=== PATIENT | female | born 2000 | race Caucasian/White ===

== ENCOUNTER 2024-01-21 17:34 | Emergency (ER) | payer OTHER, SELFPAY ==
[2024-01-21 17:37] VITALS: BP 124/76; PULSE 78; RESP 18; TEMP 36.6; O2SAT 100; BMI 24.2
--- NOTE | 2024-01-21 17:44 | CT_ITS ---
The [address] [address] Patient Name: ALYSON BASURTO MRN: [id number] date: 2000 Sex: F Assigned Patient Location: ED.MAIN Current Patient Location: Accession/Order Number: [id number] Exam Date: 01/21/2024 18:45 Report Date: 01/21/2024 20:05 At the request of: NAVID UP Procedure: CT abdomen pelvis wo con EXAM: CT abdomen pelvis wo con HISTORY: Kidney stone COMPARISON: CT abdomen pelvis 07/03/2022 TECHNIQUE: Unenhanced axial CT of the abdomen and pelvis was performed with coronal and sagittal reformats provided. FINDINGS: Lung bases: Clear. ABDOMEN: Liver: Normal. Gallbladder/biliary: Status post cholecystectomy. Pancreas: Normal. Spleen: Normal. Adrenals: Normal. Kidneys, ureters and urinary bladder: Normal. Pelvis: Retroverted uterus. No adnexal masses. Vasculature: Normal caliber of the abdominal aorta. Hollow viscera/retroperitoneum: Normal appearance of the gastroesophageal junction. Small bowel is normal caliber. Appendix is normal. No focal colonic wall thickening. No mesenteric or pelvic lymphadenopathy. Trace free fluid in the pelvis. No intra-abdominal free air. Musculoskeletal/soft tissues: Periumbilical fat-containing hernia with a fascial defect measuring 8 mm. No acute or aggressive osseous abnormalities. Prominent Schmorl's node at the inferior endplate of L3. CT/CT abdomen pelvis wo con IMPRESSION: No acute intra-abdominal or pelvic abnormality. No nephrolithiasis or obstructing stones. Electronically authenticated by: PAM VEGA Date: 01/21/2024 20:05
--- NOTE | 2024-01-21 17:55 | ED_ITS ---
HPI - General Adult General Chief complaint: Abdominal Pain Stated complaint: LOWER BACK PAIN Time Seen by Provider: 01/21/24 17:36 History of Present Illness HPI narrative: Patient is a 23-year-old female who presents to the emergency department for bilateral flank pain and pelvic pressure with urination that began yesterday. She was seen by her PCP office and her urine was negative, per the patient although she was prescribed Bactrim for an unknown reason. She has had no fevers, chills. She reports nausea with no vomiting. She states she noticed blood in her urine today. She is not concerned for . No medications taken prior to arrival today for pain. Related Data Previous Rx's Medication Instructions Recorded ketorolac 10 mg tablet 10 mg PO TID PRN pain #10 tabs 01/21/24 ondansetron 4 mg disintegrating 4 mg PO Q6H PRN nausea and 01/21/24 tablet vomiting #12 tabs Allergies Allergy/AdvReac Type Severity Reaction Status Date / Time No Known Drug Allergies Allergy Verified 01/21/24 17:37 Review of Systems ROS Constitutional Denies: fever or chills Ears, nose, mouth, and throat Denies: throat pain or nasal congestion Cardiovascular Denies: chest pain Respiratory Denies: shortness of breath or cough Gastrointestinal Reports: nausea; Denies: vomiting or diarrhea Genitourinary Reports: painful urination and pelvic pain Musculoskeletal Reports: back pain; Denies: neck pain Integumentary/Breast Denies: rash Neurological Denies: headache Hematologic/Lymphatic Denies: easy bruising or easy bleeding [facility] Social History Smoking status: Light tobacco smoker Exam Narrative Exam Narrative: Gen.: Awake, alert, in no distress Head: Normocephalic, atraumatic ENT: Moist mucous membranes Respiratory: No respiratory distress, lungs clear bilaterally Cardio: Regular rate and rhythm Gastrointestinal: Abdomen is soft, nondistended and nontender to palpation Back: No CVA tenderness Extremities: Moves extremities equally Psych: Normal mood and affect Neuro: No focal neuro deficit Skin: Warm, dry, intact Constitutional Vital Signs, click to edit/add: Last Vital Signs Temp 97.9 F 01/21/24 17:37 Pulse 78 01/21/24 17:37 Resp 18 01/21/24 17:37 BP 124/76 01/21/24 17:37 Pulse Ox 100 01/21/24 17:37 O2 Del Method Room Air 01/21/24 17:37 Course Vital Signs Vital signs: Vital Signs Temperature 97.9 F 01/21/24 17:37 Pulse Rate 78 01/21/24 17:37 Respiratory Rate 18 01/21/24 17:37 Blood Pressure 124/76 01/21/24 17:37 Pulse Oximetry 100 01/21/24 17:37 Oxygen Delivery Method Room Air 01/21/24 17:37 Temperature 97.9 F 01/21/24 17:37 Pulse Rate 78 01/21/24 17:37 Respiratory Rate 18 01/21/24 17:37 Blood Pressure 124/76 01/21/24 17:37 Pulse Oximetry 100 01/21/24 17:37 Oxygen Delivery Method Room Air 01/21/24 17:37 Medical Decision Making MDM Narrative Medical decision making narrative: Lab studies within normal limits, urine specimen with mild urinary tract infection. Patient given IV fluids, Toradol, Zofran in the ER and discharged home to continue her Bactrim, she is given Toradol and Zofran as needed for comfort. Follow-up with PCP. CT scan with no evidence of acute abnormalities. Return to the ER if symptoms change or worsen Medical Records Medical records reviewed: Yes I reviewed the patient's medical records Lab Data Lab results reviewed: Yes I reviewed the patient's lab results Labs: Lab Results 01/21/24 01/21/24 Range/Units 17:44 18:00 WBC 6.0 (4.0-11.0) 10^3/uL RBC 4.06 L (4.20-5.40) 10^6/uL Hgb 12.2 (12.0-16.0) g/dL Hct 35.7 L (36.0-48.0) % MCV 87.9 (81.0-99.0) fL MCH 30.0 (26.7-34.0) pg MCHC 34.2 (29.9-35.2) g/dL RDW 12.1 (11.0-15.0) % Plt Count 205 (150-450) 10^3/uL MPV 9.8 (9.5-13.5) fL Neut % (Auto) 58.4 (43.0-75.0) % Lymph % (Auto) 31.1 (20.5-60.0) % [place] % (Auto) 6.5 (1.7-12.0) % Eos % (Auto) 2.7 (0.9-7.0) % Baso % (Auto) 1.0 (0.2-2.0) % Neut # (Auto) 3.5 (1.4-6.5) 10^3/uL Lymph # (Auto) 1.9 (1.2-3.8) 10^3/uL [place] # (Auto) 0.4 (0.3-0.8) 10^3/uL Eos # (Auto) 0.2 (0.0-0.7) 10^3/uL Baso # (Auto) 0.1 (0.0-0.1) 10^3/uL Abs Immat Gran (auto) 0.02 (0.00-0.03) 10^3/uL Imm/Tot Granulo (auto) 0.3 (0.0-0.5) % Sodium 139 (136-145) mmol/L Potassium 3.6 (3.5-5.1) mmol/L Chloride 102 (98-107) mmol/L Carbon Dioxide 29.0 (21.0-32.0) mmol/L Anion Gap 11.6 BUN 12.0 (7.0-18.0) mg/dL Creatinine 0.85 (0.55-1.02) mg/dL Est GFR ( Amer) >60 (>=60) Est GFR (Non-Af Amer) >60 (>=60) BUN/Creatinine Ratio 14.1 Glucose 72 L (74-106) mg/dL Calcium 8.8 (8.5-10.1) mg/dL Total Bilirubin 0.7 (0.2-1.0) mg/dL AST 17 (15-37) U/L ALT 20 (14-59) U/L Alkaline Phosphatase 100 (46-116) U/L Total Protein 7.9 (6.4-8.2) g/dL Albumin 4.1 (3.4-5.0) g/dL Globulin 3.8 g/dL Albumin/Globulin Ratio 1.1 Urine Color Lt. yellow (YELLOW) Urine Clarity Clear (CLEAR) Urine pH 7.0 (5.0-9.0) Ur Specific [place] 1.010 (1.005-1.025) Urine Protein Negative (NEG/TRACE) mg/dL Urine Glucose (UA) Negative (NEGATIVE) mg/dL Urine Ketones Negative (NEGATIVE) mg/dL Urine Occult Blood Small A (NEGATIVE) Urine Nitrite Negative (NEGATIVE) Urine Bilirubin Negative (NEGATIVE) Urine Urobilinogen 0.2 (0.2-1.0) EU/dL Ur Leukocyte Esterase Small A (NEGATIVE) Urine RBC 2-5 A (0-2) #/HPF Urine WBC 5-10 A (NONE SEEN) #/HPF Ur Squamous Epith Cells Few A (NONE/RARE) #/LPF Urine Crystals None seen (None Seen) #/HPF Urine Bacteria Small A (NONE SEEN) #/HPF Urine Casts None seen (NONE SEEN) #/LPF Urine Mucus None seen (NONE SEEN) Ur Culture Indicated? Yes Urine HCG, Qual Negative (NEGATIVE) Imaging Data CT scan - abdomen: Attestation: I have reviewed the pertinent imaging results. Radiologist's impression: ITS Impressions Abdomen/Pelvis CT 01/21/24 17:44 IMPRESSION: No acute intra-abdominal or pelvic abnormality. No nephrolithiasis or obstructing stones. Electronically authenticated by: PAM VEGA Date: 01/21/2024 20:05 Discharge Plan Discharge Chief Complaint: Abdominal Pain Clinical Impression: UTI (urinary tract infection), Abdominal pain Patient Disposition: Home, Self-Care Time of Disposition Decision: 20:14 Condition: Good Prescriptions / Home Meds: New ketorolac 10 mg tablet 10 mg PO TID PRN (Reason: pain) Qty: 10 0RF ondansetron 4 mg tablet,disintegrating 4 mg PO Q6H PRN (Reason: nausea and vomiting) Qty: 12 0RF Instructions: Urinary Tract Infection in Women (ED), Pelvic Pain (ED) Referrals: Physician,Non-Staff, [Physician] - 1 week Discharge Date/Time: 01/21/24 20:23 Stand Alone Forms: Portal Instructions
[2024-01-21 18:07] LABS: Bilirubin Urine NEGATIVE (NEGATIVE); Blood Urine SMALL (NEGATIVE); Clarity Urine CLEAR (CLEAR); Color Urine LT. YELLOW (YELLOW); Glucose Urine UA NEGATIVE (NEGATIVE); Ketones Urine NEGATIVE (NEGATIVE); Leukocyte Esterase Urine SMALL (NEGATIVE); Nitrite Urine NEGATIVE (NEGATIVE); Protein Urine NEGATIVE (NEG/TRACE); Urobilinogen Urine 0.2 EU/dL (0.2-1.0)
[2024-01-21 18:08] LABS: Urine Microscopic Indicated YES
[2024-01-21] MEDS: 0.9 % SODIUM CHLORIDE 1,000 ML 999 ML IV (18:09)
[2024-01-21] MEDS: ONDANSETRON PF 4 MG/2 ML VIAL IV (18:09)
[2024-01-21] MEDS: KETOROLAC TROMETHAMINE 30 MG/ML VIAL IVP (18:09)
[2024-01-21 18:10] LABS: HCG Qualitative Urine* NEGATIVE (NEGATIVE)
[2024-01-21 18:13] LABS: Basophils Absolute Auto 0.1 10^3/uL (0.0-0.1); Eosinophils Absolute Auto 0.2 10^3/uL (0.0-0.7); Eosinophils Percent Auto 2.7 % (0.9-7.0); Hematocrit 35.7 % (36.0-48.0); Hemoglobin 12.2 g/dL (12.0-16.0); Immature Granulocytes Abs Auto 0.02 10^3/uL (0.00-0.03); Immature Granulocytes Pct Auto 0.3 % (0.0-0.5); Lymphocytes Absolute Auto 1.9 10^3/uL (1.2-3.8); Lymphocytes Percent Auto 31.1 % (20.5-60.0); Mean Corpuscular HGB Conc 34.2 g/dL (29.9-35.2); Mean Corpuscular Volume 87.9 fL (81.0-99.0); Mean Platelet Volume 9.8 fL (9.5-13.5); Monocytes Absolute Auto 0.4 10^3/uL (0.3-0.8); Monocytes Percent Auto 6.5 % (1.7-12.0); Neutrophils Absolute Auto 3.5 10^3/uL (1.4-6.5); Neutrophils Percent Auto 58.4 % (43.0-75.0); Platelet Count 205 10^3/uL (150-450); Red Blood Count 4.06 10^6/uL (4.20-5.40); Red Cell Distribution Width 12.1 % (11.0-15.0)
[2024-01-21 18:21] LABS: Bacteria Urine SMALL #/HPF (NONE SEEN); Mucus Urine NONE SEEN (NONE SEEN); Squamous Epithelial Cell Urine FEW #/LPF (NONE/RARE)
[2024-01-21 18:22] LABS: Cast Seen? NONE SEEN #/LPF (NONE SEEN); Crystals Seen? None Seen #/HPF (None Seen); Urine Culture Indicated YES
[2024-01-21 18:23] LABS: Alanine Aminotransferase 20 U/L (14-59); Albumin Globulin Ratio 1.1; Albumin Level 4.1 g/dL (3.4-5.0); Alkaline Phosphatase 100 U/L (46-116); Anion Gap 11.6; Aspartate Amino Transferase 17 U/L (15-37); BUN Creatinine Ratio 14.1; Bilirubin Total 0.7 mg/dL (0.2-1.0); Calcium 8.8 mg/dL (8.5-10.1); Chloride 102 mmol/L (98-107); Estimated GFR (African America >60 (>=60); Estimated GFR (Non-African Ame >60 (>=60); Globulin 3.8 g/dL; Glucose 72 mg/dL (74-106); Potassium 3.6 mmol/L (3.5-5.1); Sodium 139 mmol/L (136-145); Total Protein 7.9 g/dL (6.4-8.2)
== END 2024-01-21 20:23 | disposition home or self-care (01) ==
PROVIDERS: Physician Assistant; Emergency Provider Emergency Medicine; PCP Family Medicine
DX: N39.0 Urinary tract infection, site not specified (principal); R10.9 Unspecified abdominal pain; F17.210 Nicotine dependence, cigarettes, uncomplicated
CPT/HCPCS: 36415; 74176; 80053; 81001; 83605; 84703; 85025; 87086; 96374; 96375; 99285

== ENCOUNTER 2024-07-18 11:34 | Outpatient (OUT) | payer OTHER, SELFPAY ==
[2024-07-18 12:20] LABS: Basophils Absolute Auto 0.1 10^3/uL (0.0-0.1); Basophils Percent Auto 1.2 % (0.2-2.0); Eosinophils Absolute Auto 0.1 10^3/uL (0.0-0.7); Eosinophils Percent Auto 2.2 % (0.9-7.0); Hemoglobin 12.3 g/dL (12.0-16.0); Lymphocytes Absolute Auto 1.3 10^3/uL (1.2-3.8); Lymphocytes Percent Auto 31.7 % (20.5-60.0); Mean Corpuscular HGB Conc 35.1 g/dL (29.9-35.2); Mean Corpuscular Hemoglobin 31.5 pg (26.7-34.0); Mean Corpuscular Volume 89.5 fL (81.0-99.0); Mean Platelet Volume 9.7 fL (9.5-13.5); Monocytes Absolute Auto 0.3 10^3/uL (0.3-0.8); Monocytes Percent Auto 8.4 % (1.7-12.0); Neutrophils Absolute Auto 2.3 10^3/uL (1.4-6.5); Neutrophils Percent Auto 56.5 % (43.0-75.0); Platelet Count 232 10^3/uL (150-450); Red Blood Count 3.91 10^6/uL (4.20-5.40); Red Cell Distribution Width 11.6 % (11.0-15.0)
[2024-07-18 12:55] LABS: Alanine Aminotransferase 12 U/L (14-59); Albumin Globulin Ratio 1.1; Albumin Level 3.9 g/dL (3.4-5.0); Alkaline Phosphatase 75 U/L (46-116); Anion Gap 11.9; Aspartate Amino Transferase 11 U/L (15-37); BUN Creatinine Ratio 6.9; Bilirubin Total 0.7 mg/dL (0.2-1.0); Calcium 8.6 mg/dL (8.5-10.1); Carbon Dioxide 27.8 mmol/L (21.0-32.0); Chloride 103 mmol/L (98-107); Estimated GFR (African America >60 (>=60); Estimated GFR (Non-African Ame >60 (>=60); Globulin 3.4 g/dL; Glucose 88 mg/dL (74-106); Potassium 3.7 mmol/L (3.5-5.1); Sodium 139 mmol/L (136-145); TSH W/ REFLEX FT4 1.354 uIU/mL (0.358-3.740); Total Protein 7.3 g/dL (6.4-8.2)
== END 2024-07-18 11:35 | disposition home or self-care (01) ==
PROVIDERS: PCP Family Medicine; Visit Provider Family Medicine
DX: R10.9 Unspecified abdominal pain (principal); R53.83 Other fatigue
CPT/HCPCS: 36415; 80053; 83690; 84443; 85025

== ENCOUNTER 2024-08-15 08:13 | Outpatient (OUT) | payer OTHER, SELFPAY ==
--- NOTE | 2024-08-15 08:18 | CT_ITS ---
The [address] [address] Patient Name: ALYSON BASURTO MRN: [id number] date: 2000 Sex: F Assigned Patient Location: CT Current Patient Location: CT Accession/Order Number: [id number] Exam Date: 08/15/2024 09:20 Report Date: 08/15/2024 10:10 At the request of: KYAW ROCHA Procedure: CT abdomen pelvis w con EXAM: CT abdomen pelvis w con HISTORY: Abdominal Pain, Fatigue COMPARISON: CT abdomen pelvis 01/21/2024.. TECHNIQUE: Following the intravenous administration of 100 mL of Omnipaque 350, axial soft tissue windows of the abdomen and pelvis were performed with coronal and sagittal reformats. CT dose reduction technique was used including Automated Exposure Control. Findings: ABDOMEN: The liver, spleen, pancreas, and adrenal glands are unremarkable. The gallbladder is surgically absent. Minimal left and mild right renal collecting system dilatation. No renal stones. The right ureter is mildly dilated. No ureteral stone. The bowel is unremarkable without evidence of wall thickening or reduction. The appendix is nondilated. The aorta is normal caliber. No enlarged abdominal lymph nodes or free abdominal fluid. Small fat-containing umbilicus hernia. Pelvis: Unremarkable bladder. The uterus is present and retroverted. There is irregularly-shaped rim-enhancing low-attenuation lesion within the right adnexa likely relating to an involuting ovarian cyst. This measures approximately 2.0 cm. Small amount of free fluid within the pelvis. No enlarged pelvic lymph nodes. No aggressive sclerotic or lytic osseous lesions. CT/CT abdomen pelvis w con IMPRESSION: 1. Probable involuting right ovarian cyst with a small amount of free fluid within the pelvis. 2. Minimal left and mild right renal collecting system dilatation. Findings may be physiologic, relate to obstruction or possibly reflux. Electronically authenticated by: HEMA MOURA Date: 08/15/2024 10:10
--- OUTSIDE RECORDS SUMMARY | 2024-08-15 08:19 | XMS_ITS | CCD ---
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 Unavailable Unavailable Cammy, Yaa L. Unavailable Unavailable Cammy, Yaa L. Unavailable Unavailable Cammy, Yaa LZay Unavailable Unavailable Cammy, Yaa LZay Unavailable Unavailable Unavailable Primary Care Provider UnavailNatty Barlow Primary Care Provider Unava ilable Natty Chew Primary Care Provider KYAW ROCHA Primary Care Unavailable FREDERICK HINES Referring UnavailFREDERICK Skelton Referring UnavailNATTY Barlow Primary Care Unavailable FREDERICK HINES Referring UnavailNATTY Barlow Primary Care Unavailable Natty Chew MD Primary Care Provide r Torsten Borja Unavailable Kyaw Rocha MD Primary Care Provider [phone] MD Kyaw Rocha Primary Care Provider [phone] DO Nicole Palacios Attending Provider DO Valeriano March Jr Attending Provider [phone] Emily Oliveros Unavailable DO Joshua Moran Emergency Provider DO Demar Jean Baptiste Emergency Provider Kyaw Rocha Unavailable Torsten Borja Unavailable Kyaw Rocha MD Primary Care Provider [phone] HARITHA FUNG Attending Unavailable KYAW ROCHA Referring Unavailable KYAW ROCHA Primary Care Unavailable NATTY CHEW Primary Care Unavail able HARITHA FUNG Referring Unavailable JUMARY, [facility] Primary Care Unavail able HARITHA FUNG Attending Unavailable KYAW ROCHA Primary Care Unavailable Aj, Dr. Kyaw Ruiz Primary Care Unav ailable JERRY, Dr. ZAHRA CORDOBA Attending Unavailable Aj, Dr. Kyaw Ruiz Referring Unav Kyaw Glez MD Primary Care Provider HARITHA FUNG Referring Unavailable JUWARKAR, [facility] Primary Care Unavail able NATAPRAWI, NICOLE Referring Unavailable KYAW ROCHA Primary Care Unavailable JERRY ANTONIO Attending Unavailable PROVIDER, [employer] Referring Unav ailable KYAW ROCHA Primary Care Unavailable PACO JERRY Attending Unavailable KYAW ROCHA Primary Care Unavailable SUBHAS, JOSÉ Admitting Unavailable SUBHAS, JOSÉ Attending Unavailable NAINA, [facility] Primary Care Unavail able SUBHAS, JOSÉ Admitting Unavailable SUBHAS, JOSÉ Attending Unavailable KYAW ROCHA Primary Care Unavailable DIANE CHASE Attending Unavailable JUMARY, [facility] Primary Care Unavail able MD Kyaw Rocha Primary Care Provider DO Nicole Palacios Referring Provider DO Jeff Hickman Attending Provider NatDO Nicole moran Attending Provider ALPESH ., SHONNA Admitting Unavailable ALPESH Collazo, SHONNA Attending Unavailable ALPESH Collazo, SHONNA Consulting Unavailable AJ, DR KYAW Gill Primary Care Unavailable AMMON ., DR OSULLIVAN Attending Unavailjonatan e KARTOMAK ., DR OSULLIVAN Consulting Unavailjonatan ROCHA, DR KYAW Gill Primary Care Unavailable KARCHECO ., DR OSULLIVAN Admitting UnavailJORDAN Contreras Admitting Unavailable JORDAN WOODS Attending Unavailable JORDAN WOODS Consulting Unavailable AJ, DR KYAW Gill Primary Care Unavailable NALINI, DR MARLENY Hu Admitting Unavailable NALINI, DR MARLENY Hu Attending Unavailable NALINI, DR MARLENY Hu Consulting Unavailable AJ, DR KYAW Gill Primary Care Unavailable MERY CABRERA Consulting Unavailable BREANA COUCH Consulting Unavailable MD Kyaw Rocha Primary Care Provider Suzanne DO Nicole Referring Provider DO Jeff Hickman Attending Provider DO Nicole Palacios Attending Provider MD Palomo Pretty Attending Provider MD Marjorie Burch Admit Provider [phone] MD Marjorie Burch Attending Provider [phone] MD Triny Carlisle Attending Provider Triny Carlisle Admitting Unavailable Triny Carlisle Attending Unavailable Kyaw Rocha Primary Care Unavailable Kyaw Rocha Primary Care Unavailable Marjorie Burch Admitting Unavailable Marjorie Burch Attending Unavailable Jeff Hickman Attending Unavailable Kyaw Rocha Primary Care Unavailable Jeff Hickman Admitting Unavailable Suzanne, Nicole Referring Unavailable Kyaw Rocha Primary Care Unavailable Natdean, Nicole Admitting Unavailable Nicole Palacios Attending Unavailable Kyaw Rocha Primary Care Unavailable Palomo Pretty Admitting Unavailable Palomo Pretty Attending Unavailable Natfifira, Nicole Admitting Unavailable Natdean, Nicole Attending Unavailable Allergies Allergy Classification Reported Allergen(s) Allergy Type Date of Onset Reaction(s) Facility (20 sources) Acetaminophen / HYDROcodone; Translations: [HYDROCODONE-ACETA MINOPHEN] Drug Allergy 6 Mental Status Change ethority Phone: Medications Current Medications Medication Drug Class(es) Dates Sig (Normalized) Sig (Original) betamethasone 0.5 mg/ml / clotrimazole 10 mg/ml topical cream (3 sources) Azole Antifungal, Corticosteroid Start: 12-03-2020 clotrimazole-betame thasone (LOTRISONE) 1-0.05 % cream Indications: Vulvar irritation Apply topically 2 times daily. 1 Tube 1 12/03/2020 Active cholecalciferol 0.01 mg oral capsule (1 source) Vitamin D Start: 08-07-2022 End: 09-05-2022 take 1 capsule by mouth once daily at mealtime cholecalciferol 400 intl units (10 mcg) oral capsule ; 1 cap(s) orally once a day Quantity: 30 Refills: 0 Ordered: 07-Aug-2022 Thi Caceres Start: 07-Aug-2022 End: 05-Sep-2022 Generic Substitution Allowed Comments: Take with food. Comment on above: Take with food. dicyclomine hydrochloride 10 mg oral capsule (2 sources) Anticholinergic Start: 09-04-2020 End: 09-11-2020 dicyclomine (BENTYL) capsule 10 mg drospirenone 3 mg / ethinyl estradiol 0.03 mg oral tablet (3 sources) Progestin, Estrogen Start: 10-29-2020 take 1 tablet by mouth once daily drospirenone-ethiny l estradiol (LANE 28) 3-0.03 MG TABS Indications: Irregular menses Take 1 tablet by mouth daily 1 packet 3 10/29/2020 Active DULoxetine 30 mg delayed release oral capsule (13 sources) Serotonin and Norepinephrine Reuptake Inhibitor Start: 12-29-2021 take 1 capsule by mouth every twenty-four hours DULoxetine HCl 30 MG 1 capsule Orally Once a day for 30 days Dec, Active take 1 capsule by mouth once thor ly DULoxetine (CYMBALTA) 60 mg capsule Take 60 mg by mouth once daily. 0 Active take 1 capsule by [facility] every twelve hours DULoxetine HCl 60 MG 1 capsule Orally Tw ice a day for 30 days Active Comment on above: Take 60 mg by mouth once daily. ethinyl estradiol 0.035 mg / norgestimate 0.25 mg oral tablet (2 sources) Progestin, Estrogen Start: 06-25-20 19 take 1 tablet by mouth once daily CJ 0.25-35 MG-MCG per tablet Indications: care and examination TAKE 1 TABLET BY MOUTH DAILY 84 tablet 3 06/25/2019 Active fluconazole 150 mg oral tablet (2 sources) Azole Antifungal Start: 12-04-19 21 fluconazole (DIFLUCAN) 150 MG tablet Indications: Yeast vaginitis Take 1 tablet daily for 3 days. 3 tablet 0 12/04/2020 Active gabapentin 300 mg oral capsule (1 source) Anti-epileptic Agent take 1 capsule by mouth every eight hours Gabapentin 300 MG 1 capsule Orally three times a day Active levonorgestrel 0.782892 mg/hr intrauterine system (5 sources) Progestin, Progestin-containing Intrauterine Device Start: 01-23-20 20 levonorgestrel (MIRENA) IUD 52 mg 1 each lidocaine 0.05 mg/mg medicated patch (18 sources) Antiarrhythmic, Amide Local Anesthetic Start: 07-16-20 Lidocaine Active 1 PATCH TOPICAL Daily 2024 12:00am FreeTextSi patch remove after 12 hours Externally Once a day; Note: Source Status: Not-Taking\PRN; Provider: Huong Sarmiento ( ) Start: 05-08-2020 Lidocaine 18 J 2019 1 mL Lidocaine 5 % 1 patch remove after 12 hours Externally Once a day Not-Taking LORazepam 0.5 mg oral tablet (16 sources) Benzodiazepine Start: 10-01-2021 take 1 tablet by mouth every twenty-four hours Ativan 0.5 MG 1 tablet as needed Orally Once a day for 4 days f41.0 Sep, Active Start: 01-01-2020 LORazepam (ATI VAN) 0.5 MG tablet OLANZapine 5 mg oral tablet (7 sources) Atypical Antipsychotic take 2.5 mg by mouth once daily OLANZapine (ZYPREXA) 5 MG tablet Take 2.5 mg by mouth nightly 0 Active Complete with DHA oral capsule (1 source) Start: 08-07-20 End: 09-05-20 take 3 capsules by mouth once daily Complete with DHA oral capsule ; 3 cap(s) orally once a day Quantity: 90 Refills: 0 Ordered: 07-Aug-2022 Thi Caceres Start: 07-Aug-2022 End: 05-Sep-2022 Generic Substitution Allowed Vit-Fe Fumarate-FA ( VITAMIN PO) (2 sources) Vit-Fe Fumarate-FA ( VITAMIN PO) Take by mouth 0 Active Completed/Discontinued Medications Medication Drug Class(es) Dates Sig (Normalized) Sig (Original) acetaminophen 325 mg oral capsule (5 sources) Start: 01-06-2023 End: 05-17-2024 Acetaminophen (Tylenol) 325 mg Capsule Discontinued 1000 MG PO Every 6 hours January 06, 2023 1:00am May 17, 2024 3:31pm acetaminophen 325 mg / HYDROcodone bitartrate 5 mg oral tablet (13 sources) Opioid Agonist Start: 07-26-2021 End: 12-10-2021 take 1 tablet by mouth every eight hours Hydrocodone-Acetami nophen Discontinued 1 TAB PO Q8H 10 July 26, 2021 December 10, 2021 7:20pm acetaminophen 325 mg / oxyCODONE hydrochloride 5 mg oral tablet (10 sources) Opioid Agonist Start: 2024 End: 07-17-2024 take 1 tablet by mouth every six hours as needed Oxycodone-Acetamino phen Discontinued 1 TAB PO Every 6 hours 2024 12:00am July 17, 2024 1:48pm FreeTextSi tablet as needed Orally every 6 hrs; Note: Source Status: Not-Taking\PRNfor 5 days; Provider: Huong Sarmiento ( ) Start: 12-27-2021 take 1 tablet by james th every six hours Percocet 5-325 MG 1 tablet as needed Orally every 6 hrs for 5 days Dec, Not-Taking ARIPiprazole 5 mg oral tablet (20 sources) Atypical Antipsychotic Start: 2024 End: 07-17-2024 take 1 tablet by mouth once daily Aripiprazole Discontinued 1 TAB PO Daily 2024 12:00am July 17, 2024 1:49pm FreeTextSi tablet Orally Once a day; Note: Source Status: Takingqhs; Provider: Huong Sarmiento ( ) Start: 08-09-2022 End: 09-07-2022 take 1 tablet by mouth once daily ARIPiprazole 5 mg oral tablet ; 1 tab(s) orally once a day Quantity: 30 Refills: 0 Ordered: 09-Aug-2022 Wyatt Fernandez Start: 09-Aug-2022 End: 07-Sep-2022 Generic Substitution Allowed Start: 11-30-2021 take 2.5 mg by mouth every twenty-four hours ARIPiprazole (ABILIFY) 2 mg tablet Take 2.5 mg by mouth q 24 HR. 0 11/30/2021 Active Start: 11-30-2021 take 1 tablet by james th every twenty-four hours ARIPiprazole 2 MG 1 tablet Orally Once a day for 30 day(s) Nov, Active Start: 02-22-2020 take 1 tablet by james th once daily ARIPiprazole (ABILIFY) 15 mg tablet Take 1 tablet by mouth once daily. 0 02/22/2020 Active Start: 12-17-2019 ARIPiprazole ( ABILIFY) 15 MG tablet 5 mg 0 12/17/2019 Active Start: 12-17-2019 ARIPiprazole ( ABILIFY) 15 MG tablet Start: 10-01-2019 End: 08-04-2022 take 2 mg by mouth once daily Aripiprazole Discontinue d 2 MG PO Daily October 01, 2019 1:00am August 04, 2022 10:12am Comment on above: Take 1 tablet by james once daily. Take 2.5 mg by mouth q 24 HR. cefdinir 300 mg oral capsule (2 sources) Cephalosporin Antibacterial Start: 4 End: 4 take 300 mg by mouth twice daily Cefdinir Discontinued 300 MG PO Twice daily May 17, 2024 12:00am July 17, 2024 1:48pm cefTRIAXone (8 sources) Cephalosporin Antibacterial Start: 0 Rocephin 500 mg Apr, 500 mg cephalexin 500 mg oral capsule (20 sources) Cephalosporin Antibacterial Start: 2 End: 3 take 500 mg by mouth twice daily Cephalexin Discontinued 500 MG PO Twice daily 08 25August 04, 2022 12:00am January 04, 2023 4:34pm Start: 12-10-2021 End: 08-04-2022 take 500 mg by mouth every eight hours Cephalexin Discontinued 500 MG PO Q8H 21 7 December 10, 2021 1:00am August 04, 2022 10:12am Start: 12-17-2020 take 1 capsule by mo [facility] three times daily cephALEXin (KEFLEX) 500 MG capsule Indications: Abscess, Mesita's gland Take 1 capsule by mouth 3 times daily 21 capsule 0 12/17/2020 Active citalopram 20 mg oral tablet (15 sources) Serotonin Reuptake Inhibitor Start: 12-10-2021 End: 08-04-2022 take 20 mg by mouth once daily Citalopram Discontinued 20 MG PO Daily December 10, 2021 1:00am August 04, 2022 10:12am End: 01-05-2022 take 1 tablet by mouth every twenty-four hours CeleXA 10 MG 1 tablet Orally Once a day for 30 days Dec, Active cranberry preparation 400 mg oral capsule (12 sources) Non-Standardized Food Allergenic Extract, Non-Standardized Plant Allergenic Extract Start: 02-22-2020 take 1 capsule by mouth once daily Cranberry 400 mg cap Take 1 capsule by mouth once daily. 0 02/22/2020 Suspended Start: 02-22-2020 take 1 capsule by [facility] once daily Cranberry 400 mg cap Take 1 capsule by mouth once daily. 0 02/22/2020 Active Comment on above: Take 1 capsule by [facility] once daily. docusate sodium 100 mg oral capsule (3 sources) Start: End: take 1 capsule by mouth twice daily Docusate Sodium (Colace) 100 mg capsule Discontinued 100 MG PO Twice daily March 21, 2023 8:49am May 17, 2024 3:31pm hydrOXYzine hydrochloride 25 mg oral tablet (18 sources) Antihistamine Start: take 1 tablet by mouth every eight hours hydrOXYzine HCl 25 MG 1 tablet as needed Orally every 8 hrs for 30 day(s) Jul, Not-Taking ibuprofen 600 mg oral tablet (3 sources) Nonsteroidal Anti-inflammatory Drug Start: End: take 600 mg by mouth every six hours Ibuprofen Discontinued 600 MG PO Q6H March 21, 2023 12:00am May 17, 2024 3:31pm 24 hr metFORMIN hydrochloride 750 mg extended release oral tablet (15 sources) Biguanide Start: take 1 tablet by mouth once daily at breakfast metFORMIN ER (GLUCOPHAGE XR) 750 mg 24 hr tablet Take 1 tablet by mouth daily with breakfast. 90 tablet 3 10/28/2020 Active Comment on above: Take 1 tablet by [facility] daily with breakfast. 24 hr nicotine 0.875 mg/hr transdermal system (9 sources) Cholinergic Nicotinic Agonist Start: End: apply 1 dose transdermal route once daily Nicotine Discontinued 1 PATCH TRANSDERML Daily 2024 12:00am July 17, 2024 1:48pm FreeTextSi patch to skin Transdermal Once a day; Note: Source Status: Not-Taking\PRN; Refills: 0; Provider: Huong Sarmiento Nicotine Step 1 21 MG/24HR 1 patch to skin Transdermal Once a day for 30 day(s) Not-Taking ondansetron 4 mg disintegrating oral tablet (9 sources) Serotonin-3 Receptor Antagonist Start: 08-04-2022 End: 01-04-2023 take 4 mg by mouth every eight hours Ondansetron Discontinued 4 MG PO Q8H 10 2 August 04, 2022 12:00am January 04, 2023 4:34pm Start: 09-04-2020 End: 09-04-2020 ondansetron (ZOFRAN) injecti on 4 mg Start: 09-04-2020 take 1 tablet by james th every eight hours as needed for nausea ondansetron (ZOFRAN ODT) 4 MG disintegrating tablet Take 1 tablet by mouth every 8 hours as needed for Nausea 20 tablet 0 09/04/2020 Active Pnv #49-Ohnv-Eenen Acid-Omega3 (1 source) Start: 2024 End: 07-17-2024 Pnv #88-Pauw-Dlkhe Acid-Omega3 Discontinued CAP PO 2024 12:00am July 17, 2024 1:49pm Pnv Cmb#95-Ferrous Fumarate-Fa () 28 mg iron- 800 mcg Tablet (6 sources) Start: 01-04-2023 End: 05-17-2024 take 1 tablet by mouth once daily Pnv Cmb#95-Ferrous Fumarate-Fa () 28 mg iron- 800 mcg Tablet Discontinued 1 TAB PO Daily January 04, 2023 1:00am May 17, 2024 3:31pm Start: 01-04-2023 take 1 tablet by james th once daily Pnv Cmb#95-Ferrous Fumarate-Fa () 28 mg iron- 800 mcg Tablet Active 1 TAB PO Daily January 04, 2023 1:00am Start: 01-04-2023 take 1 tablet by james th once daily Pnv Cmb#95-Ferrous Fumarate-Fa () 28 mg iron- 800 mcg Tablet Active 1 TAB PO Daily January 04, 2023 12:00am Start: 01-04-2023 Pnv Cmb#95-Sanjay fadia Fumarate-Fa () 28 mg iron- 800 mcg Tablet Active TAB PO January 04, 2023 12:00am predniSONE 10 mg oral tablet (13 sources) Start: 07-26-2021 End: 12-10-2021 take 60 mg by mouth once daily, then take 40 mg by mouth once daily, then take 20 mg by mouth once daily, then take 10 mg by mouth once daily Prednisone Discontinued 10 MG PO Daily 39 July 26, 2021 12:00am December 10, 2021 7:20pm 60mg daily for three days, 40mg daily for three days, 20mg daily for three days, 10mg daily for three days. sertraline 50 mg oral tablet (20 sources) Serotonin Reuptake Inhibitor Start: 09-30-2022 sertraline (ZOLOFT) 50 mg tablet 50 mg. 0 09/30/2022 Active Start: 08-09-2022 take 1 tablet by james th once daily sertraline 50 mg oral tablet ; 1 tab(s) orally once a day Quantity: 0 Refills: 0 Ordered: 09-Aug-2022 Wyatt Fernandez Start: 09-Aug-2022 Generic Substitution Allowed Start: 08-04-2022 End: 05-17-2024 take 75 mg by mouth once daily Sertraline Discontinued 75 MG PO Daily August 04, 2022 12:00am May 17, 2024 3:31pm Start: 08-04-2022 take 25 mg by mouth once daily Sertraline Active 25 MG PO Daily August 04, 2022 12:00am Start: 02-22-2020 take 1.5 tablets by mouth once daily sertraline (ZOLOFT) 100 mg tablet Take 1.5 tablets by mouth once daily. 0 02/22/2020 Active Start: 10-01-2019 End: 12-10-2021 take 200 mg by mouth once daily Sertraline Discontinue d 200 MG PO Daily October 01, 2019 1:00am December 10, 2021 7:21pm Zoloft Quantity: 0 Refills: 0 Ordered: 06-Aug-2022 Elizabeth Romeo Status: Discontinued Generic Substitution Allowed take 2 tablets by mo uth once daily sertraline (ZOLOFT) 100 MG tablet Take 200 mg by mouth daily 0 Active Comment on above: Take 1.5 tablets by mouth once daily. 50 mg. 50 ml sodium chloride 9 mg/ml injection (1 source) Start: 09-04-20 End: 09-04-20 0.9 % sodium chloride bolus sulfamethoxazole 800 mg / trimethoprim 160 mg oral tablet (3 sources) Dihydrofolate Reductase Inhibitor Antibacterial, Sulfonamide Antimicrobial Start: 01-20-20 End: 05-17-20 take 1 tablet by mouth twice daily Sulfamethoxazole-Tr imethoprim Discontinued 1 TAB PO Twice daily January 20, 2024 1:00am May 17, 2024 3:30pm Start: 09-23-2020 End: 09-30-2020 take 1 tablet by mouth twice daily sulfamethoxazole-trimethoprim (BACTRIM DS;SEPTRA DS) 800-160 MG per tablet Indications: Boil of vulva Take 1 tablet by mouth 2 times daily for 7 days 14 tablet 0 09/23/2020 09/30/2020 Active traMADol hydrochloride 50 mg oral tablet (13 sources) Opioid Agonist Start: 10-01-2019 End: 12-10-2021 take 0.5-1 tablets by mouth every six hours as needed for pain Tramadol (Ultram) 50 mg tablet Discontinued 50 MG PO Q6H 30 October 01, 2019 1:00am December 10, 2021 7:21pm 1/2 - 1 tab po q 6 hours prn pain traZODone hydrochloride 50 mg oral tablet (19 sources) Serotonin Reuptake Inhibitor Start: 12-17-2019 take 1 tablet by mouth once daily at bedtime traZODone (DESYREL) 50 mg tablet Take 1 tablet by mouth daily at bedtime. 0 02/22/2020 Active Comment on above: Take 1 tablet by james th daily at bedtime. 24 hr venlafaxine 75 mg extended release oral capsule (20 sources) Serotonin and Norepinephrine Reuptake Inhibitor Start: 02-22-2020 take 1 capsule by mouth once daily venlafaxine ER (EFFEXOR XR) 75 mg 24 hr capsule Take 1 capsule by mouth once daily. 0 02/22/2020 Active take 1 tablet by mouth once jeanne y venlafaxine (EFFEXOR) 75 MG tablet Take 75 mg by mouth daily 0 Active Comment on above: Take 1 capsule by mo uth once daily. 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, aggressive type, unspecified] 08-07-2022 Chronic Early or threatened labor (14 sources) Premature uterine contraction; Translations: [False labor before 37 completed weeks of gestation, third trimester] Onset: 05-24-2019 Resolved: 05-25-2019 05-25-2019 Episodic Fever of unknown origin (1 source) Fever; Translations: [Fever, unspecified fever cause] Episodic Genitourinary symptoms and ill-defined conditions (1 source) Dysuria; Translations: [Dysuria] Episodic Inflammatory diseases of female pelvic organs (1 source) Furuncle of vulva; Translations: [Boil of vulva] Episodic Malaise and fatigue (1 source) Fatigue; Translations: [Other fatigue] 07-17-2024 Episodic Menstrual disorders (1 source) Menorrhagia; Translations: [Menorrhagia with regular cycle] Chronic Mood disorders (20 sources) Depressive disorder; Translations: [Moderate recurrent major depression] Onset: 01-02-2020 01-02-2020 Chronic Comment on above: DEPRESSION (ACUTE) Mood disorders (2 sources) Mood swings; Translations: [Emotional lability] 08-07-2022 Episodic Other bone disease and musculoskeletal deformities (2 sources) Disorder of bone; Translations: [Disorder of bone, unspecified] Episodic Other complications of (6 sources) Nausea and vomiting; Translations: [Vomiting of , unspecified] 08-04-2022 Episodic Other complications of (1 source) Other specified related conditions, second trimester; Translations: [Abdominal pain during in second trimester] Onset: 10-05-2022 Episodic Other complications of (2 sources) High risk ; Translations: [Supervision of other high risk pregnancies, second trimester] Episodic Other complications of (1 source) Supervision of with history of pre-term labor, third trimester; Translations: [SUP PREG W/HX PRE-TERM LABR 3RD TRI] Onset: 02-23-2023 Episodic Other complications of (1 source) Vomiting of , unspecified; Translations: [Nausea and vomiting during ] 08-04-2022 Episodic Other endocrine disorders (20 sources) Reactive hypoglycemia; Translations: [Other hypoglycemia] Onset: 10-30-2019 10-30-2019 Chronic Other female genital disorders (20 sources) Vaginal bleeding; Translations: [Abnormal uterine and vaginal bleeding, unspecified] 12-10-2021 Chronic Other female genital disorders (4 sources) Vaginal discharge; Translations: [Vaginal discharge] Episodic Other female genital disorders (1 source) Other specified noninflammatory disorders of vagina; Translations: [Vaginal discharge] Onset: 10-05-2022 Episodic Other female genital disorders (4 sources) History of past delivery; Translations: [Status post vaginal delivery] 03-21-2023 Episodic Other gastrointestinal disorders (3 sources) Irritable bowel syndrome; Translations: [Irritable bowel syndrome without diarrhea] Chronic Other nervous system disorders (2 sources) Other chronic pain; Translations: [Chronic bilateral low back pain without sciatica] Onset: 12-31-2021 Chronic Other and delivery including normal (20 sources) Delivery normal; Translations: [Encounter for full-term uncomplicated delivery] Onset: 10-23-2019 05-23-2019 Episodic Other upper respiratory infections (2 sources) Acute maxillary sinusitis; Translations: [Acute maxillary sinusitis, unspecified] 05-21-2024 Episodic Residual codes; unclassified (1 source) 33 weeks gestation of ; Translations: [33 WEEKS GESTATION OF ] Onset: 02-23-2023 Episodic Residual codes; unclassified (3 sources) Gestation period, 37 weeks; Translations: [37 weeks gestation of ] 03-19-2023 Episodic Spondylosis; intervertebral disc disorders; other back problems (10 sources) Displacement of lumbar intervertebral disc without myelopathy; Translations: [Other intervertebral disc displacement, lumbar region] Chronic Spondylosis; intervertebral disc disorders; other back problems (20 sources) Sacroiliac joint pain; Translations: [Sacrococcygeal disorders, not elsewhere classified] Onset: 12-30-2021 Episodic Unclassified (2 sources) Patient encounter status; Translations: [Encounter for test, result unknown] Unclassified (1 source) Cancer cervix screening status; Translations: [Screening for cervical cancer] Unclassified (5 sources) Unclassified (1 source) Violent behavior 08-07-2022 Unclassified (1 source) Severe episode of recurrent major depressive disorder, without psychotic features 08-07-2022 Unclassified (1 source) Vaginal yeast infection; Translations: [Vaginal yeast infection] Onset: 10-05-2022 Unclassified (2 sources) Chronic bilateral low back pain without sciatica; Translations: [Chronic bilateral low back pain without sciatica] Onset: 12-31-2021 Unclassified (1 source) Encounter for care and examination of lactating mother; Translations: [Encounter for care and examination of lactating mother] Onset: 03-25-2023 Unclassified (1 source) False labor at or after 37 completed weeks of gestation; Translations: [False labor at or after 37 completed weeks of gestation] Onset: 03-16-2023 Unclassified (1 source) Encounter for screening for Streptococcus B; Translations: [Encounter for screening for Streptococcus B] Onset: 03-02-2023 Unclassified (1 source) Other specified related conditions, third trimester; Translations: [Other specified related conditions, third trimester] Onset: 01-06-2023 Unclassified (1 source) Hemorrhage in early , unspecified; Translations: [Hemorrhage in early , unspecified] Onset: 01-04-2023 Urinary tract infections (14 sources) Abscess of urethral gland; Translations: [Urinary tract infectious disease] 12-10-2021 Episodic Past or Other Problems Problem Classification Problem Date Documented Da te Episodic/Chronic Diabetes or abnormal glucose tolerance complicating ; childbirth; or the puerperium (20 sources) Gestational diabetes mellitus; Translations: [History of gestational diabetes mellitus] Onset: 04-17-2019 04-17-2019 Episodic Headache; including migraine (12 sources) Headache; Translations: [Headache] Onset: 10-23-2019 10-24-2019 Episodic Nausea and vomiting (5 sources) Nausea, vomiting and diarrhea; Translations: [Nausea with vomiting, unspecified] Onset: 09-09-2022 Episodic Other bone disease and musculoskeletal deformities (3 sources) Disorder of bone, unspecified; Translations: [Disorder of bone and cartilage, unspecified] Onset: 04-15-2022 Episodic Other complications of (1 source) Other specified related conditions, first trimester; Translations: [OTH SPEC PREG RELATED COND 1ST TRI] Onset: 09-13-2022 Episodic Other female genital disorders (1 source) Vaginal odor; Translations: [Vaginal odor] Episodic Other gastrointestinal disorders (12 sources) Diarrhea; Translations: [Diarrhea, unspecified] Onset: 10-23-2019 10-24-2019 Episodic Other injuries and conditions due to external causes (1 source) Laceration - injury Onset: 04-13-2022 Episodic Other nervous system disorders (1 source) Paresthesia of skin; Translations: [Paresthesias] Onset: 12-30-2021 Episodic Other nervous system disorders (1 source) Other acute postprocedural pain; Translations: [OTHER ACUTE POSTPROCEDURAL PAIN] Onset: 07-06-2022 Episodic Other screening for suspected conditions (not mental disorders or infectious disease) (5 sources) Patient encounter status; Translations: [Encounter for other specified screening] Onset: 11-01-2022 Episodic Other skin disorders (12 sources) Night sweats; Translations: [Generalized hyperhidrosis] Onset: 10-23-2019 10-24-2019 Episodic Ovarian cyst (1 source) Unspecified ovarian cyst, unspecified side; Translations: [UNSPECIFIED OVARIAN CYST UNSP SIDE] Onset: 07-06-2022 Episodic Residual codes; unclassified (1 source) 11 weeks gestation of ; Translations: [11 WEEKS GESTATION OF ] Onset: 09-13-2022 Episodic Residual codes; unclassified (2 sources) 37 weeks gestation of ; Translations: [ state, incidental] Onset: 03-19-2023 03-21-2023 Episodic Residual codes; unclassified (1 source) 35 weeks gestation of ; Translations: [35 weeks gestation of ] Onset: 03-02-2023 Episodic Residual codes; unclassified (1 source) 25 weeks gestation of ; Translations: [25 weeks gestation of ] Onset: 01-04-2023 Episodic Screening and history of mental health and substance abuse codes (1 source) Personal history of nicotine dependence; Translations: [PERSONAL HISTORY OF NICOTINE DEPEND] Onset: 09-13-2022 Episodic Unclassified (1 source) Contact with and (suspected) exposure to covid-19 Z20.822 Onset: 07-03-2022 Resolved: 07-03-2022 Unclassified (1 source) PHYCH CHECK IN 08-07-2022 Comment on above: PHYCH CHECK IN Viral infection (1 source) COVID-19 Onset: 07-03-2022 Resolved: 07-03-2022 Results Test Name Value Interpretation Reference Range Facility Basophils Auto (Bld) [#/Vol] Ordered By: JHOAN Burch on 03-20-2023 Basophils (Bld) [#/Vol] 0.1 10*3/uL 0.0-0.2 [facility] Basophils/100 WBC Auto (Bld) Ordered By: VIV Burch on 03-20-2023 Basophils/100 WBC (Bld) 0.9 % . [facility] Complete Blood Count Auto Di ffon 03-20-2023 Basophils (Bld) [#/Vol] 0.1 10*3/uL Normal 0.0-0.2 [facility] Comment on above: Order Comment: Comme nt Draw at 630 am Result Comment: PERF ORMED BY: [place] [address] PATHOLOGIST ZIPPER SETTER CHAINSTITCH AGUEDA ROLLE M.D. Performed By: #### C BC #### [facility] [address] [place] [address] Basophils/100 WBC (Bld) 0.9 % Normal . [facility] Comment on above: Order Comment: Comme nt Draw at 630 am Performed By: #### C BC #### [facility] [address] [place] [address] Eosinophils (Bld) [#/Vol] 0.1 10*3/uL Normal 0.0-0.45 [facility] Comment on above: Order Comment: Comme nt Draw at 630 am Performed By: #### C BC #### [facility] [address] [place] [address] Eosinophils/100 WBC (Bld) 1.6 % Normal . [facility] Comment on above: Order Comment: Comme nt Draw at 630 am Performed By: #### C BC #### [facility] [address] [place] [address] Erythrocyte distribution width (RBC) [Ratio] 13.1 % Normal 11.9-15.3 [facility] Comment on above: Order Comment: Comme nt Draw at 630 am Performed By: #### C BC #### [facility] [address] [place] [address] Hematocrit (Bld) [Volume fraction] 26.7 % Low 34.0-46.4 [facility] Comment on above: Order Comment: Comme nt Draw at 630 am Performed By: #### C BC #### [address] Hemoglobin (Bld) [Mass/Vol] 9.4 g/dL Low 11.8-15.4 [facility] Comment on above: Order Comment: Comme nt Draw at 630 am Performed By: #### C BC #### [address] Lymphocytes (Bld) [#/Vol] 1.6 10*3/uL Normal 1.00-4.8 [facility] Comment on above: Order Comment: Comme nt Draw at 630 am Performed By: #### C BC #### [address] Lymphocytes/100 WBC (Bld) 21.2 % Normal . [facility] Comment on above: Order Comment: Comme nt Draw at 630 am Performed By: #### C BC #### [address] MCH (RBC) [Entitic mass] 31.6 pg Normal 24.7-34.3 [facility] Comment on above: Order Comment: Comme nt Draw at 630 am Performed By: #### C BC #### [address] MCV (RBC) [Entitic vol] 90.0 fL Normal 80-100 [facility] Comment on above: Order Comment: Comme nt Draw at 630 am Performed By: #### C BC #### [address] Mean Corpuscular HGB Conc 35.1 g/dL High 32.0-35.0 [facility] Comment on above: Order Comment: Comme nt Draw at 630 am Performed By: #### C BC #### [address] Monocytes (Bld) [#/Vol] 0.6 10*3/uL Normal 0.0-0.8 [facility] Comment on above: Order Comment: Comme nt Draw at 630 am Performed By: #### C BC #### [facility] [address] Monocytes/100 WBC (Bld) 7.1 % Normal . [facility] Comment on above: Order Comment: Comme nt Draw at 630 am Performed By: #### C BC #### [address] Neutrophils (Bld) [#/Vol] 5.4 10*3/uL Normal 1.8-7.7 [facility] Comment on above: Order Comment: Comme nt Draw at 630 am Performed By: #### C BC #### [address] Neutrophils/100 WBC (Bld) 69.2 % Normal . [facility] Comment on above: Order Comment: Comme nt Draw at 630 am Performed By: #### C BC #### [address] NRBC% 0.0 /100{WBC} Normal 0-0.5 [facility] Comment on above: Order Comment: Comme nt Draw at 630 am Performed By: #### C BC #### [address] Platelet mean volume (Bld) [Entitic vol] 6.9 fL Normal 6.3-10.7 [facility] Comment on above: Order Comment: Comme nt Draw at 630 am Performed By: #### C BC #### [address] Platelets (Bld) [#/Vol] 159 10*3/uL Normal 150-450 [facility] Comment on above: Order Comment: Comme nt Draw at 630 am Performed By: #### C BC #### [address] RBC (Bld) [#/Vol] 2.97 10*6/uL Low 3.60-5.[address] [facility] Comment on above: Order Comment: Comme nt Draw at 630 am Performed By: #### C BC #### [facility] [address] [place] [address] [place] WBC (Bld) [#/Vol] 7.8 10*3/uL Normal 3.8-11.6 [facility] Comment on above: Order Comment: Comme nt Draw at 630 am Performed By: #### C BC #### [facility] [address] Eosinophils Auto (Bld) [#/Vo l]Ordered By: VIV Burch on 03-20-2023 Eosinophils (Bld) [#/Vol] 0.1 10*3/uL 0.0-0.45 [facility] Eosinophils/100 WBC Auto (Bl d)Ordered By: VIV Burch on 03-20-2023 Eosinophils/100 WBC (Bld) 1.6 % . [facility] Erythrocyte distribution wid th Auto (RBC) [Ratio]Ordered By: VIV Burch on 03-20-2023 Erythrocyte distribution width (RBC) [Ratio] 13.1 % 11.9-15.3 [facility] Hematocrit Auto (Bld) [Volum e fraction]Ordered By: VIV Burch on 03-20-2023 Hematocrit (Bld) [Volume fraction] 26.7 % 34.0-46.4 [facility] Hemoglobin [Mass/volume] in BloodOrdered By: VIV Burch on 03-20-2023 Hemoglobin (Bld) [Mass/Vol] 9.4 g/dL 11.8-15.4 [facility] Leukocytes [#/volume] correc candy for nucleated erythrocytes in Blood by Automated counOrdered By: VIV Burch on 03-20-2023 WBC corrected for nucl RBC Auto (Bld) [#/Vol] 7.8 10*3/uL 3.8-11.6 [facility] Lymphocytes Auto (Bld) [#/Vo l]Ordered By: VIV Burch on 03-20-2023 Lymphocytes (Bld) [#/Vol] 1.6 10*3/uL 1.00-4.8 [facility] Lymphocytes/100 WBC Auto (Bl d)Ordered By: VIV Burch on 03-20-2023 Lymphocytes/100 WBC (Bld) 21.2 % . [facility] MCH Auto (RBC) [Entitic mass ]Ordered By: VIV Burch on 03-20-2023 MCH (RBC) [Entitic mass] 31.6 pg 24.7-34.3 [facility] MCHC Auto (RBC) [Mass/Vol]Or dered By: VIV Burch on 03-20-2023 MCHC (RBC) [Mass/Vol] 35.1 g/dL 32.0-35.0 [facility] MCV Auto (RBC) [Entitic vol] Ordered By: VIV Burch on 03-20-2023 MCV (RBC) [Entitic vol] 90.0 fL 80-100 [facility] Monocytes Auto (Bld) [#/Vol] Ordered By: VIV Burch on 03-20-2023 Monocytes (Bld) [#/Vol] 0.6 10*3/uL 0.0-0.8 [facility] Monocytes/100 WBC Auto (Bld) Ordered By: VIV Burch on 03-20-2023 Monocytes/100 WBC (Bld) 7.1 % . [facility] Neutrophils Auto (Bld) [#/Vo l]Ordered By: VIV Burch on 03-20-2023 Neutrophils (Bld) [#/Vol] 5.4 10*3/uL 1.8-7.7 [facility] Neutrophils/100 WBC Auto (Bl d)Ordered By: VIV Burch on 03-20-2023 Neutrophils/100 WBC (Bld) 69.2 % . [facility] Nucleated erythrocytes [Pres ence] in Blood by Automated countOrdered By: VIV Burch on 03-20-2023 Nucleated RBC Auto Ql (Bld) 0.0 /100{WBC} 0-0.5 [facility] Platelet mean volume Auto (B ld) [Entitic vol]Ordered By: VIV Burch on 03-20-2023 Platelet mean volume (Bld) [Entitic vol] 6.9 fL 6.3-10.7 [facility] Platelets Auto (Bld) [#/Vol] Ordered By: VIV Burch on 03-20-2023 Platelets (Bld) [#/Vol] 159 10*3/uL 150-450 [facility] RBC Auto (Bld) [#/Vol]Ordere d By: VIV Burch on 03-20-2023 RBC (Bld) [#/Vol] 2.97 10*6/uL 3.60-5.[address] [facility] WBC Auto (Bld) [#/Vol]Ordere d By: VIV Burch on 03-20-2023 WBC (Bld) [#/Vol] 7.8 10*3/uL 3.8-11.6 [facility] ABO/RH Typeon 03-19-2023 ABO and Rh group Nom (d) Blood group O Rh(D) positive Normal [facility] Comment on above: Result Comment: PERF ORMED BY: [place] [address] PATHOLOGIST ZIPPER SETTER CHAINSTITCH AGUEDA ROLLE M.D. Amnisure(Pamg-1)on Amnisure Negative Normal Negative [facility] Comment on above: Result Comment: PERF ORMED BY: [place] [address] PATHOLOGIST ZIPPER SETTER CHAINSTITCH AGUEDA ROLLE M.D. Performed By: #### A MNISURE- #### [address] Amphetamine Screen Ql (U)Ord ered By: VIV Burch on 03-19-2023 Amphetamines Ql (U) Negative Negative [facility] Automated erythrocytes count in urine sediment (number/area)Ordered By: VIV Burch on 03-19-2023 RBC Auto (Urine sed) [#/Area] 0-1 [HPF] 0-4 [facility] Automated leukocytes count i n urine sediment (number/area)Ordered By: VIV Burch on 03-19-2023 WBC Auto (Urine sed) [#/Area] 3-4 [HPF] 0-4 [facility] Barbiturates [Presence] in U rine by Screen methodOrdered By: VIV Burch on 03-19-2023 Barbiturates Screen Ql (U) Negative Negative [facility] Benzodiazepines Screen Ql (U )Ordered By: VIV Burch on 03-19-2023 Benzodiazepines Ql (U) Negative Negative [facility] Benzoylecgonine [Presence] i n Urine by Screen methodOrdered By: VIV Burch on 03-19-2023 Benzoylecgonine Screen Ql (U) Negative Negative [facility] Bilirubin Test strip Ql (U)O rdered By: VIV Burch on 03-19-2023 Bilirubin Ql (U) Negative Negative [facility] Color Auto (U)Ordered By: MD JHOAN Burch on 03-19-2023 Color (U) Yellow Yellow [facility] Complete Blood Count Auto Di ffon 03-19-2023 Basophils (Bld) [#/Vol] 0.1 10*3/uL Normal 0.0-0.2 [facility] Comment on above: Result Comment: PERF ORMED BY: [place] [address] PATHOLOGIST ZIPPER SETTER CHAINSTITCH AGUEDA ROLLE M.D. Performed By: #### R TX W RFX #### [facility] , #### CBC #### [facility] [address] [place] [address] [place] Basophils/100 WBC (Bld) 0.7 % Normal . [facility] Comment on above: Performed By: #### R TX W RFX #### [facility] , #### CBC #### [facility] [address] [place] [address] [place] Eosinophils (Bld) [#/Vol] 0.1 10*3/uL Normal 0.0-0.45 [facility] Comment on above: Performed By: #### R TX W RFX #### [facility] , #### CBC #### [address] Eosinophils/100 WBC (Bld) 0.8 % Normal . [facility] Comment on above: Performed By: #### R TX W RFX #### [facility] , #### CBC #### [address] Erythrocyte distribution width (RBC) [Ratio] 12.5 % Normal 11.9-15.3 [facility] Comment on above: Performed By: #### R TX W RFX #### [facility] , #### CBC #### [address] Hematocrit (Bld) [Volume fraction] 28.5 % Low 34.0-46.4 [facility] Comment on above: Performed By: #### R TX W RFX #### [facility] , #### CBC #### [address] Hemoglobin (Bld) [Mass/Vol] 10.1 g/dL Low 11.8-15.4 [facility] Comment on above: Performed By: #### R TX W RFX #### [facility] , #### CBC #### [facility] [address] [place] [address] Lymphocytes (Bld) [#/Vol] 1.4 10*3/uL Normal 1.00-4.8 [facility] Comment on above: Performed By: #### R TX W RFX #### [facility] , #### CBC #### [facility] [address] [place] [address] Lymphocytes/100 WBC (Bld) 16.5 % Normal . [facility] Comment on above: Performed By: #### R TX W RFX #### [facility] , #### CBC #### [facility] [address] [place] [address] MCH (RBC) [Entitic mass] 31.7 pg Normal 24.7-34.3 [facility] Comment on above: Performed By: #### R TX W RFX #### [facility] , #### CBC #### [facility] [address] [place] [address] MCV (RBC) [Entitic vol] 89.3 fL Normal 80-100 [facility] Comment on above: Performed By: #### R TX W RFX #### [facility] , #### CBC #### [address] Mean Corpuscular HGB Conc 35.5 g/dL High 32.0-35.0 [facility] Comment on above: Performed By: #### R TX W RFX #### [facility] , #### CBC #### [address] Monocytes (Bld) [#/Vol] 0.5 10*3/uL Normal 0.0-0.8 [facility] Comment on above: Performed By: #### R TX W RFX #### [facility] , #### CBC #### [facility] [address] [place] [address] Monocytes/100 WBC (Bld) 6.2 % Normal . [facility] Comment on above: Performed By: #### R TX W RFX #### [facility] , #### CBC #### [facility] [address] [place] [address] Neutrophils (Bld) [#/Vol] 6.4 10*3/uL Normal 1.8-7.7 [facility] Comment on above: Performed By: #### R TX W RFX #### [facility] , #### CBC #### [facility] [address] Neutrophils/100 WBC (Bld) 75.8 % Normal . [facility] Comment on above: Performed By: #### R TX W RFX #### [facility] , #### CBC #### [facility] [address] [place] [address] NRBC% 0.1 /100{WBC} Normal 0-0.5 [facility] Comment on above: Performed By: #### R TX W RFX #### [facility] , #### CBC #### [address] Platelet mean volume (Bld) [Entitic vol] 7.2 fL Normal 6.3-10.7 [facility] Comment on above: Performed By: #### R TX W RFX #### [facility] , #### CBC #### [facility] [address] [place] [address] Platelets (Bld) [#/Vol] 189 10*3/uL Normal 150-450 [facility] Comment on above: Performed By: #### R TX W RFX #### [facility] , #### CBC #### [facility] [address] [place] [address] RBC (Bld) [#/Vol] 3.19 10*6/uL Low 3.60-5.[address] [facility] Comment on above: Performed By: #### R TX W RFX #### [facility] , #### CBC #### [facility] [address] [place] [address] WBC (Bld) [#/Vol] 8.4 10*3/uL Normal 3.8-11.6 [facility] Comment on above: Performed By: #### R TX W RFX #### [facility] , #### CBC #### [place] [address] [place] Dipstick and Microscopicon 0 03-19-2023 Appearance (U) Clear Normal Clear [facility] Comment on above: Order Comment: Name Collection Type:: Clean-Voided Midstream Performed By: #### A DDONUAPLUS, OBUDS #### [place] [address] [place] Bacteria,Urine 1+ High None Seen [facility] Comment on above: Order Comment: Name Collection Type:: Clean-Voided Midstream Performed By: #### A DDONUAPLUS, OBUDS #### [place] [address] [place] Bilirubin,Urine Negative Normal Negative [facility] Comment on above: Order Comment: Name Collection Type:: Clean-Voided Midstream Performed By: #### A DDONUAPLUS, OBUDS #### [address] Color (U) Yellow Normal Yellow [facility] Comment on above: Order Comment: Name Collection Type:: Clean-Voided Midstream Performed By: #### A DDONUAPLUS, OBUDS #### [address] Glucose Ql (U) Normal Normal Normal [facility] Comment on above: Order Comment: Name Collection Type:: Clean-Voided Midstream Performed By: #### A DDONUAPLUS, OBUDS #### [place] [address] [place] Hyaline Casts,Urine 0-8 Normal 0-[address] [facility] Comment on above: Order Comment: Name Collection Type:: Clean-Voided Midstream Result Comment: PERF ORMED BY: [place] [address] PATHOLOGIST ZIPPER SETTER CHAINSTITCH AGUEDA ROLLE M.D. Performed By: #### A DDONUAPLUS, OBUDS #### [place] [address] [place] Ketones Ql (U) Negative Normal Negative [facility] Comment on above: Order Comment: Name Collection Type:: Clean-Voided Midstream Performed By: #### A ZAK OBRAÚLS #### [address] Leukocyte esterase Test strip Ql (U) 1+ High Negative [facility] Comment on above: Order Comment: Name Collection Type:: Clean-Voided Midstream Performed By: #### A ZAK OBUDS #### [place] [address] [place] Nitrite,Urine Negative Normal Negative [facility] Comment on above: Order Comment: Name Collection Type:: Clean-Voided Midstream Performed By: #### A ZAK OBUDS #### [address] Occult Blood,Urine Negative Normal Negative [facility] Comment on above: Order Comment: Name Collection Type:: Clean-Voided Midstream Result Comment: PERF ORMED BY: [place] [address] PATHOLOGIST ZIPPER SETTER CHAINSTITCH AGUEDA ROLLE M.D. Performed By: #### A ZAK OBUDS #### [address] pH (U) 6.5 [pH] Normal 5.0-9.0 [facility] Comment on above: Order Comment: Name Collection Type:: Clean-Voided Midstream Performed By: #### A ZAK OBUDS #### [place] [address] [place] Protein,Urine Negative Normal Negative [facility] Comment on above: Order Comment: Name Collection Type:: Clean-Voided Midstream Performed By: #### A ZAK OBUDS #### [place] [address] [place] RBC LM.HPF (Urine sed) [#/Area] 0 /[HPF] Normal 0-4 [facility] Comment on above: Order Comment: Name Collection Type:: Clean-Voided Midstream Performed By: #### A DDONUAPLUS, OBUDS #### [facility] [address] [place] [address] Specificy Currie,Urine 1.011 Normal 1.001-1.030 [facility] Comment on above: Order Comment: Name Collection Type:: Clean-Voided Midstream Performed By: #### A DDONUAPLUS, OBUDS #### [facility] [address] [place] [address] Squamous Epithelial Cell,Urine 3-4 High 0-2 [facility] Comment on above: Order Comment: Name Collection Type:: Clean-Voided Midstream Performed By: #### A DDONUAPLUS, OBUDS #### [address] Urobilinogen,Urine Normal Normal Normal [facility] Comment on above: Order Comment: Name Collection Type:: Clean-Voided Midstream Performed By: #### A DDONUAPLUS, OBUDS #### [address] WBC,Urine 3-4 Normal 0-4 [facility] Comment on above: Order Comment: Name Collection Type:: Clean-Voided Midstream Performed By: #### A DDONUAPLUS, OBUDS #### [address] Ketones Auto test strip (U) [Mass/Vol]Ordered By: VIV Burch on 03-19-2023 Ketones (U) [Mass/Vol] Negative Negative [facility] Laboratory - UrinalysisOrder ed By: VIV Burch on 03-19-2023 Hyaline casts LM Ql (Urine sed) 0-8 [LPF] 0-8 [facility] Nitrite Test strip Ql (U)Ord ered By: VIV Burch on 03-19-2023 Nitrite Ql (U) Negative Negative [facility] No Panel InformationOrdered By: VIV Burch on 03-19-2023 Membranes Rupture (PAMG-1) Negative Negative [facility] OB Urine Drug Screen (NO THC )on 03-19-2023 Amphetamine Screen,Urine Negative Normal Negative [facility] Comment on above: Performed By: #### A DDONUAPLUS, OBUDS #### [address] Barbiturate Screen,Urine Negative Normal Negative [facility] Comment on above: Performed By: #### A DDONUAPLUS, OBUDS #### [facility] [address] [place] [address] [place] Benzodiazepines Screen,Urine Negative Normal Negative [facility] Comment on above: Performed By: #### A DDONUAPLUS, OBUDS #### [address] Cocaine Screen,Urine Negative Normal Negative [facility] Comment on above: Performed By: #### A DDONUAPLUS, OBUDS #### [address] Opiate Screen,Urine Negative Normal Negative [facility] Comment on above: Performed By: #### A DDONUAPLUS, OBUDS #### [address] Phencyclidine Screen, Urine Negative Normal Negative [facility] Comment on above: Result Comment: Thes e are unconfirmed results and should not be used for legal purposes. Drug Cut-Off Concentration: AMPH 1000 ng/mL NATALIE 200 ng/mL DAVID 200 ng/mL COCM 300 ng/mL OP 300 ng/mL PCP 25 ng/mL PERFORMED BY: [place] [address] PATHOLOGIST ZIPPER SETTER CHAINSTITCH AGUEDA ROLLE M.D. Performed By: #### A DDONUAPLUS, OBUDS #### [address] Opiates [Presence] in Urine by Screen methodOrdered By: VIV Burch on 03-19-2023 Opiates Screen Ql (U) Negative Negative [facility] Phencyclidine Screen Ql (U)O rdered By: VIV Burch on 03-19-2023 Phencyclidine Ql (U) Negative Negative [facility] Comment on above: These are unconfirme d results and should not be used for legal purposes. Drug Cut-Off Concentration: AMPH 1000 ng/mL NATALIE 200 ng/mL DAVID 200 ng/mL COCM 300 ng/mL OP 300 ng/mL PCP 25 ng/mL Protein Auto test strip (U) [Mass/Vol]Ordered By: VIV Burch on 03-19-2023 Protein (U) [Mass/Vol] Negative Negative [facility] RPR w/rfx to Quant TP Abson 03-19-2023 RPR, Rfx Quant RPR Non-Reactive Normal Non Reactive [facility] Comment on above: Result Comment: Perf ormed at: - [facility] [address] [place], [place] [id number] Transportation Agent: Elmer Carlson PhD, Phone: [phone] PERFORMED BY: [place] [address] PATHOLOGIST ZIPPER SETTER CHAINSTITCH AGUEDA ROLLE M.D. Performed By: #### R TX W RFX #### [facility] , #### CBC #### [address] Reagin Ab [Presence] in Seru m by RPROrdered By: VIV Burch on 03-19-2023 Reagin Ab RPR Ql (S) Non-Reactive Non Reactive [facility] Comment on above: Performed at: - [facility] [id number] [place], [place] [id number] Director: Elmer Carlson PhD, Phone: [phone] Specific gravity Auto test s trip (U) [Rel density]Ordered By: VIV Burch on 03-19-2023 Specific gravity (U) [Rel density] 1.011 1.001-1.030 [facility] Squamous epithelial cells de tection in urine sediment by light microscopyOrdered By: VIV Burch on 03-19-2023 Epithelial cells.squamous LM Ql (Urine sed) 3-4 [HPF] 0-2 [facility] Urine bacteria detection by automated methodOrdered By: VIV Burch on 03-19-2023 Bacteria Auto Ql (U) 1+ None Seen [facility] Urine clarity by refractomet ry automatedOrdered By: VIV Burch on 03-19-2023 Clarity Refractometry automated (U) Clear Clear [facility] Urine glucose measurement by automated test strip (mass/volume)Ordered By: IRMA Burch on 03-19-2023 Glucose Auto test strip (U) [Mass/Vol] Normal mg/dL Normal [facility] Urine hemoglobin detection b y automated test stripOrdered By: VIV Burch on 03-19-2023 Hemoglobin Auto test strip Ql (U) Negative Negative [facility] Urine leukocyte esterase det ection by automated test stripOrdered By: VIV Burch on 03-19-2023 Leukocyte esterase Auto test strip Ql (U) 1+ Negative [facility] Urobilinogen Auto test strip (U) [Mass/Vol]Ordered By: VIV Burch on 03-19-2023 Urobilinogen (U) [Mass/Vol] Normal mg/dL Normal [facility] pH Auto test strip (U)Ordere d By: VIV Burch on 03-19-2023 pH (U) 6.5 [pH] 5.0-9.0 [facility] Amphetamine Screen Ql (U)Ord ered By: PALOMO PRETTY on 03-16-2023 Amphetamines Ql (U) Negative Negative [facility] Automated erythrocytes count in urine sediment (number/area)Ordered By: PALOMO PRETTY on 03-16-2023 RBC Auto (Urine sed) [#/Area] 0-1 [HPF] 0-4 [facility] Automated leukocytes count i n urine sediment (number/area)Ordered By: PALOMO PRETTY on 03-16-2023 WBC Auto (Urine sed) [#/Area] None seen [HPF] 0-4 [facility] Barbiturates [Presence] in U rine by Screen methodOrdered By: PALOMO PRETTY on 03-16-2023 Barbiturates Screen Ql (U) Negative Negative [facility] Benzodiazepines Screen Ql (U )Ordered By: PALOMO PRETTY on 03-16-2023 Benzodiazepines Ql (U) Negative Negative [facility] Benzoylecgonine [Presence] i n Urine by Screen methodOrdered By: PALOMO PRETTY on 03-16-2023 Benzoylecgonine Screen Ql (U) Negative Negative [facility] Bilirubin Test strip Ql (U)O rdered By: PALOMO PRETTY on 03-16-2023 Bilirubin Ql (U) Negative Negative [facility] Color Auto (U)Ordered By: DONTRELL PRETTY on 03-16-2023 Color (U) Yellow Yellow [facility] Dipstick and Microscopicon 0 03-16-2023 Appearance (U) Clear Normal Clear [facility] Comment on above: Order Comment: Comme nt Draw at 630 am Performed By: #### C BC #### [facility] [address] [place] [address] [place] Bacteria,Urine None Seen Normal None Seen [facility] Comment on above: Order Comment: Comme nt Draw at 630 am Performed By: #### C BC #### [facility] [address] [place] [address] [place] Bilirubin,Urine Negative Normal Negative [facility] Comment on above: Order Comment: Comme nt Draw at 630 am Performed By: #### C BC #### [facility] [address] [place] [address] [place] Color (U) Yellow Normal Yellow [facility] Comment on above: Order Comment: Comme nt Draw at 630 am Performed By: #### C BC #### [facility] [address] [id number] [place] Glucose Ql (U) Normal Normal Normal [facility] Comment on above: Order Comment: Comme nt Draw at 630 am Performed By: #### C BC #### [facility] [address] [place] [address] [place] Hyaline Casts,Urine 0-8 Normal 0-[address] [facility] Comment on above: Order Comment: Comme nt Draw at 630 am Result Comment: PERF ORMED BY: [facility] [address] [id number] PATHOLOGIST ZIPPER SETTER CHAINSTITCH AGUEDA ROLLE M.D. Performed By: #### C BC #### [facility] [address] Ketones Ql (U) Negative Normal Negative [facility] Comment on above: Order Comment: Comme nt Draw at 630 am Performed By: #### C BC #### [facility] [address] Leukocyte esterase Test strip Ql (U) Negative Normal Negative [facility] Comment on above: Order Comment: Comme nt Draw at 630 am Performed By: #### C BC #### [facility] [address] Nitrite,Urine Negative Normal Negative [facility] Comment on above: Order Comment: Comme nt Draw at 630 am Performed By: #### C BC #### [address] Occult Blood,Urine Trace High Negative [facility] Comment on above: Order Comment: Comme nt Draw at 630 am Result Comment: PERF ORMED BY: [place] [address] PATHOLOGIST ZIPPER SETTER CHAINSTITCH AGUEDA ROLLE M.D. Performed By: #### C BC #### [address] pH (U) 7.0 [pH] Normal 5.0-9.0 [facility] Comment on above: Order Comment: Comme nt Draw at 630 am Performed By: #### C BC #### [place] [address] [place] Protein,Urine Negative Normal Negative [facility] Comment on above: Order Comment: Comme nt Draw at 630 am Performed By: #### C BC #### [place] [address] [place] RBC LM.HPF (Urine sed) [#/Area] 0 /[HPF] Normal 0-4 [facility] Comment on above: Order Comment: Comme nt Draw at 630 am Performed By: #### C BC #### [facility] [address] Specificy Currie,Urine 1.009 Normal 1.001-1.030 [facility] Comment on above: Order Comment: Comme nt Draw at 630 am Performed By: #### C BC #### [facility] [address] Squamous Epithelial Cell,Urine 0-1 Normal 0-2 [facility] Comment on above: Order Comment: Comme nt Draw at 630 am Performed By: #### C BC #### [facility] [address] Urobilinogen,Urine Normal Normal Normal [facility] Comment on above: Order Comment: Comme nt Draw at 630 am Performed By: #### C BC #### [address] WBC,Urine None Seen Normal 0-4 [facility] Comment on above: Order Comment: Comme nt Draw at 630 am Performed By: #### C BC #### [address] Ketones Auto test strip (U) [Mass/Vol]Ordered By: PALOMO PRETTY on 03-16-2023 Ketones (U) [Mass/Vol] Negative Negative [facility] Laboratory - UrinalysisOrder ed By: PALOMO PRETTY on 03-16-2023 Hyaline casts LM Ql (Urine sed) 0-8 [LPF] 0-8 [facility] Nitrite Test strip Ql (U)Ord ered By: PALOMO PRETTY on 03-16-2023 Nitrite Ql (U) Negative Negative [facility] OB Urine Drug Screen (NO THC )on 03-16-2023 Amphetamine Screen,Urine Negative Normal Negative [facility] Comment on above: Performed By: #### C BC #### [facility] [address] [place] [address] [place] Barbiturate Screen,Urine Negative Normal Negative [facility] Comment on above: Performed By: #### C BC #### [facility] [address] [place] [address] [place] Benzodiazepines Screen,Urine Negative Normal Negative [facility] Comment on above: Performed By: #### C BC #### [facility] [address] Cocaine Screen,Urine Negative Normal Negative [facility] Comment on above: Performed By: #### C BC #### [facility] [address] Opiate Screen,Urine Negative Normal Negative [facility] Comment on above: Performed By: #### C BC #### [address] Phencyclidine Screen, Urine Negative Normal Negative [facility] Comment on above: Result Comment: Thes e are unconfirmed results and should not be used for legal purposes. Drug Cut-Off Concentration: AMPH 1000 ng/mL NATALIE 200 ng/mL DAVID 200 ng/mL COCM 300 ng/mL OP 300 ng/mL PCP 25 ng/mL PERFORMED BY: [place] [address] PATHOLOGIST ZIPPER SETTER CHAINSTITCH AGUEDA ROLLE M.D. Performed By: #### C BC #### [address] Opiates [Presence] in Urine by Screen methodOrdered By: PALOMO PRETTY on 03-16-2023 Opiates Screen Ql (U) Negative Negative [facility] Phencyclidine Screen Ql (U)O rdered By: PALOMO PRETTY on 03-16-2023 Phencyclidine Ql (U) Negative Negative [facility] Comment on above: These are unconfirme d results and should not be used for legal purposes. Drug Cut-Off Concentration: AMPH 1000 ng/mL NATALIE 200 ng/mL DAVID 200 ng/mL COCM 300 ng/mL OP 300 ng/mL PCP 25 ng/mL Protein Auto test strip (U) [Mass/Vol]Ordered By: PALOMO PRETTY on 03-16-2023 Protein (U) [Mass/Vol] Negative Negative [facility] Specific gravity Auto test s trip (U) [Rel density]Ordered By: PALOMO PRETTY on 03-16-2023 Specific gravity (U) [Rel density] 1.009 1.001-1.030 [facility] Squamous epithelial cells de tection in urine sediment by light microscopyOrdered By: PALOMO PRETTY on 03-16-2023 Epithelial cells.squamous LM Ql (Urine sed) 0-1 [HPF] 0-2 [facility] Urine bacteria detection by automated methodOrdered By: PALOMO PRETTY on 03-16-2023 Bacteria Auto Ql (U) None seen None Seen [facility] Urine clarity by refractomet ry automatedOrdered By: PALOMO PRETTY on 03-16-2023 Clarity Refractometry automated (U) Clear Clear [facility] Urine glucose measurement by automated test strip (mass/volume)Ordered By: PALOMO PRETTY on 03-16-2023 Glucose Auto test strip (U) [Mass/Vol] Normal mg/dL Normal [facility] Urine hemoglobin detection b y automated test stripOrdered By: PALOMO PRETTY on 03-16-2023 Hemoglobin Auto test strip Ql (U) Trace Negative [facility] Urine leukocyte esterase det ection by automated test stripOrdered By: PALOMO PRETTY on 03-16-2023 Leukocyte esterase Auto test strip Ql (U) Negative Negative [facility] Urobilinogen Auto test strip (U) [Mass/Vol]Ordered By: PALOMO PRETTY on 03-16-2023 Urobilinogen (U) [Mass/Vol] Normal mg/dL Normal [facility] pH Auto test strip (U)Ordere d By: PALOMO PRETTY on 03-16-2023 pH (U) 7.0 [pH] 5.0-9.0 [facility] B Streptococcus cultur eOrdered By: NICOLE PALACIOS on 03-02-2023 S. agalactiae Org specific cx Ql (Unsp spec) No Group B Beta Streptococcus Isolated 3 Days [facility] Strep B Cultureon 03-02-2023 Strep B Culture Reason for Exam 35 weeks gestation of ; screening for stre Vaginal/Rectal No Group B Beta Streptococcus Isolated 3 Days PERFORMED BY: [facility] [address] [place] [address] PATHOLOGIST ZIPPER SETTER CHAINSTITCH AGUEDA ROLLE M.D. Normal [facility] Comment on above: Performed By: #### C BC #### [facility] [address] UA (CLEAN/CATCH) [employer]ARKING [employer]ATION ATTENDANT/MICRO I F IND.on 02-18-2023 Bilirubin Ql (U) Negative Normal NEGATIVE [facility] Comment on above: Performed By: #### U ACSIND ####[facility] [id number] [place] [address]Dr. Osmany Boone Clarity (U) CLEAR Normal CLEAR [facility] Comment on above: Performed By: #### U ACSIND ####[facility] [id number] [place] [address]Dr. Osmany Boone Color (U) LT. YELLOW Normal YELLOW [facility] Comment on above: Performed By: #### U ACSIND ####[facility] [id number] [place] [address]Dr. Elliepaul Boone Glucose Ql (U) Negative Normal NEGATIVE [facility] Comment on above: Performed By: #### U ACSIND ####[facility] [address] [place] [address]Dr. Elliepaul Boone Hemoglobin Ql (U) Negative Normal NEGATIVE [facility] Comment on above: Performed By: #### U ACSIND ####[facility] [id number] [place], [place] [address]Dr. Osmany Boone Ketones Ql (U) Negative Normal NEGATIVE [facility] Comment on above: Performed By: #### U ACSIND ####[facility] [address] [place] [address]Dr. Osmany Boone LEUKOCYTES Negative Normal NEGATIVE [facility] Comment on above: Performed By: #### U ACSIND ####[facility] [id number] [place] [address]Dr. Elliepaul Boone Nitrite Ql (U) Negative Normal NEGATIVE [facility] Comment on above: Performed By: #### U ACSIND ####[facility] [address] [place] [address]Dr. Elliepaul Boone pH (U) 7.0 [pH] Normal 5-9 [facility] Comment on above: Performed By: #### U ACSIND ####[facility] [id number] [place] [id number]. Osmany Boone SPEC GRAVITY <=1.005 Abnormal 1.005-<=1.025 The [facility] Comment on above: Performed By: #### U ACSIND ####[facility] [address] [place] [address]Dr. Osmany Boone UA PROTEIN Negative Normal NEGATIVE/ TRACE [facility] Comment on above: Performed By: #### U ACSIND ####[facility] [address] [place] [address]Dr. Osmany Boone UR MICRO IND NOT INDICATED Normal [facility] Comment on above: Performed By: #### U ACSIND ####[facility] [address] [place] [address]Dr. Osmany Boone Urobilinogen Qn (U) 0.2 {Salazar'U}/dL Normal 0.2 - 1. 0 [facility] Comment on above: Performed By: #### U ACSIND ####[facility] [address] [place] [address]Dr. Osmany Boone Amphetamine Screen Ql (U)Ord ered By: NICOLE PALACIOS on 01-06-2023 Amphetamines Ql (U) Negative Negative [facility] Barbiturates [Presence] in U rineOrdered By: NICOLE PALACIOS on 01-06-2023 Barbiturates Ql (U) Negative Negative [facility] Benzodiazepines [Presence] i n UrineOrdered By: NICOLE PALACIOS on 01-06-2023 Benzodiazepines Ql (U) Negative Negative [facility] Bilirubin Test strip Ql (U)O rdered By: NICOLE NATAPRHIGINIO on 01-06-2023 Bilirubin Ql (U) Negative Negative [facility] Color Auto (U)Ordered By: CAM PALACIOS on 01-06-2023 Color (U) Yellow Yellow [facility] Ketones Auto test strip (U) [Mass/Vol]Ordered By: NICOLE PALACIOS on 01-06-2023 Ketones (U) [Mass/Vol] Negative Negative [facility] Laboratory - Drug toxicology Ordered By: NICOLE PALACIOS on 01-06-2023 Opiates Ql (U) Negative Negative [facility] Nitrite Test strip Ql (U)Ord ered By: NICOLE PALACIOS on 01-06-2023 Nitrite Ql (U) Negative Negative [facility] OB Urine Drug Screen (NO THC )on 01-06-2023 Amphetamine Screen,Urine Negative Normal Negative [facility] Comment on above: Performed By: #### O BUDS, UA #### [address] Barbiturate Screen,Urine Negative Normal Negative [facility] Comment on above: Performed By: #### O BUDS, UA #### [place] [address] [place] Benzodiazepines Screen,Urine Negative Normal Negative [facility] Comment on above: Performed By: #### O BUDS, UA #### [place] [address] [place] Cocaine Screen,Urine Negative Normal Negative [facility] Comment on above: Performed By: #### O BUDS, UA #### [facility] [address] [place] [address] [place] Opiate Screen,Urine Negative Normal Negative [facility] Comment on above: Performed By: #### O BUDS, UA #### [place] [address] [place] Phencyclidine Screen, Urine Negative Normal Negative [facility] Comment on above: Result Comment: Thes e are unconfirmed results and should not be used for legal purposes. Drug Cut-Off Concentration: AMPH 1000 ng/mL NATALIE 200 ng/mL DAVID 200 ng/mL COCM 300 ng/mL OP 300 ng/mL PCP 25 ng/mL PERFORMED BY: [place] [address] PATHOLOGIST ZIPPER SETTER CHAINSTITCH AGUEDA ROLLE M.D. Performed By: #### O BUDS, UA #### [address] Phencyclidine Screen Ql (U)O rdered By: NICOLE PALACIOS on 01-06-2023 Phencyclidine Ql (U) Negative Negative [facility] Comment on above: These are unconfirme d results and should not be used for legal purposes. Drug Cut-Off Concentration: AMPH 1000 ng/mL NATALIE 200 ng/mL DAVID 200 ng/mL COCM 300 ng/mL OP 300 ng/mL PCP 25 ng/mL Protein Auto test strip (U) [Mass/Vol]Ordered By: NICOLE PALACIOS on 01-06-2023 Protein (U) [Mass/Vol] Negative Negative [facility] Specific gravity Auto test s trip (U) [Rel density]Ordered By: NICOLE PALACIOS on 01-06-2023 Specific gravity (U) [Rel density] 1.004 1.001-1.030 [facility] Urinalysison 01-06-2023 Appearance (U) Clear Normal Clear [facility] Comment on above: Order Comment: Name Collection Type:: Voided Performed By: #### O BUDS, UA #### [facility] [address] [place] [address] [place] Bilirubin,Urine Negative Normal Negative [facility] Comment on above: Order Comment: Name Collection Type:: Voided Performed By: #### O BUDS, UA #### [facility] [address] [place] [address] [place] Color (U) Yellow Normal Yellow [facility] Comment on above: Order Comment: Name Collection Type:: Voided Performed By: #### O BUDS, UA #### [facility] [address] [place] [address] [place] Glucose Ql (U) Normal Normal Normal [facility] Comment on above: Order Comment: Name Collection Type:: Voided Performed By: #### O BUDS, UA #### [facility] [address] [place] [id number] [place] Ketones Ql (U) Negative Normal Negative [facility] Comment on above: Order Comment: Name Collection Type:: Voided Performed By: #### O BUDS, UA #### [facility] [address] [place] [id number] [place] Leukocyte esterase Test strip Ql (U) Negative Normal Negative [facility] Comment on above: Order Comment: Name Collection Type:: Voided Performed By: #### O BUDS, UA #### [place] [address] [place] Nitrite,Urine Negative Normal Negative [facility] Comment on above: Order Comment: Name Collection Type:: Voided Performed By: #### O BUDS, UA #### [address] Occult Blood,Urine Negative Normal Negative [facility] Comment on above: Order Comment: Name Collection Type:: Voided Result Comment: PERF ORMED BY: [place] [address] PATHOLOGIST ZIPPER SETTER CHAINSTITCH AGUEDA ROLLE M.D. Performed By: #### O BUDS, UA #### [address] pH (U) 6.5 [pH] Normal 5.0-9.0 [facility] Comment on above: Order Comment: Name Collection Type:: Voided Performed By: #### O BUDS, UA #### [place] [address] [place] Protein,Urine Negative Normal Negative [facility] Comment on above: Order Comment: Name Collection Type:: Voided Performed By: #### O BUDS, UA #### [address] Specificy [place],Urine 1.004 Normal 1.001-1.030 [facility] Comment on above: Order Comment: Name Collection Type:: Voided Performed By: #### O BUDS, UA #### [place] [address] [place] Urobilinogen,Urine Normal Normal Normal [facility] Comment on above: Order Comment: Name Collection Type:: Voided Performed By: #### O BUDS, UA #### [place] [address] [place] Urine clarity by refractomet ry automatedOrdered By: NICOLE PALACIOS on 01-06-2023 Clarity Refractometry automated (U) Clear Clear [facility] Urine cocaine detectionOrder ed By: NICOLE PALACIOS on 01-06-2023 Cocaine Ql (U) Negative Negative [facility] Urine glucose measurement by automated test strip (mass/volume)Ordered By: NICOLE PALACIOS on 01-06-2023 Glucose Auto test strip (U) [Mass/Vol] Normal mg/dL Normal [facility] Urine hemoglobin detection b y automated test stripOrdered By: NICOLE PALACIOS on 01-06-2023 Hemoglobin Auto test strip Ql (U) Negative Negative [facility] Urine leukocyte esterase det ection by automated test stripOrdered By: NICOLE PALACIOS on 01-06-2023 Leukocyte esterase Auto test strip Ql (U) Negative Negative [facility] Urobilinogen Auto test strip (U) [Mass/Vol]Ordered By: NICOLE PALACIOS on 01-06-2023 Urobilinogen (U) [Mass/Vol] Normal mg/dL Normal [facility] pH Auto test strip (U)Ordere d By: NICOLE PALACIOS on 01-06-2023 pH (U) 6.5 [pH] 5.0-9.0 [facility] Amphetamine Screen Ql (U)Ord ered By: Jeff Hickman on 01-04-2023 Amphetamines Ql (U) Negative Negative [facility] Barbiturates [Presence] in U rineOrdered By: Jeff Hickman on 01-04-2023 Barbiturates Ql (U) Negative Negative [facility] Benzodiazepines [Presence] i n UrineOrdered By: Jeff Hickman on 01-04-2023 Benzodiazepines Ql (U) Negative Negative [facility] Bilirubin Test strip Ql (U)O rdered By: Jeff Hickman on 01-04-2023 Bilirubin Ql (U) Negative Negative [facility] Choriogonadotropin.beta subu nit [Units/volume] in Serum or PlasmaOrdered By: NICOLE PALACIOS on 01-04-2023 [place] [address].00 m[IU]/mL [facility] Comment on above: Approximate Approxim ate hCG Gestational Age Range (mIU/ml) (weeks)0.2-1 5-50 1-2 50-500 2-3 100-5,000 3-4 500-10,000 4-5 1,000-50,000 5-6 10,000-100,000 6-8 15,000-200,000 8-12 10,000-100,000 Color Auto (U)Ordered By: Salomón Hickman on 01-04-2023 Color (U) Yellow Yellow [facility] Fibronectinon 01-04-20 23 Fibronectin Negative Normal Negative [facility] Comment on above: Order Comment: Comme nt Draw at 630 am Result Comment: PERF ORMED BY: [place] [address] PATHOLOGIST ZIPPER SETTER CHAINSTITCH AGUEDA ROLLE M.D. Performed By: #### C BC #### [address] fibronectinOrdered By: Jeff Hickman on 01-04-2023 Fibronectin. (Vag fld) [Mass/Vol] Negative Negative [facility] Glucose,1 Hour PP 50gm Doseo n 01-04-2023 Glucose [Mass/Vol] 125 mg/dL Normal 60-140 [facility] Comment on above: Order Comment: Comme nt Draw at 630 am Result Comment: PERF ORMED BY: [place] [address] PATHOLOGIST ZIPPER SETTER CHAINSTITCH AGUEDA ROLLE M.D. Performed By: #### C BC #### [place] [id number] [place] HCG,Quantitativeon 3 HCG,Quantitative 91964.00 m[iU]/mL Normal [facility] Comment on above: Order Comment: Comme nt Draw at 630 am Result Comment: Appr oximate Approximate hCG Gestational Age Range (mIU/ml) (weeks) 0.2-1 5-50 1-2 50-500 2-3 100-5,000 3-4 500-10,000 4-5 1,000-50,000 5-6 10,000-100,000 6-8 15,000-200,000 8-12 10,000-100,000 Performed By: #### C BC #### [place] [address] [place] Hematocrit Auto (Bld) [Volum e fraction]Ordered By: NICOLE PALACIOS on 01-04-2023 Hematocrit (Bld) [Volume fraction] 29.8 % 34.0-46.4 [facility] Hemoglobin [Mass/volume] in BloodOrdered By: NICOLE PALACIOS on 01-04-2023 Hemoglobin (Bld) [Mass/Vol] 10.6 g/dL 11.8-15.4 [facility] Hemoglobin and Hematocriton 01-04-2023 Hematocrit (Bld) [Volume fraction] 29.8 % Low 34.0-46.4 [facility] Comment on above: Order Comment: Comme nt Draw at 630 am Result Comment: PERF ORMED BY: [place] [address] PATHOLOGIST ZIPPER SETTER CHAINSTITCH AGUEDA ROLLE M.D. Performed By: #### C BC #### [facility] [address] [place] [address] Hemoglobin (Bld) [Mass/Vol] 10.6 g/dL Low 11.8-15.4 [facility] Comment on above: Order Comment: Comme nt Draw at 630 am Performed By: #### C BC #### [address] Ketones Auto test strip (U) [Mass/Vol]Ordered By: Jeff Hickman on 01-04-2023 Ketones (U) [Mass/Vol] Negative Negative [facility] - Drug toxicology Ordered By: Jeff Hickman on 01-04-2023 Opiates Ql (U) Negative Negative [facility] Nitrite Test strip Ql (U)Ord ered By: Jeff Hickman on 01-04-2023 Nitrite Ql (U) Negative Negative [facility] No Panel InformationOrdered By: NICOLE PALACIOS on 01-04-2023 Glucose 1 Hour Postprandial (Timed) 125 mg/dL 60-140 [facility] OB Urine Drug Screen (NO TH[facility] )on 01-04-2023 Amphetamine Screen,Urine Negative Normal Negative [facility] Comment on above: Performed By: #### U A, OBUDS #### [facility] [address] [place] [address] Barbiturate Screen,Urine Negative Normal Negative [facility] Comment on above: Performed By: #### U A, OBUDS #### [place] [address] [place] Benzodiazepines Screen,Urine Negative Normal Negative [facility] Comment on above: Performed By: #### U A, OBUDS #### [place] [address] [place] Cocaine Screen,Urine Negative Normal Negative [facility] Comment on above: Performed By: #### U A, OBUDS #### [facility] [address] [place] [address] [place] Opiate Screen,Urine Negative Normal Negative [facility] Comment on above: Performed By: #### U A, OBUDS #### [address] Phencyclidine Screen, Urine Negative Normal Negative [facility] Comment on above: Result Comment: Thes e are unconfirmed results and should not be used for legal purposes. Drug Cut-Off Concentration: AMPH 1000 ng/mL NATALIE 200 ng/mL DAVID 200 ng/mL COCM 300 ng/mL OP 300 ng/mL PCP 25 ng/mL PERFORMED BY: [place] [address] PATHOLOGIST ZIPPER SETTER CHAINSTITCH AGUEDA ROLLE M.D. Performed By: #### U A, OBUDS #### [address] Phencyclidine Screen Ql (U)O rdered By: Jeff Hickman on 01-04-2023 Phencyclidine Ql (U) Negative Negative [facility] Comment on above: These are unconfirme d results and should not be used for legal purposes. Drug Cut-Off Concentration: AMPH 1000 ng/mL NATALIE 200 ng/mL DAVID 200 ng/mL COCM 300 ng/mL OP 300 ng/mL PCP 25 ng/mL Protein Auto test strip (U) [Mass/Vol]Ordered By: Jeff Hickman on 01-04-2023 Protein (U) [Mass/Vol] Negative Negative [facility] Specific gravity Auto test s trip (U) [Rel density]Ordered By: Jeff Hickman on 01-04-2023 Specific gravity (U) [Rel density] 1.008 1.001-1.030 [facility] Urinalysison 01-04-2023 Appearance (U) Clear Normal Clear [facility] Comment on above: Order Comment: Name Collection Type:: Clean-Voided Midstream Performed By: #### U A, OBUDS #### [facility] [address] [place] [address] [place] Bilirubin,Urine Negative Normal Negative [facility] Comment on above: Order Comment: Name Collection Type:: Clean-Voided Midstream Performed By: #### U A, OBUDS #### [place] [address] [place] Color (U) Yellow Normal Yellow [facility] Comment on above: Order Comment: Name Collection Type:: Clean-Voided Midstream Performed By: #### U A, OBUDS #### [place] [address] [place] Glucose Ql (U) Normal Normal Normal [facility] Comment on above: Order Comment: Name Collection Type:: Clean-Voided Midstream Performed By: #### U A, OBUDS #### [facility] [address] [place] [address] [place] Ketones Ql (U) Negative Normal Negative [facility] Comment on above: Order Comment: Name Collection Type:: Clean-Voided Midstream Performed By: #### U A, OBUDS #### [facility] [address] [place] [address] [place] Leukocyte esterase Test strip Ql (U) Negative Normal Negative [facility] Comment on above: Order Comment: Name Collection Type:: Clean-Voided Midstream Performed By: #### U A, OBUDS #### [facility] [address] [place] [address] [place] Nitrite,Urine Negative Normal Negative [facility] Comment on above: Order Comment: Name Collection Type:: Clean-Voided Midstream Performed By: #### U A, OBUDS #### [address] Occult Blood,Urine Negative Normal Negative [facility] Comment on above: Order Comment: Name Collection Type:: Clean-Voided Midstream Result Comment: PERF ORMED BY: [place] [address] PATHOLOGIST ZIPPER SETTER CHAINSTITCH AGUEDA ROLLE M.D. Performed By: #### U A, OBUDS #### [address] pH (U) 6.5 [pH] Normal 5.0-9.0 [facility] Comment on above: Order Comment: Name Collection Type:: Clean-Voided Midstream Performed By: #### U A, OBUDS #### [address] Protein,Urine Negative Normal Negative [facility] Comment on above: Order Comment: Name Collection Type:: Clean-Voided Midstream Performed By: #### U A, OBUDS #### [address] Specificy [place],Urine 1.008 Normal 1.001-1.030 [facility] Comment on above: Order Comment: Name Collection Type:: Clean-Voided Midstream Performed By: #### U A, OBUDS #### [place] [address] [place] Urobilinogen,Urine Normal Normal Normal [facility] Comment on above: Order Comment: Name Collection Type:: Clean-Voided Midstream Performed By: #### U A, OBUDS #### [place] [address] [place] Urine clarity by refractomet ry automatedOrdered By: Jeff Hickman on 01-04-2023 Clarity Refractometry automated (U) Clear Clear [facility] Urine cocaine detectionOrder ed By: Jeff Hickman on 01-04-2023 Cocaine Ql (U) Negative Negative [facility] Urine glucose measurement by automated test strip (mass/volume)Ordered By: Jeff Hickman on 01-04-2023 Glucose Auto test strip (U) [Mass/Vol] Normal mg/dL Normal [facility] Urine hemoglobin detection b y automated test stripOrdered By: Jeff Hickman on 01-04-2023 Hemoglobin Auto test strip Ql (U) Negative Negative [facility] Urine leukocyte esterase det ection by automated test stripOrdered By: Jeff Hickman on 01-04-2023 Leukocyte esterase Auto test strip Ql (U) Negative Negative [facility] Urobilinogen Auto test strip (U) [Mass/Vol]Ordered By: Jeff Hickman on 01-04-2023 Urobilinogen (U) [Mass/Vol] Normal mg/dL Normal [facility] pH Auto test strip (U)Ordere d By: Jeff Hickman on 01-04-2023 pH (U) 6.5 [pH] 5.0-9.0 [facility] OBSTETRIC ULTRASOUND WHIon 0 11-29-2022 [facility] OBSTETRIC ULTRASOUND WHIon 1 01-02-2022 [facility] ALLIED HEALTHon 10-05-2022 ALLIED HEALTH HNO ID: [id number] Author: Maria Del Rosario Willson RDMS Service: Radiology Author Type: Drywall Stripper Helper Type: Allied Health Filed: 10/05/2022 5:23 PM Note Text: Radiology Service Progress Note PATIENT NAME: Dorcas Kent DATE OF SERVICE: October 05, 2022 TIME: 5:22 PM PATIENT IDENTITY VERIFICATION COMPLETED USING TWO (2) IDENTIFIERS: Name and Date of confirmed by patient verbally and Name and Date of confirmed by identification band. FALL SCREENING: Has the patient had 2 falls in the last year or 1 fall with injury or currently using an Ambulatory Assistive Device (Walker, Cane, Wheelchair, Crutches, etc.)? Emergency Room Patient: Screened in ED PATIENT GENDER DATA: Female. status: : Yes. Urinalysis hCG results are as follows: Positive status: N/A PATIENT RELEVANT IMPLANT DATA REVIEWED: Not Applicable RADIOLOGY DEPARTMENT: Ultrasound PERIPHERAL IV DATA: Not applicable SIGNED BY: Maria Del Rosario Willson RDMS October 05, 2022 5:22 PM [facility] C. trachomatis+N. gonorrhoea e DNA KENTON+probe Ql (Unsp spec)on 11-15-2022 C. trachomatis DNA KENTON+probe Ql (Unsp spec) Negative Normal Negative for Chlamydia trachomatis by amplificaton [facility] Comment on above: Order Comment: Speci men Type: SWAB Ordering Facility: [facility] Address: [address] [address] Performed By: #### 3 6902-5 #### [facility] CLIA [id number] [facility] [address] N. gonorrhoeae DNA KENTON+probe Ql (Unsp spec) Negative Normal Negative for Neisseria gonorrhoeae by amplification [facility] Comment on above: Order Comment: Speci men Type: SWAB Ordering Facility: [facility] Address: [address] [address] Performed By: #### 3 6902-5 #### [facility] CLIA [id number] [address] [place] [address] ED NOTEon 10-05-2022 ED NOTE HNO ID: [id number] Author: Marium Bloom RN Service: ? Author Type: Registered Nurse Type: ED Notes Filed: 10/05/2022 6:07 PM Note Text: Pt to dc home. Discussed medications and f/u care. No questions at time of dc. [facility] ED NOTE HNO ID: [id number] Author: Jessica García PA-C Service: Emergency Medicine Author Type: Physician School Custodian Type: ED Notes Filed: 10/07/2022 9:56 AM Note Text: Emergency Services: ED Call Back Questionnaire SERVICE DATE: 10/05/2022 Are you feeling better? Yes, no concerns Any questions about discharge instructions and follow-up care? Yes, has question about medication which was addressed Were you able to make a follow up appointment? Yes Do you have any further questions? No Is there anything that we could have done differently to improve your ED visit? No SIGNATURE: Jessica García PA-C PATIENT NAME: Dorcas Kent DATE: October 07, 2022 TIME: 9:54 AM [facility] ED PROV NOTEon 10-05-2022 ED PROV NOTE HNO ID: [id number] Author: Les Fleming PA-C Service: Emergency Medicine Author Type: Physician School Custodian Type: ED Provider Notes Filed: 10/05/2022 7:50 PM Note Text: ED Provider Note Patient Name: Dorcas Kent : 2000 SERVICE DATE: 10/05/22 History Patient presents with: Vaginal Problem: Yellow/green discharge since yesterday, burning and itching. Denies concern for STI. 15 weeks OB Patient is a 22-year-old female currently 15 weeks presents to the ED for vaginal discharge and pelvic pain since yesterday. Patient reports yellow/green vaginal discharge. She reports vaginal itching and burning . She denies any burning with urination, urinary urgency/frequency, hematuria, vaginal bleeding, nausea, vomiting, fever/chills, flank pain. Patient had confirmed IUP when she was 9 weeks . She states that she is scheduled to see a maternal- medicine physician on November 01. She states she was told she does have a small subchorionic hematoma but denies any vaginal bleeding recently. She reports some mild lower pelvic cramping since the discharge started. Denies any injury or trauma. No dizziness, weakness, fatigue, headache, chest pain, shortness of breath, cough. PAST MEDICAL HISTORY Diagnosis Date Depression Gestational diabetes H/O pre-term labor Post depression PAST SURGICAL HISTORY Procedure Laterality Date CHOLECYSTECTOMY KNEE ARTHROSCOPY FAMILY HISTORY Problem Relation Age of Onset Hypertension Maternal Grandmother Hyperlipidemia Maternal Grandfather Hypertension Maternal Grandfather Heart Maternal Grandfather other (Lung Cancer) Maternal Grandfather Social History Tobacco Use Smoking status: Never Smokeless tobacco: Never Vaping Use Vaping Use: Never used Substance and Sexual Activity Alcohol use: Not Currently Drug use: Never Sexual activity: Yes Partners: Male ALLERGIES Allergen Reactions Hydrocodone-Acetami* Mental Status Change Review of Systems Constitutional: Negative for activity change, appetite change, chills, diaphoresis, fatigue, fever and unexpected weight change. HENT: Negative for congestion, ear discharge, ear pain, facial swelling, postnasal drip, rhinorrhea, sinus pressure, sinus pain, sore throat, trouble swallowing and voice change. Eyes: Negative for visual disturbance. Respiratory: Negative for apnea, cough, choking, chest tightness, shortness of breath, wheezing and stridor. Cardiovascular: Negative for chest pain, palpitations and leg swelling. Gastrointestinal: Negative for abdominal distention, abdominal pain, blood in stool, constipation, diarrhea, nausea and vomiting. Genitourinary: Positive for pelvic pain and vaginal discharge. Negative for decreased urine volume, difficulty urinating, dyspareunia, dysuria, flank pain, frequency, genital sores, hematuria, menstrual problem, urgency, vaginal bleeding and vaginal pain. Musculoskeletal: Negative for back pain, myalgias, neck pain and neck stiffness. Skin: Negative for rash. Allergic/Immunologic: Negative for immunocompromised state. Neurological: Negative for dizziness, syncope, speech difficulty, weakness, light-headedness, numbness and headaches. Hematological: Does not bruise/bleed easily. Psychiatric/Behavioral : Negative for confusion. Physical Exam Vitals BP Pulse Temp Temp src Resp SpO2 Weight Height 10/05/22 1540 10/05/22 1540 10/05/22 1540 10/05/22 1540 10/05/22 1540 10/05/22 1540 10/05/22 1539 10/05/22 1539 123/55 80 36.7 ?C (98.1 ?F) Oral 14 100 % 77.1 kg (170 lb) 1.727 m (5' 8 ) Physical Exam Vital signs reviewed. General Survey: Alert and oriented x 3. Sitting in bed in no acute distress. Skin: Warm and dry. Cap refill less than 2 seconds. Nail beds pink. Head: Normocephalic, atraumatic. Eyes: PERRLA, EOMI, Conjunctivae normal. Sclera white. Mouth: Gums pink. Buccal mucosa pink and moist. Neck: Supple with no meningismus. Trachea midline. No carotid bruits bilaterally. No JVD. Respiratory: Lung sounds clear and equal to auscultation bilaterally. No wheezes, rhonci or rales. Chest expansion symmetrical. No accessory muscle usage. Cardiovascular: Normal S1 and S2. Heart RRR, no gallops or rubs, no aorta enlargement or bruit noted. Peripheral Vascular: Extremities warm and without edema. Carotid, radial pulses, and DP/PT pulses 2+ and equal bilaterally. No calf swelling/tenderness. Gastrointestinal: Soft and non-distended. No tenderness with palpation. No masses. Bowel sounds present in all four quads. No rebound, guarding, peritoneal signs, or masses. No tenderness at Mcburney's point. Negative machado's sign. No pulsatile midline mass. Genitourinary: No CVA tenderness. Pelvic Exam: +[place], white vaginal discharge. No external lesions noted. Cervix appeared normal with no motion tenderness. No tenderness of adnexi. No vaginal bleeding. Musc (more content not included)... Normal [facility] Gram Stn Vagon 10-05-2022 Microscopic observation Gram stain Nom (Vag fld) BACTERIAL VAGINOSIS: BACTERIAL VAGINOSIS RESULT: Stain results consistent with normal vaginal areli. No Yeast observed Few Polymorphonuclear leukocytes Normal [facility] Comment on above: Performed By: #### 1 4361-0 ####[facility] [id number] [address] [place] T vaginalis Ag Genital Ql IA on 10-05-2022 T. 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 TECHNIQUE: Sonography of the pelvis was performed by transabdominal technique. Images were obtained and stored in a permanent archive. MQ: [id number] Note: A limited antepartum obstetrical ultrasound examination was performed for the purpose of determining management in the acute care setting. A diagnostic survey was not performed. This exam is to determine or embryonic cardiac activity, estimated gestational age, position and placental location. This does not eliminate the need for a full ultrasound when otherwise indicated. COMPARISON: None. RESULT: Gestation: Single present Position: Breech Cardiac activity: 154 bpm Femur length: 1.42 cm Estimated gestational age: 14 weeks 1 days by Composite Placenta: Location: anterior Previa: Absent Other: Amniotic fluid: normal volume Right ovary: - Size : 3.1 x 2.3 x 2.0 cm - Normal sonographic appearance with physiologic follicles. A right ovarian cyst is present measuring 2.1 x 1.9 x 1.6 cm possibly related to a complex corpus cyst. Left ovary: - Size: 2.7 x 1.8 x 1.8 cm - Normal sonographic appearance with physiologic follicles. Pelvis free fluid: None. None IMPRESSION: Single, live intrauterine estimated 14 weeks and 1 day gestational age by ultrasound measurements. Linen Supervisor: VALDO Transcribe Date/Time: Oct 05 2022 5:35P Dictated by : ЕЛЕНА LEAL MD This examination was interpreted and the report reviewed and electronically signed by: ЕЛЕНА LEAL MD on Oct 05 2022 5:40PM EST [id number] Normal [facility] Urinalysis complete panel (U )on 10-05-2022 Bacteria LM.HPF (Urine sed) [#/Area] Rare Abnormal None Seen [facility] Comment on above: Order Comment: Speci men Type: URINE SPECIMEN Ordering Facility: [facility] Address: [address] [place] [address] Performed By: #### 2 4356-8 #### [facility] CLIA [id number] [address] [place] [address] [place] Bilirubin Ql (U) Negative Normal Negative [facility] Comment on above: Order Comment: Speci men Type: URINE SPECIMEN Ordering Facility: [facility] Address: [address] [place] [address] Performed By: #### 2 4356-8 #### [facility] CLIA [id number] [address] [place] [address] [place] Clarity (Unsp spec) Clear Normal Clear [facility] Comment on above: Order Comment: Speci men Type: URINE SPECIMEN Ordering Facility: [facility] Address: [address] [place] [address] Performed By: #### 2 4356-8 #### [facility] CLIA [id number] [address] [place] [address] [place] Color (U) Colorless Normal Yellow [facility] Comment on above: Order Comment: Speci men Type: URINE SPECIMEN Ordering Facility: [facility] Address: [address] [place] [address] Performed By: #### 2 4356-8 #### [facility] CLIA [id number] [address] [place] [address] [place] Epithelial cells LM.HPF (Urine sed) [#/Area] Few Normal [facility] Comment on above: Order Comment: Speci men Type: URINE SPECIMEN Ordering Facility: [facility] Address: [address] [place] [address] Performed By: #### 2 4356-8 #### [facility] CLIA [id number] [address] [place] [address] [place] Glucose Test strip (U) [Mass/Vol] Negative Normal Negative [facility] Comment on above: Order Comment: Speci men Type: URINE SPECIMEN Ordering Facility: [facility] Address: [address] [place] [address] Performed By: #### 2 4356-8 #### [facility] CLIA [id number] [address] [place] [address] [place] Hemoglobin Ql (U) Negative Normal Negative [facility] Comment on above: Order Comment: Speci men Type: URINE SPECIMEN Ordering Facility: [facility] Address: [address] [place] [address] Performed By: #### 2 4356-8 #### [facility] CLIA [id number] [address] [place] [address] [place] Ketones Ql (U) Negative Normal Negative [facility] Comment on above: Order Comment: Speci men Type: URINE SPECIMEN Ordering Facility: [facility] Address: [address] [place] [address] Performed By: #### 2 4356-8 #### [facility] CLIA [id number] [address] [place] [address] [place] Leukocyte esterase Test strip Ql (U) Negative Normal Negative [facility] Comment on above: Order Comment: Speci men Type: URINE SPECIMEN Ordering Facility: [facility] Address: [address] [place] [address] Performed By: #### 2 4356-8 #### [facility] CLIA [id number] [address] [place] [address] [place] Nitrite Ql (U) Negative Normal Negative [facility] Comment on above: Order Comment: Speci men Type: URINE SPECIMEN Ordering Facility: [facility] Address: [address] [place] [address] Performed By: #### 2 4356-8 #### [facility] CLIA [id number] [address] [place] [address] [place] pH (U) 6.5 [pH] Normal 5.0-8.0 [facility] Comment on above: Order Comment: Speci men Type: URINE SPECIMEN Ordering Facility: [facility] Address: [address] [place] [address] Performed By: #### 2 4356-8 #### [facility] CLIA [id number] [address] [place] [address] [place] Protein (U) [Mass/Vol] Negative Normal Negative [facility] Comment on above: Order Comment: Speci men Type: URINE SPECIMEN Ordering Facility: [facility] Address: [address] [place] [address] Performed By: #### 2 4356-8 #### [facility] CLIA [id number] [address] [place] [address] [place] RBC LM.HPF (Urine sed) [#/Area] 0-3 /HPF Normal 0-3 /HPF [facility] Comment on above: Order Comment: Speci men Type: URINE SPECIMEN Ordering Facility: [facility] Address: [address] [place] [address] Performed By: #### 2 4356-8 #### [facility] CLIA [id number] [address] [place] [address] [place] Specific gravity (U) [Rel density] 1.008 Normal 1.005-1.030 [facility] Comment on above: Order Comment: Speci men Type: URINE SPECIMEN Ordering Facility: [facility] Address: [address] [place] [address] Performed By: #### 2 4356-8 #### [facility] CLIA [id number] [address] [place] [address] [place] Urobilinogen Ql (U) Negative Normal Negative [facility] Comment on above: Order Comment: Speci men Type: URINE SPECIMEN Ordering Facility: [facility] Address: [address] [place] [address] Performed By: #### 2 4356-8 #### [facility] CLIA [id number] [address] [place] [address] [place] WBC LM.HPF (Urine sed) [#/Area] 0-5 /HPF Normal 0-5 /HPF [facility] Comment on above: Order Comment: Speci men Type: URINE SPECIMEN Ordering Facility: [facility] Address: [address] [place] [address] Performed By: #### 2 4356-8 #### [facility] CLIA [id number] [address] [place] [address] [place] Kita 10-04-2022 CNPN Telephone (OBGYF2) DORCAS KENT ([id number]) 2000 F Date Time Provider Department 10/04/22 [facility] OBGYF2 During your visit today, we recorded the following information about you: Elsie Pérez RN 10/04/2022 9:32 AM Signed Informed pt that call was regarding scheduling anatomy US and consult as requested by Dr. Rivera at [facility] for hx of PPROM/PTD. , hx of 3 MAB and 1 vaginal PTD at 35 weeks. Pt PPROM'd, reason unknown. She denies any other current medical conditions. Current meds: PNV, Zoloft, Abilify. Pt states she was denied for 17P injections, not covered by insurance. Offered anatomy US on 11/01 at 1pm and consult to follow. Pt accepts, front staff to schedule. Advised pt that she may bring two support persons and all must wear masks. Also instructed to drink 1 bottle of water en route to appt. Pt agrees and verbalizes understanding and has no further questions at this time. Elsie Pérez RN [facility] Allergies As of Date: 10/04/2022 Noted Allergy Reaction HYDROCODONE-ACETAMINOP HEN 09/24/2016 1 - Mental Status Change Date Reviewed: 04/15/2022 Reviewed by: Vicenta Ivy RN - Fully Assessed Reason for Visit: Appointment [186] Prescriptions as of 10/04/2022 - DULoxetine (CYMBALTA) 60 mg capsule Take 60 mg by mouth once daily. - blood sugar diagnostic (FREESTYLE LITE STRIPS) test strip TEST BLOOD SUGARS 2 TIMES DAILY - lancets (FREESTYLE LANCETS) 28 gauge 1 Each twice daily. - metFORMIN ER (GLUCOPHAGE XR) 750 mg 24 hr tablet Take 1 tablet by mouth daily with breakfast. - ARIPiprazole (ABILIFY) 15 mg tablet Take 1 tablet by mouth once daily. - sertraline (ZOLOFT) 100 mg tablet Take 1.5 tablets by mouth once daily. - traZODone (DESYREL) 50 mg tablet Take 1 tablet by mouth daily at bedtime. - venlafaxine ER (EFFEXOR XR) 75 mg 24 hr capsule Take 1 capsule by mouth once daily. - Cranberry 400 mg cap Take 1 capsule by mouth once daily. Problem List As Of Date 10/04/2022 Noted Resolved Diet controlled gestational diabetes mellitus (*04/17/2019 10/30/2019 Normal delivery [O80] 10/23/2019 Night sweats [R61] 10/23/2019 Diarrhea [R19.7] 10/23/2019 Headache [R51.9] 10/23/2019 Reactive hypoglycemia [E16.1] 10/30/2019 History of gestational diabetes mellitus (GDM) *10/30/2019 Encounter Status:Closed by ELSIE PÉREZ RN on 10/04/22 Normal [facility] CBC AUTO DIFFon 09-09-2022 BASO # 0.0 103/ul Normal 0.0-0.1 [facility] Comment on above: Performed By: #### C BC ####[facility] [address] [place], [place] [address]Dr. Osmany Boone Basophils/100 WBC (Bld) 0.4 % Normal 0.2-2.0 [facility] Comment on above: Performed By: #### C BC ####[facility] [address] [place], [place] [address]Dr. Osmany Boone EO # 0.1 103/ul Normal 0.0-0.7 [facility] Comment on above: Performed By: #### C BC ####[facility] [address] [place], [place] [address]Dr. Osmany Boone Eosinophils/100 WBC (Bld) 0.8 % Critically low 0.9-7.0 [facility] Comment on above: Performed By: #### C BC ####[facility] [address] [place], [place] [address]Dr. Osmany Boone Erythrocyte distribution width (RBC) [Ratio] 12.0 % Normal 11.0-15.0 [facility] Comment on above: Performed By: #### C BC ####[facility] [address] [place], [place] [address]Dr. Osmany Boone Hematocrit (Bld) [Volume fraction] 35.5 % Critically low 36.0-48.0 [facility] Comment on above: Performed By: #### C BC ####[facility] [address] [place], [place] [address]Dr. Osmany Boone Hemoglobin (Bld) [Mass/Vol] 12.4 g/dL Normal 12.0-16.0 [facility] Comment on above: Performed By: #### C BC ####[facility] [address] [place], [place] [address]Dr. Osmany Boone IG # 0.02 10e3/ul Normal 0.00-0.03 [facility] Comment on above: Performed By: #### C BC ####[facility] [address] [place] [id number]. Osmany Boone IG % 0.2 % Normal 0.0-0.5 [facility] Comment on above: Performed By: #### C BC ####[facility] [address] [id number]. Osmany Boone LYMPH # 1.3 103/ul Normal 1.2-3.8 [facility] Comment on above: Performed By: #### C BC ####[facility] [address] [place] [phone]. Osmany Paolo Lymphocytes/100 WBC (Bld) 15.5 % Critically low 20.5-60.0 [facility] Comment on above: Performed By: #### C BC ####[facility] [address] [address]Dr. Osmany Boone MANUAL DIFF REQ NO Normal [facility] Comment on above: Performed By: #### C BC ####[facility] [address] [place] [phone]. Osmany Boone MCH (RBC) [Entitic mass] 31.3 pg Normal 26.7-34.0 [facility] Comment on above: Performed By: #### C BC ####[facility] [address] [place] [phone]. Osmany Boone MCHC (RBC) [Mass/Vol] 34.9 g/dL Normal 29.9-35.2 [facility] Comment on above: Performed By: #### C BC ####[facility] [address] [place] [phone]. Osmany Boone MCV (RBC) [Entitic vol] 89.6 fL Normal 81.0-99.0 [facility] Comment on above: Performed By: #### C BC ####[facility] [address] [place], [place] [id number]. Osmany Boone MONO # 0.5 103/ul Normal 0.3-0.8 [facility] Comment on above: Performed By: #### C BC ####[facility] [address] [place] [phone]. Osmany Boone Monocytes/100 WBC (Bld) 5.4 % Normal 1.7-12.0 [facility] Comment on above: Performed By: #### C BC ####[facility] [address] [place] [phone]. Osmany Boone NEUT # 6.4 103/ul Normal 1.4-6.5 [facility] Comment on above: Performed By: #### C BC ####[facility] [address] [place] [phone]. Osmany Boone Neutrophils/100 WBC (Bld) 77.7 % Critically high 43.0-75.0 [facility] Comment on above: Performed By: #### C BC ####[facility] [address] [place] [address]Dr. Osmany Boone Platelet mean volume (Bld) [Entitic vol] 9.6 fL Normal 9.5-13.5 [facility] Comment on above: Performed By: #### C BC ####[facility] [address] [place] [phone]. Osmany Boone PLT 227 103/ul Normal 150-450 [facility] Comment on above: Performed By: #### C BC ####[facility] [address] [place] [phone]. Osmany Boone RBC 3.96 106/ul Critically low 4.20-5.40 [facility] Comment on above: Performed By: #### C BC ####[facility] [address] [place] [phone]. Osmany Boone WBC 8.3 103/ul Normal 4.0-11.0 [facility] Comment on above: Performed By: #### C BC ####[facility] [address] [place] [phone]. Osmany Boone ER URINE PROFILEon 2 Bilirubin Ql (U) Negative Normal NEGATIVE [facility] Comment on above: Performed By: #### E RUR #### [facility] Laboratory [address] [place] [address] Dr. Osmany Boone Clarity (U) CLEAR Normal CLEAR [facility] Comment on above: Performed By: #### E RUR #### [facility] [address] [place] [address] Dr. Osmany Boone Color (U) YELLOW Normal YELLOW [facility] Comment on above: Performed By: #### E RUR #### [facility] [address] [place] [address] Dr. Osmany THORPE A micrscopic examination will be performed if indicated. Normal [facility] Comment on above: Performed By: #### E RUR #### [facility] [address] [place] [address] Dr. Osmany Boone Glucose Ql (U) Negative Normal NEGATIVE [facility] Comment on above: Performed By: #### E RUR #### [facility] [address] [place] [address] Dr. Osmany Boone Hemoglobin Ql (U) Negative Normal NEGATIVE [facility] Comment on above: Performed By: #### E RUR #### [facility] [address] [place] [address] Dr. Osmany Boone Ketones Ql (U) TRACE Abnormal NEGATIVE [facility] Comment on above: Performed By: #### E RUR #### [facility] [address] [place] [address] Dr. Osmany Boone LEUKOCYTES Negative Normal NEGATIVE [facility] Comment on above: Performed By: #### E RUR #### [facility] [address] [place] [address] Dr. Osmany Boone Nitrite Ql (U) Negative Normal NEGATIVE [facility] Comment on above: Performed By: #### E RUR #### [facility] [address] [place] [address] Dr. Osmany Boone pH (U) 6.0 [pH] Normal 5-9 [facility] Comment on above: Performed By: #### E RUR #### [facility] [address] [place] [address] Dr. Osmany Boone SPEC GRAVITY >=1.030 Abnormal 1.005-<=1.025 [facility] Comment on above: Performed By: #### E RUR #### [facility] [address] [place] [address] Dr. Osmany Boone UA PROTEIN Negative Normal NEGATIVE/ TRACE [facility] Comment on above: Performed By: #### E RUR #### [facility] [address] [place] [address] Dr. Osmany Boone UR MICRO IND NOT INDICATED Normal [facility] Comment on above: Performed By: #### E RUR #### [facility] [address] [place] [address] Dr. Osmany Boone Urobilinogen Qn (U) 1.0 {Salazar'U}/dL Normal 0.2 - 1. 0 [facility] Comment on above: Performed By: #### E RUR #### [facility] [address] [place] [address] Dr. Osmany Boone PROF CHEM 8 (BAS METB)on Anion gap [Moles/Vol] 8.4 mmol/L Normal [facility] Comment on above: Performed By: #### B MP #### [facility] [address] [place] [address] Dr. Osmany Boone Calcium [Mass/Vol] 9.0 mg/dL Normal 8.5-10.[address] [facility] Comment on above: Performed By: #### B MP #### [facility] [address] [place] [address] Dr. Osmany Boone Chloride [Moles/Vol] 103 mmol/L Normal 98-107 [facility] Comment on above: Performed By: #### B MP #### [facility] [address] [place] [address] Dr. Osmany Boone CO2 [Moles/Vol] 28.1 mmol/L Normal 21.0-32.0 [facility] Comment on above: Performed By: #### B MP #### [facility] [address] [place] [address] Dr. Osmany Boone Creatinine [Mass/Vol] 0.65 mg/dL Normal 0.55-1.02 [facility] Comment on above: Performed By: #### B MP #### [facility] [address] [address] [address] Omsany Boone EGFR-AF GABONESE >60 Normal >=60 [facility] Comment on above: Performed By: #### B MP #### [facility] [address] [id number] [address] Osmany Boone EGFR-NON AF GABONESE >60 Normal >=60 [facility] Comment on above: Performed By: #### B MP #### [facility] [address] [address] [address] Osmany Boone Glucose [Mass/Vol] 80 mg/dL Normal 74-[address] [facility] Comment on above: Performed By: #### B MP #### [facility] [address] [address] [address] Osmany Boone Potassium [Moles/Vol] 3.5 mmol/L Normal 3.5-5.1 [facility] Comment on above: Performed By: #### B MP #### [facility] [address] [address] [address] Osmany Boone Sodium [Moles/Vol] 136 mmol/L Normal 136-145 [facility] Comment on above: Performed By: #### B MP #### [facility] [address] [address] [address] Osmany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 LOW LOW NORMAL HIGH 0-19 Y < 35 < 40 40-45 ---- 20-24 Y ---- < 40 >45 ---- >24 Y ---- < 40 40-60 >60 . Performed By: #### S ALIC #### [address] [id number] Cholesterol in LDL [Mass/Vol] 61 mg/dL Normal 0 - 119 [facility] Comment on above: Result Comment: . NEAR BORD AGE DESIRABLE OPTIMAL HIGH HIGH VERY HIGH 0-19 Y 0 - 109 --- 110-129 >/= 130 ---- 20-24 Y 0 - 119 --- 120-159 >/= 160 ---- >24 Y 0 - 99 100-129 130-159 160-189 >/=190 . Performed By: #### S ALIC #### [address] [id number] Cholesterol in VLDL [Mass/Vol] 15 mg/dL Normal 0 - 40 [facility] Comment on above: Performed By: #### S ALIC #### [address] [id number] Cholesterol.total/Cho lesterol in HDL [Mass ratio] 2.7 {ratio} [facility] Comment on above: Result Comment: REF VALUES DESIRABLE < 3.4 HIGH RISK > 5.0 Performed By: #### S ALIC #### [address] [id number] Triglyceride [Mass/Vol] 76 mg/dL Normal 0 - 149 [facility] Comment on above: Result Comment: . AGE DESIRABLE BORDERLINE HIGH HIGH VERY HIGH 0 D-90 D 19 - 174 ---- ---- ---- 91 D- 9 Y 0 - 74 75 - 99 >/= 100 ---- 10-19 Y 0 - 89 90 - 129 >/= 130 ---- 20-24 Y 0 - 114 115 - 149 >/= 150 ---- >24 Y 0 - 149 150 - 199 200- 499 >/= 500 . Venipuncture immediately after or during the administration of Metamizole may lead to falsely low results. Testing should be performed immediately prior to Metamizole dosing. Performed By: #### S ALIC #### [address] [id number] MAGNESIUMon 08-07-2022 Magnesium [Mass/Vol] 1.80 mg/dL Normal 1.60 - 2.40 [facility] Comment on above: Performed By: #### M G #### [address] [id number] MAGNESIUM Canceled [facility] Comment on above: Order Comment: TEST MAGNESIUM WAS CANCELLED, 08/07/2022 11:15 add on 11:15 08/07/2022. Performed By: #### H CGQU #### [address] [id number] Order Reconciliationon 08-07 Order Reconciliation Page 1 Discharge Reconciliation Document Reconciliation Type: Discharge requested on behalf of Wyatt Fernandez (Advanced Practice Nurse-Admit) done by Wyatt Fernandez ([facility]) Discharge - Partial Reconciliation: 07-Aug-2022 14:33 by: Thi Caceres ([facility]) Discharge - Reconciliation: 09-Aug-2022 11:03 by: Wyatt Fernandez ([facility]) Home Medications EnteredHOME MEDICATIONS AT DISCHARGE DateReconciliation Comment/ Additional Information Zoloft 06-Aug-2022 19:01 Discontinued; Discontinue from ORM Zoloft is not required Current OrdersDateHOME MEDICATIONS AT DISCHARGE DateReconciliation Comment/ Additional Information Acetaminophen Tablet (TYLENOL)DOSE = 650 mg Oral Every 4 Hours, PRN Pain - Mild (1-3) or Temp Greater Than or Equal to 38.0 C 07-Aug-2022 02:25 Acetaminophen is not required ARIPiprazole Tablet (ABILIFY)DOSE = 5 mg Oral Daily 07-Aug-2022 13:17 ARIPiprazole 5 mg oral tablet 1 tab(s) orally once a day 09-Aug-2022 11:03 Prescription is created for ARIPiprazole 5 mg oral tablet Cholecalciferol (Vitamin D3) TabletDOSE = 400 International Unit(s Oral Daily 07-Aug-2022 13:48 cholecalciferol 400 intl units (10 mcg) oral capsule 1 cap(s) orally once a day 07-Aug-2022 14:31 Prescription is created for cholecalciferol 400 intl units (10 mcg) oral capsule diphenhydrAMINE Capsule (BENADRYL)DOSE = 50 mg Oral Every 6 Hours, PRN EPS/EPS prophylaxis 07-Aug-2022 02:25 diphenhydrAMINE is not required diphenhydrAMINE Injectable (BENADRYL)DOSE = 50 mg IntraMuscular Every 6 Hours, PRN EPS/EPS prophylaxis if unable to take oral. 07-Aug-2022 02:25 diphenhydrAMINE Injectable is not required Haloperidol Lactate Tablet (HALDOL)DOSE = 10 mg Oral Every 6 Hours, PRN Severe agitation or psychosis 07-Aug-2022 02:25 Haloperidol Lactate is not required Haloperidol Lactate Tablet (HALDOL)DOSE = 5 mg Oral Every 6 Hours, PRN Moderate agitation or psychosis 07-Aug-2022 02:25 Haloperidol Lactate is not required Haloperidol Lactate Injectable (HALDOL)DOSE = 10 mg IntraMuscular Every 6 Hours, PRN Severe agitation/psychosis-Un able to take oral 07-Aug-2022 02:25 Haloperidol Lactate Injectable is not required Haloperidol Lactate Injectable (HALDOL)DOSE = 5 mg IntraMuscular Every 6 Hours, PRN Moderate agitation/psychosis-Un able to take oral 07-Aug-2022 02:25 Haloperidol Lactate Injectable is not required Multivitamin with Minerals TabletDOSE = 1 tablet(s) Oral Daily 07-Aug-2022 02:25 Complete with DHA oral capsule 3 cap(s) orally once a day 07-Aug-2022 14:31 Prescription is created for Complete with DHA oral capsule Ondansetron Dispersible Tablet, Disintegrating (ZOFRAN)DOSE = 4 mg Oral Every 8 Hours, PRN Nausea and/or Vomiting 08-Aug-2022 09:40 Ondansetron Dispersible is not required Sertraline Tablet (ZOLOFT)DOSE = 50 mg Oral Daily 07-Aug-2022 02:25 sertraline 50 mg oral tablet 1 tab(s) orally once a day 09-Aug-2022 11:03 Sertraline is continued as sertraline 50 mg oral tablet All Active Home Medications at time of Discharge Reconciliation: 09-Aug-2022 11:03 ARIPiprazole 5 mg oral tablet 1 tab(s) orally once a day cholecalciferol 400 intl units (10 mcg) oral capsule 1 cap(s) orally once a day Complete with DHA oral capsule 3 cap(s) orally once a day sertraline 50 mg oral tablet 1 tab(s) orally once a day [facility] Order Reconciliation Page 1 Admission Reconciliation Document Reconciliation Type: ED to Observation requested on behalf of Zahra Guerra (Physician) done by Zahra Guerra) ED to Observation - Reconciliation: 07-Aug-2022 02:25 by: Zahra Guerra) ED to Observation - AutoLinked: 07-Aug-2022 02:25 by: Zahra Guerra) Home MedicationsEnteredLast Dose TakenReconciled with current Order Reconciliation Comment/ Additional Information Zoloft 07-Aug-2022 Sertraline Tablet (ZOLOFT)DOSE = 50 mg Oral Daily Zoloft continued as the inpatient order Sertraline Documentation of outpatient medication history is incomplete. Additional Current Orders Acetaminophen Tablet (TYLENOL)DOSE = 650 mg Oral Every 4 Hours, PRN Pain - Mild (1-3) or Temp Greater Than or Equal to 38.0 C diphenhydrAMINE Capsule (BENADRYL)DOSE = 50 mg Oral Every 6 Hours, PRN EPS/EPS prophylaxis diphenhydrAMINE Injectable (BENADRYL)DOSE = 50 mg IntraMuscular Every 6 Hours, PRN EPS/EPS prophylaxis if unable to take oral. Haloperidol Lactate Injectable (HALDOL)DOSE = 10 mg IntraMuscular Every 6 Hours, PRN Severe agitation/psychosis-Un able to take oral Haloperidol Lactate Injectable (HALDOL)DOSE = 5 mg IntraMuscular Every 6 Hours, PRN Moderate agitation/psychosis-Un able to take oral Haloperidol Lactate Tablet (HALDOL)DOSE = 10 mg Oral Every 6 Hours, PRN Severe agitation or psychosis Haloperidol Lactate Tablet (HALDOL)DOSE = 5 mg Oral Every 6 Hours, PRN Moderate agitation or psychosis Multivitamin with Minerals TabletDOSE = 1 tablet(s) Oral Daily [facility] POTASSIUMon 08-07-2022 Potassium [Moles/Vol] 3.9 mmol/L Normal 3.5 - 5.3 [facility] Comment on above: Performed By: #### K #### [address] [id number] Patient Profile - Adult v2on 08-07-2022 Patient Profile - Adult v2 Profile: Initial Info: How to be AddressedRenae Spoken Language PreferredEnglish (1) Stated Reason for AdmissionDepression; Agitation & Aggression, Panic Attacks Wants Family/Rep Notified of Admissiondeferred; patient unable to answer Notify PCPdeferred, unable to answer Informed of Patient Visiting Rightsyes [facility] Patient Belongingsremains with patient Patient Belongings Remaining with PatientSee pt. belonging's sheet Medications Brought to Hospitalno General Health: Weight in kg77 kilogram(s)(2) Weight in xiq907.7 pound(s) Weight Methodactual (measured) Scale Typestanding Height in cm172.6 centimeter(s)(2) Height in feet5 feet Height in inches7.99 inch(es) Height Methodstated BMI (kg/m2)25.846 square meter RSP Based Care: How would you like to participate in your care I find therapy helpful. What is the number one concern for you during this hospitalization Gettin g myself better so I can feel normal again. What is the most important thing we can do to support you during this hospitalization I need to talk to the psychiatrist about my medications. Is there anything we need to know to best care for you No. Substance: Smoking Statuslight user (uses <10 cig/day, OR <0.5 ppd, OR 1 can/pouch loose leaf tobacco per week, OR <0.5 vape pods per day) (3) Tobacco Cessation Education (provide if tobacco use within the last 12 mos) patient declined Alcohol Useoccasionally(3) Drug Usedenies (3) Drug 2 Usedenies (3) Health Mgmt: Symptoms/Conditions Managed at Homebehavioral health Are You yes (1) Are You Currently Breastfeedingno (1) Behavioral Health Symptoms/Conditionsanx iety; depression Behavioral Management Strategiescounseling; medication therapy Behavioral Health Managementmanaged Current Management Strategiescounseling; medication therapy Relationship/Environ: Resource/Environmental Concernsnone Primary Source of Support/Comfortparent; child(herlinda); spouse Lives Withdependent child(herlinda); spouse Living Arrangementsm[place] Services Anticipated at Transitionmental health services Anticipated Transition Tohome Significant IndicatorsComplete Information Review: Allergies, Home Meds and Significant Events have been Reviewed and Verified with Patient/Familyyes ALLERGY, INTOLERANCE, ADVERSE EVENT: Allergies: No Known Allergies: Active Electronic Signatures: Manoj Monsalve (RN) (Signed 07-Aug-2022 02:11) Authored: Initial Info, General Health, RSP Based Care, Substance, Health Mgmt, Relationship/Environ, Additional Information Last Updated: 07-Aug-2022 02:11 by Manoj Monsalve (RN) References: 1. Data Referenced From Triage - ED 06-Aug-2022 19:01 2. Data Referenced From 1. Vital Signs 06-Aug-2022 19:01 3. Data Referenced From Provider Note - ED v3 06-Aug-2022 22:51 [facility] Provider Note - ED v3on 07-22 Provider Note - ED v3 Provider Note: Chart Review: ED NOTES ED NOTES: A female patient with history of anxiety and depression comes in the emergency department today at the request of her psychiatrist Dr. Borja. She states recently she has been having very violent outbursts where she has become physical with those around her. Patient states she has passive thoughts of things it would be easier if she just was not around but has no specific plan to harm her self nor does she think she would. Patient denies any homicidal ideations, auditory visual hallucinations. She states her doctor said to come in and be admitted as he will be able to adjust her medications as an inpatient better. Patient admits that she is roughly 6 and half weeks . Denies any abdominal pain or vaginal bleeding. She is G4, P1. HISTORY OF PRESENTING ILLNESS DORCAS is a 22 year old Female and was seen by me at 06-Aug-2022 19:10 for a chief complaint of psychiatric evaluation ( My psychiatrist sent to ER to be admitted. I have just been more physical with people and depressed. having bursts of rage. 6.5 weeks too)(1). The historian is the patient. Triage Information: Most recent Vital Sign Value Date Temp (F): 97.3 08-06-2022 19:01 Temp (C): 36.3 08-06-2022 19:01 Heart Rate (beats/min): 89 08-06-2022 19:01 Respirations (breaths/min): 16 08-06-2022 19:01 SpO2 (%): 99 08-06-2022 19:01 BP Systolic (mm Hg): 134 08-06-2022 19:01 BP Diastolic (mm Hg): 66 08-06-2022 19:01 Presenting Symptoms: depression.Context is Unknown.Timing is intermittent. PAST MEDICAL HISTORY ATTESTATION: Medical conditions: Depression, anxiety Social history: Not incarcerated PSYCHOSOCIAL SCREENING: NO: concerns for safety at home, feelings of depression, feels like hurting others and feels like hurting self CURRENT OR FORMER SUBSTANCE USE: Tobacco/Nicotine Use: light user (uses <10 cig/day, OR <0.5 ppd, OR 1 can/pouch loose leaf tobacco per week, OR <0.5 vape pods per day) Alcohol Use: occasionally Drug Use: denies,Drug 2 Use: denies ALLERGIES/INTOLERANCES : No Known Allergies HEALTH HISTORY: No documented data. OUTPATIENT MEDICATIONS: Home Medications Review Status for Reconciliation: Incomplete Med Status: Patient Currently Takes Medications Drug Name: cholecalciferol 400 intl units (10 mcg) oral capsule Instructions: 1 cap(s) orally once a day Drug Name: Complete with DHA oral capsule Instructions: 3 cap(s) orally once a day Drug Name: ARIPiprazole 5 mg oral tablet Instructions: 1 tab(s) orally once a day Drug Name: sertraline 50 mg oral tablet Instructions: 1 tab(s) orally once a day SIGNIFICANT EVENTS: No documented data. REVIEW OF SYSTEMS CONSTITUTIONAL: Negative for: chills and fever RESPIRATORY: Negative for: cough and dyspnea GASTROINTESTINAL: Negative for: abdominal pain, diarrhea, nausea and vomiting; PSYCHIATRIC: POSITIVE for: depression and mood swings All other systems reviewed and are negative PHYSICAL EXAM CONSTITUTIONAL: Well appearing, well nourished, awake, alert, oriented to person, place, time/situation and in no apparent distress. EYES: Clear bilaterally, pupils equal, round and reactive to light. CARDIOVASCULAR: Normal rate, regular rhythm. Heart sounds S1, S2. No murmurs, rubs or gallops. PMI non-displaced. RESPIRATORY: Breath sounds clear and equal bilaterally. GASTROINTESTINAL: Abdomen soft, non-distended, no rebound, no guarding. Bowel sounds normal in all 4 quadrants. MUSCULOSKELETAL: Spine appears normal, range of motion is not limited, no muscle or joint tenderness. NEUROLOGICAL: Alert and oriented, no focal deficits, no motor or sensory deficits. PSYCHIATRIC: Alert and oriented to person, place, time/situation. normal mood and affect. No apparent risk to self or others. CRITICAL CARE VITAL SIGNS: *Vital Signs have not been recorded in the last 5 hours MDM MDM/ED COURSE: Medically cleared for EPAT evaluation Patient was evaluated by EPAT. I did speak to Dr. Guerra who is a colleague of Dr. Borja who agrees to admit the patient. PROGRESS NOTE EKG Procedure Location: bedside Pre-procedure Verification: deferred due to emergent procedure Time Out - Final Verification: deferred due to emergent procedure Post-Procedure Diagnosis: EKG INTERPRETATION: EKG Date/Time: 06-Aug-2022 19:55 Rate: 90 Rhythm: NSR STEMI: no [place]: Normal ST Segment/T Wave: T inversion (T wave inversions in lead aVR, V1, 3) DISPOSITION Diagnosis/Annotation: ED Dx Name:Mood swings Code:R45.86 Name:Violent behavior Code:R45.6 Disposition: hospitalized Admit to: Behavioral Health. Admitting Considerations: CONSULT Attestation: This is a shared visit. I have reviewed the LIPs encounter note, approve the LIPs documentation and provide the following additional information from my personal encounter. Shared (more content not included)... Normal [facility] TSHon 08-07-2022 TSH Qn 2.06 m[IU]/L Normal 0.44 - 3.98 [facility] Comment on above: Result Comment: TSH testing is performed using different testing methodology at [facility] than at other [facility]. Direct result comparisons should only be made within the same method. Performed By: #### T SH2 #### [address] [id number] TSH Canceled Normal [facility] Comment on above: Order Comment: TEST TSH WAS CANCELLED, 08/07/2022 11:15 add on 11:15 08/07/2022. Result Comment: TSH testing is performed using different testing methodology at [facility] than at [facility]. Direct result comparisons should only be made within the same method. Performed By: #### H CGQU #### [address] [id number] VITAMIN D, 25-HYDROXYon 07-22 VITAMIN D, 25-HYDROXY 29 ng/mL Abnormal [facility] Comment on above: Result Comment: . DEFICIENCY: < 20 NG/ML INSUFFICIENCY: 20-29 NG/ML SUFFICIENCY: 30-100 NG/ML THIS ASSAY ACCURATELY QUANTIFIES THE SUM OF VITAMIN D3, 25-HYDROXY AND VIT D2,25-HYDROXY. Performed By: #### C OV19 #### [address] [id number] VITAMIN D, 25-HYDROXY Canceled Normal [facility] Comment on above: Order Comment: TEST VITAMIN D, 25-HYDROXY WAS CANCELLED, 08/07/2022 11:15 add on 11:15 08/07/2022. Performed By: #### V TDOH #### [address] [id number] ACETAMINOPHENon 08-06-2022 Acetaminophen [Mass/Vol] ug/mL Normal 10.0 - 30.0 [facility] Comment on above: Performed By: #### C OV19 #### [address] [id number] ALCOHOLon 08-06-2022 Ethanol [Mass/Vol] mg/dL Normal [facility] Comment on above: Result Comment: FOR MEDICAL USE ONLY. . REF VALUES <10 Performed By: #### S ALIC #### [address] [id number] CBC AND DIFFERENTIALon 08-06 % AUTOMATED IMMATURE GRAN 0.3 % Normal 0.0 - 0.9 [facility] Comment on above: Result Comment: Galina ture Granulocyte Count (IG) includes promyelocytes, myelocytes and metamyelocytes but does not include bands. Percent differential counts (%) should be interpreted in the context of the absolute cell counts (cells/L). Performed By: #### C BCDF #### [address] [id number] Basophils (Bld) [#/Vol] 0.05 10*3/uL Normal 0.00 - 0.10 [facility] Comment on above: Performed By: #### C BCDF #### [address] [id number] Basophils/100 WBC (Bld) 0.7 % Normal 0.0 - 2.0 [facility] Comment on above: Performed By: #### C BCDF #### [address] [id number] Eosinophils (Bld) [#/Vol] 0.14 10*3/uL Normal 0.00 - 0.70 [facility] Comment on above: Performed By: #### C BCDF #### [address] [id number] Eosinophils/100 WBC (Bld) 2.1 % Normal 0.0 - 6.0 [facility] Comment on above: Performed By: #### C BCDF #### [address] [id number] Erythrocyte distribution width (RBC) [Ratio] 11.9 % Normal 11.5 - 14.5 [facility] Comment on above: Performed By: #### C BCDF #### [address] [id number] Hematocrit (Bld) [Volume fraction] 34.1 % Low 36.0 - 46.0 [facility] Comment on above: Performed By: #### C BCDF #### [address] [id number] Hemoglobin (Bld) [Mass/Vol] 11.6 g/dL Low 12.0 - 16.0 [facility] Comment on above: Performed By: #### C BCDF #### [address] [id number] Lymphocytes (Bld) [#/Vol] 1.68 10*3/uL Normal 1.20 - 4.80 [facility] Comment on above: Performed By: #### C BCDF #### [address] [id number] Lymphocytes/100 WBC (Bld) 24.9 % Normal 13.0 - 44.0 [facility] Comment on above: Performed By: #### C BCDF #### [address] [id number] MCHC (RBC) [Mass/Vol] 34.0 g/dL Normal 32.0 - 36.0 [facility] Comment on above: Performed By: #### C BCDF #### [address] [id number] MCV (RBC) [Entitic vol] 92 fL Normal 80 - 100 [facility] Comment on above: Performed By: #### C BCDF #### [address] [id number] Monocytes (Bld) [#/Vol] 0.52 10*3/uL Normal 0.10 - 1.00 [facility] Comment on above: Performed By: #### C BCDF #### [address] [id number] Monocytes/100 WBC (Bld) 7.7 % Normal 2.0 - 10.0 [facility] Comment on above: Performed By: #### C BCDF #### [address] [id number] Neutrophils (Bld) [#/Vol] 4.33 10*3/uL Normal 1.20 - 7.70 [facility] Comment on above: Performed By: #### C BCDF #### [address] [id number] Neutrophils/100 WBC (Bld) 64.3 % Normal 40.0 - 80.0 [facility] Comment on above: Performed By: #### C BCDF #### [address] [id number] Platelets (Bld) [#/Vol] 212 10*3/uL Normal 150 - 450 [facility] Comment on above: Performed By: #### C BCDF #### [address] [id number] RBC 3.72 x10E12/L Low 4.00 - 5.20 [facility] Comment on above: Performed By: #### C BCDF #### [address] [id number] WBC (Bld) [#/Vol] 6.7 10*3/uL Normal 4.4 - 11.3 [facility] Comment on above: Performed By: #### C BCDF #### [address] [id number] COMPREHENSIVE PANELon 2021 Albumin [Mass/Vol] 4.2 g/dL Normal 3.4 - 5.0 [facility] Comment on above: Performed By: #### C OV19 #### [address] [id number] ALP [Catalytic activity/Vol] 63 U/L Normal 33 - 110 [facility] Comment on above: Performed By: #### C OV19 #### [address] [id number] ALT [Catalytic activity/Vol] 13 U/L Normal 7 - 45 [facility] Comment on above: Result Comment: Lziy ents treated with Sulfasalazine may generate falsely decreased results for ALT. Performed By: #### C OV19 #### [address] [id number] Anion gap [Moles/Vol] 11 mmol/L Normal 10 - 20 [facility] Comment on above: Performed By: #### C OV19 #### [address] [id number] AST [Catalytic activity/Vol] 16 U/L Normal 9 - 39 [facility] Comment on above: Performed By: #### C OV19 #### [address] [id number] Bilirubin [Mass/Vol] 0.4 mg/dL Normal 0.0 - 1.2 [facility] Comment on above: Performed By: #### C OV19 #### [address] [id number] Calcium [Mass/Vol] 8.9 mg/dL Normal 8.6 - 10.3 [facility] Comment on above: Performed By: #### C OV19 #### [address] [id number] Chloride [Moles/Vol] 106 mmol/L Normal 98 - 107 [facility] Comment on above: Performed By: #### C OV19 #### [address] [id number] Creatinine [Mass/Vol] 0.77 mg/dL Normal 0.50 - 1.05 [facility] Comment on above: Performed By: #### C OV19 #### [address] [id number] eGFR FEMALE >90 Normal >90 [facility] Comment on above: Result Comment: CALC ULATIONS OF ESTIMATED GFR ARE PERFORMED USING THE 2020 CKD-EPI STUDY REFIT EQUATION WITHOUT THE RACE VARIABLE FOR THE IDMS-TRACEABLE CREATININE METHODS. https://jasn.asnjournals.org/content//ASN.712725 8552 Performed By: #### C OV19 #### [address] [id number] Glucose [Mass/Vol] 99 mg/dL Normal 74 - 99 [facility] Comment on above: Performed By: #### C OV19 #### [address] [id number] HCO3 (Bld) [Moles/Vol] 25 mmol/L Normal 21 - 32 [facility] Comment on above: Performed By: #### C OV19 #### [address] [id number] Potassium [Moles/Vol] 3.4 mmol/L Low 3.5 - 5.3 [facility] Comment on above: Performed By: #### C OV19 #### [address] [id number] Protein [Mass/Vol] 7.2 g/dL Normal 6.4 - 8.2 [facility] Comment on above: Performed By: #### C OV19 #### [address] [id number] Sodium [Moles/Vol] 139 mmol/L Normal 136 - 145 [facility] Comment on above: Performed By: #### C OV19 #### [address] [id number] Urea nitrogen [Mass/Vol] 9 mg/dL Normal 6 - 23 [facility] Comment on above: Performed By: #### C OV19 #### [address] [id number] CORONAVIRUS 2019 BY PCRon Lab Specimen Source Nasal, Nasopharyngeal Normal [facility] Comment on above: Order Comment: TEST CORONAVIRUS 2019 BY PCR WAS CANCELLED, 08/07/2022 13:06 CANCEL PER RN 5W. Performed By: #### C OV19 #### [address] [id number] CREATINE KINASEon 08-06-2022 CK [Catalytic activity/Vol] 79 U/L Normal 0 - 215 [facility] Comment on above: Performed By: #### C K #### [address] [id number] DRUG SCREEN,URINEon 08-06-20 22 AMPHETAMINE SCREEN,U Negative Normal NEGATIVE [facility] Comment on above: Result Comment: CUTO FF LEVEL: 500 NG/ML Cross-reactivity has been reported with high concentrations of the following drugs: buproprion, chloroquine, chlorpromazine, ephedrine, mephentermine, fenfluramine, phentermine, phenylpropanolamine, pseudoephedrine, and propranolol. Performed By: #### D RUG3 #### [address] [id number] BARBITURATES SCREEN,U Negative Normal NEGATIVE [facility] Comment on above: Result Comment: CUTO FF LEVEL: 200 NG/ML Performed By: #### D RUG3 #### [address] [id number] BENZODIAZEPINES SCREEN,U Negative Normal NEGATIVE [facility] Comment on above: Result Comment: CUTO FF LEVEL: 200 NG/ML Performed By: #### D RUG3 #### [address] [id number] CANNABINOIDS SCREEN,U Negative Normal NEGATIVE [facility] Comment on above: Result Comment: CUTO FF LEVEL: 50 NG/ML Performed By: #### D RUG3 #### [address] [id number] COCAINE METABOLITE SCREEN,U Negative Normal NEGATIVE [facility] Comment on above: Result Comment: CUTO FF LEVEL: 150 NG/ML Performed By: #### D RUG3 #### [address] [id number] DRUG SCREEN COMMENT SEE BELOW Normal [facility] Comment on above: Result Comment: Drug screen results are presumptive and should not be used to assess compliance with prescribed medication. Contact the performing [facility] laboratory to add-on definitive confirmatory testing if clinically indicated. . Toxicology screening results are reported qualitatively. The concentration must be greater than or equal to the cutoff to be reported as positive. The concentration at which the screening test can detect an individual drug or metabolite varies. The absence of expected drug(s) and/or drug metabolite(s) may indicate non-compliance, inappropriate timing of specimen collection relative to drug administration, poor drug absorption, diluted/adulterated urine, or limitations of testing. For medical purposes only; not valid for forensic use. . Interpretive questions should be directed to the laboratory medical directors. Performed By: #### D RUG3 #### [address] [id number] FENTANYL SCREEN,URINE Negative Normal NEGATIVE [facility] Comment on above: Result Comment: CUTO FF LEVEL: 5 NG/ML Performed By: #### D RUG3 #### [address] [id number] METHADONE SCREEN,U Negative Normal NEGATIVE [facility] Comment on above: Result Comment: CUTO FF LEVEL: 150 NG/ML The metabolite J-sullc-xgijfvyxsljqep (LAAM) is not detected by this method in concentrations that would be found in the urine of patients on LAAM therapy. Performed By: #### D RUG3 #### [address] [id number] OPIATES SCREEN,U Negative Normal NEGATIVE [facility] Comment on above: Result Comment: CUTO FF LEVEL: 300 NG/ML The opiate screen does not detect fentanyl, meperidine, or tramadol. Oxycodone is not consistently detected (refer to Oxycodone Screen, Urine result). Performed By: #### D RUG3 #### [address] [id number] OXYCODONE SCREEN,U Negative Normal NEGATIVE [facility] Comment on above: Result Comment: CUTO FF LEVEL: 100 NG/ML This test will accurately detect both oxycodone and oxymorphone. Performed By: #### D RUG3 #### [address] [id number] PCP SCREEN,U Negative Normal NEGATIVE [facility] Comment on above: Result Comment: CUTO FF LEVEL: 25 NG/ML Cross-reactivity has been reported with dextromethorphan. Performed By: #### D RUG3 #### [address] [id number] HCG,BETA-QUANTITATIVEon 07-22 HCG,BETA-QUANTITATIVE 30529 mIU/mL Abnormal [facility] Comment on above: Result Comment: Low- level positive HCG results can be seen in early , in isauro- or post-menopausal females due to normal pituitary HCG production, or with analytic interference. Repeat testing in 48-72 hours can aid in assessing for as results should double in this time period. FSH measurement is recommended in isauro- or post-menopausal females as concurrent elevation of FSH can support pituitary production as the source of the HCG elevation. . Total HCG measurement is performed using the [employer] Get[employer] Access Immunoassay which detects intact HCG and free beta HCG subunit. This test is not indicated for use as a tumor marker. HCG testing is performed using a different test methodology at [facility] than other [facility]. Direct result comparison should only be made within the same method. REF VALUES NON FEMALE <5 MALES <5 Performed By: #### H CGQU #### [address] [id number] Risk Screen - Adult Emergenc yon 08-06-2022 Risk Screen - Adult Emergency Preferred Language: Preferred Language: Preferred Language for Discussing Health Care (patient/designee)Engl christine Advanced Directives: Advance Directive/DNRno Family Violence Adult: Abuse Screen: Are you or have you been threatened or abused physically, emotionally, or sexually by anyoneno Learning Assessment (Patient): Learning Assessment (Patient): Patient is Able to be Assessed for Learningyes Factors Influencing Readiness to Learninformation requested; interest in learning; pain Factors that Impact Ability to Learnnone Devices/Methods Used to Communicatenone Learning Preferencesindividual instruction; skill demonstration; verbal instruction; written material Cultural Considerationsnone Developmental Considerationsnone Baptism Considerationsnone Other Learnersfamily Learning Assessment (Other Learner): Learning Assessment (Other Learner): Other learner availableno Pressure Injury/TB/Substance: Pressure Injury: Do you have a coughno Smoking Statusnever smoker Alcohol Usedenies Drug Usedenies Drug 2 Usedenies Admission Risk Screen: Significant IndicatorsComplete CAGE: CAGE: Is this an injured patient at a Trauma Center ([facility]/[place]/[facility]/[place]): no Electronic Signatures: Elizabeth Romeo (STAFF N) (Signed 06-Aug-2022 19:00) Authored: Preferred Language, Advanced Directives, Family Violence Adult, Learning Assessment (Patient), Learning Assessment (Other Learner), Pressure Injury/TB/Substance, Pressure Injury, CAGE Last Updated: 06-Aug-2022 19:00 by Elizabeth Romeo (STAFF N) Normal [facility] SALICYLATEon 08-06-2022 SALICYLATE <3 Normal 4 - 20 [facility] Comment on above: Performed By: #### S ALIC #### [address] [id number] Triage - EDon 08-06-2022 Triage - ED Quick Triage: Are You yes Have You Given In The Last 6 Weeksno Are You Currently Breastfeedingno The patient and/or guardian verbally acknowledges placement for services into the following (when Urgent Care Service hours are operating):emergency department Chart Review: PRIMARY ASSESSMENT ABCD Normal Findings: airway open and patent, breathing normal, circulation normal and alert and oriented ARRIVAL INFORMATION Means of Arrival: Ambulatory Mode of Arrival: private vehicle Arrival From: home Accompanied By: self Language: Spoken Language Preferred: Congolese Reading Language Preferred: Congolese Infrastructure Technician Requested: no official court interpreter was requested MDRO: History of MDRO: no Present on Arrival: Pressure Ulcer Present on Arrival to ED: no CHIEF COMPLAINT DORCAS KENT is a Female patient with a chief complaint of psychiatric evaluation ( My psychiatrist sent to ER to be admitted. I have just been more physical with people and depressed. having bursts of rage. 6.5 weeks too). Triage Date/Time: 06-Aug-2022 19:01 NEDA: 3 Pain Rating (0-10): 0 = None Vital Signs: Temperature: 97.3F ( 36.3C) taken temporal Blood Pressure: 134/66 Mean: Heart Rate: 89 Respiratory Rate: 16 Pulse Oximetry: 99% on room air, no respiratory support. Height: 5 feet 8.00 inches. 172.7 CM Weight: 169.7 pounds. Calculated 77.0 kg. (stated) Calculated BMI (kg/m2): 25.817 Calculated BSA (m2) 1.92 Huslia Coma Scale: Best Eye Response: (E4) spontaneous Best Motor Response: (M6) obeys commands Best Verbal Response: (V5) oriented Huslia Score: 15 Cough lasting greater than 3 weeks: no Patient immunocompromised related to: N/A Allergies: no Patient has homicidal thoughts: no Risk Screens Suicide Risk Screen In the Past Month: Have you wished you were or wished you could go to sleep and not wake up yes In the Past Month: Have you had any actual thoughts of killing yourself no In Your Lifetime: Have you ever done anything, started to do anything, or prepared to do anything to end your life no Suicide Risk Interventions Low Suicide Risk Interventions: consider behavioral health resources will be given at dischargeicon low Desai Fall Scale Screening Has the patient fallen before (or is the patient in the ED as a result of a fall) has not had a fall Does the patient have an impaired gait does not have impaired gait Is the patient cognitively impaired not cognitively impaired Interventions: Desai Fall Interventions: LOW INTERVENTIONS: *patient oriented to surroundings and call system, * patient/family falls education completed and documented, *patients fall status communicated during bedside handoff, *whiteboard updated, *mode of toileting discussed with patient, *bed in low position with brakes locked, *call light in reach, * non-skid footwear PAST MEDICAL HISTORY Immunization History: Last Known Tetanus Immunization: Greater than 10 years TRAVEL HISTORY Travel History Coronavirus Screening: no exposure or symptoms Travel Exposure History: NO travel to International locations in the past 30 days PAIN Pain Scale Used: CALIXTO Pain Rating (0-10): 0 = None Pain Management Interventions: relaxation, quiet environment facilitated and positioning Past Medical History: Past Medical History Reviewedyes Electronic Signatures: Elizabeth Romeo (STAFF N) (Signed 06-Aug-2022 19:06) Entered: Risk Screens, Pain, Arrival, ABCD, Immunizations, Travel History, Chart Review, Past Medical History Authored: Quick Triage, Risk Screens, Pain, Arrival, ABCD, Immunizations, Travel History, Chart Review, Past Medical History Last Updated: 06-Aug-2022 19:06 by Elizabeth Romeo (STAFF N) Normal [facility] URINALYSISon 08-06-2022 Appearance (U) CLEAR Normal CLEAR [facility] Comment on above: Performed By: #### S ALIC #### [address] [id number] Bilirubin Ql (U) Negative Normal NEGATIVE [facility] Comment on above: Performed By: #### S ALIC #### [address] [id number] Color (U) YELLOW Normal STRAW,YELLOW [facility] Comment on above: Performed By: #### S ALIC #### [address] [id number] Glucose Ql (U) Negative Normal NEGATIVE [facility] Comment on above: Performed By: #### S ALIC #### [address] [id number] Hemoglobin Ql (U) Negative Normal NEGATIVE [facility] Comment on above: Performed By: #### S ALIC #### [address] [id number] Ketones Ql (U) 5 (TRACE) Abnormal NEGATIVE [facility] Comment on above: Performed By: #### S ALIC #### [address] [id number] Leukocyte esterase Test strip Ql (U) Negative Normal NEGATIVE [facility] Comment on above: Performed By: #### S ALIC #### [address] [id number] Nitrite Ql (U) Negative Normal NEGATIVE [facility] Comment on above: Performed By: #### S ALIC #### [address] [id number] pH (U) 6.0 [pH] Normal 5.0 - 8.0 [facility] Comment on above: Performed By: #### S ALIC #### [address] [id number] Protein Ql (U) Negative Normal NEGATIVE [facility] Comment on above: Performed By: #### S ALIC #### [address] [id number] Specific gravity (U) [Rel density] 1.021 Normal 1.005 - 1.035 [facility] Comment on above: Performed By: #### S ALIC #### [address] [id number] Urobilinogen (U) [Mass/Vol] 2.0 mg/dL High 0.0 - 1.9 [facility] Comment on above: Result Comment: Due to a manufacturing issue, low positive urobilinogen results may be falsely positive. Correlate with urine bilirubin and additional clinical/laboratory findings to assess the risk of hemolytic anemia or liver disease. If clinically indicated, repeat testing with an alternate method is available by contacting the laboratory within 24 hours. . Some pigments and medications may cause a false positive urobilinogen. Performed By: #### [facility] #### [address] [id number] Automated erythrocytes count in urine sediment (number/area)Ordered By: Demar Jean Baptiste on 08-04-2022 RBC Auto (Urine sed) [#/Area] 3-4 [HPF] 0-4 [facility] Automated leukocytes count i n urine sediment (number/area)Ordered By: Deamr Jean Baptiste on 08-04-2022 WBC Auto (Urine sed) [#/Area] 0-1 [HPF] 0-4 [facility] Basophils Auto (Bld) [#/Vol] Ordered By: Demar Jean Baptiste on 08-04-2022 Basophils (Bld) [#/Vol] 0.1 10*3/uL 0.0-0.2 [facility] Basophils/100 WBC Auto (Bld) Ordered By: Demar Jean Baptiste on 08-04-2022 Basophils/100 WBC (Bld) 0.9 % . [facility] Bilirubin Test strip Ql (U)O rdered By: Demar Jean Baptiste on 08-04-2022 Bilirubin Ql (U) Negative Negative [facility] Blood hemoglobin measurement (mass/volume)Ordered By: Demar Jean Baptiste on 08-04-2022 Hemoglobin (Bld) [Mass/Vol] 12.5 g/dL 11.8-15.4 [facility] Blood leukocytes automated c ount (number/volume)Ordered By: Demar Jean Baptiste on 08-04-2022 WBC (Bld) [#/Vol] 6.2 10*3/uL 4.5-11.0 [facility] Body fluid albumin measureme nt (mass/volume)Ordered By: Demar Jean Baptiste on 08-04-2022 Albumin (Body fld) [Mass/Vol] 3.9 g/dL 3.2-5.5 [facility] Color Auto (U)Ordered By: Margarito Jean Baptiste on 08-04-2022 Color (U) Yellow Yellow [facility] Creatinine and Glomerular fi ltration rate.predicted panel (S/P/Bld)Ordered By: Demar Jean Baptiste on 08-04-2022 Creatinine [Mass/Vol] 0.72 mg/dL 0.44-1.03 [facility] Eosinophils Auto (Bld) [#/Vo l]Ordered By: Demar Jean Baptiste on 08-04-2022 Eosinophils (Bld) [#/Vol] 0.1 10*3/uL 0.0-0.45 [facility] Eosinophils/100 WBC Auto (Bl d)Ordered By: Demar Jean Baptiste on 08-04-2022 Eosinophils/100 WBC (Bld) 1.9 % . [facility] Erythrocyte distribution wid th Auto (RBC) [Ratio]Ordered By: Demar Jean Baptiste on 08-04-2022 Erythrocyte distribution width (RBC) [Ratio] 13.0 % 11.9-15.3 [facility] Estimated glomerular filtrat ion rate (GFR) non- AmericanOrdered By: Demar Jean Baptiste on 08-04-2022 GFR/1.73 sq M.predicted among non-blacks MDRD (S/P/Bld) [Vol rate/Area] > 60 mL/Min [facility] Globulin Calc (S) [Mass/Vol] Ordered By: Demar Jean Baptiste on 08-04-2022 Globulin (S) [Mass/Vol] 2.8 g/dL [facility] Hematocrit Auto (Bld) [Volum e fraction]Ordered By: Demar Jean Baptiste on 08-04-2022 Hematocrit (Bld) [Volume fraction] 36.4 % 34.0-46.4 [facility] Ketones Auto test strip (U) [Mass/Vol]Ordered By: Demar Jean Baptiste on 08-04-2022 Ketones (U) [Mass/Vol] Negative Negative [facility] - Hematology and Cell countsOrdered By: Demar Jean Baptiste on 08-04-2022 Nucleated RBC/100 WBC (Bld) [Ratio] 0.1 % 0-0.5 [facility] - UrinalysisOrder ed By: Demar Jean Baptiste on 08-04-2022 Hyaline casts LM Ql (Urine sed) 0-8 [LPF] 0-8 [facility] Lymphocytes Auto (Bld) [#/Vo l]Ordered By: Demar Jean Baptiste on 08-04-2022 Lymphocytes (Bld) [#/Vol] 1.2 10*3/uL 1.00-4.8 [facility] Lymphocytes/100 WBC Auto (Bl d)Ordered By: Demar Jean Baptiste on 08-04-2022 Lymphocytes/100 WBC (Bld) 19.3 % . [facility] MCH Auto (RBC) [Entitic mass ]Ordered By: Demar Jean Baptiste on 08-04-2022 MCH (RBC) [Entitic mass] 31.1 pg 24.7-34.3 [facility] MCHC Auto (RBC) [Mass/Vol]Or dered By: Demar Jean Baptiste on 08-04-2022 MCHC (RBC) [Mass/Vol] 34.4 g/dL 32.0-35.0 [facility] MCV Auto (RBC) [Entitic vol] Ordered By: Demar Jean Baptiste on 08-04-2022 MCV (RBC) [Entitic vol] 90.3 fL 80-100 [facility] Monocytes Auto (Bld) [#/Vol] Ordered By: Demar Jean Baptiste on 08-04-2022 Monocytes (Bld) [#/Vol] 0.5 10*3/uL 0.0-0.8 [facility] Monocytes/100 WBC Auto (Bld) Ordered By: Demar Jean Baptiste on 08-04-2022 Monocytes/100 WBC (Bld) 7.6 % . [facility] Neutrophils Auto (Bld) [#/Vo l]Ordered By: Demar Jean Baptiste on 08-04-2022 Neutrophils (Bld) [#/Vol] 4.3 10*3/uL 1.8-7.7 [facility] Neutrophils/100 WBC Auto (Bl d)Ordered By: Demar Jean Baptiste on 08-04-2022 Neutrophils/100 WBC (Bld) 70.3 % . [facility] Nitrite Test strip Ql (U)Ord ered By: Demar Jean Baptiste on 08-04-2022 Nitrite Ql (U) Positive Negative [facility] No Panel InformationOrdered By: Demar Jean Baptiste on 08-04-2022 Estimated GFR () > 60 mL/Min [facility] Comment on above: GFR estimated refere nce range: According to KDOQI guidelines, <60 ml/min/1.73m2 is sufficient to diagnose a patient with chronic kidney disease. Pharmacy Creatinine Clearance (Chem 132.19 [facility] Platelet mean volume Auto (B ld) [Entitic vol]Ordered By: Demar Jean Baptiste on 08-04-2022 Platelet mean volume (Bld) [Entitic vol] 7.7 fL 6.3-10.7 [facility] Platelets Auto (Bld) [#/Vol] Ordered By: Demar Jean Baptiste on 08-04-2022 Platelets (Bld) [#/Vol] 214 10*3/uL 150-450 [facility] Protein Auto test strip (U) [Mass/Vol]Ordered By: Demar Jean Baptiste on 08-04-2022 Protein (U) [Mass/Vol] Negative Negative [facility] Protein [Mass/volume] in Ser um or PlasmaOrdered By: Demar Jean Baptiste on 08-04-2022 Protein [Mass/Vol] 6.7 g/dL 6.1-7.9 [facility] RBC Auto (Bld) [#/Vol]Ordere d By: Demar Jean Baptiste on 08-04-2022 RBC (Bld) [#/Vol] 4.03 10*6/uL 3.60-5.[address] [facility] Serum or plasma alanine nelson otransferase measurement without P-5'-P (enzymatic activiOrdered By: Demar Jean Baptiste on 08-04-2022 ALT No additional P-5'-P [Catalytic activity/Vol] 18 U/L 10-60 [facility] Serum or plasma albumin/glob ulin mass ratioOrdered By: Demar Jean Baptiste on 08-04-2022 Albumin/Globulin [Mass ratio] 1.4 {ratio} [facility] Serum or plasma alkaline arlin sphatase measurement (enzymatic activity/volume)Ordered By: Demar Jean Baptiste on 08-04-2022 ALP [Catalytic activity/Vol] 64 U/L 32-92 [facility] Serum or plasma anion gap de terminationOrdered By: Demar Jean Baptiste on 08-04-2022 Anion gap [Moles/Vol] 12.6 mmol/L 6.0-15.0 [facility] Serum or plasma aspartate am inotransferase measurement (enzymatic activity/volume)Ordered By: Demar Jean Baptiste on 08-04-2022 AST [Catalytic activity/Vol] 18 U/L 10-42 [facility] Serum or plasma beta choriog onadotropin measurement (units/volume)Ordered By: Demar Jean Baptiste on 08-04-2022 [place] [address].00 m[IU]/mL [facility] Comment on above: Approximate Approxim ate hCG Gestational Age Range (mIU/ml) (weeks) 0.2-1 5-50 1-2 50-500 2-3 100-5,000 3-4 500-10,000 4-5 1,000-50,000 5-6 10,000-100,000 6-8 15,000-200,000 8-12 10,000-100,000 Serum or plasma calcium sandra urement (mass/volume)Ordered By: Demar Jean Baptiste on 08-04-2022 Calcium [Mass/Vol] 8.9 mg/dL 8.2-10.2 [facility] Serum or plasma chloride malini surement (moles/volume)Ordered By: Demar Jean Baptiste on 08-04-2022 Chloride [Moles/Vol] 104 mmol/L 95-114 [facility] Serum or plasma glucose sandra urement (mass/volume)Ordered By: Demar Jean Baptiste on 08-04-2022 Glucose [Mass/Vol] 79 mg/dL 70-100 [facility] Comment on above: ADA recommended refe rence range Random Glucose Reference Range is dependent on time and content of last meal. Glucose of more than 200 mg/dL in a nonstressed, ambulatory subject supports the diagnosis of Diabetes Mellitus. Serum or plasma potassium me asurement (moles/volume)Ordered By: Demar Jean Baptiste on 08-04-2022 Potassium [Moles/Vol] 3.8 mmol/L 3.5-5.1 [facility] Serum or plasma sodium measu rement (moles/volume)Ordered By: Demar Jean Baptiste on 08-04-2022 Sodium [Moles/Vol] 136 mmol/L 136-146 [facility] Serum or plasma total biliru bin measurement (mass/volume)Ordered By: Demar Jean Baptiste on 08-04-2022 Bilirubin [Mass/Vol] 0.8 mg/dL 0.3-1.2 [facility] Serum or plasma total carbon dioxide measurement (moles/volume)Ordered By: Demar Jean Baptiste on 08-04-2022 CO2 [Moles/Vol] 23.2 mmol/L 22.0-30.0 [facility] Serum or plasma urea nitroge n measurement (mass/volume)Ordered By: eDmar Jean Baptiste on 08-04-2022 Urea nitrogen [Mass/Vol] 5 mg/dL 9- [facility] Specific gravity Auto test s trip (U) [Rel density]Ordered By: Demar Jean Baptiste on 08-04-2022 Specific gravity (U) [Rel density] 1.015 1.001-1.030 [facility] Squamous epithelial cells de tection in urine sediment by light microscopyOrdered By: Demar Jean Baptiste on 08-04-2022 Epithelial cells.squamous LM Ql (Urine sed) 5-9 [HPF] 0-2 [facility] Urine bacteria detection by automated methodOrdered By: Demar Jean Baptiste on 08-04-2022 Bacteria Auto Ql (U) 1+ None Seen [facility] Urine clarity by refractomet ry automatedOrdered By: Demar Jean Baptiste on 08-04-2022 Clarity Refractometry automated (U) Clear Clear [facility] Urine glucose measurement by automated test strip (mass/volume)Ordered By: Demar Jean Baptiste on 08-04-2022 Glucose Auto test strip (U) [Mass/Vol] Normal mg/dL Normal [facility] Urine hemoglobin detection b y automated test stripOrdered By: Demar Jean Baptiste on 08-04-2022 Hemoglobin Auto test strip Ql (U) Negative Negative [facility] Urine leukocyte esterase det ection by automated test stripOrdered By: Demar Jean Baptiste on 08-04-2022 Leukocyte esterase Auto test strip Ql (U) Negative Negative [facility] Urobilinogen Auto test strip (U) [Mass/Vol]Ordered By: Demar Jean Baptiste on 08-04-2022 Urobilinogen (U) [Mass/Vol] Normal mg/dL Normal [facility] pH Auto test strip (U)Ordere d By: Demar Jean Baptsite on 08-04-2022 pH (U) 7.0 [pH] 5.0-9.0 [facility] Serum or plasma beta choriog onadotropin measurement (units/volume)Ordered By: NICOLE PALACIOS on 07-29-2022 HCG.beta subunit Qn 2212.00 m[IU]/mL [facility] Comment on above: Approximate Approxim ate hCG Gestational Age Range (mIU/ml) (weeks) 0.2-1 5-50 1-2 50-500 2-3 100-5,000 3-4 500-10,000 4-5 1,000-50,000 5-6 10,000-100,000 6-8 15,000-200,000 8-12 10,000-100,000 Serum or plasma beta choriog onadotropin measurement (units/volume)Ordered By: NICOLE PALACIOS on 07-27-2022 HCG.beta subunit Qn 964.31 m[IU]/mL [facility] Comment on above: Approximate Approxim ate hCG Gestational Age Range (mIU/ml) (weeks) 0.2-1 5-50 1-2 50-500 2-3 100-5,000 3-4 500-10,000 4-5 1,000-50,000 5-6 10,000-100,000 6-8 15,000-200,000 8-12 10,000-100,000 CBC AUTO DIFFon 07-24-2022 BASO # 0.1 103/ul Normal 0.0-0.1 [facility] Comment on above: Performed By: #### C BC #### [facility] [address] [place] [address] Dr. Osmany Boone Basophils/100 WBC (Bld) 0.9 % Normal 0.2-2.0 [facility] Comment on above: Performed By: #### C BC #### [facility] [address] [place] [address] Dr. Osmnay Boone EO # 0.2 103/ul Normal 0.0-0.7 [facility] Comment on above: Performed By: #### C BC #### [facility] [address] [place] [address] Dr. Osmany Boone Eosinophils/100 WBC (Bld) 2.8 % Normal 0.9-7.0 [facility] Comment on above: Performed By: #### C BC #### [facility] [address] [place] [address] Dr. Osmany Boone Erythrocyte distribution width (RBC) [Ratio] 12.1 % Normal 11.0-15.0 [facility] Comment on above: Performed By: #### C BC #### [facility] [address] [place] [address] Dr. Osmany Boone Hematocrit (Bld) [Volume fraction] 34.3 % Critically low 36.0-48.0 [facility] Comment on above: Performed By: #### C BC #### [facility] [address] [place] [address] Dr. Osmany Boone Hemoglobin (Bld) [Mass/Vol] 11.6 g/dL Critically low 12.0-16.0 [facility] Comment on above: Performed By: #### C BC #### [facility] [address] [place] [address] Dr. Osmany Boone IG # 0.02 10e3/ul Normal 0.00-0.03 [facility] Comment on above: Performed By: #### C BC #### [facility] [address] [place] [address] Dr. Osmany Boone IG % 0.4 % Normal 0.0-0.5 [facility] Comment on above: Performed By: #### C BC #### [facility] [address] [place] [address] Dr. Osmany Boone LYMPH # 1.4 103/ul Normal 1.2-3.8 [facility] Comment on above: Performed By: #### C BC #### [facility] [address] [place] [address] Dr. Osmany Boone Lymphocytes/100 WBC (Bld) 25.2 % Normal 20.5-60.0 [facility] Comment on above: Performed By: #### C BC #### [facility] [address] [place] [address] Dr. Osmany Boone MANUAL DIFF REQ NO Normal [facility] Comment on above: Performed By: #### C BC #### [facility] [address] [address] [address] Osmany Boone MCH (RBC) [Entitic mass] 30.5 pg Normal 26.7-34.0 [facility] Comment on above: Performed By: #### C BC #### [facility] [address] [address] [address] Osmany Boone MCHC (RBC) [Mass/Vol] 33.8 g/dL Normal 29.9-35.2 [facility] Comment on above: Performed By: #### C BC #### [facility] [address] [place] [address] Dr. Osmany Boone MCV (RBC) [Entitic vol] 90.3 fL Normal 81.0-99.0 [facility] Comment on above: Performed By: #### C BC #### [facility] [address] [place] [address] Dr. Osmany Boone MONO # 0.4 103/ul Normal 0.3-0.8 [facility] Comment on above: Performed By: #### C BC #### [facility] [address] [place] [address] Dr. Osmany Boone Monocytes/100 WBC (Bld) 7.4 % Normal 1.7-12.0 [facility] Comment on above: Performed By: #### C BC #### [facility] [address] [place] [address] Dr. Osmany Boone NEUT # 3.5 103/ul Normal 1.4-6.5 [facility] Comment on above: Performed By: #### C BC #### [facility] [address] [place] [address] Dr. Osmany Boone Neutrophils/100 WBC (Bld) 63.3 % Normal 43.0-75.0 [facility] Comment on above: Performed By: #### C BC #### [facility] [address] [place] [address] Dr. Osmany Boone Platelet mean volume (Bld) [Entitic vol] 8.9 fL Critically low 9.5-13.5 [facility] Comment on above: Performed By: #### C BC #### [facility] [address] [address] [address] Osmany Boone PLT 247 103/ul Normal 150-450 [facility] Comment on above: Performed By: #### C BC #### [facility] [address] [place] [address] Dr. Osmany Boone RBC 3.80 106/ul Critically low 4.20-5.[address] [facility] Comment on above: Performed By: #### C BC #### [facility] [address] [place] [address] Dr. Osmany Boone WBC 5.4 103/ul Normal 4.0-11.0 [facility] Comment on above: Performed By: #### C BC #### [facility] [address] [place] [address] Dr. Osmany Boone ER URINE PROFILEon 2 Bilirubin Ql (U) Negative Normal NEGATIVE [facility] Comment on above: Performed By: #### P REGU, ERUR #### [facility] [address] [place] [address] Dr. Osmany Boone Clarity (U) CLEAR Normal CLEAR [facility] Comment on above: Performed By: #### P REGU, ERUR #### [facility] [address] [place] [address] Dr. Osmany Boone Color (U) LT. YELLOW Normal YELLOW [facility] Comment on above: Performed By: #### P REGU, ERUR #### [facility] [address] [place] [address] Dr. Osmany Boone ERUAHD A micrscopic examination will be performed if indicated. Normal [facility] Comment on above: Performed By: #### P REGU, ERUR #### [facility] [address] [place] [address] Dr. Osmany Boone Glucose Ql (U) Negative Normal NEGATIVE [facility] Comment on above: Performed By: #### P REGU, ERUR #### [facility] [address] [place], [place] [id number] Dr. Osmany Boone Hemoglobin Ql (U) Negative Normal NEGATIVE [facility] Comment on above: Performed By: #### P REGU, ERUR #### [facility] [address] [address] [address] Osmany Boone Ketones Ql (U) Negative Normal NEGATIVE [facility] Comment on above: Performed By: #### P REGU, ERUR #### [facility] [address] [place] [address] Dr. Osmany Boone LEUKOCYTES Negative Normal NEGATIVE [facility] Comment on above: Performed By: #### P REGU, ERUR #### [facility] [address] [place] [address] Dr. Osmany Boone Nitrite Ql (U) Negative Normal NEGATIVE [facility] Comment on above: Performed By: #### P REGU, ERUR #### [facility] [address] [place] [address] Dr. Osmany Boone pH (U) 6.5 [pH] Normal 5-9 [facility] Comment on above: Performed By: #### P REGU, ERUR #### [facility] [address] [place] [address] Dr. Osmany Boone SPEC GRAVITY 1.010 Normal 1.005-<=1.[address] [facility] Comment on above: Performed By: #### P REGU, ERUR #### [facility] [address] [place] [address] Dr. Osmany Boone UA PROTEIN Negative Normal NEGATIVE/ TRACE [facility] Comment on above: Performed By: #### P REGU, ERUR #### [facility] [address] [place] [address] Dr. Osmany Boone UR MICRO IND NOT INDICATED Normal [facility] Comment on above: Performed By: #### P REGU, ERUR #### [facility] [address] [place] [address] Dr. Osmany Boone Urobilinogen Qn (U) 1.0 {Salazar'U}/dL Normal 0.2 - 1. 0 [facility] Comment on above: Performed By: #### P REGU, ERUR #### [facility] [address] [address] [address] Osmany Boone PREG QUANT HCGon 07-24-2022 HCG QUANT 187 mIU/mL Normal [facility] Comment on above: Performed By: #### P REGQNT #### [facility] [address] [place] [address] Dr. Osmany Boone HCG RANGE SEE BELOW Normal [facility] Comment on above: Result Comment: 5-50 0.2-1 WEEK 50-500 1-2 WEEKS 100-5,000 2-3 WEEKS 500-10,000 3-4 WEEKS 1,000-50,000 4-5 WEEKS 10,000-100,000 5-6 WEEKS 15,000-200,000 6-8 WEEKS 10,000-100,000 2-3 MONTHS Performed By: #### P REGQNT #### [facility] [address] [place] [address] Dr. Osmany Boone URon 07-24-2022 , QUAL Negative Normal NEGATIVE [facility] Comment on above: Performed By: #### P REGU, ERUR #### [facility] [address] [place] [address] Dr. Osmany Boone PROF CHEM 8 (BAS METB)on Anion gap [Moles/Vol] 12.9 mmol/L Normal [facility] Comment on above: Performed By: #### B MP #### [facility] [address] [place] [address] Dr. Osmany Boone Calcium [Mass/Vol] 8.5 mg/dL Normal 8.5-10.[address] [facility] Comment on above: Performed By: #### B MP #### [facility] [address] [place] [address] Dr. Osmany Boone Chloride [Moles/Vol] 103 mmol/L Normal 98-107 [facility] Comment on above: Performed By: #### B MP #### [facility] [address] [place] [address] Dr. Osmany Boone CO2 [Moles/Vol] 26.6 mmol/L Normal 21.0-32.0 [facility] Comment on above: Performed By: #### B MP #### [facility] [address] [place] [address] Dr. Osmany Boone Creatinine [Mass/Vol] 0.82 mg/dL Normal 0.55-1.02 [facility] Comment on above: Performed By: #### B MP #### [facility] [address] [place] [address] Dr. Osmany Boone EGFR-AF GABONESE >60 Normal >=60 [facility] Comment on above: Performed By: #### B MP #### [facility] [address] [address] [address] Osmany Boone EGFR-NON AF GABONESE >60 Normal >=60 [facility] Comment on above: Performed By: #### B MP #### [facility] [address] [place] [address] Dr. Osmany Boone Glucose [Mass/Vol] 93 mg/dL Normal 74-[address] [facility] Comment on above: Performed By: #### B MP #### [facility] [address] [place] [address] Dr. Osmany Boone Potassium [Moles/Vol] 3.5 mmol/L Normal 3.5-5.1 [facility] Comment on above: Performed By: #### B MP #### [facility] [address] [place] [address] Dr. Osmany Boone Sodium [Moles/Vol] 139 mmol/L Normal 136-145 [facility] Comment on above: Performed By: #### B MP #### [facility] [address] [place] [address] Dr. Osmany Boone Urea nitrogen [Mass/Vol] 9.0 mg/dL Normal 7.0-18.0 [facility] Comment on above: Performed By: #### B MP #### [facility] [address] [place] [address] Dr. Osmany Boone Urea nitrogen/Creatinine [Mass ratio] 11.0 mg/mg Normal [facility] Comment on above: Performed By: #### B MP #### [facility] [address] [place] [address] Dr. Osmany Boone Serum or plasma beta choriog onadotropin measurement (units/volume)Ordered By: NICOLE PALACIOS on 07-21-2022 HCG.beta subunit Qn 41.65 m[IU]/mL [facility] Comment on above: Approximate Approxim ate hCG Gestational Age Range (mIU/ml) (weeks) 0.2-1 5-50 1-2 50-500 2-3 100-5,000 3-4 500-10,000 4-5 1,000-50,000 5-6 10,000-100,000 6-8 15,000-200,000 8-12 10,000-100,000 CBC AUTO DIFFon 07-03-2022 BASO # 0.0 103/ul Normal 0.0-0.1 [facility] Comment on above: Performed By: #### C BC #### [facility] [address] [place] [address] Dr. Osmany Boone Basophils/100 WBC (Bld) 1.2 % Normal 0.2-2.0 [facility] Comment on above: Performed By: #### C BC #### [facility] [address] [place] [address] Dr. Osmany Boone EO # 0.2 103/ul Normal 0.0-0.7 [facility] Comment on above: Performed By: #### C BC #### [facility] [address] [place] [address] Dr. Osmany Boone Eosinophils/100 WBC (Bld) 7.2 % Critically high 0.9-7.0 [facility] Comment on above: Performed By: #### C BC #### [facility] [address] [place] [address] Dr. Osmany Boone Erythrocyte distribution width (RBC) [Ratio] 11.9 % Normal 11.0-15.0 [facility] Comment on above: Performed By: #### C BC #### [facility] [address] [place] [address] Dr. Osmany Boone Hematocrit (Bld) [Volume fraction] 33.8 % Critically low 36.0-48.0 [facility] Comment on above: Performed By: #### C BC #### [facility] [address] [place] [address] Dr. Osmany Boone Hemoglobin (Bld) [Mass/Vol] 11.4 g/dL Critically low 12.0-16.0 [facility] Comment on above: Performed By: #### C BC #### [facility] [address] [place] [address] Dr. Osmany Boone IG # 0.01 10e3/ul Normal 0.00-0.03 [facility] Comment on above: Performed By: #### C BC #### [facility] [address] [place] [address] Dr. Osmany Boone IG % 0.3 % Normal 0.0-0.5 [facility] Comment on above: Performed By: #### C BC #### [facility] [address] [place] [address] Dr. Osmany Boone LYMPH # 1.1 103/ul Critically low 1.2-3.8 [facility] Comment on above: Performed By: #### C BC #### [facility] [address] [place] [address] Dr. Osmany Boone Lymphocytes/100 WBC (Bld) 33.2 % Normal 20.5-60.0 [facility] Comment on above: Performed By: #### C BC #### [facility] [address] [place] [address] Dr. Osmany Boone MANUAL DIFF REQ NO Normal [facility] Comment on above: Performed By: #### C BC #### [facility] [address] [place] [address] Dr. Osmany Boone MCH (RBC) [Entitic mass] 30.8 pg Normal 26.7-34.0 [facility] Comment on above: Performed By: #### C BC #### [facility] [address] [place] [address] Dr. Osmany Boone MCHC (RBC) [Mass/Vol] 33.7 g/dL Normal 29.9-35.2 [facility] Comment on above: Performed By: #### C BC #### [facility] [address] [address] [address] Osmany Boone MCV (RBC) [Entitic vol] 91.4 fL Normal 81.0-99.0 [facility] Comment on above: Performed By: #### C BC #### [facility] [address] [address] [address] Osmany Boone MONO # 0.4 103/ul Normal 0.3-0.8 [facility] Comment on above: Performed By: #### C BC #### [facility] [address] [address] [address] Osmany Boone Monocytes/100 WBC (Bld) 12.9 % Critically high 1.7-12.0 [facility] Comment on above: Performed By: #### C BC #### [facility] [address] [address] [address] Osmany Boone NEUT # 1.5 103/ul Normal 1.4-6.5 [facility] Comment on above: Performed By: #### C BC #### [facility] [address] [address] [address] Osmany Boone Neutrophils/100 WBC (Bld) 45.2 % Normal 43.0-75.0 [facility] Comment on above: Performed By: #### C BC #### [facility] [address] [address] [address] Osmany Boone Platelet mean volume (Bld) [Entitic vol] 9.2 fL Critically low 9.5-13.5 [facility] Comment on above: Performed By: #### C BC #### [facility] [address] [address] [address] Osmany Boone PLT 223 103/ul Normal 150-450 [facility] Comment on above: Performed By: #### C BC #### [facility] [address] [address] [address] Osmany Boone RBC 3.70 106/ul Critically low 4.20-5.[address] [facility] Comment on above: Performed By: #### C BC #### [facility] [address] [place], [place] [address] Dr. Osmany Boone WBC 3.3 103/ul Critically low 4.0-11.0 [facility] Comment on above: Performed By: #### C BC #### [facility] [address] [place], [place] [address] Dr. Osmany Boone COVID Quick Testingon 2021 Result Positive [employer] Other CT ABD/PELV W CONon 07-03-[address] ABD/PELV W CON EXAM: CT SCAN OF THE ABDOMEN AND PELVIS WITH INTRAVENOUS CONTRAST DATE OF EXAM: 07/02/2022 11:42 PM EDT HISTORY: UNSPECIFIED ABDOMINAL PAIN a 21-year-old with right anterior left lower quadrant abdominal pain for 2 days after laparoscopic pelvic surgery. Patient states that she had an ectopic removed but there is not an actual ectopic present. COMPARISON: Ultrasound of the pelvis dated 05/27/2021. TECHNIQUE: CT examination of the abdomen and pelvis was performed following the intravenous administration of IV contrast. CT dose lowering techniques were used, to include: automated exposure control, adjustment for patient size, and/or use of iterative reconstruction. Contrast: 50 mL of Omnipaque 350 FINDINGS: Lines and Tubes: None Lower Chest: Normal Free Air: None. Liver: Normal Gallbladder: Removed Common Bile Duct: Normal Pancreas: Normal Spleen: Normal Adrenal Glands: Right: Normal Left: Normal Kidneys: Right Kidney: Normal. Right Ureter: Normal. Left Kidney: Extrarenal pelvis Left Ureter: Normal. GI Tract: Stomach: Decompressed Small Bowel: Normal Appendix: Normal on coronal image 30 Large Bowel: Moderate retention of stool Mesentery/Peritoneum: Normal Vasculature: Aorta: Normal. IVC: Normal. Nolan Vein: Normal. Retroperitoneum: Normal Abdominal/Pelvic Wall: Normal Bladder: Partially distended. Reproductive: Retroverted uterus. There is a fluid attenuating 16 mm area in the left ovary. The right ovary appears enlarged although difficult to fully visualize due to volume averaging. Musculoskeletal: Well-corticated lucency involving the inferior endplate of L3 most likely a Schmorl's node. Leftward curvature of the lumbar spine Free Fluid: None. IMPRESSION: 1. Enlarged right ovary with volume averaging with unopacified bowel which limits evaluation. Given the fact that the right ovary appears enlarged, transvaginal ultrasound with spectral Doppler is recommended to exclude acute ovarian pathology such as torsion. 2. Left ovarian dominant follicle. 3. Status post cholecystectomy. 4. Retention of stool throughout the large bowel. 5. Fluid-filled small bowel. Please correlate for viral etiologies. CRITICAL findings: Spoke with Dr. Hines at 1:05 am EST Electronically authenticated by: MERY CABRERA Date: 2022-07-03 01:06 Normal [facility] PREG HCG QUALon 07-03-2022 , QUAL Negative Normal NEGATIVE [facility] Comment on above: Performed By: #### P REG #### [facility] [address] [address] [address] Osmany Boone PROF 14(COMP METB)on 022 Albumin [Mass/Vol] 3.9 g/dL Normal 3.4-5.[address] [facility] Comment on above: Performed By: #### C MP ####[facility] [address] [address]DrZay Boone Albumin/Globulin [Mass ratio] 1.1 {ratio} Normal [facility] Comment on above: Performed By: #### C MP ####[facility] [address] [address]Dr. Osmany Boone ALP [Catalytic activity/Vol] 81 U/L Normal 46-116 [facility] Comment on above: Performed By: #### C MP ####[facility] [address] [address]Dr. Osmany Boone ALT [Catalytic activity/Vol] 24 U/L Normal 14-59 [facility] Comment on above: Performed By: #### C MP ####[facility] [address] [address]DrZay Boone Anion gap [Moles/Vol] 12.4 mmol/L Normal [facility] Comment on above: Performed By: #### C MP ####[facility] [address] [address]Dr. Osmany Boone AST [Catalytic activity/Vol] 25 U/L Normal 15-37 [facility] Comment on above: Performed By: #### C MP ####[facility] [address] [place], [place] [address]Dr. Osmany Boone Bilirubin [Mass/Vol] 0.5 mg/dL Normal 0.2-1.0 [facility] Comment on above: Performed By: #### C MP ####[facility] [address] [place], [place] [address]Dr. Osmany Boone Calcium [Mass/Vol] 8.8 mg/dL Normal 8.5-10.[address] [facility] Comment on above: Performed By: #### C MP ####[facility] [address] [place], [place] [address]Dr. Osmany Boone Chloride [Moles/Vol] 102 mmol/L Normal 98-107 [facility] Comment on above: Performed By: #### C MP ####[facility] [address] [place], [place] [address]Dr. Osmany Boone CO2 [Moles/Vol] 29.0 mmol/L Normal 21.0-32.0 [facility] Comment on above: Performed By: #### C MP ####[facility] [address] [place], [place] [address]Dr. Osmany Boone Creatinine [Mass/Vol] 0.74 mg/dL Normal 0.55-1.02 [facility] Comment on above: Performed By: #### C MP ####[facility] [address] [place], [place] [address]Dr. Osmany Paolo EGFR-AF GABONESE >60 Normal >=60 [facility] Comment on above: Performed By: #### C MP ####[facility] [address] [place], [place] [address]Dr. Elliepaul Paolo EGFR-NON AF GABONESE >60 Normal >=60 [facility] Comment on above: Performed By: #### C MP ####[facility] [address] [place], [place] [address]Dr. Osmany Boone Globulin (S) [Mass/Vol] 3.4 g/dL Normal [facility] Comment on above: Performed By: #### C MP ####[facility] [address] [id number]. Osmany Boone Glucose [Mass/Vol] 87 mg/dL Normal 74-[address] [facility] Comment on above: Performed By: #### C MP ####[facility] [address] [id number]. Osmany Boone Potassium [Moles/Vol] 3.4 mmol/L Critically low 3.5-5.1 [facility] Comment on above: Performed By: #### C MP ####[facility] [address] [address]Dr. Osmany Boone Protein [Mass/Vol] 7.3 g/dL Normal 6.4-8.2 [facility] Comment on above: Performed By: #### C MP ####[facility] [address] [place], [place] [address]Dr. Osmany Boone Sodium [Moles/Vol] 140 mmol/L Normal 136-[address] [facility] Comment on above: Performed By: #### C MP ####[facility] [address] [address]Dr. Osmany Boone Urea nitrogen [Mass/Vol] 11.0 mg/dL Normal 7.0-18.0 [facility] Comment on above: Performed By: #### C MP ####[facility] [address] [place], [place] [address]Dr. Osmany Paolo Urea nitrogen/Creatinine [Mass ratio] 14.9 mg/mg Normal [facility] Comment on above: Performed By: #### C MP ####[facility] [address] [place], [place] [address]Dr. Osmany Paolo US PELVIS TRANSVAGon 022 US PELVIS TRANSVAG US PELVIS TRANSVA07/03/2022 1:29 AM EDT CLINICAL HISTORY: 21 years old Female with UNSPECIFIED ABDOMINAL PAIN. TECHNIQUE: Multiple ultrasonographic and duplex images of the pelvis are obtained utilizing endovaginal probe. COMPARISON: CT abdomen pelvis performed on this date. FINDINGS: Uterus: Uterus is normal in size measuring 7.0 x 2.9 x 5.2 cm. The endometrial stripe is normal in thickness at 3.2 mm. Ovaries and Adnexa: Right: The right ovary measures 2.6 x 2.5 x 1.8 cm with volume of 8.6 mL and demonstrates normal follicular change and color flow. Normal arterial and venous waveforms are identified. Left: The left ovary measures 3.1 x 2.2 x 2.7 cm with volume of 9.4 mL and demonstrates normal follicular change and color flow. Normal arterial and venous waveforms are identified. Free fluid: None. IMPRESSION: Normal transvaginal and transabdominal ultrasound of the pelvis. Electronically authenticated by: BREANA COUCH Date: 2022-07-03 02:59 Normal [facility] Basophils Auto (Bld) [#/Vol] Ordered By: PROVIDER TEMP on 07-02-2022 Basophils (Bld) [#/Vol] 0.0 10*3/uL 0.0-0.2 [facility] Basophils/100 WBC Auto (Bld) Ordered By: PROVIDER TEMP on 07-02-2022 Basophils/100 WBC (Bld) 1.3 % . [facility] Bilirubin Test strip Ql (U)O rdered By: PROVIDER TEMP on 07-02-2022 Bilirubin Ql (U) Negative Negative [facility] Blood hemoglobin measurement (mass/volume)Ordered By: PROVIDER TEMP on 07-02-2022 Hemoglobin (Bld) [Mass/Vol] 11.8 g/dL 11.8-15.4 [facility] Blood leukocytes automated c ount (number/volume)Ordered By: PROVIDER TEMP on 07-02-2022 WBC (Bld) [#/Vol] 3.0 10*3/uL 4.5-11.0 [facility] Body fluid albumin measureme nt (mass/volume)Ordered By: PROVIDER TEMP on 07-02-2022 Albumin (Body fld) [Mass/Vol] 3.9 g/dL 3.2-5.5 [facility] Color Auto (U)Ordered By: CATHI PEREIRA TEMP on 07-02-2022 Color (U) Yellow Yellow [facility] Creatinine and Glomerular fi ltration rate.predicted panel (S/P/Bld)Ordered By: PROVIDER TEMP on 07-02-2022 Creatinine [Mass/Vol] 0.76 mg/dL 0.44-1.03 [facility] Direct bilirubin measurement Ordered By: PROVIDER TEMP on 07-02-2022 Bilirubin.direct [Mass/Vol] mg/dL 0.0-0.4 [facility] Eosinophils Auto (Bld) [#/Vo l]Ordered By: PROVIDER TEMP on 07-02-2022 Eosinophils (Bld) [#/Vol] 0.2 10*3/uL 0.0-0.45 [facility] Eosinophils/100 WBC Auto (Bl d)Ordered By: PROVIDER TEMP on 07-02-2022 Eosinophils/100 WBC (Bld) 7.3 % . [facility] Erythrocyte distribution wid th Auto (RBC) [Ratio]Ordered By: PROVIDER TEMP on 07-02-2022 Erythrocyte distribution width (RBC) [Ratio] 12.4 % 11.9-15.3 [facility] Estimated glomerular filtrat ion rate (GFR) non- AmericanOrdered By: PROVIDER TEMP on 07-02-2022 GFR/1.73 sq M.predicted among non-blacks MDRD (S/P/Bld) [Vol rate/Area] > 60 mL/Min [facility] Globulin Calc (S) [Mass/Vol] Ordered By: PROVIDER TEMP on 07-02-2022 Globulin (S) [Mass/Vol] 3.1 g/dL [facility] HCG ( test) IA.rapi d Ql (U)Ordered By: Oscar Myers on 07-02-2022 HCG ( test) Ql (U) Negative [facility] Hematocrit Auto (Bld) [Volum e fraction]Ordered By: PROVIDER TEMP on 07-02-2022 Hematocrit (Bld) [Volume fraction] 34.9 % 34.0-46.4 [facility] Ketones Auto test strip (U) [Mass/Vol]Ordered By: PROVIDER TEMP on 07-02-2022 Ketones (U) [Mass/Vol] Negative Negative [facility] Laboratory - Chemistry and C hemistry - challengeOrdered By: PROVIDER TEMP on 07-02-2022 Lipase [Catalytic activity/Vol] 22.0 U/L 22-51 [facility] - Hematology and Cell countsOrdered By: PROVIDER TEMP on 07-02-2022 Nucleated RBC/100 WBC (Bld) [Ratio] 0.1 % 0-0.5 [facility] Lymphocytes Auto (Bld) [#/Vo l]Ordered By: PROVIDER TEMP on 07-02-2022 Lymphocytes (Bld) [#/Vol] 1.0 10*3/uL 1.00-4.8 [facility] Lymphocytes/100 WBC Auto (Bl d)Ordered By: PROVIDER TEMP on 07-02-2022 Lymphocytes/100 WBC (Bld) 34.5 % . [facility] MCH Auto (RBC) [Entitic mass ]Ordered By: PROVIDER TEMP on 07-02-2022 MCH (RBC) [Entitic mass] 30.7 pg 24.7-34.3 [facility] MCHC Auto (RBC) [Mass/Vol]Or dered By: PROVIDER TEMP on 07-02-2022 MCHC (RBC) [Mass/Vol] 33.9 g/dL 32.0-35.0 [facility] MCV Auto (RBC) [Entitic vol] Ordered By: PROVIDER TEMP on 07-02-2022 MCV (RBC) [Entitic vol] 90.4 fL 80-100 [facility] Monocytes Auto (Bld) [#/Vol] Ordered By: PROVIDER TEMP on 07-02-2022 Monocytes (Bld) [#/Vol] 0.5 10*3/uL 0.0-0.8 [facility] Monocytes/100 WBC Auto (Bld) Ordered By: PROVIDER TEMP on 07-02-2022 Monocytes/100 WBC (Bld) 15.0 % . [facility] Neutrophils Auto (Bld) [#/Vo l]Ordered By: PROVIDER TEMP on 07-02-2022 Neutrophils (Bld) [#/Vol] 1.3 10*3/uL 1.8-7.7 [facility] Neutrophils/100 WBC Auto (Bl d)Ordered By: PROVIDER TEMP on 07-02-2022 Neutrophils/100 WBC (Bld) 41.9 % . [facility] Nitrite Test strip Ql (U)Ord ered By: PROVIDER TEMP on 07-02-2022 Nitrite Ql (U) Negative Negative [facility] No Panel InformationOrdered By: PROVIDER TEMP on 07-02-2022 Estimated GFR () > 60 mL/Min [facility] Comment on above: GFR estimated refere nce range: According to KDOQI guidelines, <60 ml/min/1.73m2 is sufficient to diagnose a patient with chronic kidney disease. Pharmacy Creatinine Clearance (Chem 123.23 [facility] Platelet mean volume Auto (B ld) [Entitic vol]Ordered By: PROVIDER TEMP on 07-02-2022 Platelet mean volume (Bld) [Entitic vol] 7.5 fL 6.3-10.7 [facility] Platelets Auto (Bld) [#/Vol] Ordered By: PROVIDER TEMP on 07-02-2022 Platelets (Bld) [#/Vol] 245 10*3/uL 150-450 [facility] Protein Auto test strip (U) [Mass/Vol]Ordered By: PROVIDER TEMP on 07-02-2022 Protein (U) [Mass/Vol] Negative Negative [facility] Protein [Mass/volume] in Ser um or PlasmaOrdered By: PROVIDER TEMP on 07-02-2022 Protein [Mass/Vol] 7.0 g/dL 6.1-7.9 [facility] RBC Auto (Bld) [#/Vol]Ordere d By: PROVIDER TEMP on 07-02-2022 RBC (Bld) [#/Vol] 3.86 10*6/uL 3.60-5.[address] [facility] Serum or plasma alanine nelson otransferase measurement without P-5'-P (enzymatic activiOrdered By: PROVIDER TEMP on 07-02-2022 ALT No additional P-5'-P [Catalytic activity/Vol] 24 U/L 10-60 [facility] Serum or plasma albumin/glob ulin mass ratioOrdered By: PROVIDER TEMP on 07-02-2022 Albumin/Globulin [Mass ratio] 1.3 {ratio} [facility] Serum or plasma alkaline arlin sphatase measurement (enzymatic activity/volume)Ordered By: PROVIDER TEMP on 07-02-2022 ALP [Catalytic activity/Vol] 67 U/L 32-92 [facility] Serum or plasma aspartate am inotransferase measurement (enzymatic activity/volume)Ordered By: PROVIDER TEMP on 07-02-2022 AST [Catalytic activity/Vol] 29 U/L 10-42 [facility] Serum or plasma calcium sandra urement (mass/volume)Ordered By: PROVIDER TEMP on 07-02-2022 Calcium [Mass/Vol] 9.3 mg/dL 8.2-10.2 [facility] Serum or plasma chloride malini surement (moles/volume)Ordered By: PROVIDER TEMP on 07-02-2022 Chloride [Moles/Vol] 100 mmol/L 95-114 [facility] Serum or plasma glucose sandra urement (mass/volume)Ordered By: PROVIDER TEMP on 07-02-2022 Glucose [Mass/Vol] 72 mg/dL 70-100 [facility] Comment on above: ADA recommended refe rence range Random Glucose Reference Range is dependent on time and content of last meal. Glucose of more than 200 mg/dL in a nonstressed, ambulatory subject supports the diagnosis of Diabetes Mellitus. Serum or plasma non-glucuron idated bilirubin measurement (mass/volume)Ordered By: PROVIDER TEMP on 07-02-2022 Bilirubin.indirect [Mass/Vol] TNP [facility] Comment on above: Test not performed Serum or plasma potassium me asurement (moles/volume)Ordered By: PROVIDER TEMP on 07-02-2022 Potassium [Moles/Vol] 3.6 mmol/L 3.5-5.1 [facility] Serum or plasma sodium measu rement (moles/volume)Ordered By: PROVIDER TEMP on 07-02-2022 Sodium [Moles/Vol] 139 mmol/L 136-146 [facility] Serum or plasma total biliru bin measurement (mass/volume)Ordered By: PROVIDER TEMP on 07-02-2022 Bilirubin [Mass/Vol] 0.6 mg/dL 0.3-1.2 [facility] Serum or plasma total carbon dioxide measurement (moles/volume)Ordered By: PROVIDER TEMP on 07-02-2022 CO2 [Moles/Vol] 31.3 mmol/L 22.0-30.0 [facility] Serum or plasma urea nitroge n measurement (mass/volume)Ordered By: PROVIDER TEMP on 07-02-2022 Urea nitrogen [Mass/Vol] 9 mg/dL 08-13 [facility] Specific gravity Auto test s trip (U) [Rel density]Ordered By: PROVIDER TEMP on 07-02-2022 Specific gravity (U) [Rel density] 1.011 1.001-1.030 [facility] Urine clarity by refractomet ry automatedOrdered By: PROVIDER TEMP on 07-02-2022 Clarity Refractometry automated (U) Clear Clear [facility] Urine glucose measurement by automated test strip (mass/volume)Ordered By: PROVIDER TEMP on 07-02-2022 Glucose Auto test strip (U) [Mass/Vol] Normal mg/dL Normal [facility] Urine hemoglobin detection b y automated test stripOrdered By: PROVIDER TEMP on 07-02-2022 Hemoglobin Auto test strip Ql (U) Negative Negative [facility] Urine leukocyte esterase det ection by automated test stripOrdered By: PROVIDER TEMP on 07-02-2022 Leukocyte esterase Auto test strip Ql (U) Negative Negative [facility] Urobilinogen Auto test strip (U) [Mass/Vol]Ordered By: PROVIDER TEMP on 07-02-2022 Urobilinogen (U) [Mass/Vol] Normal mg/dL Normal [facility] pH Auto test strip (U)Ordere d By: PROVIDER TEMP on 07-02-2022 pH (U) 6.5 [pH] 5.0-9.0 [facility] Serum or plasma beta choriog onadotropin measurement (units/volume)Ordered By: NICOLE PALACIOS on 06-30-2022 HCG.beta subunit Qn 2.88 m[IU]/mL [facility] Comment on above: Approximate Approxim ate hCG Gestational Age Range (mIU/ml) (weeks) 0.2-1 5-50 1-2 50-500 2-3 100-5,000 3-4 500-10,000 4-5 1,000-50,000 5-6 10,000-100,000 6-8 15,000-200,000 8-12 10,000-100,000 Serum or plasma beta choriog onadotropin measurement (units/volume)Ordered By: NICOLE PALACIOS on 06-23-2022 HCG.beta subunit Qn 17.04 m[IU]/mL [facility] Comment on above: Approximate Approxim ate hCG Gestational Age Range (mIU/ml) (weeks) 0.2-1 5-50 1-2 50-500 2-3 100-5,000 3-4 500-10,000 4-5 1,000-50,000 5-6 10,000-100,000 6-8 15,000-200,000 8-12 10,000-100,000 Body fluid albumin measureme nt (mass/volume)Ordered By: Valeriano March on 06-11-2022 Albumin (Body fld) [Mass/Vol] 4.3 g/dL 3.2-5.5 [facility] Cholesterol [Mass/volume] in Serum or PlasmaOrdered By: Valeriano March on 06-11-2022 Cholesterol [Mass/Vol] 176 mg/dL 140-200 [facility] Comment on above: Chol less than 200 m g/dl low risk Chol 201-239 mg/dl borderline risk Chol 240 mg/dl and greater high risk Cholesterol in LDL Calc [Mas s/Vol]Ordered By: Valeriano March on 06-11-2022 Cholesterol in LDL [Mass/Vol] 109 mg/dL 0-100 [facility] Comment on above: LDL ATP III CLASSIFI CATION LDL less than 100 mg/dL Optimal LDL 100-129 mg/dL Near or above optimal LDL 130-159 mg/dL Borderline high LDL 160-189 mg/dL High LDL greater than 189 mg/dL Very high Cholesterol in VLDL Calc [Ma ss/Vol]Ordered By: Valeriano March on 06-11-2022 Cholesterol in VLDL [Mass/Vol] 12 mg/dL [facility] Creatinine and Glomerular fi ltration rate.predicted panel (S/P/Bld)Ordered By: Valeriano March on 06-11-2022 Creatinine [Mass/Vol] 0.89 mg/dL 0.44-1.03 [facility] Estimated glomerular filtrat ion rate (GFR) non- AmericanOrdered By: Valeriano March on 06-11-2022 GFR/1.73 sq M.predicted among non-blacks MDRD (S/P/Bld) [Vol rate/Area] > 60 mL/Min [facility] Globulin Calc (S) [Mass/Vol] Ordered By: Valeriano March on 06-11-2022 Globulin (S) [Mass/Vol] 2.9 g/dL [facility] Laboratory - Chemistry and C hemistry - challengeOrdered By: Valeriano March on 06-11-2022 Glucose [Mass/Vol] 84 mg/dL 70-100 [facility] No Panel InformationOrdered By: Valeriano March on 06-11-2022 Estimated GFR () > 60 mL/Min [facility] Comment on above: GFR estimated refere nce range: According to KDOQI guidelines, <60 ml/min/1.73m2 is sufficient to diagnose a patient with chronic kidney disease. Pharmacy Creatinine Clearance (Chem N/A [facility] Triglycerides Reflex 63 mg/dL 35-149 [facility] Comment on above: TRIG ATP III CLASSIF ICATION TRIG less than 150 mg/dL Normal TRIG 150-199 mg/dL Borderline high TRIG 200-500 mg/dL High TRIG greater than 500 mg/dL Very high Standard traceable to the Center for Disease Conrtrol and Prevention (CDC) test method. Protein [Mass/volume] in Ser um or PlasmaOrdered By: Vaelriano March on 06-11-2022 Protein [Mass/Vol] 7.2 g/dL 6.1-7.9 [facility] Serum or plasma alanine nelson otransferase measurement without P-5'-P (enzymatic activiOrdered By: Valeriano March on 06-11-2022 ALT No additional P-5'-P [Catalytic activity/Vol] 14 U/L 10-60 [facility] Serum or plasma albumin/glob ulin mass ratioOrdered By: Valeriano March on 06-11-2022 Albumin/Globulin [Mass ratio] 1.5 {ratio} [facility] Serum or plasma alkaline arlin sphatase measurement (enzymatic activity/volume)Ordered By: Valeriano March on 06-11-2022 ALP [Catalytic activity/Vol] 69 U/L 32-92 [facility] Serum or plasma aspartate am inotransferase measurement (enzymatic activity/volume)Ordered By: Valeriano March on 06-11-2022 AST [Catalytic activity/Vol] 18 U/L 10-42 [facility] Serum or plasma calcium sandra urement (mass/volume)Ordered By: Valeriano March on 06-11-2022 Calcium [Mass/Vol] 9.6 mg/dL 8.2-10.2 [facility] Serum or plasma chloride malini surement (moles/volume)Ordered By: Valeriano March on 06-11-2022 Chloride [Moles/Vol] 102 mmol/L 95-114 [facility] Serum or plasma high density lipoprotein (HDL) cholesterol measurementOrdered By: Valeriano March on 06-11-2022 Cholesterol in HDL [Mass/Vol] 54 mg/dL 35-85 [facility] Comment on above: HDL CHOL ATP-III CLA SSIFICATION Cardiovascular Risk HDL > or equal to 60 mg/dL LOW HDL < 40 mg/dL HIGH Serum or plasma potassium me asurement (moles/volume)Ordered By: Valeriano March on 06-11-2022 Potassium [Moles/Vol] 4.1 mmol/L 3.5-5.1 [facility] Serum or plasma sodium measu rement (moles/volume)Ordered By: Valeriano March on 06-11-2022 Sodium [Moles/Vol] 136 mmol/L 136-146 [facility] Serum or plasma total biliru bin measurement (mass/volume)Ordered By: Valeriano March on 06-11-2022 Bilirubin [Mass/Vol] 0.8 mg/dL 0.3-1.2 [facility] Serum or plasma total carbon dioxide measurement (moles/volume)Ordered By: aVleriano March on 06-11-2022 CO2 [Moles/Vol] 27.2 mmol/L 22.0-30.0 [facility] Serum or plasma total choles terol/high density lipoprotein (HDL) cholesterol mass ratOrdered By: Valeriano March on 06-11-2022 Cholesterol.total/Cho lesterol in HDL [Mass ratio] 3.3 {ratio} <5.0 [facility] Serum or plasma urea nitroge n measurement (mass/volume)Ordered By: Valeriano March on 06-11-2022 Urea nitrogen [Mass/Vol] 5 mg/dL 08-13 [facility] Serum or plasma beta choriog onadotropin measurement (units/volume)Ordered By: NICOLE PALACIOS on 05-10-2022 HCG.beta subunit Qn m[IU]/mL [facility] Comment on above: Approximate Approxim ate hCG Gestational Age Range (mIU/ml) (weeks) 0.2-1 5-50 1-2 50-500 2-3 100-5,000 3-4 500-10,000 4-5 1,000-50,000 5-6 10,000-100,000 6-8 15,000-200,000 8-12 10,000-100,000 BRIEF OP NOTon 04-15-2022 BRIEF OP NOT HNO ID: [id number] Author: Janelle Lewis MD Service: Radiology Author Type: Fellow Type: Brief Op Note Filed: 04/15/2022 11:53 AM Note Text: BRIEF OPERATIVE / PROCEDURE NOTE LOG ID: [id number] SURGERY/PROCEDURE DATE: 04/15/2022 INCISION/PROCEDURE START TIME: 11:25 AM INCISION CLOSE/PROCEDURE END TIME: SURGEON(S)/PROCEDURALI ST(S) AND MEDICAL HEALTH RESEARCHER(S): Surgeon(s) and Role: * José Fermin MD - Primary No Additional Staff SURGERY/PROCEDURE(S): CT guided left posterior iliac bone biopsy ANESTHESIA: Procedural Sedation FINDINGS: 2 core samples obtained ESTIMATED BLOOD LOSS: 0 ml SPECIMENS: 2 cores COMPLICATIONS: None PRE-OP/PRE-PROCEDURE DIAGNOSIS: indeterminate bone lesion, hx of MSSA lumbar discitis POST-OP/POST-PROCEDURE DIAGNOSIS: Same as Preop SIGNATURE: Janelle Lewis MD PATIENT NAME: Dorcas Kent DATE: April 15, 2022 TIME: 11:52 AM Normal [facility] Bacteria Spec Anaerobe Culto n 04-15-2022 Bacteria identified Anaer cx Nom (Unsp spec) Negative Normal [facility] Comment on above: Performed By: #### 6 35-3 ####[facility]CL[facility] [id number] [place] [address] [place] Bacteria Tiss Culton 022 Bacteria identified Cx Nom (Tiss) CULTURE, TISSUE: No growth 3 days GRAM STAIN: No organisms seen No Polymorphonuclear Leukocytes Normal [facility] Comment on above: Performed By: #### 4 [id number] ####[facility] [id number] [id number] [address] [place] [address] BX RIB/PELV/ORDOÑEZ/SPINE P ROCon 04-15-2022 CT BX RIB/PELV/ORDOÑEZ/SPINE PROC * * *Final Report* * * DATE OF EXAM: Apr 15 2022 11:49AM [facility] - CT BX RIB/PELV/ORDOÑEZ/SPINE PROC / PROCEDURE REASON: Bone lesion [M89.9] * * * * Physician Interpretation * * * * CT GUIDED LEFT ILIAC BONE LESION BIOPSY INDICATION: The patient is a 21 years year old Female who presented with Bone lesion [M89.9] . CONSENT: The risks, benefits, treatment options, potential complications and personnel to be involved were discussed (including the instruments to be used, contrast and anesthesia administration) with the patient. All questions were answered and consent was obtained. The patient indicated willingness to proceed. GENERAL: a) Medication Reconciliation: The patient's medications and allergies were reviewed in the electronic medical record and reconciled to the proposed procedure/treatment. Pre-procedure Sign-in: Safety Checklist Performed Yes b) Positioning: The patient was placed prone on the table. c) The area was then sterilely prepped and draped. d) Time Out: A time out was performed immediately prior to procedure start with the nursing, anesthesia and interventional team, correctly identifying the patient name, date of , procedure, anatomy (including marking of site and side), patient position, procedure consent form, relevant diagnostic and radiology test results, antibiotic administration, safety precautions, and procedure-specific equipment needs. Time Out: 1116 Anesthesia Start Time: 1116 e) Anesthesia Type: moderate procedural sedation. Anesthesia was administered for a total of 30 minutes using 3.5 mg of Versed and 175 mcg of fentanyl. Local anesthesia: 12 mL 1% lidocaine. f) Patient monitoring: Performed by registered nurse. PROCEDURE: a) Procedure Details: The area was marked, prepped, and draped. After local anesthesia, an 11-gauge needle was advanced into the left posterior iliac lesion via posterior medial approach, and 2 core needle samples were obtained.. All needles were removed. Images were stored. b) Devices used: Biopsy Needle: 11 Gauge On Control c) Estimated Blood Loss: 0 mL d) Number and Type of Removed Specimens: 2 core needle samples, one sent in saline for culture and Gram stain, and the second sent in formalin for surgical pathology. CONTRAST CT imaging was performed without contrast. RADIATION DOSE a) Image guidance: CT guidance b) Radiation: CT Radiation dose: Integrated Dose-length product (DLP) for this visit = 174 mGy*cm. CT Dose Reduction Employed: Automated exposure control (AEC) POST PROCEDURE: a) Hemostasis: Hemostasis was achieved using light manual compression. b) Sign-out: Communication Performed N/A c) Procedure End Time: 1149 d) Conclusion: The patient was transferred to the biopsy recovery room in stable condition. COMPLICATIONS: a) Significant Patient Complication: None b) Complications during the procedure: None RESULTS: 2 core needle samples obtained from the left posterior iliac lesion. IMPRESSION: SUCCESSFUL CT GUIDED LEFT POSTERIOR ILIAC LESION BIOPSY DESCRIBED. Attending Radiologist: Dr. José Fermin MD School Custodian: Janelle Lewis MD The procedure was performed by the ict sales assistant, and the attending radiologist personally supervised the entire procedure. Linen Supervisor: PSCB Transcribe Date/Time: Apr 15 2022 4:03P Dictated by : JANELLE LEWIS MD This examination was interpreted and the report reviewed and electronically signed by: JOSÉ FERMIN MD on Apr 15 2022 4:54PM EST [id number] Normal [facility] HISTORY PHYSICALon 2 HISTORY PHYSICAL HNO ID: [id number] Author: Janelle Lewis MD Service: Radiology Author Type: Fellow Type: HANDP Filed: 04/15/2022 10:31 AM Note Text: Attestation signed by José Fermin MD at 04/15/2022 12:36 PM I saw and evaluated the patient. Discussed with the resident and agree with resident's findings and plan as documented in the resident's note. UPDATED PROCEDURAL SEDATION HISTORY AND PHYSICAL EXAMINATION SERVICE DATE: 04/15/2022 SERVICE TIME: 1020 PHYSICAL EXAM MUST BE COMPLETED ON ADMISSION PROCEDURE SCHEDULED: Procedure(s) with comments: BIOPSY MUSCLE, PERCUTANEOUS NEEDLE (N/A) - CT BIOPSY LEFT ILIAC BONE LESION / DR. FLORES / LABS- PLT- WNL INR NOT NEEDED / RADIOLOGY ORDER PLACED: The History and Physical (completed in the past 30 days) has been reviewed and the patient has been examined. The contents accurately reflect the patient's condition with the following additions or revisions since the HANDP was completed. ASA Class: ASA Class:: Patient with mild systemic disease Examination indicates no changes. AIRWAY: Airway Visualization of Uvula: Yes Mouth opening greater than 2 fingerbreadths: Yes Neck Full Range of Motion: Yes LUNGS: CARDIAC: , Provisional Diagnosis/Treatment Plan: CT guided posterior left iliac bone lesion biopsy SEDATION GOAL: Moderate This HANDP can be found in the Electronic Medical Record dated 03/29/22. SIGNATURE: Janelle Lewis MD PATIENT NAME: Dorcas Kent DATE: April 15, 2022 TIME: 10:30 AM PAGER: Normal [facility] PT EDon 04-15-2022 PT ED HNO ID: [id number] Author: Amber Do RN Service: Nursing Author Type: Registered Nurse Type: Patient Education Filed: 04/15/2022 11:28 AM Note Text: AMBULATORY PATIENT EDUCATION TOPIC: Left iliac bone biopsy READINESS TO LEARN COGNITIVE ABILITY: Alert and oriented MOTIVATION TO LEARN: Interested FAMILY SUPPORT: High - Very involved in pt care INSTRUCTION PROVIDED TO: Patient PATIENT LEARNS BEST BY: Individual Instruction FACTORS AFFECTING LEARNING: Unable to assess PHYSICAL LIMITATIONS AFFECTING LEARNING: Fatigue LEARNING RESPONSE METHOD OF INSTRUCTION: Individual instruction PATIENT / FAMILY RESPONSE: Information received as demonstrated by interest and questions FOLLOW-UP PLAN: Patient instructed to call with any further issues SUPPLEMENTAL MATERIAL: None REFERRAL (RECOMMENDATION): None Electronically Signed By: Amber Do RN In Department: ANGIO Normal [facility] SURGICAL PATHOLOGYon 022 CASE REPORT Normal [facility] Comment on above: Order Comment: Speci dina Type: TISSUE SPECIMENOrdering Facility: [facility] Address: [address] [place] [address] Result Comment: Surg ical Pathology Report Case: [id number] Authorizing Provider: José Fermin MD Collected: 04/15/2022 11:58 AM Ordering Location: Angio Received: 04/15/2022 02:26 PM Pathologist: Peter Woodward MD Specimen: BONE BIOPSY Performed By: #### S ####[facility] [id number] [address] CLINICAL HISTORY left posterior iliac bone lesion, hx of lumbar spine MSSA discitis Normal [facility] Comment on above: Order Comment: Dimasi dina Type: TISSUE SPECIMENOrdering Facility: [facility] Address: [address] [place] [address] Performed By: #### S ####[facility] LABIA [id number] [address] DIAGNOSIS COMMENT Normal [facility] Comment on above: Order Comment: Dimasi dina Type: TISSUE SPECIMENOrdering Facility: [facility] Address: [address] [place] [address] Result Comment: The patient's history of lumbar spine MSSA discitis and a lesion in the left posterior iliac bone is noted. Histologic sections show woven and lamellar cancellous bone with edema, focal fibrosis and mild chronic inflammation composed of lymphocytes and scattered plasma cells. Focal hemosiderin deposition is also noted. The above findings are non-specific, but in the proper clinical context this could represent a resolving osteomyelitis. No acute inflammation or neoplastic process is identified. Immunohistochemical stains for CKA1/AE3, S100, CD10, and special stains for fungal and mycobacteria organisms (GMS and AFB) respectively, are all negative. Histologic sections were reviewed in conjunction with the imaging studies. Laboratory Developed Test (LDT) Disclaimer: Performance characteristics of immunohistochemical, immunofluorescent and chromogenic in-situ hybridization tests have been determined by the performing laboratory within [facility]???s [facility] Pathology and Laboratory Medicine [place] ([facility], [facility], [facility] or [facility]) in a manner consistent with CLIA requirements. One or more of these tests have not been cleared or approved by the FDA. [facility] is regulated under CLIA as qualified to perform high-complexity testing. These tests are used for clinical purposes. They should not be regarded as investigational or for research. Positive and negative controls stain appropriately. Performed By: #### S ####[facility] [id number] [address] FINAL DIAGNOSIS Normal [facility] Comment on above: Order Comment: Speci men Type: TISSUE SPECIMENOrdering Facility: [facility] Address: [address] [place] [address] Result Comment: Bone (left posterior iliac bone), biopsy: - Cancellous bone with edema, mild chronic inflammation, and focal fibrosis. See comment. JDR/ KAA 04/22/22 Performed By: #### S ####[facility]IA [id number] [address] FINAL PERFORMING LAB Normal [facility] Comment on above: Order Comment: Speci men Type: TISSUE SPECIMENOrdering Facility: [facility] Address: [address] [place] [address] Result Comment: Diag nostic interpretation performed at [facility], [address] [place] [address] CLIA# [id number] Director Design: Morgan Barakat M.D. Performed By: #### S ####[facility] [id number] GROSS DESCRIPTION A. BONE BIOPSY. Normal [facility] Comment on above: Order Comment: Speci men Type: TISSUE SPECIMENOrdering Facility: [facility] Address: [address] [place] [id number] Result Comment: Rece ived in formalin labeled as bone biopsy is a segment of cylindrical bone biopsy measuring 1.5 x 0.3 x 0.3 cm. Entirely submitted in cassette A1 following decalcification. TN/tg 04/15/2022 Gross examination performed at [facility], [address] [place], [place] [address] CLIA# [id number] Performed By: #### S ####[facility] [id number] [address] [place] NURSING PROGon 04-12-2022 NURSING PROG HNO ID: [id number] Author: Nikki Laguerre LPN Service: ? Author Type: LICENSED NURSE Type: Nursing Progress Note Filed: 04/12/2022 1:13 PM Note Text: Pre- e instructions: Contacted patient and confirmed appt. for biopsy scheduled on 04/15/22, at [facility]. Diet: Do not eat solid food after midnight the night before your procedure. You may have water until your arrival time. Medications: IF ok with your Prescribing Provider: RADIOLOGY RECOMMENDS THESE MEDICATION RESTRICTIONS : None Medication pumps: Insulin pumps must be removed before entering the procedure room. Do you wear Neulasta Onpro? No If yes, the devise must be removed before entering the procedure room. Contrast Dye Prep: Do you have a contrast dye allergy? No Labs: Labs completed on 01/10/22 Arrival: Please bring your Photo ID and Insurance Card. A general consent may need to be signed. Arrival at 9:30am to desk QB[id number] ([facility]) and check in for your procedure. Pulley Mortiser Operator/Transportation: How will you be arriving for your procedure? Private car. If you will be arriving at [facility] via ambulance or public transportation, please call to discuss. You will need a responsible adult to accompany you to and from the procedure. Your petroleum transport driver is required to stay with you until you are taken into the Procedure room. [facility] is currently restricting visitors to one visitor per patient. No visitor under the age of 16. You and your visitor will be screened for temperature and COVID-19 symptoms upon entry to the hospital, and a wristband will be applied when cleared. If you develop any of the following symptoms before your procedure, please call [phone]. Chills, joint pain, rash, sore throat, cough, loss of smell, reddened eyes, vomiting, abdominal pains, diarrhea, loss of taste, severe headache, weakness, bruising or bleeding, fever, muscle pain, shortness of breath Recovery expectations: You can expect to be at the hospital for the majority of the day. Please do not schedule any other appointments the day of your procedure. Special concerns: Do you use CPAP or BPAP? No Written instructions provided to patient via [employer] If you have any questions please call [phone] [facility] 04-05-2022 CNPN Telephone (NIQ) DORCAS KENT ([id number]) 2000 F Date Time Provider Department 04/05/22 PRAKASH FLORES NIQ During your visit today, we recorded the following information about you: Kameron Kern [facility] 04/05/2022 10:33 AM Signed Pt attempted to schedule the biopsy but was told the office has to call to schedule because it needs to be triaged. Call appointment for [phone] Pt- [phone] Maritza Barajas RN 04/05/2022 10:49 AM Signed Neuro SPINE CARE COORDINATION QUICK NOTE Spoke with scheduling, triage completed. Patient will be contacted by scheduling regarding appointment. Patient updated. Maritza Barajas RN Allergies As of Date: 04/05/2022 Noted Allergy Reaction HYDROCODONE-ACETAMINOP HEN 09/24/2016 1 - Mental Status Change Date Reviewed: 03/29/2022 Reviewed by: Fatmata Gilbert RN - Fully Assessed Reason for Visit: biospy [Other] Prescriptions as of 04/05/2022 - blood sugar diagnostic (FREESTYLE LITE STRIPS) test strip TEST BLOOD SUGARS 2 TIMES DAILY - lancets (FREESTYLE LANCETS) 28 gauge 1 Each twice daily. - metFORMIN ER (GLUCOPHAGE XR) 750 mg 24 hr tablet Take 1 tablet by mouth daily with breakfast. - ARIPiprazole (ABILIFY) 15 mg tablet Take 1 tablet by mouth once daily. - sertraline (ZOLOFT) 100 mg tablet Take 1.5 tablets by mouth once daily. - traZODone (DESYREL) 50 mg tablet Take 1 tablet by mouth daily at bedtime. - venlafaxine ER (EFFEXOR XR) 75 mg 24 hr capsule Take 1 capsule by mouth once daily. - Cranberry 400 mg cap Take 1 capsule by mouth once daily. Problem List As Of Date 04/05/2022 Noted Resolved Diet controlled gestational diabetes mellitus (*04/17/2019 10/30/2019 Normal delivery [O80] 10/23/2019 Night sweats [R61] 10/23/2019 Diarrhea [R19.7] 10/23/2019 Headache [R51.9] 10/23/2019 Reactive hypoglycemia [E16.1] 10/30/2019 History of gestational diabetes mellitus (GDM) *10/30/2019 Encounter Status:Closed by MARITZA BARAJAS on 04/05/22 Normal [facility] Telephone (SPNMMN) DORCAS KENT ([id number]) 2000 F Date Time Provider Department 04/05/22 PRAKASH FLORES During your visit today, we recorded the following information about you: Maritza Barajas RN 04/05/2022 9:45 AM Signed Neuro SPINE CARE COORDINATION QUICK NOTE MD Maritza Alexandre, RN Please let patient know that I reviewed imaging with Dr Cuellar in Ortho He is happy to see patient in person He also recommends a biopsy of Left iliac mass biopsy on 04/13/2022, 05/04/2022, 05/18/2022 ? Those are the date he is in clinic at [facility] on Tuesdays. We can also arrange to see her in spine medicine clinic with Antonieta SANDHU on same day Patient can call [phone] to schedule biopsy at [facility] Advised per Dr. Flores's message. Patient verbalized understanding with intent to comply. Encouraged to call with any further questions/concerns. Information also included in a my chart message per patient's request. Maritza Barajas RN Allergies As of Date: 04/05/2022 Noted Allergy Reaction HYDROCODONE-ACETAMINOP HEN 09/24/2016 1 - Mental Status Change Date Reviewed: 03/29/2022 Reviewed by: Fatmata Gilbert RN - Fully Assessed Reason for Visit: Results [95] Follow Up [171] Prescriptions as of 04/05/2022 - blood sugar diagnostic (FREESTYLE LITE STRIPS) test strip TEST BLOOD SUGARS 2 TIMES DAILY - lancets (FREESTYLE LANCETS) 28 gauge 1 Each twice daily. - metFORMIN ER (GLUCOPHAGE XR) 750 mg 24 hr tablet Take 1 tablet by mouth daily with breakfast. - ARIPiprazole (ABILIFY) 15 mg tablet Take 1 tablet by mouth once daily. - sertraline (ZOLOFT) 100 mg tablet Take 1.5 tablets by mouth once daily. - traZODone (DESYREL) 50 mg tablet Take 1 tablet by mouth daily at bedtime. - venlafaxine ER (EFFEXOR XR) 75 mg 24 hr capsule Take 1 capsule by mouth once daily. - Cranberry 400 mg cap Take 1 capsule by mouth once daily. Problem List As Of Date 04/05/2022 Noted Resolved Diet controlled gestational diabetes mellitus (*04/17/2019 10/30/2019 Normal delivery [O80] 10/23/2019 Night sweats [R61] 10/23/2019 Diarrhea [R19.7] 10/23/2019 Headache [R51.9] 10/23/2019 Reactive hypoglycemia [E16.1] 10/30/2019 History of gestational diabetes mellitus (GDM) *10/30/2019 Encounter Status:Closed by MARITZA BARAJAS on 04/05/22 Normal [facility] Telephone (BIOPMN) SHERINEDORCAS Hu ([id number]) 2000 F Date Time Provider Department 04/05/22 PRAKASH FLORES BIOPMN During your visit today, we recorded the following information about you: Michelle Chand 04/05/2022 10:48 AM Signed RADIOLOGY CALL CENTER INTAKE MIX TECHNICIAN: Michelle Brown EXT: [id number] DATE: 04/05/22 TIME: 10:46am TRACKING #. [id number] REQUESTING PERSON: Prakash Flores MD PHONE/PAGER: [phone] REQUESTING STAFF: Maritza PHONE/PAGER: [phone] SPECIFICS OF THE REQUEST: (Please be as detailed as possible. If request is lymph node biopsy, specify LOCATION of the node if possible): Imaging guided biopsy soft tissue mass/muscle (For example: ?biopsy liver mass? or ?biopsy pelvic lymph node?) SPECIAL REQUESTS: TISSUE SAMPLE, LABWORK: N/A -Fine needle aspiration (FNA), core biopsy, no preference, unsure, specific processing request for pathology (For example: ?send for ER, [place], HER2/jose armando? or ?possible lymphoma send in RPMI solution?) IS THIS REQUEST PART OF A RESEARCH PROTOCOL: No IF YES: List specifics of request and name/contact number of research coordinator and primary physician. MEDICAL DIAGNOSIS: Bone lesion M89.9 (For example: ?history of breast cancer with liver mass? or ?history of lymphoma?) TYPE AND DATE OF THE EXAM THAT IS THE BASIS OF THE REQUEST: MRI Date: 03/29/22 (Note: Requests for random organ biopsies, specifically liver and kidney random biopsies do not need imaging. ALL OTHER CASES NEED IMAGING TO EVALUATE APPROPRIATENESS/FEASIB ILITY OF THE REQUEST) IMAGING: [facility] (If the imaging was obtained outside the [facility] system, then it needs to be submitted for review prior to approval.) Note to all persons requesting biopsies: All biopsy requests will be scheduled as quickly as possible, based on the clinical urgency, availability of appointment times, the need to hold anti-thrombolytic therapy (aspirin, blood thinners) and the patient?s schedule, including the need for an available petroleum transport driver. If a percutaneous biopsy or drainage is not felt to be safe or an alternative method for establishing a diagnosis is possible, this will be discussed directly with the requesting physician. Nikki Laguerre LPN 04/05/2022 11:48 AM Signed BX. COORDINATOR INFORMATION LAB RESULTS: PT INR (no units) Date Value 10/22/2019 1.0 APTT (sec) Date Value 10/22/2019 29.2 Platelet Count (k/uL) Date Value 12/30/2021 237 Current Outpatient Medications Medication Sig - blood sugar diagnostic (FREESTYLE LITE STRIPS) test strip TEST BLOOD SUGARS 2 TIMES DAILY - lancets (FREESTYLE LANCETS) 28 gauge 1 Each twice daily. - metFORMIN ER (GLUCOPHAGE XR) 750 mg 24 hr tablet Take 1 tablet by mouth daily with breakfast. - ARIPiprazole (ABILIFY) 15 mg tablet Take 1 tablet by mouth once daily. - sertraline (ZOLOFT) 100 mg tablet Take 1.5 tablets by mouth once daily. - traZODone (DESYREL) 50 mg tablet Take 1 tablet by mouth daily at bedtime. - venlafaxine ER (EFFEXOR XR) 75 mg 24 hr capsule Take 1 capsule by mouth once daily. - Cranberry 400 mg cap Take 1 capsule by mouth once daily. No current facility-administered medications for this visit. ALLERGIES Allergen Reactions - Hydrocodone-Acetami* Mental Status Change FILMS SENT TO WORKSTATION: GUIDELINES FOR HOLDING ANTI-PLATELET AND ANTI- COAGULATION THERAPY: none on file NURSE SIGNATURE: Nikki Laguerre LPN DATE: April 05, 2022 TIME: 11:48 AM Mechelle Squires DO 04/05/2022 4:33 PM Signed RADIOLOGIST REQUEST / APPROVAL FORM STAFF RADIOLOGIST:Dr Stevenson PROCEDURE TO BE DONE UNDER: CT PROCEDURE REQUESTED: CORE Requested PROCEDURE: Approved TIME SLOT NEEDED: 1 Hour NOTES: left bone lesion/posterior iliac spine; refer to MRI pelvis 03/29/22. Lesion is indeterminate although signal characteristics most suggestive of abscess given history or prior MSSA discitis. SPECIAL LABS/ PROCESSING: None Pre-procedure labs: CBC: not needed INR: not needed COVID: not needed SIR Bleeding risk category for this procedure: low low risk. Reference from [facility] Compound Specialist: [email or web address] STAFF SIGNATURE: Mechelle Squires DO DATE: April 05, 2022 TIME: 4:31 PM Tiffanie Millard 04/12/2022 10:56 AM Signed Spoke to pt and scheduled biopsy for 04/15/22. Allergies As of Date: 04/05/2022 Noted Allergy Reaction HYDROCODONE-ACETAMINOP HEN 09/24/2016 1 - Mental Status Change Date Reviewed: 03/29/2022 Reviewed by: Fatmata Gilbert RN - Fully Assessed Reason for Visit: Biopsy Request [1576] Prescriptions as of 04/12/2022 - blood sugar diagnostic (FREESTYLE LITE STRIPS) test strip TEST BLOOD SUGARS 2 TIMES DAILY - lancets (FREESTYLE LANCETS) 28 gauge 1 Each twice daily. - metFORMIN ER (GLUCOPHAGE XR) 750 mg 24 hr tablet Take 1 tablet by mouth daily with breakfast. - ARIPiprazole (ABILIFY) 15 mg tablet (more content not included)... Normal [facility] 03-29-2022 ALLIED HEALTH HNO ID: [id number] Author: Gasper Barton RT(R) Service: ? Author Type: Technologist Type: Allied Health Filed: 03/29/2022 8:44 AM Note Text: Radiology Service Progress Note PATIENT NAME: Dorcas Kent DATE OF SERVICE: March 29, 2022 TIME: 8:44 AM PATIENT IDENTITY VERIFICATION COMPLETED USING TWO (2) IDENTIFIERS: Name and Date of confirmed by patient verbally. FALL SCREENING: Has the patient had 2 falls in the last year or 1 fall with injury or currently using an Ambulatory Assistive Device (Walker, Cane, Wheelchair, Crutches, etc.)? No PATIENT GENDER DATA: Female. status: : No status: N/A PATIENT RELEVANT IMPLANT DATA REVIEWED: Not Applicable RADIOLOGY DEPARTMENT: MR; Exam(s) Completed: Lower MSK: Pelvis, bilateral PERIPHERAL IV DATA: Not applicable SIGNED BY: LANNY/ Gasper Barton, RT(R) March 29, 2022 8:44 AM Normal [facility] HCG Preg Ur Qlon 03-29-2022 HCG ( test) Ql (U) Negative Normal Negative [facility] Comment on above: Order Comment: Speci men Type: URINE SPECIMEN Ordering Facility: [facility] Address: [address] [place], [place] [address] Result Comment: This test is intended to aid in the early detection of . Very dilute urine samples, as indicated by a low specific gravity, may not contain sales representative levels of hCG. This test detects intact hCG only. This test does not reliably detect hCG degradation products, including free-beta subunit and beta-core fragment. Therefore, this test may show reduced reactivity in urine after 8 weeks gestation. A number of conditions other than , including trophoblastic disease and certain non-trophoblastic neoplasms cause elevated levels of hCG. As with any assay employing mouse antibodies, the possibility exists for interference by human anti-mouse antibodies (HAMA) in the specimen. The test provides a presumptive diagnosis for . Performed By: #### 2 106-3 #### [facility] CLIA [id number] [address] [place] [address] HISTORY PHYSICALon 2 HISTORY PHYSICAL HNO ID: [id number] Author: Prakash Flores MD Service: ? Author Type: Physician Type: HANDP Filed: 03/29/2022 10:29 AM Note Text: UPDATED HISTORY AND PHYSICAL EXAMINATION PATIENT NAME: Dorcas Kent SERVICE DATE: 03/29/2022 PHYSICAL EXAM MUST BE COMPLETED ON ADMISSION History: This is a 21 year old female who presents with back pain more on right. No interval change in PMHX, PSHX, Allergies, FamHx, or ROS since visit 12/31/2021 by Antonieta SANDHU. Physical Exam: Cardiovascular System: RRR without murmur, gallop, or rubs. Respiratory System: Lungs clear to auscultation. No wheezing or rhonchi. Airway Assessment: ASA Class: II HEENT: open mouth fully Cervical ROM: Flexion: full, Extension: full Neurological Manual Muscle Testing: Upper Extremities: Biceps: 5, Triceps: 5, Wrist Extension: 5 Lower Extremities: Dorsiflexion: 5, Plantar: 5, EHL: 5 Risk, benefits, and alternatives of surgery explained to patient by surgeon with explicit agreement by patient or patient sales representative before surgery. SIGNATURE: Prakash Flores MD DATE: March 29, 2022 TIME: 10:29 AM [facility] MRI PELVIS ORTHO GEN WO IVCO Non 03-29-2022 MRI PELVIS ORTHO GEN WO IVCON * * *Final Report* * * DATE OF EXAM: Mar 29 2022 9:25AM LUM 0229 - MRI PELVIS ORTHO GEN WO IVCON / PROCEDURE REASON: multiple diagnoses * * * * Physician Interpretation * * * * History: . Disorder of bone Bone lesion . Does patient need anesthesia or anxiolysis:->No anesthesia or anxiolysis needed Technique: Routine MRI of the pelvis and both hips ; Comparison: MRI 12/30/2021; CT 09/07/2021; imported MRI 09/10/2021; radiographs 12/31/2021 Result: BONE MARROW: Posterior iliac spine on the iliac side of the left sacroiliac joint, the ovoid lesion previously seen on 12/30/2021 is again noted. This measures about 20 mm in greatest dimension and appears to abut the articular surface of the SI joint. The size is unchanged from the prior study. Signal characteristics are somewhat different however. Internally there is more peripheral T1 hyperintensity and lower central T1 signal than on the prior study. This is predominantly STIR hyperintense with some heterogeneity. The previously seen perilesional low T1 signal is no longer present or at least significantly reduced. This appears to have a peripheral hypointense margin. HIP JOINTS: Right hip: Large field of view images of this joint limits evaluation of articular structures. No gross abnormality Left hip: Large field of view images of this joint limits evaluation of articular structures. No gross abnormality SI JOINTS: Normal appearing sacroiliac joints bilaterally. TENDONS: The rectus femoris tendons, iliopsoas tendons, hamstring tendons, hip adductor and abductor tendons appear to be intact bilaterally. MUSCLE: Muscle bulk and signal intensity are within normal limits. NERVES: The visualized portions of the lumbosacral plexus and sciatic nerves appear to be within normal limits. VISCERAL PELVIS: Limited evaluation of the visceral pelvis is unremarkable. OTHER: No other significant abnormality identified. IMPRESSION: INDETERMINATE BONE LESION NEAR THE LEFT POSTERIOR ILIAC SPINE WITH EVOLVING INTERNAL AND PERILESIONAL SIGNAL CHARACTERISTICS. GIVEN THE APPEARANCE OVER TIME AND THE HISTORY OF PRIOR MSSA DISCITIS, AN INTRAOSSEOUS ABSCESS IS A LEADING CONSIDERATION. 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 Linen Supervisor: VALDO Transcribe Date/Time: Mar 29 2022 9:28A Dictated by : ORIN SAUER MD This examination was interpreted and the report reviewed and electronically signed by: ORIN SAUER MD on Mar 29 2022 9:55AM EST [id number] Normal [facility] MRI PELVIS ORTHO GENERAL WO IVCONon 03-29-2022 [facility] OPERATIVE NOon 03-29-2022 OPERATIVE NO HNO ID: [id number] Author: Prakash Flores MD Service: ? Author Type: Physician Type: Operative Report Filed: 03/29/2022 10:54 AM Note Text: OPERATIVE/PROCEDURE REPORT LOG ID: [id number] Surgery/Procedure Date: 03/29/2022 Surgeon: Prakash Flores MD School Custodian: Jame Moura DO Procedure(s):Operation :right Sacro-Iliac Joint(s) Pre-Op/Pre-Procedure Diagnosis: Sacroiliitis Post-Op Diagnosis: same Anesthesia: Procedural Sedation 2mg of IV versed was used with 6 min of intraservice monitoring time. Fluoroscopy time: 27.0 sec Time In: 10:43 am Time out: 10:49 am Estimated Blood Loss: None Specimens: None Drains: None Complications: None INDICATIONS: The patient has been referred by my colleague Antonieta SANDHU* with concordant subjective, objective, and radiologic findings of Sacroiliitis, referred for diagnostic and therapeutic right Sacro-Iliac Joint injection(s) with failure of prior conservative care with physical therapy and medications alone. At this time, the patient wishes to avoid surgery. This is the patient's 1st injection under my care. -treated for L3-4 discitis 08/2021 PROCEDURE: After obtaining both verbal and written informed consent, the patient was placed in a prone position on the fluoroscopic table in [facility] procedure room, the patient'sposterior lumbosacral spine was prepped and draped in usual sterile fashion using iodine. The patient was connected to noninvasive blood pressure, EKG, pulse oximetry monitoring, and monitored by a registered interventional nurse throughout the procedure. Before initiating procedure, all relevant information was verified in a time-out. One Skin wheal(s) were raised using 1% epinephrine with preservative-free lidocaine near the inferior portion of the right Sacro-iliac joint (s). Through the skin wheal a 22-gauge, 3-1/2-inch curved Quincke-tip spinal needle was inserted and advanced under direct fluoroscopic visualization in the AP and lateral planes, until the needle tip entered the right Sacro-iliac Joint. Proper needle placement was confirmed with 0.2 cc of Omnipaque-180M nonionic contrast confirming intra-articular flow of contrast without any intravascular uptake of contrast seen under direct fluoroscopic visualization in the AP, ipsilateral oblique, and lateral planes. At this point 40mg Kenalog and 1 cc of 0.75% preservative- free bupivacaine were infused into the Sacro-Iliac Joint(s). Adequate hemostasis was obtained at the needle puncture site. The patient's back was cleaned and a sterile dressing was applied. The patient was taken conscious and in stable condition to the recovery room. No complications as a result of this procedure. Post procedure precautions and instructions were reviewed with the patient who verbalized understanding. I/primary surgeon/proceduralist performed the procedure with assistance. Significant Findings: 2 degrees ipsi oblique. concordant. Pre-Op Pain: 2. Post-Op Pain: 0. The patient had 2/5 positive provocative test on physical exam prior to injection. The patient had no pain with the same provocative test after injection. Care Instructions: Discharge per protocol. Medications: See Epic medication section Appointment: Patient to return 4 weeks to clinic with pain diary. Discharge Condition: Good condition for discharge. Patient discharged home when all discharge criterion met. Prakash Flores MD Staff Physician [facility] SIGNATURE: Prakash Flores MD PATIENT NAME: Dorcas Kent DATE: March 29, 2022 TIME: 10:51 AM PAGER/CONTACT #: [facility] 02-10-2022 [facility] Telephone (SPNMMN) DORCAS KENT ([id number]) 2000 F Date Time Provider Department 02/10/22 HARITHA FUNG SPNMMN During your visit today, we recorded the following information about you: Deanna Coe [facility] [place] 02/10/2022 3:59 PM Signed Received outside imaging/report: CD Yes Report Yes Imaging received: 12/28/21: MRI Lumbar Spine W / WO Contrast 09/10/21: MRI Lumbar Spine W / WO Contrast 09/07/21: CT Lumbar Spine WO Contrast Imaging uploaded and forward to team for review. Nazanin Allen [facility] [place] 02/11/2022 10:45 AM Signed Patient called; confirmed that imaging had been rec'd and uploaded successfully; patient is requesting call back upon review by provider; ph. [phone] Allergies As of Date: 02/10/2022 Noted Allergy Reaction HYDROCODONE-ACETAMINOP HEN 09/24/2016 1 - Mental Status Change Date Reviewed: 12/31/2021 Reviewed by: Ny Perez - Fully Assessed Reason for Visit: External Imaging [Other] Prescriptions as of 02/11/2022 - blood sugar diagnostic (FREESTYLE LITE STRIPS) test strip TEST BLOOD SUGARS 2 TIMES DAILY - lancets (FREESTYLE LANCETS) 28 gauge 1 Each twice daily. - metFORMIN ER (GLUCOPHAGE XR) 750 mg 24 hr tablet Take 1 tablet by mouth daily with breakfast. - ARIPiprazole (ABILIFY) 15 mg tablet Take 1 tablet by mouth once daily. - sertraline (ZOLOFT) 100 mg tablet Take 1.5 tablets by mouth once daily. - traZODone (DESYREL) 50 mg tablet Take 1 tablet by mouth daily at bedtime. - venlafaxine ER (EFFEXOR XR) 75 mg 24 hr capsule Take 1 capsule by mouth once daily. - Cranberry 400 mg cap Take 1 capsule by mouth once daily. Problem List As Of Date 02/10/2022 Noted Resolved Diet controlled gestational diabetes mellitus (*04/17/2019 10/30/2019 Normal delivery [O80] 10/23/2019 Night sweats [R61] 10/23/2019 Diarrhea [R19.7] 10/23/2019 Headache [R51.9] 10/23/2019 Reactive hypoglycemia [E16.1] 10/30/2019 History of gestational diabetes mellitus (GDM) *10/30/2019 Encounter Status:Closed by DEANNA MURPHY on 02/10/22 [facility] CNTHERAPYon 01-20-2022 CNTHERAPY OT/PT/Speech Visit (PHYTMN) DORCAS KENT ([id number]) 2000 F Date Time Provider Department 01/20/22 10:00 AM EWA [facility] Date Time Provider Department Center 01/20/2022 10:00 AM [id number] Reason for Visit: PT Eval [747] Physical Therapy [503] Visit Diagnoses:Pain of right sacroiliac joint [M53.3] Chronic bilateral low back pain without sciatica [M54.50, G89.29] Allergies As of Date: 01/20/2022 Noted Allergy Reaction HYDROCODONE-ACETAMINOP HEN 09/24/2016 1 - Mental Status Change Date Reviewed: 12/31/2021 Reviewed by: Ny Perez - Fully Assessed Prescriptions as of 01/21/2022 - diclofenac, EC, (VOLTAREN) 75 mg EC tablet Take 1 tablet by mouth twice daily as needed (for pain.). - blood sugar diagnostic (FREESTYLE LITE STRIPS) test strip TEST BLOOD SUGARS 2 TIMES DAILY - lancets (FREESTYLE LANCETS) 28 gauge 1 Each twice daily. - metFORMIN ER (GLUCOPHAGE XR) 750 mg 24 hr tablet Take 1 tablet by mouth daily with breakfast. - ARIPiprazole (ABILIFY) 15 mg tablet Take 1 tablet by mouth once daily. - sertraline (ZOLOFT) 100 mg tablet Take 1.5 tablets by mouth once daily. - traZODone (DESYREL) 50 mg tablet Take 1 tablet by mouth daily at bedtime. - venlafaxine ER (EFFEXOR XR) 75 mg 24 hr capsule Take 1 capsule by mouth once daily. - Cranberry 400 mg cap Take 1 capsule by mouth once daily. Letter Text Normal [facility] CNOVon 12-31-2021 CNOV Office Visit (SPMEFV ) DORCAS KENT ([id number]) 2000 F Date Time Provider Department 12/31/21 1:50 PM [facility] During your visit today, we recorded the following information about you: Temperature Pulse Blood pressure Weight 97.3 degrees 83/minute 126/61 75.8 kg Height 1.727 m Haritha Fung, PIER MASTER.EXHIBITION DESIGNER 01/01/2022 2:47 PM Signed [facility] Low Back Pain - Chronic (> 12 weeks) Initial Exam SUBJECTIVE HISTORY OF PRESENT ILLNESS: Dorcas Kent is a 21 year old female who presents with a chief complaint of low back pain and is seen in consultation requested by self Patient presents with chronic back pain starting March 2021. No accident/injury. Had imaging done May 2021 with abnormal findings at L3. Biopsy done in August at local hospital. Followed by infectious disease. Was on IV abx starting September. After antibiotics symptoms improved. [place] 85-90% improved. Pain returned in the last few weeks. Went to her local ER on 12/26/21 d/t pain. Was transfered to [facility] per her request. Neurosurgeon following her advised her there was nothing else to do, no infection noted and dx with chronic low back pain. Went to [facility] ER yesterday, 12/30/21. ESR, CRP WNL. MRIs w contrast were done of the spine. Seen by Neurosurgery who did not recommend any intervention. Pain localized to right low back/buttock and mid lumbar spine Pain described as Aching Radiation: right buttock Numbness/Tingling: feet tingling - intermittent Pain worse with constant, movement Pain improved with heat Interventions: heat, meds Medications: gabapentin 300mg TID (no help), cymbalta, advil prn Previously: percocet Physical Therapy: March- at [facility] History of Spine Injections/Surgery: None Other Issues Addressed at the Visit Today: None. Precipitating Event: None PAIN EVALUATION 12/31/2021 1323 Pain Level: 7 Pain Location: Back-Lower right hip Description: Aching Duration Units: Unknown Frequency: Continuous Intervention/Comfort measure: Medication Litigation: No Workers' Compensation: No YELLOW AND BLUE FLAGS No-Neg Attitude; Back Pain is Disabling No-Avoiding Activity (for Fear of Pain) YES-Depression or Anxiety Disorders No-Social Problems No-Substance Use Disorder No-Job Dissatisfaction No-Financial Disincentives Patient Entered Questionnaires PROMIS Score Percentiles Percentiles provide an indication of how the patient's score ranks in relation to the general population. Higher percentile rankings indicate better function/quality of life. 50th percentile is the average of the general population and indicates half of respondents had a worse score. Depression Screening: PHQ-9 Self-Harm (Item 9) response options: 0 Not at all 1 Several days 2 More than half the days 3 Nearly every day PHQ-9 Levels: 0-4 No - mild depression 5-9 Mild depression 10-14 Moderate depression 15-19 Moderately severe depression 20-27 Severe depression ACTIVE PROBLEM LIST Normal Delivery Night Sweats Diarrhea Headache Reactive Hypoglycemia History of Gestational Diabetes Mellitus (Gdm) PAST MEDICAL HISTORY Diagnosis Date - Depression - Gestational diabetes - H/O pre-term labor - Post depression PAST SURGICAL HISTORY Procedure Laterality Date - KNEE ARTHROSCOPY - REMOVAL GALLBLADDER Social History Tobacco Use - Smoking status: Never Smoker - Smokeless tobacco: Never Used Vaping Use - Vaping Use: Never used Substance Use Topics - Alcohol use: Not Currently - Drug use: Never FAMILY HISTORY Problem Relation Age of Onset - Hypertension Maternal Grandmother - Hyperlipidemia Maternal Grandfather - Hypertension Maternal Grandfather - Heart Maternal Grandfather - other (Lung Cancer) Maternal Grandfather ALLERGIES Allergen Reactions - Hydrocodone-Acetami* Mental Status Change CURRENT MEDICATIONS: blood sugar diagnostic (FREESTYLE LITE STRIPS) test strip TEST BLOOD SUGARS 2 TIMES DAILY lancets (FREESTYLE LANCETS) 28 gauge 1 Each twice daily. metFORMIN ER (GLUCOPHAGE XR) 750 mg 24 hr tablet Take 1 tablet by mouth daily with breakfast. ARIPiprazole (ABILIFY) 15 mg tablet Take 1 tablet by mouth once daily. sertraline (ZOLOFT) 100 mg tablet Take 1.5 tablets by mouth once daily. traZODone (DESYREL) 50 mg tablet Take 1 tablet by mouth daily at bedtime. venlafaxine ER (EFFEXOR XR) 75 mg 24 hr capsule Take 1 capsule by mouth once daily. Cranberry 400 mg cap Take 1 capsule by mouth once daily. REVIEW OF SYSTEMS: PAIN ASSESSMENT: See HPI. GENERAL: Denies fever, chills malaise and weight loss. HEENT: No recent change in vision or hearing. CARDIOVASCULAR: Denies chest pain, history of A-fib, valvular disease, or pacemaker/ICD. RESPIRATORY: Denies SOB, sputum production, and hemoptysis. GI: Denies GI ulcers, inflammatory (more content not included)... Normal [facility] CONSULTon 12-31-2021 CONSULT HNO ID: [id number] Author: Gavin Mullen MD Service: Neurosurgery Author Type: Resident Type: Consults Filed: 12/31/2021 4:20 AM Note Text: NEUROSURGERY CONSULT HISTORY AND PHYSICAL EXAMINATION PLEASE DO NOT REMOVE FROM THE CHART OR MODIFY PRINTED COPY Patient Name: Dorcas Kent CONSULTED BY: ED CONSULTED FOR: ?discitis CHIEF COMPLAINT: Second opinion HPI: 21 year old female with PMHx for MSSA discitis @ L3-4 (treated with 6 weeks of abx in 03/2021), presenting to ED with symptoms of lumbar back pain, walking difficulties, numbness tingling in her feet with MRI showing indeterminate lesion in the left iliac wing along the posterior-medial margin of the left SI joint for which NSGY spine is consulted. Patient was diagnosed with osteomyelitis of L3 vertebrae last year via bone biopsy which grew MSSA in setting of history of progressive back pain since 03/2021. Patient was placed on 6 weeks of abx which completed in 09/2021. Patient reported good symptom relief for ~1.5 months and then had recurrence of previous back pain ~11/21/2021 which has gotten progressively worse. Also reports tingling in BLE at the bottoms of the feet and into the calf. Also reports some difficulties initiating urination, but no concerns for urine or stool incontinence. Denies BLE weakness, but has difficulty ambulating 2/2 pain. Patient recently admitted to OSH on 12/26/2021. Obtained CT L scan on 12/26/21 showing interval increase in two lucent lesion at L 3 and iliac bone c/f possible discitis, but cannot exclude langerhands histiocystosis. Evaluated by NSGY at the OSH who said she did not have an infection and stated that she had chronic back pain. Patient discharged on 12/29 and then presented to [facility] ED on 12/30 for a second opinion. In ED, patient is afebrile, vitals stable. No leukocytosis or elevated ESR/CRP. MRI T and L spine obtained showing indeterminate lesion in the left iliac wing along the posterior-medial margin of the left SI joint. ?Signal characteristics suggest partially fluid contents and there is some enhancement after gadolinium and likely at least some edema in the surrounding bone. ?No clear evidence for contiguous extension into the adjacent soft tissues. ?The intrinsic internal contents and presence of enhancement does raise question of possible inflammation or infection locally. Also focal endplate defect inferior L3 represents a Schmorl's node. Anti-platelets/anti-co agulants: None PAST MEDICAL HISTORY: PAST MEDICAL HISTORY Diagnosis Date - Depression - Gestational diabetes - H/O pre-term labor - Post depression PAST SURGICAL HISTORY: PAST SURGICAL HISTORY Procedure Laterality Date - KNEE ARTHROSCOPY - REMOVAL GALLBLADDER FAMILY HISTORY: FAMILY HISTORY Problem Relation Age of Onset - Hypertension Maternal Grandmother - Hyperlipidemia Maternal Grandfather - Hypertension Maternal Grandfather - Heart Maternal Grandfather - other (Lung Cancer) Maternal Grandfather SOCIAL HISTORY: Social History Tobacco Use - Smoking status: Never Smoker - Smokeless tobacco: Never Used Vaping Use - Vaping Use: Never used Substance Use Topics - Alcohol use: Not Currently - Drug use: Never MEDICATIONS: blood sugar diagnostic (FREESTYLE LITE STRIPS) test strip TEST BLOOD SUGARS 2 TIMES DAILY lancets (FREESTYLE LANCETS) 28 gauge 1 Each twice daily. metFORMIN ER (GLUCOPHAGE XR) 750 mg 24 hr tablet Take 1 tablet by mouth daily with breakfast. ARIPiprazole (ABILIFY) 15 mg tablet Take 1 tablet by mouth once daily. sertraline (ZOLOFT) 100 mg tablet Take 1.5 tablets by mouth once daily. traZODone (DESYREL) 50 mg tablet Take 1 tablet by mouth daily at bedtime. venlafaxine ER (EFFEXOR XR) 75 mg 24 hr capsule Take 1 capsule by mouth once daily. Cranberry 400 mg cap Take 1 capsule by mouth once daily. Current Facility-Administered Medications Medication Dose Route Frequency - iv contrast (radiology procedure) INTRAVENOUS DIRECTED PRN - iv contrast (radiology procedure) INTRAVENOUS DIRECTED PRN ALLERGIES: ALLERGIES Allergen Reactions - Hydrocodone-Acetami* Mental Status Change COMPLETE REVIEW OF SYSTEMS: See HPI PHYSICAL EXAM: NAD, AAO x 3 CN grossly intact Strength: RUE: D 5 Bi 5 Tri 5 HG 5 HI 5 LUE: D 5 Bi 5 Tri 5 HG 5 HI 5 RLE: HF 5 KE 5 DF 5 EHL 5 PF 5 LLE: HF 5 KE 5 DF 5 EHL 5 PF 5 SILT in all dermatomes Hoffmans neg Clonus neg Reflexes: 1+ bilateral patellars Gait + Rectal tone: deferred DATA: Radiology: See HPI Laboratory: CBC, Coags, BMP, Mg, Phos Recent Labs 12/30/21 1540 WBC 5.64 HB 11.8 HCT 35.1* PLT 237 NA 139 K 3.9 CHLOR 104 CO2 24 BUN 8 CREAT 0.70 GLUC 102* CA 9.2 MG 1.9 ASSESSMENT AND PLAN: 21 year old female with PMHx for MSSA discitis @ L3-4 (treated with 6 weeks of abx in 03/2021), presenting to ED with symptoms of lumbar back pain, walking difficulties (more content not included)... Normal [facility] ED NOTEon 12-31-2021 ED NOTE HNO ID: [id number] Author: Deon Deutsch MD Service: Emergency Medicine Author Type: Resident Type: ED Notes Filed: 12/31/2021 6:22 AM Note Text: DR tasneem QUICK 10:09 PM 21 year old female with hx discitis 04/10 p/w worsening symptoms similar to previous discitis. Difficulty ambulating, paresthesias, difficulty voiding. [ ] MRI [ ] spine consult ED Course as of 12/31/21 0620 Deon Sam Jovany Deutsch's Documentation Katie Dec 31, 2021 0115 Spoke with Neurosurgery, no indication for surgical intervention, recommending outpatient follow up with spine surgery as outpatient Others' Documentation [facility] Dec 30, 2021 172 CBC + DIFF(!): WBC 5.64 RBC 4.02 Hemoglobin 11.8 Hematocrit 35.1(!) MCV 87.3 MCH 29.4 MCHC 33.6 RDW-CV 12.0 Platelet Count 237 MPV 9.8 Neut% 69.0 Abs Neut (ANC) 3.87 Lymph% 20.0 Abs Lymph 1.13 Toombs% 7.3 Abs Toombs 0.41 Eosin% 3.0 Abs Eosin 0.17 Baso% 0.7 Abs Baso 0.04 Nucleated Reds 0.0 Absolute nRBC <0.01 Diff Type Auto Diff No anemia, leukocytosis, or thrombocytopenia. [DG] 1720 Magnesium: 1.9 Within normal limits [DG] 1720 BASIC METABOLIC PNL(!): Glucose 102(!) BUN 8 Creatinine 0.70 Sodium 139 Potassium 3.9 Chloride 104 CO2 24 Anion Gap 11 Calcium 9.2 eGFR- >60 eGFR-All Other Races >60 No clinically significant electrolyte abnormalities or LUCIANO. [DG] 2023 I evaluated the patient and personally participated in the vee components. I agree with the resident's findings and plan as documented and have discussed the case and management of the patient's care with the resident. 21 year old female with previous history of discitis, here with recurrent symptoms of back pain and paresthesias which happened with her last infection. Alert, afebrile and hemodynamically stable with adequate oxygenation. Exam shows no focal strength deficit. MRI lumbar/thoracic spine pending. Signature: Brittney Olivas MD Date: 12/30/2021 Time: 8:24 PM [VL] 2110 Urine-ED(POC): Negative [DG] 2130 CRP: 0.3 Within normal limits [DG] 2151 WSR: 13 Within normal limits [DG] 2215 Care endorsed to me by Dr. Olivas - 21yo female with discitis treated with copat. LS. Resolved. Has developed same symptoms again. Underwent imaging local area - was seen by OSH neurosurg. Here for 2nd opinion. Exam ok - can ambulate, no hyperreflexia. MRI T and L spine. [HJ] 2218 MRI without discitis [HJ] 2258 Spoke with neurosurgery resident who agrees to evaluate patient. [DG] ED Course User Index [DG] Jered Nava MD [HJ] Diane Chase MD [VL] Brittney Olivas MD Clinical Impressions as of 12/31/21 0620 Back pain, unspecified back location, unspecified back pain laterality, unspecified chronicity Paresthesias Under my care: ?Patient remained hemodynamically stable without new complaints. ?MRI resulted without recurrence of discitis. ?Spinal surgery consulted and evaluated the patient. Found no indication for intervention at this time, recommended outpatient follow-up with spinal medicine. ?Patient updated on results and plan of care. Agreeable to plan. Stable for discharge home. Deon Foster MD Normal [facility] XR LUMBAR 2V AP/LATon 2021 XR LUMBAR 2V AP/LAT * * *Final Report* * * DATE OF EXAM: Dec 31 2021 4:04PM FVX [id number] - XR LUMBAR 2V AP/LAT / PROCEDURE REASON: multiple diagnoses * * * * Physician Interpretation * * * * Clinical: Back pain Technique:3 views of the lumbar spine RESULT: No evidence of acute fracture or subluxation is seen. There is no evidence for spondylolysis or spondylolisthesis. The vertebral body height and discs spaces demonstrates disc space narrowing at L3/L4 and L4/L5 as well as L5/S1. The alignment demonstrates moderate levoscoliosis IMPRESSION: Levoscoliosis and mild degenerative disc disease in the lower lumbar spine. Linen Supervisor: PSCB Transcribe Date/Time: Dec 31 2021 4:46P Dictated by : ЕЛЕНА LEAL MD This examination was interpreted and the report reviewed and electronically signed by: ЕЛЕНА LEAL MD on Dec 31 2021 4:49PM EST [id number] Normal [facility] XR PELVIS 3V AP/INLET/OUTLET on 12-31-2021 XR PELVIS 3V AP/INLET/OUTLET * * *Final Report* * * DATE OF EXAM: Dec 31 2021 4:04PM FVX [id number] - XR PELVIS 3V AP/INLET/OUTLET / PROCEDURE REASON: multiple diagnoses * * * * Physician Interpretation * * * * HISTORY: UNKNOWN PAIN. Pain of right sacroiliac joint Chronic bilateral low back pain without sciatica Chronic bilateral low back pain without sciatica . TECHNIQUE: XR PELVIS 3V AP/INLET/OUTLET Laterality: NOT APPLICABLE Number of different views (projections): 2 COMPARISON: None RESULT: SI joints appear normal. Pelvic ring is intact. Hip joints appear preserved. Pubic symphysis is normal. Limited views of the lumbar spine appear unremarkable. IMPRESSION: No findings of sacroiliitis. No significant degenerative change at the SI joints. Linen Supervisor: VALDO Transcribe Date/Time: Jan 04 2022 8:09A Dictated by : KENNEDY VANN MD This examination was interpreted and the report reviewed and electronically signed by: KENNEDY VANN MD on Jan 04 2022 8:16AM EST [id number] Normal [facility] ALLIED HEALTHon 12-30-2021 ALLIED HEALTH HNO ID: [id number] Author: ROCIO East) Service: Radiology Author Type: Technologist Type: Allied Health Filed: 12/30/2021 9:39 PM Note Text: Radiology Service Progress Note PATIENT NAME: Dorcas Kent DATE OF SERVICE: December 30, 2021 TIME: 9:38 PM PATIENT IDENTITY VERIFICATION COMPLETED USING TWO (2) IDENTIFIERS: Name and Date of confirmed by patient verbally and Name and Date of confirmed by identification band. FALL SCREENING: Has the patient had 2 falls in the last year or 1 fall with injury or currently using an Ambulatory Assistive Device (Walker, Cane, Wheelchair, Crutches, etc.)? Emergency Room Patient: Screened in ED PATIENT GENDER DATA: Female. status: : No status: NO. PATIENT RELEVANT IMPLANT DATA REVIEWED: Yes RADIOLOGY DEPARTMENT: MR; Exam(s) Completed: Spine: Thoracic spine and Lumbar spine PERIPHERAL IV DATA: Inpatient: see LDA documentation SIGNED BY: RT Kita(Mayte) December 30, 2021 9:38 PM Normal [facility] Basic Metabolic Panlon 12-30 Anion gap [Moles/Vol] 11 mmol/L Normal 9-18 [facility] Comment on above: Performed By: #### B GOLDY MG1, CBCDIF ####[facility] [place], [place] [phone] Calcium [Mass/Vol] 9.2 mg/dL Normal 8.5-10.2 [facility] Comment on above: Performed By: #### B GOLDY, MG1, CBCDIF ####[facility] [place] [phone] Chloride [Moles/Vol] 104 mmol/L Normal 97-105 [facility] Comment on above: Performed By: #### B GOLDY MG1, CBCDIF ####[place] [address] [place] [phone] CO2 [Moles/Vol] 24 mmol/L Normal 22-30 [facility] Comment on above: Performed By: #### B GOLDY, MG1, CBCDIF ####[place] [address] [place], [place] [phone] Creatinine [Mass/Vol] 0.70 mg/dL Normal 0.58-0.96 [facility] Comment on above: Performed By: #### B GOLDY, MG1, CBCDIF ####[facility] [place], [place] [phone] eGFR- Amer. >60 Normal [facility] Comment on above: Performed By: #### B GOLDY MG1, CBCDIF ####[place] [address] [place], [place] [phone] eGFR-All Other Races >60 Normal [facility] Comment on above: Result Comment: eGFR (Estimated GFR) Units of measure: mL/min/1.73 meters squared eGFR is derived from the reexpressed MDRD Study equation using the following parameters: serum creatinine, age, gender and race. The creatinine assay has been calibrated to be traceable to IDMS. An eGFR <60 mL/min/1.73m2 for >3 months is consistent with chronic kidney disease. Refer to KDOQI guidelines for clinical interpretation. In patients with unstable renal function, e.g. those with acute kidney injury, the eGFR may not accurately reflect actual GFR. Note: On 01/16/2022, the eGFR calculation will be updated to the NKF-ASN Task Force recommended 2020 CKD-EPI creatinine equation which does not include a race variable. For more information or to access a 2020 CKD-EPI calculator, visit the National Kidney Foundation website at kidney.org/professionals/kdoqi/gfr_calculator. Performed By: #### B MP, MG1, CBCDIF ####[facility] [place], [place] [phone] Glucose [Mass/Vol] 102 mg/dL High 74-99 [facility] Comment on above: Result Comment: The [place] [employer] (ADA) provides guidance for cutoff values for fasting glucose and random glucose. The ADA defines fasting as no caloric intake for at least 8 hours. Fasting plasma glucose results between 100 to 125 mg/dL indicate increased risk for diabetes (prediabetes). Fasting plasma glucose results greater than or equal to 126 mg/dL meet the criteria for diagnosis of diabetes. In the absence of unequivocal hyperglycemia, results should be confirmed by repeat testing. In a patient with classic symptoms of hyperglycemia or hyperglycemic crisis, random plasma glucose results greater than or equal to 200 mg/dL meet the criteria for diagnosis of diabetes. Reference: Standards of Medical Care in Diabetes 2016, [employer]. Diabetes Care. 2016.39(Suppl 1). Performed By: #### B MP, MG1, CBCDIF ####[facility] [address] [place], [place] [phone] Potassium [Moles/Vol] 3.9 mmol/L Normal 3.7-5.1 [facility] Comment on above: Performed By: #### B MP, MG1, CBCDIF ####[facility] [address] [place], [place] [phone] Sodium [Moles/Vol] 139 mmol/L Normal 136-144 [facility] Comment on above: Performed By: #### B MP, MG1, CBCDIF ####[place] [address] [place] [phone] Urea nitrogen [Mass/Vol] 8 mg/dL Normal 7-21 [facility] Comment on above: Performed By: #### B MP, MG1, CBCDIF ####[place] [address] [place] [phone] C-Reactive Proteinon 022 C-Reactive Protein 0.3 mg/dL Normal <0.9 [facility] Comment on above: Performed By: #### W SR, CRP ####[place] [phone] CBC and Differentialon 12-30 Abs Baso 0.04 k/uL Normal <0.11 [facility] Comment on above: Performed By: #### B MP, MG1, CBCDIF ####[place] [address] [place] [phone] Abs Toombs 0.41 k/uL Normal <0.87 [facility] Comment on above: Performed By: #### B MP, MG1, CBCDIF ####[address] [place] [phone] Abs Neut 3.87 k/uL Normal 1.45-7.50 [facility] Comment on above: Performed By: #### B MP, MG1, CBCDIF ####[place] [address], [place] [phone] Absolute nRBC <0.01 Normal <0.01 [facility] Comment on above: Performed By: #### B MP, MG1, CBCDIF ####[place] [address] [place] [phone] Basophils/100 WBC (Bld) 0.7 % Normal [facility] Comment on above: Performed By: #### B MP, MG1, CBCDIF ####[facility] [place] [phone] DTYPE Auto Diff Normal [facility] Comment on above: Performed By: #### B MP, MG1, CBCDIF ####[place] [address] [place] [phone] Eosinophils (Bld) [#/Vol] 0.17 10*3/uL Normal <0.46 [facility] Comment on above: Performed By: #### B MP, MG1, CBCDIF ####[place] [address] [place] [phone] Eosinophils/100 WBC (Bld) 3.0 % Normal [facility] Comment on above: Performed By: #### B MP, MG1, CBCDIF ####[place] [address] [place] [phone] Erythrocyte distribution width (RBC) [Ratio] 12.0 % Normal 11.5-15.0 [facility] Comment on above: Performed By: #### B MP, MG1, CBCDIF ####[place] [address] [place] [phone] Hematocrit (Bld) [Volume fraction] 35.1 % Low 36.0-46.0 [facility] Comment on above: Performed By: #### B MP, MG1, CBCDIF ####[facility] [address]leveland[address] [place] [phone] Hemoglobin (Bld) [Mass/Vol] 11.8 g/dL Normal 11.5-15.5 [facility] Comment on above: Performed By: #### B MP, MG1, CBCDIF ####[facility] [place] [phone] Lymphocytes (Bld) [#/Vol] 1.13 10*3/uL Normal 1.00-4.00 [facility] Comment on above: Performed By: #### B MP, MG1, CBCDIF ####[facility], [place] [phone] Lymphocytes/100 WBC (Bld) 20.0 % Normal [facility] Comment on above: Performed By: #### B MP, MG1, CBCDIF ####[place] [address] [place] [phone] MCH 29.4 pG Normal 26.0-34.0 [facility] Comment on above: Performed By: #### B MP, MG1, CBCDIF ####[facility] [place] [phone] MCHC (RBC) [Mass/Vol] 33.6 g/dL Normal 30.5-36.0 [facility] Comment on above: Performed By: #### B MP, MG1, CBCDIF ####[facility] [place] [phone] MCV (RBC) [Entitic vol] 87.3 fL Normal 80.0-100.0 [facility] Comment on above: Performed By: #### B MP, MG1, CBCDIF ####[facility] [place] [phone] Monocytes/100 WBC (Bld) 7.3 % Normal [facility] Comment on above: Performed By: #### B MP, MG1, CBCDIF ####[facility] [place] [phone] Neutrophils/100 WBC (Bld) 69.0 % Normal [facility] Comment on above: Performed By: #### B MP, MG1, CBCDIF ####[facility] [place] [phone] NRBCs 0.0 /100 WBC Normal 0 [facility] Comment on above: Performed By: #### B GOLDY MG1, CBCDIF ####[place] [address] [place], [place] [phone] Platelet mean volume (Bld) [Entitic vol] 9.8 fL Normal 9.0-12.7 [facility] Comment on above: Performed By: #### B MP, MG1, CBCDIF ####[address] [place], [place] [phone] Platelets (Bld) [#/Vol] 237 10*3/uL Normal 150-400 [facility] Comment on above: Performed By: #### B GOLDY, MG1, CBCDIF ####[address] [place], [place] [phone] RBC (Bld) [#/Vol] 4.02 10*6/uL Normal 3.90-5.20 [facility] Comment on above: Performed By: #### B MP, MG1, CBCDIF ####[address] [place], [place] [phone] WBC (Bld) [#/Vol] 5.64 10*3/uL Normal 3.70-11.00 [facility] Comment on above: Performed By: #### B GOLDY, MG1, CBCDIF ####[address] [place], [place] [phone] ED PROV NOTEon 12-30-2021 ED PROV NOTE HNO ID: [id number] Author: Brittney Olivas MD Service: Emergency Medicine Author Type: Physician Type: ED Provider Notes Filed: 01/01/2022 4:13 PM Note Text: ED Provider Note Patient Name: Dorcas Kent SERVICE DATE: 12/30/21 History Patient presents with: Second Opinion: Pt states he is here for a second opinion for two lesions on her back she has had since last March. 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 Pt states Pt states her back pain is a 9/10, Pt states she has a spinal infection back in August. Pt states her feet are tingly , pt also reports she is dizzy. Back Pain HPI Dorcas Kent is a 21 year old female with PMH discitis presenting with request for second opinion. She states that she had discitis in March of last year and underwent a course of IV antibiotics through a PICC line in her arm. She states that she had symptoms of low back pain, difficulty ambulating, urinary retention, and tingling in her feet at that time. She states after completing the antibiotics the symptoms did improve, however over the last several months they have reoccurred and have been worsening. She states that she was seen at a hospital in her hometown and had CT and MR imaging of her spine performed. She states there are 2 lesions seen on the imaging. She states she was transferred to another hospital in the region to see her previous neurosurgeon and he told her there is nothing more to do. She states she followed up with infectious disease who do not feel that her symptoms are related to another case of discitis but they did recommend finding a second opinion with another neurosurgeon. She presents today for this. Current symptoms include lumbar back pain, right hip pain, and tingling in both feet. She notes that she additionally develops lightheadedness when she stands up which has been present for several months. She states that she has to push and strain to urinate as well. She feels that she is weak in both legs and has difficulty walking. PAST MEDICAL HISTORY Diagnosis Date - Depression - Gestational diabetes - H/O pre-term labor - Post depression PAST SURGICAL HISTORY Procedure Laterality Date - KNEE ARTHROSCOPY - REMOVAL GALLBLADDER FAMILY HISTORY Problem Relation Age of Onset - Hypertension Maternal Grandmother - Hyperlipidemia Maternal Grandfather - Hypertension Maternal Grandfather - Heart Maternal Grandfather - other (Lung Cancer) Maternal Grandfather Social History Tobacco Use - Smoking status: Never Smoker - Smokeless tobacco: Never Used Vaping Use - Vaping Use: Never used Substance and Sexual Activity - Alcohol use: Not Currently - Drug use: Never - Sexual activity: Yes Partners: Male ALLERGIES Allergen Reactions - Hydrocodone-Acetami* Mental Status Change Review of Systems Constitutional: Negative for chills and fever. HENT: Negative for sore throat. Eyes: Negative for visual disturbance. Respiratory: Negative for cough and shortness of breath. Cardiovascular: Negative for chest pain and leg swelling. Gastrointestinal: Negative for abdominal pain, constipation, diarrhea and vomiting. Genitourinary: Negative for dysuria. Musculoskeletal: Negative for neck stiffness. Skin: Negative for rash. Neurological: Positive for weakness. Negative for syncope. Physical Exam BP 127/81 Pulse 113 Temp (Src) 97.7 (Oral) Resp 18 Ht 5' 8 (1.73m) Wt 165 lb (74.8kg) SpO2 99% LMP 09/12/2019 BMI 25.09 kg/(m2). O2 Therapy: Room Air Physical Exam Vitals and nursing note reviewed. Constitutional: General: She is not in acute distress. HENT: Head: Atraumatic. Nose: No rhinorrhea. Mouth/Throat: Mouth: Mucous membranes are moist. Pharynx: Oropharynx is clear. Eyes: Extraocular Movements: Extraocular movements intact. Cardiovascular: Rate and Rhythm: Regular rhythm. Tachycardia present. Pulses: Normal pulses. Pulmonary: Effort: Pulmonary effort is normal. No respiratory distress. Breath sounds: Normal breath sounds. Abdominal: General: There is no distension. Palpations: Abdomen is soft. Musculoskeletal: General: No deformity. Cervical back: Neck supple. Right lower leg: No edema. Left lower leg: No edema. Skin: General: Skin is warm and dry. Neurological: Mental Status: She is alert. Comments: Alert and oriented x3. Strength and sensation grossly intact to all 4 extremities. Patellar reflexes normal. Gait is abnormal with short steps and patient hunched over, appears antalgic. Diagnostic Testing ED Labs Ordered and Reviewed BASIC METABOLIC PNL - Abnormal; Notable for the following components: Result Value Ref Range Glucose 102 (*) 74 - 99 mg/dL All other components within normal limits CBC + DIFF - Abnormal; Notable for the following components: Hematocrit 35.1 (*) 36.0 - 46.0 % All other components within normal limits H (more content not included)... Normal [facility] MRI LUMBAR SPINE WO/W IVCONo n 12-30-2021 MRI LUMBAR SPINE WO/W IVCON * * *Final Report* * * DATE OF EXAM: Dec 30 2021 9:51PM QBM 0304 - MRI LUMBAR SPINE WO/W IVCON / PROCEDURE REASON: Back pain, cancer or infection suspected * * * * Physician Interpretation * * * * EXAMINATION: MRI THORACIC SPINE WO/W IVCON, MRI LUMBAR SPINE WO/W IVCON CLINICAL HISTORY: Back pain, cancer or infection suspected additional note of history of discitis last year. Patient reporting similar symptoms including lumbar back pain, leg paresthesias, urinary retention, and difficulty ambulating. TECHNIQUE: Routine lumbosacral and thoracic spine MR protocol without gadolinium. MQ: [id number] COMPARISON: There are no comparison images. RESULT: THORACIC: Counting reference: Lumbosacral junction. For the purposes of this report, L4-5 is considered the level of the iliac crest and assume there are 5 lumbar-type vertebrae. Anatomic variant: None. Localizer images: No paraspinal masses are evident Alignment: Scoliotic curvature convex right, apex at T6-T7. Gross alignment in the sagittal plane appears normal. Cord: The thoracic spinal cord is within normal limits of signal intensity and morphology. No abnormal cord enhancement after gadolinium. Bone marrow signal/fracture: No evidence of pathologic marrow infiltration. No evidence of prior fracture. Thoracic soft tissues: The paraspinal soft tissues are within normal limits. Canal and foramina: The thoracic canal and foramina are patent within the constraints of the study. LUMBAR: Counting reference: Lumbosacral junction. For the purposes of this report, L4-5 is considered the level of the iliac crest and assume there are 5 lumbar-type vertebrae. Anatomic variant: None. Localizer images: There are no paraspinal mass is evident within the field of view. Alignment: Mild scoliotic curvature convex left, apex L3. Bone marrow signal/fracture: Inferior endplate Schmorl's node to the right of midline at L3. Otherwise, no gross loss of vertebral body height or bony retropulsion. Conus: Distal cord terminates normally at L1-L2. No gross abnormal enhancement involving distal cord or nerve roots of the cauda equina. Paraspinal soft tissues: Paraspinal soft tissues are within normal limits. T12-L1: Canal and foramina are patent. L1-L2: Canal and foramina are patent. L2-L3: Canal and foramina are patent L3-L4: Canal and foramina are patent L4-L5: Canal and foramina are patent L5-S1: Canal and foramina are patent Sacrum and iliac wings: In the left iliac wing, there is an area of mixed intermediate to high T2 signal, mildly hyperintense T1 signal and enhancement after gadolinium. On the T2-weighted scans, there also appears to be subtle surrounding marrow edema. (Series 18, image 35; series 19, image 35; series 25, image 35). This area is minimally included on the sagittals scans. Etiology is unclear. Presence of marrow edema and enhancement is concerning for the possibility of an inflammatory or infectious process. IMPRESSION: Mild scoliosis. Indeterminate lesion in the left iliac wing along the posterior-medial margin of the left SI joint. Signal characteristics suggest partially fluid contents and there is some enhancement after gadolinium and likely at least some edema in the surrounding bone. No clear evidence for contiguous extension into the adjacent soft tissues. The intrinsic internal contents and presence of enhancement does raise question of possible inflammation or infection locally. There is no evidence for vertebral body osteomyelitis or septic facet arthropathy elsewhere involving the thoracic or lumbar spine on this exam. Focal endplate defect inferior L3 represents a Schmorl's node. Cord is grossly normal. No abnormal enhancement. Normally patent thoracic and lumbar spinal canal and neural foramina. Anatomic Thoracic/Lumbar Variant: None. L4-5 is considered the level of the iliac crest and assume there are 5 lumbar-type vertebrae. Linen Super[facility] Transcribe Date/Time: Dec 30 2021 9:59P Dictated by : NAYE MORENO MD This examination was interpreted and the report reviewed and electronically signed by: NAYE MORENO MD on Dec 30 2021 10:13PM EST [id number] Normal [facility] MRI THORACIC SPINE WO/W IVCO Non 12-30-2021 MRI THORACIC SPINE WO/W IVCON * * *Final Report* * * DATE OF EXAM: Dec 30 2021 9:51PM QBM [id number] - MRI THORACIC SPINE WO/W IVCON / PROCEDURE REASON: Back pain, cancer or infection suspected * * * * Physician Interpretation * * * * EXAMINATION: MRI THORACIC SPINE WO/W IVCON, MRI LUMBAR SPINE WO/W IVCON CLINICAL HISTORY: Back pain, cancer or infection suspected additional note of history of discitis last year. Patient reporting similar symptoms including lumbar back pain, leg paresthesias, urinary retention, and difficulty ambulating. TECHNIQUE: Routine lumbosacral and thoracic spine MR protocol without gadolinium. MQ: [id number] COMPARISON: There are no comparison images. RESULT: THORACIC: Counting reference: Lumbosacral junction. For the purposes of this report, L4-5 is considered the level of the iliac crest and assume there are 5 lumbar-type vertebrae. Anatomic variant: None. Localizer images: No paraspinal masses are evident Alignment: Scoliotic curvature convex right, apex at T6-T7. Gross alignment in the sagittal plane appears normal. Cord: The thoracic spinal cord is within normal limits of signal intensity and morphology. No abnormal cord enhancement after gadolinium. Bone marrow signal/fracture: No evidence of pathologic marrow infiltration. No evidence of prior fracture. Thoracic soft tissues: The paraspinal soft tissues are within normal limits. Canal and foramina: The thoracic canal and foramina are patent within the constraints of the study. LUMBAR: Counting reference: Lumbosacral junction. For the purposes of this report, L4-5 is considered the level of the iliac crest and assume there are 5 lumbar-type vertebrae. Anatomic variant: None. Localizer images: There are no paraspinal mass is evident within the field of view. Alignment: Mild scoliotic curvature convex left, apex L3. Bone marrow signal/fracture: Inferior endplate Schmorl's node to the right of midline at L3. Otherwise, no gross loss of vertebral body height or bony retropulsion. Conus: Distal cord terminates normally at L1-L2. No gross abnormal enhancement involving distal cord or nerve roots of the cauda equina. Paraspinal soft tissues: Paraspinal soft tissues are within normal limits. T12-L1: Canal and foramina are patent. L1-L2: Canal and foramina are patent. L2-L3: Canal and foramina are patent L3-L4: Canal and foramina are patent L4-L5: Canal and foramina are patent L5-S1: Canal and foramina are patent Sacrum and iliac wings: In the left iliac wing, there is an area of mixed intermediate to high T2 signal, mildly hyperintense T1 signal and enhancement after gadolinium. On the T2-weighted scans, there also appears to be subtle surrounding marrow edema. (Series 18, image 35; series 19, image 35; series 25, image 35). This area is minimally included on the sagittals scans. Etiology is unclear. Presence of marrow edema and enhancement is concerning for the possibility of an inflammatory or infectious process. IMPRESSION: Mild scoliosis. Indeterminate lesion in the left iliac wing along the posterior-medial margin of the left SI joint. Signal characteristics suggest partially fluid contents and there is some enhancement after gadolinium and likely at least some edema in the surrounding bone. No clear evidence for contiguous extension into the adjacent soft tissues. The intrinsic internal contents and presence of enhancement does raise question of possible inflammation or infection locally. There is no evidence for vertebral body osteomyelitis or septic facet arthropathy elsewhere involving the thoracic or lumbar spine on this exam. Focal endplate defect inferior L3 represents a Schmorl's node. Cord is grossly normal. No abnormal enhancement. Normally patent thoracic and lumbar spinal canal and neural foramina. Anatomic Thoracic/Lumbar Variant: None. L4-5 is considered the level of the iliac crest and assume there are 5 lumbar-type vertebrae. Linen Supervisor: VALDO Transcribe Date/Time: Dec 30 2021 9:59P Dictated by : NAYE MORENO MD This examination was interpreted and the report reviewed and electronically signed by: NAYE MORENO MD on Dec 30 2021 10:13PM EST [id number] Normal [facility] Magnesiumon 12-30-2021 Magnesium [Mass/Vol] 1.9 mg/dL Normal 1.7-2.3 [facility] Comment on above: Performed By: #### B MP, MG1, CBCDIF ####[facility] [address] [place], [place] [phone] NURSING PROGon 12-30-2021 NURSING PROG HNO ID: [id number] Author: Lynnette Frye RN Service: Radiology Author Type: Registered Nurse Type: Nursing Progress Note Filed: 12/30/2021 8:44 PM Note Text: Radiology Service Progress Note DATE OF SERVICE: December 30, 2021 TIME: 8:44 PM PATIENT WEIGHT: 165LBS PATIENT IDENTITY VERIFICATION COMPLETED USING TWO (2) STANDARD IDENTIFIERS: Name and Date of confirmed by patient verbally and Name and Date of confirmed by identification band. FALL SCREENING: Has the patient had 2 falls in the last year or 1 fall with injury or currently using an Ambulatory Assistive Device (Walker, Cane, Wheelchair, Crutches, etc.)? Emergency Room Patient: Screened in ED PATIENT GENDER DATA: Female. status: : No status: NO. ALLERGIES: Reviewed and unchanged CONTRAST ALLERGY: No EXAM: MRI - CONTRAST TYPE: GROUP II IV SITE: Inpatient - refer to [facility] documentation IV SITE APPEARANCE: Clean,Dry and Intact SIGNATURE: Lynnette Frye RN PATIENT NAME: Dorcas Kent DATE: December 30, 2021 TIME: 8:44 PM Normal [facility] NURSING PROG HNO ID: [id number] Author: Marium Vallejo RN Service: Radiology Author Type: Registered Nurse Type: Nursing Progress Note Filed: 12/30/2021 8:36 PM Note Text: Radiology Service Progress Note DATE OF SERVICE: December 30, 2021 TIME: 8:34 PM PATIENT WEIGHT: 165LBS PATIENT IDENTITY VERIFICATION COMPLETED USING TWO (2) STANDARD IDENTIFIERS: Name and Date of confirmed by patient verbally and Name and Date of confirmed by identification band. FALL SCREENING: Has the patient had 2 falls in the last year or 1 fall with injury or currently using an Ambulatory Assistive Device (Walker, Cane, Wheelchair, Crutches, etc.)? Emergency Room Patient: Screened in ED PATIENT GENDER DATA: Female. status: : No status: NO. ALLERGIES: Reviewed and unchanged CONTRAST ALLERGY: No EXAM: MRI - CONTRAST TYPE: GROUP II IV SITE: Inpatient - refer to [facility] documentation LAC 20g IV SITE APPEARANCE: Clean,Dry and Intact SIGNATURE: Marium Vallejo RN PATIENT NAME: Dorcas Kent DATE: December 30, 2021 TIME: 8:34 PM Normal [facility] Sed Rate Westergrenon 2021 Sed Rate Westergren 13 mm/hr Normal 0-20 [facility] Comment on above: Performed By: #### W SR, CRP ####[facility] [address] [place], [place] [phone] Urinalysis with Microscopico n 12-30-2021 Bilirubin, Urine Negative Normal Negative [facility] Comment on above: Performed By: #### U AWMIC ####[facility] [address] [place] [phone] Clarity (U) Slightly Cloudy Critically abnormal Clear [facility] Comment on above: Performed By: #### U AWMIC ####[place] [phone] Color (U) Light Yellow Critically abnormal Yellow [facility] Comment on above: Performed By: #### U AWMIC ####[place] [phone] Comments SEE COMMENT Normal [facility] Comment on above: Result Comment: N/A Performed By: #### U AWMIC ####[place] [phone] Epithelial cells LM Ql (Urine sed) SEE COMMENT Normal [facility] Comment on above: Result Comment: Few Squamous Epithelial Cells Performed By: #### U AWMIC ####[phone] Glucose Ql (U) Negative Normal Negative [facility] Comment on above: Performed By: #### U AWMIC ####[place] [phone] Hemoglobin/Blood,Ur Negative Normal Negative [facility] Comment on above: Performed By: #### U AWMIC ####[phone] Ketones Ql (U) Negative Normal Negative [facility] Comment on above: Performed By: #### U AWMIC ####[place] [address] [address] [phone] Leukest Trace Critically abnormal Negative [facility] Comment on above: Performed By: #### U AWMIC ####[place] [address] [place] [phone] Nitrite Ql (U) Negative Normal Negative [facility] Comment on above: Performed By: #### U AWMIC ####[facility], [place] [phone] pH (U) 6.0 [pH] Normal 5.0-8.0 [facility] Comment on above: Performed By: #### U AWMIC ####[place] [phone], [place] [phone] Protein, Urine Negative Normal Negative [facility] Comment on above: Performed By: #### U AWMIC ####[place] [address], [place] [phone] RBC 0-3 Normal 0-3 [facility] Comment on above: Performed By: #### U AWMIC ####[place] [address], [place] [phone] Specific [place], Ur 1.013 Normal 1.005-1.030 [facility] Comment on above: Performed By: #### U AWMIC ####[place] [address], [place] [phone] Urine Gelacio Comment SEE COMMENT Normal [facility] Comment on above: Result Comment: N/A Performed By: #### U AWMIC ####[place] [id number], [place] [phone] Urobilinogen Qn (U) {Salazar'U}/dL Critically abnormal Negative [facility] Comment on above: Performed By: #### U AWMIC ####[facility], [place] [phone] WBC 0-5 Normal 0-5 [facility] Comment on above: Performed By: #### U AWMIC ####[facility], [place] [phone] HCG, Quanton 12-21-2021 HCG, Quant <1 Normal <5 [facility] Comment on above: Result Comment: Non-preg premeno <=5 Postmeno <=8 Male <=3 If HCG results do not concur with clinical observations, additional testing to confirm results is recommended. Elevated results not associated with may be found in patients with other diseases such as tumors of the germ cells (testis, ovaries, etc.), bladder, pancreas, stomach, lungs, and liver. Performed By: #### B HCG #### [address] [place] [address] Transportation Agent: Enrique Madrid MD Cult,Genitalon 02-07-2021 Cult,Genital Specimen Description .VAGINA Special Requests NOT REPORTED Culture NORMAL URO-GENITAL ARELI NEGATIVE FOR NEISSERIA GONORRHOEAE NEGATIVE FOR GROUP B STREPTOCOCCI Report Status FINAL 02/07/2021 Normal [facility] Comment on above: Performed By: #### G EC #### [facility] [address] [place], [place] [phone] Transportation Agent: Chi Peralta MD [address] [place] [address] Transportation Agent: Enrique Madrid MD HCG, Quanton 02-02-2021 HCG, Quant <1 Normal <5 [facility] Comment on above: Result Comment: Non-preg premeno <=5 Postmeno <=8 Male <=3 If HCG results do not concur with clinical observations, additional testing to confirm results is recommended. Elevated results not associated with may be found in patients with other diseases such as tumors of the germ cells (testis, ovaries, etc.), bladder, pancreas, stomach, lungs, and liver. Performed By: #### B HCG #### [address] [place] [address] Transportation Agent: Enrique Madrid MD Otheron 12-17-2020 Direct Exam Negative [place] VAGINITIS DNA PROBEon 2020 Direct Exam Method of testing is a DNA probe intended for detection and identification of Camilo species, Gardnerella vaginalis, and Trichomonas vaginalis nucleic acid in vaginal fluid specimens from patients with symptoms of vaginitis/vaginosis. [place] Special Requests NOT REPORTED [place] Specimen Description .VAGINA [place] Otheron 09-23-2020 Direct Exam Negative [place] VAGINITIS DNA PROBEon 2019 Direct Exam Method of testing is a DNA probe intended for detection and identification of Camilo species, Gardnerella vaginalis, and Trichomonas vaginalis nucleic acid in vaginal fluid specimens from patients with symptoms of vaginitis/vaginosis. [place] Special Requests NOT REPORTED [place] Specimen Description .VAGINA [place] CBC Auto Differentialon 08-21 Basophils (Bld) [#/Vol] 0.08 10*3/uL [place] Basophils/100 WBC (Bld) 1 % 0 - 2 % [place] Differential Type NOT REPORTED [place] Eosinophils (Bld) [#/Vol] 0.16 10*3/uL [place] Eosinophils/100 WBC (Bld) 3 % 1 - 4 % [place] Erythrocyte distribution width (RBC) [Ratio] 12.0 % 11.8 - 14.4 % [place] Hematocrit (Bld) [Volume fraction] 36.3 % 36.3 - 47.1 % [place] Hemoglobin (Bld) [Mass/Vol] 12.0 g/dL 11.9 - 15.1 g/dL [place] Immature granulocytes (Bld) [#/Vol] 0 % 0 [place] Immature granulocytes (Bld) [#/Vol] 10*3/uL [place] Lymphocytes (Bld) [#/Vol] 1.60 10*3/uL [place] Lymphocytes/100 WBC (Bld) 28 % 24 - 43 % [place] MCH (RBC) [Entitic mass] 29.6 pg 25.2 - 33.5 pg [place] MCHC (RBC) [Mass/Vol] 33.1 g/dL 28.4 - 34.8 g/dL [place] MCV (RBC) [Entitic vol] 89.6 fL 82.6 - 102.9 fL [place] Monocytes (Bld) [#/Vol] 0.35 10*3/uL [place] Monocytes/100 WBC (Bld) 6 % 3 - 12 % [place] Platelet mean volume (Bld) [Entitic vol] 9.2 fL 8.1 - 13.5 fL [place] Platelets (Bld) [#/Vol] 291 10*3/uL [place] Platelets (Bld) [#/Vol] NOT REPORTED [place] RBC (Bld) [#/Vol] 4.05 10*6/uL 3.95 - 5.1 1 m/uL [place] RBC morphology finding Nom (Bld) NOT REPORTED [place] Segmented neutrophils/100 WBC (Bld) 62 % 36 - 65 % [place] Segs Absolute 3.57 [place] WBC (Bld) [#/Vol] 5.8 10*3/uL [place] WBC (Bld) [#/Vol] 0.0 10*3/uL 0.0 per 10 0 WBC [place] WBC Morphology NOT REPORTED [place] Comprehensive Metabolic Pane jelani 09-04-2020 Albumin [Mass/Vol] 4.5 g/dL 3.5 - 5.2 g/dL [place] Albumin/Globulin [Mass ratio] 1.6 {ratio} [place] ALP [Catalytic activity/Vol] 95 U/L 35 - 104 U/L [place] ALT [Catalytic activity/Vol] 9 U/L 5 - 33 U/L [place] Anion gap [Moles/Vol] 12 mmol/L 9 - 17 mmol/L [place] AST [Catalytic activity/Vol] 16 U/L <32 [place] Bilirubin Ql (U) 0.39 mg/dL 0.3 - 1.2 mg/dL [place] Bun/Cre Ratio 11 [place] Calcium [Mass/Vol] 9.0 mg/dL 8.6 - 10. 4 mg/dL [place] Chloride [Moles/Vol] 101 mmol/L 98 - 10 7 mmol/L [place] CO2 [Moles/Vol] 24 mmol/L 20 - 31 mmol/L [place] Creatinine [Mass/Vol] 0.72 mg/dL 0.5 - 0.9 mg/dL [place] GFR >60 >60 mL/min [place] GFR Non- >60 >60 mL/min [place] Glucose [Mass/Vol] 86 mg/dL 70 - 99 mg/dL [place] Potassium [Moles/Vol] 3.9 mmol/L 3.7 - 5.3 mmol/L [place] Protein [Mass/Vol] 7.4 g/dL 6.4 - 8.3 g/dL [place] Sodium [Moles/Vol] 137 mmol/L 135 - 144 mmol/L [place] Urea nitrogen [Mass/Vol] 8 mg/dL 6 - 20 mg/dL [place] Metabolic Panelon 09-04-2020 GFR/1.73 sq M predicted among non-blacks MDRD (S/P/Bld) [Vol rate/Area] [place] Comment on above: Average GFR for 20-2 9 years old: 116 mL/min/1.73sq m Chronic Kidney Disease: <60 mL/min/1.73sq m Kidney failure: <15 mL/min/1.73sq m eGFR calculated using average adult body mass. Additional eGFR calculator available at: http://www.[employer].Pyrolia/multiple_crcl_2012.htm Stage 1: Some kidney damage normal GFR Stage 2: Mild kidney damage GFR 60-89 Stage 3: Moderate kidney damage GFR 30-59 Stage 4: Severe kidney damage GFR 15-29 Stage 5: Severe kidney damage GFR <15 ESRD - chronic treatment by dialysis or transplant Microscopic Urinalysison Amorphous, UA NOT REPORTED None [place], [place] Bacteria, UA NOT REPORTED None [place] Casts UA NOT REPORTED /LPF [place] Crystals, UA NOT REPORTED None /HPF [place] Epithelial Cells UA 0 TO 2 [place] Mucus, UA NOT REPORTED None [place] Other Observations UA NOT REPORTED NOT REQ. M [place] RBC (U) [#/Vol] 2 TO 5 [place], [place] Renal Epithelial, UA NOT REPORTED 0 /HPF [place] Trichomonas, UA NOT REPORTED None [place], [place] WBC, UA 0 TO 2 [place] Yeast, UA NOT REPORTED None [place] - [place] , Urineon 0 Beta HCG ( test) Ql (U) Negative NEGATIVE [place] Comment on above: Specimens with hCG l evels near the threshold of the test (25 mIU/mL) may give a negative or indeterminate result. In such cases, another test should be performed with a new specimen in 48-72 hours. If early is suspected clinically in this setting, correlation with quantitative serum b-hCG level is suggested. [employer] has confirmed the use of plasma for this test. This has not been cleared or approved by the U.S. Food and Drug Administration. The FDA has determined that such clearance is not necessary. Urinalysis Reflex to Culture on 09-04-2020 Bilirubin Urine Negative NEGATIVE [place] Color, UA YELLOW YELLOW [place], [place] Glucose, Ur Negative NEGATIVE [place] Interpretation and review of laboratory results Abnormal [place], [place] Ketones Ql (U) Negative NEGATIVE [place] Leukocyte esterase Test strip Ql (U) Negative NEGATIVE [place] Nitrite, Urine Negative NEGATIVE [place] pH, UA 6.5 [place], [place] Protein (U) [Mass/Vol] Negative NEGATIVE [place] Specific [place], UA 1.010 [place] Turbidity UA CLEAR CLEAR [place] Urinalysis Comments NOT REPORTED [place] Urine Hgb 3+ Abnormal NEGATIVE [place] Urobilinogen, Urine Normal Normal [place] US NON OB TRANSVAGINALon US NON OB TRANSVAGINAL UTERUS: Homogenous appearing retroverted uterus, WNL ? ENDO: measures 5 mm, IUD noted in good position ? RT. OVARY: WNL ? LT. OVARY: WNL ? No free fluid Interpreted by: Frederick Hines, LUKE - MICHELETM Genoveva Lang DO Signed by: Genoveva Lang DO 02/12/20 Final result Normal [facility] CBC With Auto Differentialon 01-31-2020 Basophils (Bld) [#/Vol] 0.04 10*3/uL [place] Basophils/100 WBC (Bld) 1 % 0 - 2 % [place] Differential Type NOT REPORTED [place] Eosinophils (Bld) [#/Vol] 0.25 10*3/uL [place] Eosinophils/100 WBC (Bld) 6 % High 1 - 4 % [place] Erythrocyte distribution width (RBC) [Ratio] 13.0 % 11.8 - 14.4 % [place] Hematocrit (Bld) [Volume fraction] 36.7 % 36.3 - 47.1 % [place] Hemoglobin (Bld) [Mass/Vol] 11.6 g/dL Low 11.9 - 15.1 g/dL [place] Immature granulocytes (Bld) [#/Vol] 0 % 0 [place] Immature granulocytes (Bld) [#/Vol] 10*3/uL [place] Interpretation and review of laboratory results Abnormal [place] Lymphocytes (Bld) [#/Vol] 0.96 10*3/uL Low [place] Lymphocytes/100 WBC (Bld) 22 % Low 25 - 45 % [place] MCH (RBC) [Entitic mass] 28.9 pg 25.2 - 33.5 pg [place] MCHC (RBC) [Mass/Vol] 31.6 g/dL 28.4 - 34.8 g/dL [place] MCV (RBC) [Entitic vol] 91.3 fL 82.6 - 102.9 fL [place] Monocytes (Bld) [#/Vol] 0.42 10*3/uL [place] Monocytes/100 WBC (Bld) 10 % High 2 - 8 % [place] Platelet mean volume (Bld) [Entitic vol] 9.5 fL 8.1 - 13.5 fL [place] Platelets (Bld) [#/Vol] 241 10*3/uL [place] Platelets (Bld) [#/Vol] NOT REPORTED [place] RBC (Bld) [#/Vol] 4.02 10*6/uL 3.95 - 5.1 1 m/uL [place] RBC morphology finding Nom (Bld) NOT REPORTED [place] Segmented neutrophils/100 WBC (Bld) 61 % 34 - 64 % [place] Segs Absolute 2.72 [place] WBC (Bld) [#/Vol] 4.4 10*3/uL [place] WBC (Bld) [#/Vol] 0.0 10*3/uL 0.0 per 10 0 WBC [place] WBC Morphology NOT REPORTED [place] HCG, Quantitative, on 01-22-2020 hCG Quant <1 <5 IU/L [place] Comment on above: Non-preg premeno <=5 Postmeno <=8 Male <=3 If HCG results do not concur with clinical observations, additional testing to confirm results is recommended. Elevated results not associated with may be found in patients with other diseases such as tumors of the germ cells (testis, ovaries, etc.), bladder, pancreas, stomach, lungs, and liver. US Pelvis Non-OB Completeon 07-21-2017 US Pelvis Non-OB Complete Exam Date/Time:07/18/2017 10:03 EDTReason for Exam:menorrhagiaReport IMPRESSION: NEGATIVE ULTRASOUND OF THE PELVIS.CLINICAL HISTORY: menorrhagia. COMMENT: Transabdominal and transvaginal images were obtained. The uterus is normal in size and configuration. No fluid is noted within the uterinecanal. No abnormality of the echo pattern of the uterus is noted. No uterine mass isevident.There is a 0.9 cm follicular right ovarian cyst. Both ovaries are otherwiseunremarkable. No large cyst nor adnexal mass is evident. There is no free fluid inthe cul-de-sac. Please refer to the measurements and data that follow. FINAL REPORT Dictated: 07/21/2017 12:55 pm Wyatt Stauffer M.D. Signed (Electronic Signature): 07/21/2017 12:55 pm Signed by: Wyatt Stauffer M.D. Transcribed by: AMBERLY Technologist: MARINETechnical CommentsTransabdominal Ultrasound PerformedTransvaginal Ultrasound PerformedUterus Measurements (in cm) 7.19 x 4.10 x 3.34 vol = 51.55Position AntevertedEndometrium. Measurements (in cm) 0.63Right Ovary Measurements (in cm) 3.26 x 3.59 x 2.38 vol = 10.49Left Ovary Measurements (in cm) 3.42 x 1.56 x 2.80 vol = 7.79 [facility] US Transvaginal Non-OBon US Transvaginal Non-OB Exam Date/Time:07/18/2017 10:03 EDTReason for Exam:menorrhagiaReport PLEASE REFER TO THE ULTRASOUND PELVIS NON-OB COMPLETE REPORT. FINAL REPORT Dictated: 07/21/2017 12:55 pm Wyatt Stauffer M.D. Signed (Electronic Signature): 07/21/2017 12:55 pm Signed by: Wyatt Stauffer M.D. Transcribed by: AMBERLY Technologist: MARINE [facility] Vital Signs Date Time Vital Sign Value Performing Clinician Facility 07-17-2024 13:46-0400 Body height 170.18 cm [facility] 07-17-2024 13:46-0400 Body mass index (BMI) [Ratio] 26.3 kg/m2 [facility] 07-17-2024 13:46-0400 Body weight 76.2 kg [facility] 07-17-2024 13:46-0400 Diastolic blood pressure 68 mm[Hg] [facility] 07-17-2024 13:46-0400 Heart rate 77 /min [facility] 07-17-2024 13:46-0400 Systolic blood pressure 108 mm[Hg] [facility] 05-17-2024 15:30-0400 Body height 170.18 cm [facility] 05-17-2024 15:30-0400 Body mass index (BMI) [Ratio] 26.2 kg/m2 [facility] 05-17-2024 15:30-0400 Body temperature 98.2 [degF] [facility] 05-17-2024 15:30-0400 Body weight 75.97 kg [facility] 05-17-2024 15:30-0400 Diastolic blood pressure 72 mm[Hg] [facility] 05-17-2024 15:30-0400 Heart rate 66 /min [facility] 05-17-2024 15:30-0400 Respiratory rate 12 /min [facility] 05-17-2024 15:30-0400 Systolic blood pressure 112 mm[Hg] [facility] 03-21-2023 13:00-0400 Respiratory rate 16 /min MD Kyaw Rocha Work Phone: [facility] 03-21-2023 09:00-0400 Body temperature 97.9 [degF] MD Kyaw Rocha Work Phone: [facility] 03-21-2023 09:00-0400 Diastolic blood pressure 71 mm[Hg] MD Kyaw Rocha Work Phone: [facility] 03-21-2023 09:00-0400 Heart rate 79 /min MD Kyaw Rocha Work Phone: [facility] 03-21-2023 09:00-0400 SaO2% (BldA) [Mass fraction] 99 % MD Kyaw Rocha Work Phone: [facility] 03-21-2023 09:00-0400 Systolic blood pressure 115 mm[Hg] MD Kyaw Rocha Work Phone: [facility] 03-19-2023 07:42-0400 Inhaled oxygen concentration 100 % MD Kyaw Rocha Work Phone: [facility] 03-19-2023 07:42-0400 Inhaled oxygen flow rate 10 L/min MD Kyaw Rocha Work Phone: [facility] 03-19-2023 01:03-0400 Body height 172.72 cm MD Kyaw Rocha Work Phone: [facility] 03-19-2023 01:03-0400 Body weight 81.64 kg MD Kyaw Rocha Work Phone: [facility] 03-16-2023 23:13-0400 Respiratory rate 16 /min MD Kyaw Rocha Work Phone: [facility] 03-16-2023 22:32-0400 Body temperature 97 [degF] MD Kyaw Rocha Work Phone: [facility] 03-16-2023 22:32-0400 Diastolic blood pressure 68 mm[Hg] MD Kyaw Rocha Work Phone: [facility] 03-16-2023 22:32-0400 Heart rate 112 /min MD Kyaw Rocha Work Phone: [facility] 03-16-2023 22:32-0400 SaO2% (BldA) [Mass fraction] 100 % MD Kyaw Rocha Work Phone: [facility] 03-16-2023 22:32-0400 Systolic blood pressure 122 mm[Hg] MD Kyaw Rocha Work Phone: [facility] 03-16-2023 20:15-0400 Body height 172.72 cm MD Kyaw Rocha Work Phone: [facility] 03-16-2023 20:15-0400 Body weight 83.91 kg MD Kyaw Rocha Work Phone: [facility] 01-06-2023 18:25-0500 Respiratory rate 14 /min MD Kyaw Rocha Work Phone: [facility] 01-06-2023 17:05-0500 Diastolic blood pressure 59 mm[Hg] MD Kyaw Rocha Work Phone: [facility] 01-06-2023 17:05-0500 Heart rate 74 /min MD Kyaw Rocha Work Phone: [facility] 01-06-2023 17:05-0500 Systolic blood pressure 120 mm[Hg] MD Kyaw Rocha Work Phone: [facility] 01-06-2023 17:03-0500 SaO2% (BldA) [Mass fraction] 100 % MD Kyaw Rocha Work Phone: [facility] 01-06-2023 17:02-0500 Body temperature 96.8 [degF] MD Kyaw Rocha Work Phone: [facility] 01-06-2023 16:43-0500 Body height 170.18 cm MD Kyaw Rocha Work Phone: [facility] 01-06-2023 16:43-0500 Body weight 77.11 kg MD Kyaw Rocha Work Phone: [facility] 01-04-2023 17:00-0500 Respiratory rate 18 /min MD Kyaw Rocha Work Phone: [facility] 01-04-2023 15:35-0500 Body height 170.18 cm MD Kyaw Rocha Work Phone: [facility] 01-04-2023 15:35-0500 Body weight 77.11 kg MD Kyaw Rocha Work Phone: [facility] 01-04-2023 15:32-0500 Body temperature 97.3 [degF] MD Kyaw Rocha Work Phone: [facility] 01-04-2023 15:32-0500 Diastolic blood pressure 54 mm[Hg] MD Kyaw Rocha Work Phone: [facility] 01-04-2023 15:32-0500 Heart rate 73 /min MD Kyaw Rocha Work Phone: [facility] 01-04-2023 15:32-0500 SaO2% (BldA) [Mass fraction] 100 % MD Kyaw Rocha Work Phone: [facility] 01-04-2023 15:32-0500 Systolic blood pressure 113 mm[Hg] MD Kyaw Rocha Work Phone: [facility] 11-29-2022 13:01-0500 Body weight 76.66 kg Valeriano Anderson MD Work Phone: [facility] 11-01-2022 14:06-0500 Body height 172.7 cm Jerry Antonio MD Work Phone: [facility] 11-01-2022 14:06-0500 Body weight 78.02 kg Jerry Antonio MD Work Phone: [facility] 11-01-2022 14:06-0500 Diastolic blood pressure 50 mm[Hg] Jerry Antonio MD Work Phone: [facility] 11-01-2022 14:06-0500 Heart rate 77 /min Jerry Antonio MD Work Phone: [facility] 11-01-2022 14:06-0500 Systolic blood pressure 117 mm[Hg] Jerry Antonio MD Work Phone: [facility] 11-01-2022 13:04-0500 Body weight 78.02 kg Jerry Antonio MD Work Phone: [facility] 08-09-2022 09:39-0400 Body temperature 98.78 [degF] Kyaw Rocha Other Phone: [facility] 08-09-2022 09:39-0400 Diastolic blood pressure 48 mm[Hg] Kyaw Rocha Other Phone: [facility] 08-09-2022 09:39-0400 Heart rate 81 /min Kyaw Rocha Other Phone: [facility] 08-09-2022 09:39-0400 SaO2% (BldA) [Mass fraction] 97 % Kyaw Rocha Other Phone: [facility] 08-09-2022 09:39-0400 Systolic blood pressure 96 mm[Hg] Kyaw Rocha Other Phone: [facility] 08-04-2022 14:44-0400 Diastolic blood pressure 72 mm[Hg] MD Kyaw Rocha Work Phone: [facility] 08-04-2022 14:44-0400 Heart rate 88 /min MD Kyaw Rocha Work Phone: [facility] 08-04-2022 14:44-0400 Respiratory rate 18 /min MD Kyaw Rocha Work Phone: [facility] 08-04-2022 14:44-0400 SaO2% (BldA) [Mass fraction] 100 % MD Kyaw Rocha Work Phone: [facility] 08-04-2022 14:44-0400 Systolic blood pressure 123 mm[Hg] MD Kyaw Rocha Work Phone: [facility] 08-04-2022 10:14-0400 Body height 172.72 cm MD Kyaw Rocha Work Phone: [facility] 08-04-2022 10:14-0400 Body temperature 98.7 [degF] MD Kyaw Rocha Work Phone: [facility] 08-04-2022 10:14-0400 Body weight 77.9 kg MD Kyaw Rocha Work Phone: [facility] 07-02-2022 16:00-0400 Body height 170.18 cm MD Kyaw Rocha Work Phone: [facility] 07-02-2022 16:00-0400 Body temperature 97.6 [degF] MD Kyaw Rocha Work Phone: [facility] 07-02-2022 16:00-0400 Body weight 77.11 kg MD Kyaw Rocha Work Phone: [facility] 07-02-2022 16:00-0400 Diastolic blood pressure 83 mm[Hg] MD Kyaw Rocha Work Phone: [facility] 07-02-2022 16:00-0400 Heart rate 74 /min MD Kyaw Rocha Work Phone: [facility] 07-02-2022 16:00-0400 Respiratory rate 18 /min MD Kyaw Rocha Work Phone: [facility] 07-02-2022 16:00-0400 SaO2% (BldA) [Mass fraction] 99 % MD Kyaw Rocha Work Phone: [facility] 07-02-2022 16:00-0400 Systolic blood pressure 124 mm[Hg] MD Kyaw Rocha Work Phone: [facility] 03-29-2022 09:33-0400 Body temperature 98.4 [degF] Mri (I-Stat/1.5t) [facility] 03-29-2022 09:33-0400 Diastolic blood pressure 61 mm[Hg] Mri (I-Stat/1.5t) [facility] 03-29-2022 09:33-0400 Heart rate 79 /min Mri (I-Stat/1.5t) [facility] 03-29-2022 09:33-0400 Respiratory rate 20 /min Mri (I-Stat/1.5t) [facility] 03-29-2022 09:33-0400 SaO2% (BldA) [Mass fraction] 99 % Mri (I-Stat/1.5t) [facility] 03-29-2022 09:33-0400 Systolic blood pressure 115 mm[Hg] Mri (I-Stat/1.5t) [facility] 09-04-2020 19:43-0400 BP Diastolic 64 mm[Hg] [facility] [place] 09-04-2020 19:43-0400 BP Systolic 118 mm[Hg] [facility], [place] 09-04-2020 19:43-0400 Pulse (Heart Rate) 70 /min [facility], [place] 09-04-2020 19:43-0400 Pulse Oximetry 100 % [facility], [place] 09-04-2020 19:43-0400 Respiratory Rate 16 /min [facility] [place] 09-04-2020 15:43-0400 BMI (Body Mass Index) 24.33 kg/m2 Natty Whitehead [facility], [place] 09-04-2020 15:43-0400 Body Temperature 97.39 [degF] [facility] [place] 09-04-2020 15:43-0400 Body weight 72.58 kg Natty Chew [facility], [place] 09-04-2020 15:43-0400 Height 172.7 cm [facility] [place] Encounters Encounter Date Encounter Type Care Provider Facility Start: 07-17-2024 End: 07-17-2024 ambulatory [facility] Work Phone: Start: 07-17-2024 End: 07-17-2024 Patient encounter procedure [facility] Physician [facility] Work Phone: Start: 05-17-2024 End: 05-17-2024 ambulatory [facility] Work Phone: Start: 05-17-2024 End: 05-17-2024 Patient encounter procedure [facility] Physician [facility] Work Phone: Start: 03-25-2023 End: 03-25-2023 ambulatory Triny Carlisle Facility:[facility] Start: 03-25-2023 End: 03-25-2023 ambulatory MD Kyaw Rocha Work Phone: [facility] Work Phone: Start: 03-25-2023 End: 03-25-2023 Patient encounter procedure MD Kyaw Rocha Work Phone: [facility]- Visit Work Phone: Start: 03-19-2023 End: 03-21-2023 Evaluation and management of inpatient Kyaw Rocha Facility:[facility] Start: 03-19-2023 End: 03-21-2023 Evaluation and management of inpatient MD Kyaw Rocha Work Phone: [facility]-[address] [place] Work Phone: Start: 03-16-2023 End: 03-17-2023 ambulatory Kyaw Rocha Facility:[facility] Start: 03-16-2023 End: 03-16-2023 Patient encounter procedure MD Kyaw Rocha Work Phone: [facility]-3 [facility] Labor - O/P Start: 03-02-2023 End: 03-02-2023 ambulatory Nicole Estelleawira Facility:[facility] Start: 03-02-2023 End: 03-02-2023 ambulatory MD Kyaw Rocha Work Phone: [facility] Work Phone: Start: 03-02-2023 End: 03-02-2023 Departed Referred MD Kyaw Rocha Work Phone: [facility] [place] Work Phone: Start: 02-18-2023 End: 02-18-[address] SHI VERDE . Facility: Start: 01-06-2023 End: 01-06-2023 ambulatory Kyaw Rocha Facility:[facility] Start: 01-06-2023 End: 01-06-2023 ambulatory MD Kyaw Rocha Work Phone: [facility] Work Phone: Start: 01-06-2023 End: 01-06-2023 Patient encounter procedure MD Kyaw Rocha Work Phone: [facility]-3 [facility] Labor - O/P Start: 01-04-2023 End: 01-04-2023 ambulatory Jeff Visci Facility:[facility] Start: 01-04-2023 End: 01-04-2023 ambulatory MD Kyaw Rocha Work Phone: [facility] Work Phone: Start: 01-04-2023 End: 01-04-2023 Patient encounter procedure MD Kyaw Rocha Work Phone: [facility] [place] Labor - O/P Start: 11-29-2022 End: 11-29-2022 Patient encounter procedure Valeriano Anderson MD Work Phone: [facility] Comment on above: History of d elivery, currently in second trimester [O09.892 (ICD-10-CM)] (Primary Dx); Encounter for follow-up ultrasound of anatomy Start: 11-01-2022 End: 11-01-2022 ambulatory DYNAMOMETER MECHANIC TRANSCRIBE PROVIDER Facility:[facility] Start: 11-01-2022 End: 11-01-2022 Patient encounter procedure Jerry Antonio MD Work Phone: [facility] Comment on above: History of d elivery, currently in second trimester (Primary Dx); Encounter for anatomic survey Encounter for follow -up ultrasound of anatomy (Primary Dx) Start: 10-05-2022 End: 10-05-2022 Emergency department patient visit KYAW ROCHA Facility:[facility] Start: 10-04-2022 Telephone encounter [facility] Work Phone: [facility] Comment on above: Appointment Start: 10-01-2022 Transcribe Orders Hotbed Operator Trans cribe Provider [facility] Start: 09-09-2022 End: 09-09-2022 ambulatory JORDAN WOODS Facility: Start: 09-07-2022 ambulatory Haritha de la o APRN.EXHIBITION DESIGNER Work Phone: [facility] Comment on above: Left hip pain Start: 08-09-2022 End: 08-09-2022 ambulatory Torsten Huong Other [employer] Other Start: 08-09-2022 Telephone encounter Torsten Borja [facility] Start: 08-06-2022 End: 08-07-2022 Emergency department patient visit Dr. Kyaw Rocha Facility:[id number] Start: 08-06-2022 End: 08-09-2022 Evaluation and management of inpatient Torsten Huong [address] Start: 08-06-2022 End: 08-06-2022 ambulatory Torsten Huong Other [employer] Other Start: 08-06-2022 Telephone encounter Torsten Huong [facility] Start: 08-04-2022 End: 08-04-2022 Emergency department patient visit MD Kyaw Rocha Work Phone: [facility]-Emergency Room Start: 07-29-2022 End: 07-29-2022 Patient encounter procedure MD Kyaw Rocha Work Phone: [facility] [place] Start: 07-27-2022 End: 07-27-2022 Patient encounter procedure MD Kyaw Rocha Work Phone: [facility] [place] Start: 07-24-2022 End: 07-24-2022 ambulatory SHONNA BETTS . Facility:[facility] Start: 07-21-2022 End: 07-21-2022 Patient encounter procedure MD Kyaw Rocha Work Phone: [facility] [place] Start: 07-05-2022 End: 07-05-2022 ambulatory Torsten Huong Other [employer] Other Start: 07-05-2022 Telephone encounter Torsten Huong [facility] Start: 07-03-2022 End: 07-03-2022 ambulatory Emily Oliveros Other [employer] Other Start: 07-03-2022 Nursing evaluation o f patient and report Emily Oliveros [facility] Start: 07-03-2022 End: 07-03-[address] MARLENY HINES Facility:[facility] Start: 07-02-2022 End: 07-02-2022 Emergency department patient visit MD Kyaw Rocha Work Phone: [facility]-Emergency Room Start: 06-30-2022 End: 06-30-2022 Patient encounter procedure MD Kyaw Rocha Work Phone: [facility] [place] Start: 06-30-2022 End: 06-30-2022 ambulatory Torsten Huong Other [employer] Other Start: 06-30-2022 Telephone encounter Torsten Huong [facility] Start: 06-25-2022 End: 06-25-2022 ambulatory Torsten Huong Other [employer] Other Start: 06-25-2022 Telephone encounter Torsten Huong [facility] Start: 06-23-2022 End: 06-23-2022 Patient encounter procedure MD Kyaw Rocha Work Phone: [facility]-Lab [facility] Start: 06-11-2022 End: 06-11-2022 Departed Referred MD Kyaw Rocha Work Phone: [facility] [address] Start: 06-08-2022 End: 06-08-2022 ambulatory [facility] Facility:[facility] Start: 06-08-2022 End: 06-08-2022 [facility] PIER MASTER.EXHIBITION DESIGNER Work Phone: [facility] Comment on above: Sacroiliac joint darnell n (Primary Dx); Chronic bilateral low back pain without sciatica; Bone lesion; Disorder of bone Start: 05-10-2022 End: 05-10-2022 Patient encounter procedure MD Kyaw Rocha Work Phone: [facility] [place] Start: 04-26-2022 End: 04-26-2022 ambulatory Torsten Huong Other [employer] Other Start: 04-26-2022 Telephone encounter Torsten Huong [facility] Start: 04-15-2022 End: 04-15-[address] [facility] Start: 04-15-2022 End: 04-15-2022 ambulatory [employer] Facility:[facility] Start: 04-13-2022 End: 04-14-2022 Emergency department patient visit KYAW ROCHA Facility:[facility] Start: 04-05-2022 Telephone encounter Prakash cochran MD Work Phone: [facility] [place] Comment on above: Results; Follow Up biospy Biopsy Request Start: 03-29-2022 End: 03-29-2022 Subsequent hospital visit by physician Mri [employer] [facility] (I-Stat/1.5t) Radiology Comment on above: Disorder of bone [M8 9.9] Start: 03-04-2022 ambulatory Prakash Joy Work Phone: [facility] [place] Start: 03-04-2022 Patient encounter procedure Prakash Flores MD Work Phone: [facility] Start: 01-20-2022 End: 01-20-2022 ambulatory HARITHA ANTONIETA Facility:[facility] Start: 12-31-2021 [facility] Start: 12-31-2021 End: 12-31-2021 ambulatory [facility] Facility:[facility] Start: 12-30-2021 End: 12-31-2021 Emergency department patient visit DIANE CHASE Facility:[facility] Start: 12-30-2021 End: 12-30-2021 ambulatory Torsten Huong Other [facility] [employer] Other Start: 12-30-2021 Telephone encounter Torsten Huong [facility] Start: 12-25-2021 End: 12-25-2021 ambulatory Torsten Huong Other [facility] [employer] Other Start: 12-25-2021 Telephone encounter Torsten Huong [facility] Start: 12-21-2021 End: 12-22-2021 ambulatory [facility] Start: 02-04-2021 End: 02-05-2021 ambulatory [facility] Start: 02-04-2021 End: 02-04-2021 Subsequent hospital visit by physician Natty HERNANDEZ Laboratory Comment on above: Vaginal discharge Start: 02-02-2021 End: 02-03-2021 ambulatory [facility]ICK HINES [facility] Start: 12-17-2020 End: 12-17-2020 Subsequent hospital visit by physician Natty HERNANDEZ Laboratory Comment on above: Abscess, Mesita's gla nd; Vaginal discharge Start: 12-03-2020 End: 12-03-2020 Subsequent hospital visit by physician Natty HERNANDEZ Laboratory Comment on above: Vaginal discharge; Dysuria Start: 09-23-2020 End: 09-23-2020 Subsequent hospital visit by physician Natty HERNANDEZ Laboratory Comment on above: Boil of vulva; Vaginal discharge Start: 09-04-2020 End: 09-04-2020 Emergency department patient visit [facility] ED Comment on above: Nausea, vomiting and diarrhea (Primary Dx) Start: 04-10-2020 End: 04-10-2020 Subsequent hospital visit by physician MARY Laboratory Comment on above: Vaginal odor Start: 01-31-2020 End: 01-31-2020 [facility] Comment on above: Fever, unspecified f ever cause Start: 01-23-2020 End: 01-23-2020 Subsequent hospital visit by physician MARY Laboratory Comment on above: Menorrhagia with reg ular cycle; Screening for cervical cancer Start: 01-22-2020 End: 01-22-2020 Subsequent hospital visit by physician MARY Laboratory Comment on above: Encounter for pregna ncy test, result unknown Start: 01-02-2020 End: 01-02-2020 Subsequent hospital visit by physician MARY Laboratory Comment on above: Encounter for annual routine gynecological examination Start: 07-18-2017 End: 07-19-2017 Ambulatory Yaa Chawla Facility:[facility] Start: 07-13-2017 End: 07-14-2017 Ambulatory Yaa Chawla Facility:[facility] Procedures Date Procedure Procedure Detail Performing Clinician Start: 03-02-2023 Streptococcus agalac tiae culture MD Kyaw Rocha Work Phone: Start: 11-29-2022 Us preg uterus after 1st trimest 11/21 gestation Jerry Antonio MD Work Phone: Start: 11-01-2022 Us preg uterus after 1st trimest 11/21 gestation Hotbed Operator Transcribe Provider Start: 08-07-2022 End: 08-06-2022 EKG impression Kaila Lindquist Start: 08-06-2022 End: 08-06-2022 EKG impression Kevin Handy Start: 08-04-2022 Diagnostic ultrasoun d of gravid uterus MD Kyaw Rocha Work Phone: Start: 08-04-2022 Transvaginal obstetr ic ultrasonography MD Kyaw Rocha Work Phone: Start: 06-08-2022 Adult depression scr eening assessment Haritha Fung PIER MASTER.EXHIBITION DESIGNER Work Phone: Start: 03-29-2022 Mri pelvis w/o contr ast material Haritha Fung PIER MASTER.EXHIBITION DESIGNER Work Phone: Start: 12-17-2020 Cul bact xcpt urine blood/stool aerobic isol Frederick Hines Work Phone: Start: 12-17-2020 Iadna camilo specie s direct probe tq Frederick Hines Work Phone: Start: 09-23-2020 Cul bact xcpt urine blood/stool aerobic isol Frederick Hines Work Phone: Start: 09-23-2020 Iadna camilo specie s direct probe tq Frederick Hines Work Phone: Start: 09-04-2020 Blood count complete auto&auto difrntl wbc Raudel Yang Work Phone: Start: 09-04-2020 Comprehensive metabo lic panel Raudel Pan Auth0 Work Phone: Start: 09-04-2020 Urinalysis microscopic only Raudel Pan Auth0 Work Phone: Start: 09-04-2020 Urine test visual color cmprsn meths Raudel BlancLeevia Work Phone: Start: 09-04-2020 Urnls dip stick/tabl et rgnt auto w/o microscopy Raudel A JayashreeLeevia Work Phone: Start: 01-31-2020 Blood count complete auto&auto difrntl wbc Frederick Hines Work Phone: Start: 01-22-2020 Gonadotropin chorion ic quantitative Frederick Hines Work Phone: Start: 10-22-2019 Adult depression scr eening assessment Prakash Flores MD Work Phone: Mycology culture MD Kyaw rubio Work Phone: Trichomonas vaginali s detection MD Kyaw Rocha Work Phone: Plan of Treatment Date Care Activity Detail Author Start: 2048 Shingles Vaccine (1 of 2) Shingles Vaccine (1 of 2) [employer] Work Phone: Start: 04-17-2029 DTaP/Tdap/Td vaccine (8 - Td) DTaP/Tdap/Td vaccine (8 - Td) [employer] Work Phone: Start: 06-08-2023 Adult depression screening assessment DEPRESSION SCREENING [facility] Start: 03-21-2023 [facility] Start: 03-19-2023 Hospital admission [facility] Start: 03-16-2023 [facility] Start: 03-16-2023 Hospital admission [facility] Start: 03-02-2023 Group B Streptococcu s Culture Group B Streptococcus Culture [facility] Start: 01-22-2023 Screening for malign ant neoplasm of cervix Cervical cancer screen [employer] Start: 01-06-2023 [facility] Start: 01-06-2023 Hospital admission [facility] Start: 01-04-2023 [facility] Start: 01-04-2023 Hospital admission [facility] Start: 01-02-2023 Cervical cancer screen [facility] Start: 11-21-2022 DEPRESSION ASSESSMENT DEPRESSION ASS ESSMENT [facility] Start: 11-01-2022 End: 11-01-2023 OBSTETRIC ULTRASOUND [facility] OBSTETRIC ULTRASOUND [facility] Anc Imaging Routine Encounter for follow-up ultrasound of anatomy Expected: 11/01/2022, Expires: 11/01/2023 [facility] Work Phone: Comment on above: Expected: 11/01/2022 , Expires: 11/01/2023 Start: 08-07-2022 Depression Depression Te e: 07-Aug-2022 [facility] Start: 08-07-2022 Psychological assessment Psych ological assessment Date: 07-Aug-2022 [facility] Start: 08-07-2022 End: 08-08-2023 [facility] Start: 08-04-2022 [facility] Work Phone: Start: 07-22-2022 Influenza vaccination [facility] Start: 07-21-2022 End: 07-21-2022 Patient encounter procedure Departed [facility] [place] Start: 07-02-2022 End: 07-02-2022 Emergency department patient visit Departed Emergency [facility]-Emergency Room Start: 06-30-2022 End: 06-30-2022 Patient encounter procedure Departed [facility] [place] Start: 12-17-2021 Screening for Chlamy latrell trachomatis Chlamydia screen [facility] Work Phone: Start: 12-13-2021 COVID-19 VACCINE (3 - Booster for Pfizer series) COVID-19 VACCINE (3 - Booster for Pfizer series) [facility] Start: 12-03-2021 Screening for Chlamy latrell trachomatis Chlamydia screen [facility] Start: 11-21-2021 DEPRESSION ASSESSMENT DEPRESSION ASS ESSMENT [facility] Start: 09-23-2021 Screening for Chlamy latrell trachomatis Chlamydia screen [facility] [place] Start: 09-07-2021 COVID-19 VACCINE (3 - Booster for Pfizer series) COVID-19 VACCINE (3 - Booster for Pfizer series) [facility] Start: 01-27-2021 End: 01-27-2021 Telemedicine 01/27/2021 Telemedicine Obstetrics and Gynecology Frederick Hines, PIER MASTER - [address] [place] [address] [phone] [facility]ST[facility]YNECOLOG[facility] Start: 01-22-2021 Chlamydia screen Chlamydia screen [place] Start: 01-22-2021 Screening for Chlamy latrell trachomatis Chlamydia screen [place], [place] Start: 01-02-2021 Influenza vaccination M [facility] [employer] + Phone: Comment on above: Postponed from 07/22 (Patient Refused) Postponed from 07/22 (Patient Refused) Start: 10-22-2020 Adult depression screening assessment DEPRESSION SCREENING [facility] Start: 07-22-2020 Influenza vaccination Flu vaccine (# 1) [place], [place] Start: 06-25-2020 Chlamydia screen Chlamydia screen [facility] Phone: Comment on above: Postponed from 07/16 (Not Indicated) Start: 06-04-2020 HPV vaccine (1 - 2-d ose series) HPV vaccine (1 - 2-dose series) [place], [place] Comment on above: Postponed from 07/16 (Not Indicated) Start: 05-01-2020 Varicella vaccine (2 of 2 - 2-dose childhood series) Varicella vaccine (2 of 2 - 2-dose childhood series) [place], [place] Comment on above: Postponed from 07/16 (Not Indicated) Start: 02-26-2020 HPV vaccine (1 - 2-d ose series) HPV vaccine (1 - 2-dose series) [place] Comment on above: Postponed from 07/16 (Not Indicated) Start: 02-26-2020 HPV vaccine (1 - Fem wayne 2-dose series) HPV vaccine (1 - Female 2-dose series) [facility] Phone: Comment on above: Postponed from 07/16 (Not Indicated) Start: 02-20-2020 End: 02-20-2020 Office Visit 02/20/2020 Office Visit Obstetrics and Gynecology Frederick Hines, PIER MASTER - CN [address] [place] [address] [phone] [facility]ECOLOG[facility] Start: 01-23-2020 Varicella vaccine (2 of 2 - 2-dose childhood series) Varicella vaccine (2 of 2 - 2-dose childhood series) [email or web address] [employer] + Phone: Comment on above: Postponed from 07/16 (Not Indicated) Start: 01-23-2020 End: 01-23-2020 Procedure visit 01/23/2020 Procedure visit Obstetrics and Gynecology Frederick Hines, PIER MASTER - CNM [address] [place] [address] [facility] Start: 2019 Cervical cancer screen Cervical canc er screen [facility] [employer] + Phone: Start: 2019 PAP TESTING PAP TESTING [facility] Start: 2017 Urine microalbumin profile DTAP,TDAP,TD (1 - Tdap) [facility] Start: 2016 CHLAMYDIA SCREENING (18-24) CHLAMYDIA SCREENING (18-24) [facility] Start: 2016 GC (GONORRHEA) SCREE MARCUS (18-24) GC (GONORRHEA) SCREENING (18-24) [facility] Start: 2016 HEPATITIS C SCREENING HEPATITIS C SC REENING [facility] Start: 2016 HIV SCREENING HIV SCREENING [facility] Start: 2012 PEDS TO ADULT TRANSI TION ANNUAL ASSESSMENT PEDS TO ADULT TRANSITION ANNUAL ASSESSMENT [facility] Start: 2010 PEDS TO ADULT TRANSI TION INITIAL DISCUSSION PEDS TO ADULT TRANSITION INITIAL DISCUSSION [facility] Start: 2009 HPV vaccine (1 - 2-d ose series) HPV vaccine (1 - 2-dose series) [facility] Start: 2008 MENINGOCOCCAL B: Consider based on risk (1 of 2 - Risk Bexsero 2-dose series) MENINGOCOCCAL B: Consider based on risk (1 of 2 - Risk Bexsero 2-dose series) [facility] Start: 2002 Varicella vaccine (2 of 2 - 2-dose childhood series) Varicella vaccine (2 of 2 - 2-dose childhood series) [facility], [place] Start: 1998 HEPATITIS B (1 of 3 - 3-dose series) HEPATITIS B (1 of 3 - 3-dose series) [facility] Start: 1998 Hepatitis C screening Hepatitis C sc reen [place], [place] Bacteria identified in Genital specimen by Aerobe culture [facility] Work Phone: Bacteria identified in Urine by Culture [facility] End: 09-23-2020 C.trachomatis N.gonorrhoeae DNA C.trachomatis N.gonorrhoeae DNA Microbiology Routine Vaginal discharge 1 Occurrences starting 09/23/2020 until 09/23/2020 [place], [place] Comment on above: 1 Occurrences starti ng 09/23/2020 until 09/23/2020 C.trachomatis N.gonorrhoeae DNA [place] End: 12-17-2020 C.trachomatis N.gonorrhoeae DNA C.trachomatis N.gonorrhoeae DNA Microbiology Routine Abscess, Mesita's gland 1 Occurrences starting 12/17/2020 until 12/17/2020 [place], [place] Comment on above: 1 Occurrences starti ng 12/17/2020 until 12/17/2020 End: 12-03-2020 C.trachomatis N.gonorrhoeae DNA C.trachomatis N.gonorrhoeae DNA Microbiology Routine Vaginal discharge 1 Occurrences starting 12/03/2020 until 12/03/2020 [place], [place] Comment on above: 1 Occurrences starti ng 12/03/2020 until 12/03/2020 End: 01-23-2020 C.trachomatis N.gonorrhoeae DNA, Thin Prep C.trachomatis N.gonorrhoeae DNA, Thin Prep Microbiology Routine Menorrhagia with regular cycle 1 Occurrences starting 01/23/2020 until 01/23/2020 [place] Comment on above: 1 Occurrences starti ng 01/23/2020 until 01/23/2020 C.trachomatis N.gonorrhoeae DNA, Thin Prep C.trachomatis N.gonorrhoeae DNA, Thin Prep Microbiology Routine Menorrhagia with regular cycle 01/23/2020 11:10 AM EST [place], [place] Comprehensive metabo lic 2000 panel - Serum or Plasma [facility] CT Abdomen and Pelvi s W contrast IV [facility] End: 04-10-2020 Culture, Genital Culture, Genital Microbiology Routine Vaginal odor 1 Occurrences starting 04/10/2020 until 04/10/2020 [place], [place] Comment on above: 1 Occurrences starti ng 04/10/2020 until 04/10/2020 Culture, Genital [facility] [place], [place] End: 02-04-2021 Culture, Genital Culture, Genital Microbiology Routine Vaginal discharge 1 Occurrences starting 02/04/2021 until 02/04/2021 [employer] Work Phone: Comment on above: 1 Occurrences starti ng 02/04/2021 until 02/04/2021 End: 12-03-2020 Culture, Genital Culture, Genital Microbiology Routine Vaginal discharge 1 Occurrences starting 12/03/2020 until 12/03/2020 [email or web address] [place] Comment on above: 1 Occurrences starti ng 12/03/2020 until 12/03/2020 End: 12-03-2020 Culture, Urine Culture, Urine Microbiology Routine Dysuria 1 Occurrences starting 12/03/2020 until 12/03/2020 [email or web address] [place] Comment on above: 1 Occurrences starti ng 12/03/2020 until 12/03/2020 Culture, Urine Culture, Urine Microbiology Routine Dysuria 12/03/2020 3:36 PM EST [facility], [place] Culture, Wound [facility], [place] End: 01-02-2020 Cytopathology procedure, preparation of smear, genital source [facility] Phone: Comment on above: 1 Occurrences starti ng 01/02/2020 until 01/02/2020 End: 01-23-2020 Cytopathology procedure, preparation of smear, genital source [facility] Routine Screening for cervical cancer 1 Occurrences starting 01/23/2020 until 01/23/2020 [facility] Comment on above: 1 Occurrences starti ng 01/23/2020 until 01/23/2020 End: 07-08-2023 MRI PELVIS ORTHO GENERAL WO IVCON MRI PELVIS ORTHO GENERAL WO IVCON Radiology Routine Bone lesion Disorder of bone 1 Occurrences starting 06/08/2022 until 07/08/2023 [facility] Work Phone: Comment on above: 1 Occurrences starti ng 06/08/2022 until 07/08/2023 Patient Education [facility] Work Phone: Patient referral [facility] Work Phone: End: 12-03-2020 VAGINITIS DNA PROBE VAGINITIS DNA PROBE Microbiology Routine Vaginal discharge 1 Occurrences starting 12/03/2020 until 12/03/[address] [facility] Comment on above: 1 Occurrences starti ng 12/03/2020 until 12/03/2020 VAGINITIS DNA PROBE VAGINITIS DN A PROBE Microbiology Routine Vaginal discharge 12/03/2020 3:36 PM EST [facility] Immunizations Immunization Date Immunization Notes Care Provider Fa cility 07-13-2021 COVID-19 mRNA, Comir do (Pfizer) [facility] 06-29-2021 COVID-19 mRNA, Comir do (Pfizer) [facility] 06-22-2021 COVID-19 mRNA, Comir do (Pfizer) [facility] 04-17-2019 tetanus toxoid, redu lise diphtheria toxoid, and acellular pertussis vaccine, adsorbed [facility] [employer] Phone: 07-08-2016 meningococcal oligosaccharide (groups A, C, Y and W-135) diphtheria toxoid conjugate vaccine (MCV4O) [facility] NEGATED: Highlighted row has not occurred!05-25-2019 measles, mumps and rubella virus vaccine [facility] Phone: Payers Date Payer Category Payer Medicaid [id number] 01-04-2023 Self-pay [id number] 06-21-2021 Medicaid [employer] [id number] 06/21/2021-Present [phone] [address] [place] [address] Medicaid [id number] 06-21-2021 Medicaid [id number] 06-05-2021 Unknown [employer] PPO OOS [id number] 06/05/2021-Present [phone] [address] [place] [address] PPO [id number] 11-21-2018 [employer] ( and others) [facility] xxxxxxxxxxx 2018-Present [id number] 11-21-2018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 infection noted and dx with chronic low back pain. Went to [facility] ER yesterday, 12/30/21. ESR, CRP WNL. MRIs w contrast were done of the spine. Seen by Neurosurgery who did not recommend any intervention. Pain localized to right low back/buttock and mid lumbar spine Pain described as Aching Radiation: right buttock Numbness/Tingling: feet tingling - intermittent Pain worse with constant, movement Pain improved with heat Interventions: heat, meds Medications: gabapentin 300mg TID (no help), cymbalta, advil prn Previously: percocet Physical Therapy: March- at [facility] History of Spine Injections/Surgery: None CC: low back pain Patient follows up VIA VIRTUAL VISIT s/p Right SI joint injection on 03/26/[address] Flores. Reported 70% relief of pain. Still some pain lifting heavy. Pain on both sides of low back equally. Her pain is not nearly as bad as it was prior to her injection. Not constant. Not interfering with her everyday life. Since initial visit had bone biopsy done without any concerning findings. Will have repeat MRI in 6mths for follow up. Medications: Advil prn for pain. No longer taking daily pain relievers Has not yet started Physical therapy. Just doing a HEP. Other Issues Addressed at the Visit Today: None. Precipitating Event: None PAIN EVALUATION No data found in the last 1 encounters. Litigation: No Workers' Compensation: No YELLOW AND BLUE FLAGS No-Neg Attitude; Back Pain is Disabling No-Avoiding Activity (for Fear of Pain) YES-Depression or Anxiety Disorders No-Social Problems No-Substance Use Disorder No-Job Dissatisfaction No-Financial Disincentives Patient Entered Questionnaires Spine Questions 06/08/2022 Pain Location: Lower back Pain Duration: 1 to 5 years Pain over last 6 months: At least half the days in the past 6 months Symptoms from neck/cervical spine: No Employment Status: Other Off work 1 month or more due to back/neck pain: Yes Applied for/receive disability/WC due to low back/neck pain No Involved in law suit/legal claim: No Spine Red Flags 06/08/2022 Any type of cancer: No Unexplained fever: No Bowel or bladder disfunction: Yes Unintentional weight loss: No Osteoporosis: No PROMIS Score Percentiles Physical Health 06/08/2022 Physical Function Percentile 46 Sleep Percentile 24* Fatigue Percentile 24* Pain Interference Percentile 42 PROMIS SOCIAL ROLE SCORE 06/08/2022 Social Role Satisfaction Percentile 24* PROMIS Global Health Scale 06/08/2022 Physical Health Percentile 15 Mental Health Percentile 19* Percentiles provide an indication of how the patient's score ranks in relation to the general population. Higher percentile rankings indicate better function/quality of life. 50th percentile is the average of the general population and indicates half of respondents had a worse score. Depression Screening: PHQ-9 06/08/2022 Score 4 PHQ-9 Self Harm 06/08/2022 Question 9 Not at all PHQ-9 Self-Harm (Item 9) response options: 0 Not at all 1 Several days 2 More than half the days 3 Nearly every day PHQ-9 Levels: 0-4 No - mild depression 5-9 Mild depression 10-14 Moderate depression 15-19 Moderately severe depression 20-27 Severe depression ACTIVE PROBLEM LIST Normal Delivery Night Sweats Diarrhea Headache Reactive Hypoglycemia History of Gestational Diabetes Mellitus (Gdm) PAST MEDICAL HISTORY Diagnosis Date - Depression - Gestational diabetes - H/O pre-term labor - Post depression PAST SURGICAL HISTORY Procedure Laterality Date - CHOLECYSTECTOMY - KNEE ARTHROSCOPY Social History Tobacco Use - Smoking status: Never Smoker - Smokeless tobacco: Never Used Vaping Use - Vaping Use: Never used Substance Use Topics - Alcohol use: Not Currently - Drug use: Never FAMILY HISTORY Problem Relation Age of Onset - Hypertension Maternal Grandmother - Hyperlipidemia Maternal Grandfather - Hypertension Maternal Grandfather - Heart Maternal Grandfath (more content not included)...[facility] 06-08-2022 History of Present illness Narrative* Haritha Fung, LUKE.EXHIBITION DESIGNER - 06/08/2022 4:30 PM EDT Spine Care Path Low Back Pain - Chronic (> 12 weeks) Initial Exam SUBJECTIVE HISTORY OF PRESENT ILLNESS: Dorcas Kent is a 21 year old female who presents with a chief complaint of low back pain and is seenin consultation requested by self Patient presents with chronic back pain starting March 2021. No accident/injury. Had imaging done May 2021 with abnormal findings at L3. Biopsy done in August at local hospital. Followed by infectious disease. Was on IV abx starting Oct- september. After antibiotics symptoms improved. [place] 85-90% improved. Pain returned in the last few weeks. Went to her local ER on 12/26/21 d/t pain. Was transfered to [facility] per her request. Neurosurgeon following her advised her there was nothing else to do, no infection noted and dx with chronic low back pain. Went to [facility] ER yesterday, 12/30/21. ESR, CRP WNL. MRIs w contrast were done of the spine. Seen by Neurosurgery who did not recommend any intervention. Pain localized to right low back/buttock and mid lumbar spine Pain described as Aching Radiation: right buttock Numbness/Tingling: feet tingling - intermittent Pain worse with constant, movement Pain improved with heat Interventions: heat, meds Medications: gabapentin 300mg TID (no help), cymbalta, advil prn Previously: percocet Physical Therapy: March- at [facility] History of Spine Injections/Surgery: None CC: low back pain Patient follows up VIA VIRTUAL VISIT s/p Right SI joint injection on 03/26/[address] Flores. Pomnbvnp24% relief of pain. Still some pain lifting heavy. Pain on both sides of low back equally. Her pain is not nearly as bad as it was prior to her injection. Not constant. Not interfering with her everyday life. Since initial visit had bone biopsy done without any concerning findings. Will have repeat MRI in 6mths for follow up. Medications: Advil prn for pain. No longer taking daily pain relievers Has not yet started Physical therapy. Just doing a HEP. Other Issues Addressed at the Visit Today: None. Precipitating Event: None PAIN EVALUATION No data found in the last 1 encounters. Litigation: No Workers' Compensation: No YELLOW & BLUE FLAGS No-Neg Attitude; Back Pain is Disabling No-Avoiding Activity (for Fear of Pain) YES-Depression or Anxiety Disorders No-Social Problems No-Substance Use Disorder No-Job Dissatisfaction No-Financial Disincentives Patient Entered Questionnaires Spine Questions 06/08/2022 Pain Location: Lower back Pain Duration: 1 to 5 years Pain over last 6 months: At least half the days in the past 6 months Symptoms from neck/cervical spine: No Employment Status: Other Off work 1 month or more due to back/neck pain: Yes Applied for/receive disability/WC due to low back/neck pain No Involved in law suit/legal claim: No Spine Red Flags 06/08/2022 Any type of cancer: No Unexplained fever: No Bowel or bladder disfunction: Yes Unintentional weight loss: No Osteoporosis: No PROMIS Score Percentiles Physical Health 06/08/2022 Physical Function Percentile 46 Sleep Percentile 24* Fatigue Percentile 24* Pain Interference Percentile 42 PROMIS SOCIAL ROLE SCORE 06/08/2022 Social Role Satisfaction Percentile 24* PROMIS Global Health Scale 06/08/2022 Physical Health Percentile 15 Mental Health Percentile 19* Percentiles provide an indication of how the patient's score ranks in relation to the general population. Higher percentile rankings indicate better function/quality of life. 50th percentile is the average of the general population and indicates half of respondents had a worse score. Depression Screening: PHQ-9 06/08/2022 Score 4 PHQ-9 Self Harm 06/08/2022 Question 9 Not at all PHQ-9 Self-Harm (Item 9) response options: 0 Not at all 1 Several days 2 More than half the days 3 Nearly every day PHQ-9 Levels: 0-4 No - mild depression 5-9 Mild depression 10-14 Moderate depression 15-19 Moderately severe depression 20-27 Severe depression ACTIVE PROBLEM LIST Normal Delivery Night Sweats Diarrhea Headache Reactive Hypoglycemia History of Gestational Diabetes Mellitus (Gdm) PAST MEDICAL HISTORY Diagnosis Date Depression Gestational diabetes H/O pre-term labor Post depression PAST SURGICAL HISTORY Procedure Laterality Date CHOLECYSTECTOMY KNEE ARTHROSCOPY Social History Tobacco Use Smoking status: Never Smoker Smokeless tobacco: Never Used Vaping Use Vaping Use: Never used Substance Use Topics Alcohol use: Not Currently Drug use: Never FAMILY HISTORY Problem Relation Age of Onset Hypertension Maternal Grandmother Hyperlipidemia Maternal Grandfather Hypertension Maternal Grandfather Heart Maternal Grandfather other (Lung Cancer) Maternal Grandfather ALLERGIES Allergen Reactions Hydrocodone-Acetami* Mental Status Change CURRENT MEDICATIONS: DULoxetine (CYMBALTA) 60 mg capsule Take 60 mg by mouth once daily. blood sugar diagnostic (FREESTYLE LITE STRIPS) test strip TEST BLOOD SUGARS 2 TIMES DAILY lancets (FREESTYLE LANCETS) 28 gauge 1 Each twice daily. metFORMIN ER (GLUCOPHAGE XR) 750 mg 24 hr tablet Take 1 tablet by mouth daily with breakfast. ARIPiprazole (ABILIFY) 15 mg tablet Take 1 tablet by mouth once daily. sertraline (ZOLOFT) 100 mg tablet Take 1.5 tablets by mouth once daily. traZODone (DESYREL) 50 mg tablet Take 1 tablet by mouth daily at bedtime. venlafaxine ER (EFFEXOR XR) 75 mg 24 hr capsule Take 1 capsule by mouth once daily. Cranberry 400 mg cap Take 1 capsule by mouth once daily. REVIEW OF SYSTEMS: PAIN ASSESSMENT: See HPI. GENERAL: Denies fever, chills malaise and weight loss. HEENT: No recent change in vision or hearing. CARDIOVASCULAR: Denies chest pain, history of A-fib, valvular disease, or pacemaker/ICD. RESPIRATORY: Denies SOB, sputum production, and hemoptysis. GI: Denies GI ulcers, inflammatory disease, or liver disease. : Denies change in frequency or urgency, kidney disease, and burning with urination. MUSCULOSKELETAL: Positive for See HPI SKIN: Denies rash or itching. PSYCHOLOGICAL: Denies uncontrolled depression or anxiety. NEURO: Denies CVA, seizures, headaches. ENDOCRINE: Denies diabetes, thyroid disease. HEMATOLOGY/LYMPHOLOGY: Denies cancer, bleeding or clotting disorders, anemia,and DVT's. ALLERGIC/IMMUNOLOGICAL: Denies risks for infection, or recent MRSA infections. OBJECTIVE: PHYSICAL EXAM LMP 03/18/2022 (Approximate) GENERAL APPEARANCE: Well appearing, well-hydrated, well nourished and alert SKIN: Head, neck, trunk, and extremities dry, intact and without lesions LUNGS: even and non-labored breathing, normal chest excursion NEURO/PSYCH: oriented to time, place, and person, speech normal, mental status intact Neuro Tests: None Data Review: [facility] records independently reviewed Outside records independently reviewed, no imaging available CT Lumbar 06/09/21 (report only) : No acute fracture or malalignment. Pain persists, MRI would be ofadditional benefit. All CT scans at this facility use dose modulation, iterative reconstruction, and/or weight based dosing when appropriate to reduce radiation dose to as low as reasonably achievable. MRI Lumbar 09/10/21: report only. 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 These may represent foci of osteomyelitis, although aneoplastic process such as Langerhans cell histiocytosis may also have this appearance. CT Cervical 12/26/21: Reversal of the cervical lordosis with no evidence of acute bony abnormality inthe cervical spine.. Labs 12/30/21: ESR 13 CRP 0.3 CBC: WBC- 5.6 MRI Thoracic/lumbar w/wo contrast 12/30/21: Indeterminate lesion in the left iliac wing along the posterior-medial margin of the left SI joint. Signal characteristics suggest partially fluid contents and there is some enhancement after gadolinium and likely at least some edema in the surrounding bone. No clear evidence for contiguous extension into the adjacent soft tissues. The intrinsic internal contents and presence of enhancement does raise question of possible inflammation or infection locally. There is no evidence for vertebral body osteomyelitis or septic facet arthropathy elsewhere involving the thoracic or lumbar spine on this exam. Focal endplate defect inferior L3 represents a Schmorl's node. Cord is grossly normal. No abnormal enhancement. Normally patent thoracic and lumbar spinal canal and neural foramina. Bone biopsy surgical pathology 04/15/22: Bone (left posterior iliac bone), biopsy: - Cancellous bone with edema, mild chronic inflammation, and focal fibrosis. ASSESSMENT/PLAN Sacroiliac joint pain (primary encounter diagnosis) Chronic bilateral low back pain without sciatica Bone lesion Patient with improved overall back pain. Still gets some pain but not nearly as limiting as it was prior. Only taking occasional OTC Ibuprofen prn. Still encourage establishing with local PT for program. Can consider repeat injection in the future if needed. 1. Imaging: repeat MRI before end of year. 2. Physical Therapy: consult PT Che Sheehan 3. Medication: NSAIDs prn 4. Referrals: PT 5. Considerations: bilateral SI jt inj 6. Follow up: follow up after MRI or sooner if needed. I spent a total of 18 minutes on the date of the service which included preparing to see the patient, [id number] patient care, completing clinical documentation, obtaining and/or reviewing separately obtained history, counseling and educating the patient/family/caregiver, ordering medications, ra ts, or procedures and communicating results to the patient/family/caregiver. [facility]05-[facility] Miscellaneous Notes* Telephone Encounter - Tiffanie Millard - 04/12/2022 10:56 AM EDT Spoke to pt and scheduled biopsy for 04/15/22. * Telephone Encounter - Mechelle Squires DO - 04/05/2022 4:31 PM EDT RADIOLOGIST REQUEST / APPROVAL FORM STAFF RADIOLOGIST:Dr Stevenson PROCEDURE TO BE DONE UNDER: CT PROCEDURE REQUESTED: CORE Requested PROCEDURE: Approved TIME SLOT NEEDED: 1 Hour NOTES: left bone lesion/posterior iliac spine; refer to MRI pelvis 03/29/22. Lesion is indeterminate although signal characteristics most suggestive of abscess given history or prior MSSA discitis. SPECIAL LABS/ PROCESSING: None Pre-procedure labs: CBC: not needed INR: not needed COVID: not needed SIR Bleeding risk category for this procedure: low low risk. Reference from [facility] Compound Specialist: [email or web address] STAFF SIGNATURE: Mechelle Squires DO DATE: April 05, 2022 TIME: 4:31 PM * Telephone Encounter - Nikki Laguerre LPN - 04/05/2022 11:47 AM EDT BX. COORDINATOR INFORMATION LAB RESULTS: PT INR (no units) Date Value 10/22/2019 1.0 APTT (sec) Date Value 10/22/2019 29.2 Platelet Count (k/uL) Date Value 12/30/2021 237 Current Outpatient Medications Medication Sig blood sugar diagnostic (FREESTYLE LITE STRIPS) test strip TEST BLOOD SUGARS 2 TIMES DAILY lancets (FREESTYLE LANCETS) 28 gauge 1 Each twice daily. metFORMIN ER (GLUCOPHAGE XR) 750 mg 24 hr tablet Take 1 tablet by mouth daily with breakfast. ARIPiprazole (ABILIFY) 15 mg tablet Take 1 tablet by mouth once daily. sertraline (ZOLOFT) 100 mg tablet Take 1.5 tablets by mouth once daily. traZODone (DESYREL) 50 mg tablet Take 1 tablet by mouth daily at bedtime. venlafaxine ER (EFFEXOR XR) 75 mg 24 hr capsule Take 1 capsule by mouth once daily. Cranberry 400 mg cap Take 1 capsule by mouth once daily. No current facility-administered medications for this visit. ALLERGIES Allergen Reactions Hydrocodone-Acetami* Mental Status Change FILMS SENT TO WORKSTATION: GUIDELINES FOR HOLDING ANTI-PLATELET AND ANTI- COAGULATION THERAPY: none on file NURSE SIGNATURE: Nikki Laguerre LPN DATE: April 05, 2022 TIME: 11:48 AM * Telephone Encounter - Sandycarlita Jagruti - 04/05/2022 10:46 AM EDT RADIOLOGY CALL CENTER INTAKE MIX TECHNICIAN: Michelle Brown EXT: [id number] DATE: 04/05/22 TIME: 10:46am TRACKING #. [id number] REQUESTING PERSON: Prakash Flores MD PHONE/PAGER: [phone] REQUESTING STAFF: Maritza PHONE/PAGER: [phone] SPECIFICS OF THE REQUEST: (Please be as detailed as possible. If request is lymph node biopsy, specify LOCATION of the node if possible): Imaging guided biopsy soft tissue mass/muscle (For example: biopsy liver mass or biopsy pelvic lymph node ) SPECIAL REQUESTS: TISSUE SAMPLE, LABWORK: N/A -Fine needle aspiration (FNA), core biopsy, no preference, unsure, specific processing request for pathology (For example: send for ER, [place], HER2/jose armando or possible lymphoma send in RPMI solution ) IS THIS REQUEST PART OF A RESEARCH PROTOCOL: No IF YES: List specifics of request and name/contact number of research coordinator and primary physician. MEDICAL DIAGNOSIS: Bone lesion M89.9 (For example: history of breast cancer with liver mass or history of lymphoma ) TYPE AND DATE OF THE EXAM THAT IS THE BASIS OF THE REQUEST: MRI Date: 03/29/22 (Note: Requests for random organ biopsies, specifically liver and kidney random biopsies do not need imaging. ALL OTHER CASES NEED IMAGING TO EVALUATE APPROPRIATENESS/FEASIBILITY OF THE REQUEST) IMAGING: [facility] (If the imaging was obtained outside the [facility] system, then it needs to be submitted for review prior to approval.) Note to all persons requesting biopsies: All biopsy requests will be scheduled as quickly as possible, based on the clinical urgency, availability of appointment times, the need to hold anti-thrombolytic therapy (aspirin, blood thinners) and the patient s schedule, including the need for an available petroleum transport driver. If a percutaneous biopsy or drainage is not felt to be safe or an alternative method for establishing a diagnosis is possible, this will be discussed directly with the requesting physician. documented in this encounterGalion Hospital05-16-2022 Miscellaneous Notes* Telephone Encounter - Maritza Barajas RN - 04/05/2022 10:48 AM EDT Neuro SPINE CARE COORDINATION QUICK NOTE Spoke with scheduling, triage completed. Patient will be contacted by scheduling regarding appointment. Patient updated. Maritza Barajas RN * Telephone Encounter - Kameron Lundberg - 04/05/2022 10:17 AM EDT Pt attempted to schedule the biopsy but was told the office has to call to schedule because it needs to be triaged. Call appointment for [phone] Pt- [phone] documented in this encounterGalion Hospital05-16-2022 Miscellaneous Notes* Telephone Encounter - Maritza Barajas RN - 04/05/2022 9:36 AM EDT Images from the original note were not included. Neuro SPINE CARE COORDINATION QUICK NOTE MD Maritza Alexandre RN Please let patient know that I reviewed imaging with Dr Cuellar in Ortho He is happy to see patient in person He also recommends a biopsy of Left iliac mass biopsy on 04/13/2022, 05/04/2022, 05/18/2022 Those are the date he is in clinic at [facility] on Tuesdays. We can also arrange to see her in spinemedicine clinic with Antonieta SANDHU on same day Patient can call [phone] to schedule biopsy at [facility] Advised per Dr. Flores's message. Patient verbalized understanding with intent to comply. Encouraged to call with any further questions/concerns. Information also included in a my chart message per patient's request. Maritza Barajas RN documented in this encounterGalion Hospital05-09-2022 Miscellaneous Notes* [facility] - RT Preet(R) - 03/29/2022 8:50 AM EDT Radiology Service Progress Note PATIENT NAME: Dorcas Kent DATE OF SERVICE: March 29, 2022 TIME: 8:44 AM PATIENT IDENTITY VERIFICATION COMPLETED USING TWO (2) IDENTIFIERS: Name and Date of confirmedby patient verbally. FALL SCREENING: Has the patient had 2 falls in the last year or 1 fall with injury or currently using an Ambulatory Assistive Device (Walker, Cane, Wheelchair, Crutches, etc.)? No PATIENT GENDER DATA: Female. status: : No status: N/A PATIENT RELEVANT IMPLANT DATA REVIEWED: Not Applicable RADIOLOGY DEPARTMENT: MR; Exam(s) Completed: Lower MSK: Pelvis, bilateral PERIPHERAL IV DATA: Not applicable SIGNED BY: LANNY/ RT Preet(R) March 29, 2022 8:44 AM documented in this encounterGalion Hospital04-14-2022 NoteHNO ID: [id number] Author: Zaid Rothman Service: ? Author Type: ? Type: Progress Notes Filed: 03/04/2022 11:10 AM Note Text: Recommendation Check for radicular symptoms/neurological deficit. Order consult to [facility]ine[id number] History of Present illness Narrative* Zaid Rothman - 03/04/2022 11:06 AM EDT Recommendation Check for radicular symptoms/neurological deficit. Order consult to Medical Spine. documented in this encounterGalion Hospital03-02-2022 NoteHNO ID: [id number] Author: Ewa Omkar, PT Service: ? Author Type: Physical Therapist Type: Progress Notes Filed: 01/21/2022 5:10 PM Note Text: Episode Visit Count: 1 Therapist That Will Oversee The Plan Of Care: Ewa Calderon Start of Care Date: 01/20/22 Onset Date: 12/31/21 Patient Identified by Name and Date of : Yes REHABILITATION AND SPORTS THERAPY PHYSICAL THERAPY EVALUATION PLAN OF CARE: Assessment: Dorcas Kent presents with chief complaint of low back pain that interferes with standing;walking;bending;physical activities;sitting;running . She presents with impairments in ADL's, flexibility, independence in exercise, overall function, range of motion, strength and fear of movement. Prognosis for therapy is Good due to: current objective clinical presentation . Further pelvic floor assessment may be indicated due to additional urinary symptoms of incomplete bladder emptying and pain. She will benefit from skilled therapy services to meet the goals established for this plan of care as noted below. Goals for Episode of Care: created on 01/20/22 through 03/18/22 [place] in home exercise program. Patient will increase active ROM of lumbar to within normal limits without pain to allow pt to to improve performance of ADLs. Patient will demonstrate increase in abdominal strength to at least 3/5 during manual muscle testing in order to improve function for home management tasks, leisure / recreation skills and moderate to heavy functional tasks. Patient will demonstrate increase in LE strength to 5/5 during manual muscle testing in order to improve function for home management tasks, leisure / recreation skills and moderate to heavy functional tasks. Patient will increase flexibility of hips to WNL to improve mechanics and decrease pain. Perform 1 hour of walking without an increase in pain. Improve postural awareness. Patient Goals: decrease pain ; improve tolerance to movement Planned Interventions, Frequency, and Duration: Current Frequency: 1x/week Duration: 8 weeks Total Number of Visits Planned: 8 Planned Treatment Interventions: Therapeutic exercise (09987);Neuromuscular re-education (43392);Manual therapy (36064);Therapeutic activities (91636);Self-usp management (46176);Gait Training (97562);Patient/Family/Caregiver Education;Body Mechanics Training;Functional training;General Conditioning PLAN FOR NEXT VISIT: Transfer to [place] ; consider general conditioning/strengthening/PNE/posture Patient demonstrates good understanding of plan of care and treatment. The above goals and plan of care were discussed and agreed upon by patient/family. Transfer of Care Due To: Closer to Home Patient transferring care to: [place] SUBJECTIVE: Dorcas Kent is a 21 year old female seen today for R SI pain and chronic LBP. Recently hospitalized for spinal infection. Back pain started in (2 years ago) and then resolved with and started again several months later which led to discovery of spinal infection. No LE symptoms at this time. Does feel like she has UTI symptoms - plans to get this evaluated. She admits to fear avoidance of exercise/movement. 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 Falls Interview: No positive findings with falls interview Red Flags Vertebral Fracture Red Flags: Female Vertebral Fracture Clinical Reasoning: Proceed with caution due to the above (1-2) risk factors Abdominal Aortic Aneurysm Clinical Reasoning: No identified risk factors. Cancer Clinical Reasoning: No identified risk factors. Infection Clinical Reasoning: No identified risk factors. Cauda Equina Syndrome Clinical Reasoning: No identified risk factors. Red Flags - Cervical Cancer Clinical Reasoning: No identified risk factors. Infection Clinical Reasoning: No identified risk factors. Spine History Symptoms Location at Onset: Back Symptoms Since Onset: Unchanging Pain is Worse Always: As the day progresses;On the Move Pain is Better Sometimes: Rest Sleep Affected by Pain: Pain awakens Pain: Pain Pain Level: 0 (at worst 10/10; average 4/10) Pain Location: Low Back/Lumbar Spine - Right;Low Back/Lumbar Spine - Left Description: Aching Frequency: Intermittent Post Treatment Pain Post Treatment Pain Level: No Change OBJECTIVE MEASURES WITH LEVEL OF FUNCTION: Posture / Alignment Posture: Forward head;Rounded shoulders;Poor Sensation - Lumbar Sensation: Grossly Intact Lumbar Spine AROM Lumbar Flexion: Moderate limitation;Increased pain Lumbar Extension: Minimal limitat (more content not included)...[facility]02-10-2022 NoteHNO ID: [id number] Author: Avelina Flowers RT(R) Service: ? Author Type: Technologist Type: Progress Notes Filed: 12/31/2021 4:06 PM Note Text: Radiology Service Progress Note PATIENT NAME: Dorcas Kent DATE OF SERVICE: December 31, 2021 TIME: 4:05 PM PATIENT IDENTITY VERIFICATION COMPLETED USING TWO (2) IDENTIFIERS: Name and Date of confirmed by patient verbally and Name and Date of confirmed by identification band. FALL SCREENING: Has the patient had 2 falls in the last year or 1 fall with injury or currently using an Ambulatory Assistive Device (Walker, Cane, Wheelchair, Crutches, etc.)? No PATIENT GENDER DATA: Female. status: : No status: NO. PATIENT RELEVANT IMPLANT DATA REVIEWED: Not Applicable RADIOLOGY DEPARTMENT: General X-ray: Exam(s) Completed: Spine X-Ray(s): Lumbar AP / LAT / L5-S1 Pelvis X-Ray: Pelvis General AP and Pelvis inlet/outlet (2V AP/LAT LUMBAR ONLY) PERIPHERAL IV DATA: Not applicable SIGNED BY: RT Sharif(R) December 31, 2021 4:05 [facility]02-10-2022 NoteHNO ID: [id number] Author: Haritha Fung APRN.EXHIBITION DESIGNER Service: ? Author Type: Nurse Practitioner Type: Progress Notes Filed: 01/01/2022 2:47 PM Note Text: Spine Care Path Low Back Pain - Chronic (> 12 weeks) Initial Exam SUBJECTIVE HISTORY OF PRESENT ILLNESS: Dorcas Kent is a 21 year old female who presents with a chief complaint of low back pain and is seen in consultation requested by self Patient presents with chronic back pain starting March 2021. No accident/injury. Had imaging done May 2021 with abnormal findings at L3. Biopsy done in August at local hospital. Followed by infectious disease. Was on IV abx starting September. After antibiotics symptoms improved. [place] 85-90% improved. Pain returned in the last few weeks. Went to her local ER on 12/26/21 d/t pain. Was transfered to [facility] per her request. Neurosurgeon following her advised her there was nothing else to do, no infection noted and dx with chronic low back pain. Went to [facility] ER yesterday, 12/30/21. ESR, CRP WNL. MRIs w contrast were done of the spine. Seen by Neurosurgery who did not recommend any intervention. Pain localized to right low back/buttock and mid lumbar spine Pain described as Aching Radiation: right buttock Numbness/Tingling: feet tingling - intermittent Pain worse with constant, movement Pain improved with heat Interventions: heat, meds Medications: gabapentin 300mg TID (no help), cymbalta, advil prn Previously: percocet Physical Therapy: March- at [facility] History of Spine Injections/Surgery: None Other Issues Addressed at the Visit Today: None. Precipitating Event: None PAIN EVALUATION 12/31/2021 1323 Pain Level: 7 Pain Location: Back-Lower right hip Description: Aching Duration Units: Unknown Frequency: Continuous Intervention/Comfort measure: Medication Litigation: No Workers' Compensation: No YELLOW AND BLUE FLAGS No-Neg Attitude; Back Pain is Disabling No-Avoiding Activity (for Fear of Pain) YES-Depression or Anxiety Disorders No-Social Problems No-Substance Use Disorder No-Job Dissatisfaction No-Financial Disincentives Patient Entered Questionnaires PROMIS Score Percentiles Percentiles provide an indication of how the patient's score ranks in relation to the general population. Higher percentile rankings indicate better function/quality of life. 50th percentile is the average of the general population and indicates half of respondents had a worse score. Depression Screening: PHQ-9 Self-Harm (Item 9) response options: 0 Not at all 1 Several days 2 More than half the days 3 Nearly every day PHQ-9 Levels: 0-4 No - mild depression 5-9 Mild depression 10-14 Moderate depression 15-19 Moderately severe depression 20-27 Severe depression ACTIVE PROBLEM LIST Normal Delivery Night Sweats Diarrhea Headache Reactive Hypoglycemia History of Gestational Diabetes Mellitus (Gdm) PAST MEDICAL HISTORY Diagnosis Date - Depression - Gestational diabetes - H/O pre-term labor - Post depression PAST SURGICAL HISTORY Procedure Laterality Date - KNEE ARTHROSCOPY - REMOVAL GALLBLADDER Social History Tobacco Use - Smoking status: Never Smoker - Smokeless tobacco: Never Used Vaping Use - Vaping Use: Never used Substance Use Topics - Alcohol use: Not Currently - Drug use: Never FAMILY HISTORY Problem Relation Age of Onset - Hypertension Maternal Grandmother - Hyperlipidemia Maternal Grandfather - Hypertension Maternal Grandfather - Heart Maternal Grandfather - other (Lung Cancer) Maternal Grandfather ALLERGIES Allergen Reactions - Hydrocodone-Acetami* Mental Status Change CURRENT MEDICATIONS: blood sugar diagnostic (FREESTYLE LITE STRIPS) test strip TEST BLOOD SUGARS 2 TIMES DAILY lancets (FREESTYLE LANCETS) 28 gauge 1 Each twice daily. metFORMIN ER (GLUCOPHAGE XR) 750 mg 24 hr tablet Take 1 tablet by mouth daily with breakfast. ARIPiprazole (ABILIFY) 15 mg tablet Take 1 tablet by mouth once daily. sertraline (ZOLOFT) 100 mg tablet Take 1.5 tablets by mouth once daily. traZODone (DESYREL) 50 mg tablet Take 1 tablet by mouth daily at bedtime. venlafaxine ER (EFFEXOR XR) 75 mg 24 hr capsule Take 1 capsule by mouth once daily. Cranberry 400 mg cap Take 1 capsule by mouth once daily. REVIEW OF SYSTEMS: PAIN ASSESSMENT: See HPI. GENERAL: Denies fever, chills malaise and weight loss. HEENT: No recent change in vision or hearing. CARDIOVASCULAR: Denies chest pain, history of A-fib, valvular disease, or pacemaker/ICD. RESPIRATORY: Denies SOB, sputum production, and hemoptysis. GI: Denies GI ulcers, inflammatory disease, or liver disease. : Denies change in frequency or urgency, kidney disease, and burning with urination. MUSCULOSKELETAL: Positive for See HPI SKIN: Denies rash or itching. PSYCHOLOGICAL: Denies uncontrolled depression or anxiety. NEURO: Denies CVA, seizures (more content not included)...[facility] 09-21-2019 History general Narrative - Reported* Type Description Date Medical History post- Surgical History knee surgery [place] [facility] [place] 09/22 019 Hospitalization History labor and delivery 06/09 19 Hospitalization History [facility]--olayinka calderon 10/2019 [employer] Other [id number] History of Past illness Narrative* Problem Noted Date Resolved Date Diet controlled gestational diabetes mellitus (GDM) in third trimester 04/17/2019 10/30/2019 documented as of this encounter (statuses as of 03/04/2022) [facility] of Past illness Narrative* Problem Noted Date Resolved Date Diet controlled gestational diabetes mellitus (GDM) in third trimester 04/17/2019 10/30/2019 documented as of this encounter (statuses as of 03/30/2022) [facility] of Past illness Narrative* Problem Noted Date Resolved Date Diet controlled gestational diabetes mellitus (GDM) in third trimester 04/17/2019 10/30/2019 documented as of this encounter (statuses as of 04/05/2022) [address]28-2019 History of Past illness Narrative* Problem Noted Date Resolved Date Diet controlled gestational diabetes mellitus (GDM) in third trimester 04/17/2019 10/30/2019 documented as of this encounter (statuses as of 04/05/2022) [facility] of [facility] illness Narrative* Problem Noted Date Resolved Date Diet controlled gestational diabetes mellitus (GDM) in third trimester 04/17/2019 10/30/2019 documented as of this encounter (statuses as of 04/12/2022) [address]-2019 History of Past illness Narrative* Problem Noted Date Resolved Date Diet controlled gestational diabetes mellitus (GDM) in third trimester 04/17/2019 10/30/2019 documented as of this encounter (statuses as of 06/08/2022) [address]-2019 History of Past illness Narrative* Problem Noted Date Resolved Date Diet controlled gestational diabetes mellitus (GDM) in third trimester 04/17/2019 10/30/2019 documented as of this encounter (statuses as of 09/09/2022) [address]-2019 History of Past illness Narrative* Problem Noted Date Resolved Date Diet controlled gestational diabetes mellitus (GDM) in third trimester 04/17/2019 10/30/2019 documented as of this encounter (statuses as of 10/01/2022) [address]-2019 History of Past illness Narrative* Problem Noted Date Resolved Date Diet controlled gestational diabetes mellitus (GDM) in third trimester 04/17/2019 10/30/2019 documented as of this encounter (statuses as of 10/04/2022) [address]-2019 History of Past illness Narrative* Problem Noted Date Resolved Date Diet controlled gestational diabetes mellitus (GDM) in third trimester 04/17/2019 10/30/2019 documented as of this encounter (statuses as of 11/01/2022) [address]-2019 History of Past illness Narrative* Problem Noted Date Resolved Date Diet controlled gestational diabetes mellitus (GDM) in third trimester 04/17/2019 10/30/2019 documented as of this encounter (statuses as of 11/04/2022) [address]-2019 History of Past illness Narrative* Problem Noted Date Resolved Date Diet controlled gestational diabetes mellitus (GDM) in third trimester 04/17/2019 10/30/2019 documented as of this encounter (statuses as of 11/29/2022) [facility] note* Diagnosis Sacroiliac joint pain- Primary Disorders of sacrum Chronic right-sided low back pain without sciatica Sacroiliac joint pain Disorders of sacrum Chronic right-sided low back pain without sciatica documented in this encounter [facility] note* Diagnosis Disorder of bone Disorder of bone and cartilage, unspecified Bone lesion Disorder of bone and cartilage, unspecified documented in this encounter [facility] noteNo InformationN[facility] [employer] Other Evaluation note* Diagnosis Sacroiliac joint pain- Primary Disorders of sacrum Chronic bilateral low back pain without sciatica Bone lesion Disorder of bone and cartilage, unspecified Disorder of bone Disorder of bone and cartilage, unspecified documented in this encounter [facility] noteNo assessment information [facility] Work Phone: Evaluation note* Psychological: Appropriate mood and behaviorNeurological: alert and oriented x3, intact senses, motor, response and reflexes, normal strengthCN 2 The fundi were well visualized with normal disc margins, clear vessels and vascular pulsations. No disc edema. No hemorrhages or exudates were present inthe posterior segments that were visualized. Visual buenrostro full to confrontation. CN 3, 4, 6 Pupilsround, equally reactive to light. No ptosis. EOM normal alignment, full range with normal saccades,pursuit and convergence. No nystagmus. CN 5 Facial sensation intact bilaterally. CN 7 Normal and symmetric facial strength. Nasolabial folds symmetric. CN 8 Hearing intact to finger rub bilaterally. CN 9 Palate elevates symmetrically. CN 11 Bilaterally normal strength of shoulder shrug and neck turning. CN 12 Tongue midline, with normal bulk and strength; no fasciculations. Patient is handling pharyngeal secretions well.Extremities: normal extremities, no cyanosis edema, contusions or wounds, no clubbingMusculoskeletal: ROM intact, no joint swelling, normal strengthGastrointestinal: Nondistended, soft, non-tender, no rebound tenderness or guarding, no masses palpable, no organomegaly, +BS, no bruitsCardiovascular: Regular, rate and rhythm, no murmurs, 2+ equal pulses of the extremities, normal S 1and S 2Respiratory/Thorax: Patent airways, CTAB, normal breath sounds with good chest expansion, thorax symmetricHead/Neck: No JVD, trachea midline, no bruitsENMT: mucous membranes moist, no apparent injury, no lesions seenEyes: PERRL, clear scleraSkin: Warm and dry, no lesions, no rashesConstitutional: Well developed, awake/alert/oriented x3, no distress, alert and cooperative [facility] Diagnosis History of delivery, currently in second trimester- Primary Encounter for anatomic survey documented in this encounter [facility] note* Diagnosis Encounter for follow-up ultrasound of anatomy- Primary documented in this encounter [facility] note* Diagnosis History of delivery, currently in second trimester [O09.892 (ICD-10-CM)]- Primary Encounter for follow-up ultrasound of anatomy documented in this encounter [facility] note* Diagnosis Onset Date Resolution Status 37 weeks gestation of acute Status post vaginal delivery acute [facility] Work Phone: Evaluation note* Diagnosis Onset Date Resolution Status Sinusitis, acute maxillary a cute Left lateral abdominal pain acute [facility] Work Phone: Hospital Discharge instructions* Follow Up Appointment 1:Physician/Dept/Service: for Referral: Mental health follow upSc heduled Date/Time: 10-Aug-2022 01:00Location: [address], [place] Number: [phone]: [address] * Follow Up Appointment 2:Physician/Dept/Service: family health servicesBrandon for Referral: mental health follow upLocation: [address] [facility] [address]Z[place] Number: [phone] [facility] Additional Instructions Keep upcoming appointment with OB [facility] Work Phone: Hospital Discharge instructions Additional Instructions belt, warm baths/showersFirelands [facility] Work Phone: Reason for referral (narrative)* Diagnostic Procedure Only (Routine) - Pending Review Specialty Diagnoses / Procedures Referred By Contclarence t Referred To Contact [facility] Diagnoses Encounter for follow-up ultrasound of anatomy Procedures OBSTETRIC ULTRASOUND WHI US PREG UTERUS AFTER 1ST [place] [address] [place] [address] [facility] [address] [place] [address] Referral ID Status Reason Start Date Expiration Date Visits Requested Visits Authorized [id number] Pending Review Auto-Generat ed Referral 2 11/01/2023 1 1 [facility] Summary Purpose Family History Relationship Condition Age at Onset Recorded Date/T rosalina Not Specified No pertinent family history Unknown Advance Directives Documents on File Type Date Recorded Patient Terrazzo Polisher Expl anation Advance Directives and Living Will Power of Exerciser Latest Code Status on File Code Status Date Activated Date Inactivated Comments Full Code 05/23/2019 2:52 PM 05/25/2019 4:14 PM Full Code 05/23/2019 5:05 AM 05/23/2019 2:52 PM Full Code 04/26/2019 4:09 PM 04/26/2019 9:44 PM Full Code 03/17/2019 10:51 PM 03/18/2019 3:31 AM Documents on File Type Date Recorded Patient Terrazzo Polisher Expl anation ACP-Advance Directive ACP-Power of Exerciser Documents on File Type Date Recorded Patient Terrazzo Polisher Expl anation Advance Directive(s) 12/30/2021 2:37 PM Advance Directive(s) 10/23/2019 1:23 PM Documents on File Type Date Recorded Patient Terrazzo Polisher Expl anation Advance Directive(s) 03/29/2022 8:18 AM Advance Directive(s) 12/30/2021 2:37 PM Advance Directive(s) 10/23/2019 1:23 PM Documents on File Type Date Recorded Patient Terrazzo Polisher Expl anation Advance Directive(s) 03/29/2022 8:18 AM Advance Directive(s) 12/30/2021 2:37 PM Advance Directive(s) 10/23/2019 1:23 PM Documents on File Type Date Recorded Patient Terrazzo Polisher Expl anation Advance Directive(s) 04/13/2022 8:40 AM Advance Directive(s) 03/29/2022 8:18 AM Advance Directive(s) 12/30/2021 2:37 PM Advance Directive(s) 10/23/2019 1:23 PM Advance Directive Response Recorded Date/ Time Advance Directives No June 14 4:18pm Advance Directive Response Recorded Date/ Time Advance Directives No June 14 3:18pm Assessments Diagnosis Encounter for annual routine gynecological examination Diagnosis Encounter for test, result unknown Diagnosis Menorrhagia with regular cycle Excessive or frequent menstruation Screening for cervical cancer Screening for malignant neoplasm of the cervix Diagnosis Fever, unspecified fever cause Diagnosis Nausea, vomiting and diarrhea Nausea with vomiting Diagnosis Boil of vulva Other abscess of vulva Vaginal discharge Leukorrhea, not specified as infective Diagnosis Vaginal odor Unspecified symptom associated with female genital organs Diagnosis Abscess, Mesita's gland Urethral abscess Vaginal discharge Leukorrhea, not specified as infective Diagnosis Vaginal discharge Leukorrhea, not specified as infective Diagnosis Vaginal discharge Leukorrhea, not specified as infective Dysuria Discharge Instructions * Attachments The following attachments cannot be sent through Care Everywhere. * Diarrhea (Congolese) * Nausea and Vomiting (Congolese) documented in this encounter Reason for Referral Specialty Diagnoses / Procedures Referred By Gale gandara Referred To Contact [facility] Diagnoses Disorder of bone Bone lesion Procedures MRI PELVIS ORTHO GENERAL WO IVCON MRI PELVIS W/O CONTRAST MATERIAL Haritha Fung, LUKE.EXHIBITION DESIGNER [address] [id number] [facility] Referral ID Status Reason Start Date Expiration Date V isits Requested Visits Authorized [id number] Closed Auto-Generate d Referral 03/12/2022 05/11/2022 1 1 Specialty Diagnoses / Procedures Referred By Gale gandara Referred To Contact [facility] Diagnoses Bone lesion Disorder of bone Procedures MRI PELVIS ORTHO GENERAL WO IVCON MRI PELVIS W/O CONTRAST MATERIAL Haritha Fung, PIER MASTER.EXHIBITION DESIGNER [address] [place] [address] Mr Imaging Referral ID Status Reason Start Date Expiration Date Visits Requested Visits Authorized [id number] Pending Review Auto-Generat ed Referral 06/08/2022 07/08/2023 1 1 Specialty Diagnoses / Procedures Referred By Contac t Referred To Contact [facility] Diagnoses Sacroiliac joint pain Chronic bilateral low back pain without sciatica Procedures CONSULT TO PHYSICAL THERAPY PHYSICAL THERAPY EVALUATION HIGH COMPLEX 45 MINS Haritha Fung, LUKE.EXHIBITION DESIGNER [address] [place] [address] [facility] [place] [address] [place] [address] Referral ID Status Reason Start Date Expiration Date Visits Requested Visits Authorized [id number] Pending Review Auto-Generat ed Referral 06/08/2022 06/08/2023 1 1 Chief Complaint and Reason for Visit Chief Complaint O20.0 O20.9 FR Chief Complaint O20.0 O20.9 [facility] Z34.90 Z34.90 dizzy abd pain Positive urinary test Chief Complaint O20.0 O20.9 FR Z34.90 Z34.90 dizzy abd pain Positive urinary test Z32.01 Chief Complaint O20.0 O20.9 [facility] Z34.90 Z34.90 dizzy abd pain Positive urinary test Z32.01 Z32.01 Chief Complaint O20.0 O20.9 FR Z34.90 Z34.90 dizzy abd pain Positive urinary test Z32.01 Z32.01 vomiting, cramping, not sure of weeks Chief Complaint Z3A.25 Z13.1 Chief Complaint Z3A.25 Z13.1 cramping Chief Complaint Z3A.25 Z13.1 cramping 35 weeks gestation of ; screenin Chief Complaint Z3A.25 Z13.1 cramping 35 weeks gestation of ; screenin IUP (Intrauterine ) 37 wks-contractions z39.1 Reason for Visit 37 weeks gestation o f Status post vaginal delivery Chief Complaint right ear, throat, s tomach pain Chief Complaint right ear, throat, s tomach pain Blood in stool/backpain Reason for Visit Sinusitis, acute max illary Left lateral abdominal pain Additional Source Comments INFORMATION SOURCE (unrecogn ized section and content) DATE CREATED AUTHOR 05/17/2018 [facility] DATE CREATED AUTHOR AUTHOR'S ORGANIZ ATION 02/05/2021 [facility] DATE CREATED AUTHOR AUTHOR'S ORGANIZ ATION 12/22/2021 [facility] DATE CREATED AUTHOR AUTHOR'S ORGANIZ ATION 03/30/2022 [facility] DATE CREATED AUTHOR AUTHOR'S ORGANIZ ATION 10/09/2022 [facility] DATE CREATED AUTHOR AUTHOR'S ORGANIZ ATION 10/13/2022 [facility] DATE CREATED AUTHOR AUTHOR'S ORGANIZ ATION 11/11/2022 [facility] DATE CREATED AUTHOR AUTHOR'S ORGANIZ ATION 02/25/2023 [facility] DATE CREATED AUTHOR AUTHOR'S ORGANIZ ATION 09/15/2023 [facility] Reason for Visit (unrecogniz ed section and content) Reason Comments Diarrhea Ongoing, worse x 1 w [place] Nausea 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, 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 now Abdominal Pain Bilateral lower abdo men, cramping Specialty Diagnoses / Procedures Referred By Contac t Referred To Contact [facility] Diagnoses Disorder of bone Bone lesion Procedures MRI PELVIS ORTHO GENERAL WO IVCON MRI PELVIS W/O CONTRAST MATERIAL Haritha Fung, PIER MASTER.EXHIBITION DESIGNER [address] [id number] Mr Imaging Referral ID Status Reason Start Date Expiration Date V isits Requested Visits Authorized [id number] Closed Auto-Generate d Referral 03/12/2022 05/11/2022 1 1 Reason Comments Results Follow Up Reason Comments biospy Reason Comments Biopsy Request Reason Comments Low Back Pain Reason Comments Appointment Reason Comments US Specialty Diagnoses / Procedures Referred By Contac t Referred To Contact [facility] Diagnoses Encounter for anatomic survey Procedures OBSTETRIC ULTRASOUND WHI US PREG UTERUS AFTER 1ST TRIMEST GESTATION Provider, Hotbed Operator Transcribe [facility] [address] [place] [address] Referral ID Status Reason Start Date Expiration Date V isits Requested Visits Authorized [id number] Closed Auto-Generate d Referral 10/21/2022 11/20/2022 1 1 Reason Comments Consult Specialty Diagnoses / Procedures Referred By Contac t Referred To Contact [facility] Diagnoses Encounter for follow-up ultrasound of anatomy Procedures OBSTETRIC ULTRASOUND WHI US PREG UTERUS AFTER 1ST [place] [address] [place] [address] [facility] [address] [place] [address] Referral ID Status Reason Start Date Expiration Date Visits Requested Visits Authorized [id number] Authorized Auto-Generat ed Referral 11/25/2022 11/20/2023 1 20 Source Comments (unrecognize d section and content) In the event this informatio n is protected by the Federal Confidentiality of Alcohol and Drug Abuse Patient Records regulations: The Federal rules restrict any use of the information to criminally investigate or prosecute any alcohol or drug abuse patient.[facility] Hospital[facility] the event this information is protected by the Federal Confidentiality of Alcohol and Drug Abuse Patient Records regulations: The Federal rules restrict any use of the information to criminally investigate or prosecute any alcohol or drug abuse patient.[facility] HospitalIn the event this information is protected by the Federal Confidentiality of Alcohol and Drug Abuse Patient Records regulations: The Federal rules restrict any use of the information to criminally investigate or prosecute any alcohol or drug abuse patient.[facility] HospitalIn the event this information is protected by the Federal Confidentiality of Alcohol and Drug Abuse Patient Records regulations: The Federal rules restrict any use of the information to criminally investigate or prosecute any alcohol or drug abuse patient.[facility] HospitalIn the event this information is protected by the Federal Confidentiality of Alcohol and Drug Abuse Patient Records regulations: The Federal rules restrict any use of the information to criminally investigate or prosecute any alcohol or drug abuse patient.[facility] HospitalIn the event this information is protected by the Federal Confidentiality of Alcohol and Drug Abuse Patient Records regulations: The Federal rules restrict any use of the information to criminally investigate or prosecute any alcohol or drug abuse patient.[facility] HospitalIn the event this information is protected by the Federal Confidentiality of Alcohol and Drug Abuse Patient Records regulations: The Federal rules restrict any use of the information to criminally investigate or prosecute any alcohol or drug abuse patient.[facility] HospitalIn the event this information is protected by the Federal Confidentiality of Alcohol and Drug Abuse Patient Records regulations: The Federal rules restrict any use of the information to criminally investigate or prosecute any alcohol or drug abuse patient.[facility] HospitalIn the event this information is protected by the Federal Confidentiality of Alcohol and Drug Abuse Patient Records regulations: The Federal rules restrict any use of the information to criminally investigate or prosecute any alcohol or drug abuse patient.[facility] HospitalIn the event this information is protected by the Federal Confidentiality of Alcohol and Drug Abuse Patient Records regulations: The Federal rules restrict any use of the information to criminally investigate or prosecute any alcohol or drug abuse patient.[facility] HospitalIn the event this information is protected by the Federal Confidentiality of Alcohol and Drug Abuse Patient Records regulations: The Federal rules restrict any use of the information to criminally investigate or prosecute any alcohol or drug abuse patient.[facility] HospitalIn the event this information is protected by the Federal Confidentiality of Alcohol and Drug Abuse Patient Records regulations: The Federal rules restrict any use of the information to criminally investigate or prosecute any alcohol or drug abuse patient.[facility] Care Teams (unrecognized sec tion and content) Sheep Farm Worker Relationship Specialty Start Date End Date Natty Chew MD [facility] [place] [address] PCP - General Internal Medicine 08/15/19 Sheep Farm Worker Relationship Specialty Start Date End Date Natty Chew MD [facility] [place] [address] PCP - General Internal Medicine 08/15/19 Sheep Farm Worker Relationship Specialty Start Date End Date Natty Chew MD [facility] [place] [address] PCP - General Internal Medicine 08/15/19 Sheep Farm Worker Relationship Specialty Start Date End Date Natty Chew MD [address] [place] [address] PCP - General Internal Medicine 08/15/19 Sheep Farm Worker Relationship Specialty Start Date End Date Kyaw Rocha MD [address] [place] [id number] PCP - General Family Practice 04/13/22 Team Status: Inactive Member Role Status Dates Kyaw Rocha MD Primary Care Provider Active Valeriano March Jr, DO Attending Provider Active Team Status: Inactive Member Role Status Dates Kyaw Rocha MD Primary Care Provider Active Nicole Nataprawira , DO Attending Provider Active Team Status: Active Member Role Status Dates Kyaw Rocha MD Primary Care Provider Active Team Status: Inactive Member Role Status Dates Kyaw Rocha MD Primary Care Provider Active Joshua Moran , DO Emergency Provider Active Team Status: Inactive Member Role Status Dates Kyaw Rocha MD Primary Care Provider Active Demar Jean Baptiste , DO Emergency Provider Active Sheep Farm Worker Relationship Specialty Start Date End Date Kyaw Rocha MD [address] [facility] [place] [address] PCP - General Family Medicine 04/13/22 Sheep Farm Worker Relationship Specialty Start Date End Date Kyaw Rocha MD [address] [facility] [place] [address] PCP - General Family Medicine 04/13/22 Sheep Farm Worker Relationship Specialty Start Date End Date Kyaw Rocha MD [address] [facility] [place] [address] PCP - General Family Medicine 04/13/22 Sheep Farm Worker Relationship Specialty Start Date End Date Kyaw Rocha MD [address] [facility] [place] [address] PCP - General Family Medicine 04/13/22 Sheep Farm Worker Relationship Specialty Start Date End Date Kyaw Rocha MD [address] [facility] [place] [address] PCP - General Family Medicine 04/13/22 Team Status: Inactive Member Role Status Dates Kyaw Rocha MD Primary Care Provider Active Nicole Palacios DO Referring Provider Active Jeff Hickman DO Attending Provider Active Team Status: Inactive Member Role Status Dates Nicole Palacios , Attending Provider Active Team Status: Inactive Member Role Status Dates Kyaw Rocha MD Primary Care Provider Active Palomo Pretty MD Attending Provider Active Team Status: Inactive Member Role Status Dates Kyaw Rocha MD Primary Care Provider Active Marjorie Burch MD Admit Provider, Attending Provider Active Team Status: Inactive Member Role Status Dates Kyaw Rocha MD Primary Care Provider Active Triny Carlisle MD Attending Provider Active Team Status: Inactive Member Role Status Dates Kyaw Rocha MD Primary Care Provide r, Attending Provider Active Start: May 17, 2024 End: May 17, 2024 Team Status: Inactive Member Role Status Dates Kyaw Rocha MD Primary Care Provide r, Attending Provider Active Start: July 17, 2024 End: July 17, 2024 Goals (unrecognized section and content) Goals may be documented in a n alternate section <item> Privacy Markings (unrecogniz ed section and content) Section Author: Sisi Ram PROHIBITION ON REDISCLOSURE OF CONFIDENTIAL INFORMATION This notice accompanies a disclosure of information concerning a client made to you with the consent of such client. FOR RECORDS PERTAINING TO PATIENTS WHO ARE OR HAVE BEEN ENROLLED IN A CHEMICAL DEPENDENCY/SUBSTANCEABUSE PROGRAM, SOME INFORMATION MAY BE OMITTED. This clinical summary was aggregated from multiple sources. Caution should be exercised in using it in the provision of clinical care. This summary normalizes information from multiple sources, and as a consequence, information in this document may materially change the coding, format and clinical context of patient data. In addition, data may be omitted in some cases. CLINICAL DECISIONS SHOULD BE BASED ON THE PRIMARY CLINICAL RECORDS. [employer] [facility]. provides no warranty or guarantee of the accuracy or completeness of information in this document.
== END 2024-08-15 08:14 | disposition home or self-care (01) ==
LOC: CT 08:14
PROVIDERS: PCP Family Medicine; Visit Provider Family Medicine
DX: R10.9 Unspecified abdominal pain (principal); R53.83 Other fatigue; N83.291 Other ovarian cyst, right side
CPT/HCPCS: 74177; Q9967

== ENCOUNTER 2025-08-13 08:25 | Emergency (ER) | payer OTHER, SELFPAY ==
--- OUTSIDE RECORDS SUMMARY | 2025-08-13 08:40 | XMS_ITS | Clinical Summary ---
Author Organization [employer] tem Address [id number] [address] [place] [address] Care Team Providers Care Palletizer Name Role Phone Donya Ye MD Primary Care Provider [phone] Allergies Active Allergy Reactions Criticality Noted Date Comments Hydrocodone-Acetaminophen 09/01/2020 anxiety Medications * This document contains information received from the source organization and may not represent a complete record from that organization. ondansetron ODT (ZOFRAN ODT) 4 mg disintegrating tablet Dissolve 1 tablet (4 mg total) on tongue as needed in the morning and 1 tablet (4 mg total) as needed at noon and 1 tablet (4 mg total) as needed in the evening for nausea. Do all this for up to 3 doses. 3 tablet 02/19/20 22 Active Additional Information Patient not taking.Reported on 02/05/2023 vit 93/iron fum/folic ( FORMULA ORAL) Take by mouth. Activ e LORazepam (ATIVAN) 0.5 mg tabletIndications: Generalized anxiety disorder Take 1 tablet (0.5 mg total) by mouth 2 (two) times a day as needed for anxiety. 20 tablet 08/01/20 23 Active traZODone (DESYREL) 50 mg tabletIndications: Insomnia due to other mental disorder Take 1 tablet (50 mg total) by mouth nightly as needed for sleep. 30 tablet 3 08/02/20 23 Active sertraline (ZOLOFT) 100 mg tabletIndications: Generalized anxiety disorder,Mild episode of recurrent major depressive disorder Take 2 tablets (200 mg total) by mouth in the morning. 60 tablet 3 08/02/20 Active busPIRone (BUSPAR) 10 mg tabletIndications: Generalized anxiety disorder Take 1 tablet (10 mg total) by mouth in the morning and 1 tablet (10 mg total) before bedtime. 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 06/29/2022 Resolved Problems Problem Noted Date Diagnosed Date Resolved Date 30 weeks gestation of 01/26/2023 05/05/2023 Family History Medical History Relation Name Comments Anxiety disorder Maternal Aunt Depression Maternal Aunt Alcohol abuse Maternal Grandfather Anxiety disorder Maternal Grandfather Depression Maternal Grandfather Anxiety disorder Maternal Grandmother Depression Maternal Grandmother Anxiety disorder Mother Depression Mother Relation Name Status Comments Maternal Aunt Maternal Grandfather Maternal Grandmother Mother Social History Tobacco Use Types Packs/Day Years Used Date Smoking Tobacco: Former Vaping/E-cigarettes Smokeless Tobacco: Never Tobacco Cessation:Counseling Given: Not Answered Alcohol Use Standard Drinks/Week Comments Not Currently 0 (1 standard drink = 0.6 oz pur e alcohol) social PHQ-2 Answer Date Recorded Total Score 6 01/26/2023 Childcare Answer Date Recorded Childcare Unknown 09/01/2020 Employment Answer Date Recorded Employment Unknown 09/01/2020 Hunger Screening Answer Date Recorded Within the past 12 months we worried whether our food would run out before we got money to buy more. Never True 01/26/2023 Within the past 12 months th e food we bought just didn't last and we didn't have money to get more. Never True 01/26/2023 Purpose - Life Answer Date Recorded Purpose and direction in life Unknown Comments No Sex and Gender Information Value Date Recorded Sex Assigned at Not on file Legal Sex Female 10:35 PM EDT Gender Identity Not on file Sexual Orientation Not on file Last Filed Vital Signs Vital Sign Reading Time Taken Comments Blood Pressure 119/54 02/05/2023 11:28 PM EDT Pulse 81 02/05/2023 11:28 PM EDT Temperature 36.6 C (97.9 F) 02/05/2023 11:13 PM EDT Respiratory Rate 16 02/05/2023 11:13 PM EDT Oxygen Saturation 98% 06/29/2022 6:53 AM EDT Inhaled Oxygen Concentration - - Weight 80.7 kg (178 lb) 02/05/2023 11:17 PM EDT Height 172.7 cm (5' 8 ) 02/05/2023 11:17 PM EDT Body Mass Index 27.06 02/05/2023 11:17 PM EDT Plan of Treatment Health Maintenance Due Date Last Done Comments Pap Smear 2019 Depression Screening 01/27/2024 01/26/2023 Adult BMI Screening 02/06/2024 02/05/2023 Tobacco Screening 08/19/2024 08/19/2023 COVID-19 Vaccine (3 - 2024-2 6 season) 2025 07/13/2021, 06/22/2021 Influenza Vaccine 07/22/2025 DTaP,Tdap and Td Vaccines (8 - Td or Tdap) 04/17/2029 04/17/2019, 06/28/2011, 07/15/2003, Additional history exists Medical Devices Not on file Insurance [employer] Care Teams Palletizer Relationship Specialty Start Date End Date Donya Ye MD [address] [place] [address] PCP - General Family Medicine 06/09/21
--- OUTSIDE RECORDS SUMMARY | 2025-08-13 08:40 | XMS_ITS | Patient Health Record ---
Author Organization [facility] Address [address] [place] [address] Care Team Providers Care Support Specialist Name Role Phone Lisette Mesa Primary Care Provider Allergies No Known Allergies Reason For Referral No Information Medications Medication SIG (Take, Route, Fr equency, Duration) Notes Start Date End Date Status Active Sertraline HCl 50 MG 1 tablet Orally Onc e a day; Duration: 90 days Active Social History Tobacco Use: Social History Observation Description Date Details (start date - stop date) Former Smoker NA - NA Tobacco Screen: Question Answer Notes Are you a: former smoker Alcohol Screening: Question Answer Notes Did you have a drink containing alcohol in the p ast year? No Points 0 Interpretation Negative Depression Screening (PHQ-9): Question Answer Notes Little interest or pleasure in doing things Elisha ral days Feeling down, depressed, or hopeless Several day s Trouble falling or staying asleep, or sleeping t oo much Not at all Feeling tired or having little energy Several da ys Poor appetite or overeating Not at all Feeling bad about yourself-o r that you are a failure or have let yourself or your family down Several days Trouble concentrating on thi ngs, such as reading the newspaper or watching television Not at all Moving or speaking so slowly that other people could have noticed. Or the opposite being so fidgety or restless that you have been moving around a lot more than usual Not at all Thoughts that you would be b vivek off , or of hurting yourself in some way Not at all Total Score 4 Intepretation Minimal Depression Problems Problem Type SNOMED Code ICD Code Onset Dates Problem Status W/U Status Risk Notes Problem Recurrent major depression (08023228) Major depressive disorder, recurrent episode with anxious distress (F33.9) Active confirmed Plan Of Treatment No Information Insurance Providers Payer Name Payer Address Payer Phone Subscriber Number Group Number Insured Name Patient Relationship to Insured Coverage Start Date Coverage End Date ANTHEM Primary [address] [place] [address] [id number] SHERINEARLETHAE Self - patient is the insured 3 [employer] [place] Medicaid [address] [place] [address] [id number] SHERINEALYSON Hu Self - patient is the insured 3 [facility] [address] [place] [address] [id number] SHERINEALYSON Hu Self - patient is the insured 3 [facility] [employer]- termed 22 [address] [place] [phone] [id number] CSOHIO SHERINEARLETH HuAE Self - patient is the insured 2 3 [employer] MEDICAID [employer] after [employer]- termed 22 [address] [place] [address] [id number] ALYSON BASURTO Self - patient is the insured 2 3 Medical (General) History Medical History History ICD Code hx of post- chronic depression Surgical History Surgery Date(Month/Year) knee surgery Gallbladder removed 09/2019 Hospitalization History Reason Date(Month/Year) [place] for medication adjustments 08/06- 08/09/2022 [facility]: [facility] 10/2019 Labor and delivery 05/2019
--- OUTSIDE RECORDS SUMMARY | 2025-08-13 08:40 | XMS_ITS | Encounter Summary ---
Author Organization [facility] Address [address] [place] [address] Care Team Providers Care Dry Cleaner Helper Name Role Phone Natty Lucio MD Primary Care Provide r Donya Ye MD Primary Care Provider [phone] Source Comments In the event this information is protected by the Federal Confidentiality of Alcohol and Drug AbusePatient Records regulations: The Federal rules restrict any use of the information to criminally investigate or prosecute any alcohol or drug abuse patient.[facility] Encounter Details Date Type Department Care Team (Late st Contact Info) Description 03/27/2022 [place] [address] Provider, [facility] MRI Screening Questionnaire Completion Required Social History Tobacco Use Types Packs/Day Years Used Date Smoking Tobacco: Never Smokeless Tobacco: Never Alcohol Use Standard Drinks/Week Comments Not Currently 0 (1 standard drink = 0.6 oz pur e alcohol) PHQ-2 Answer Date Recorded PHQ2 Score 0 10/22/2019 Area Deprivation Index Answer Date Matthew rded National Score (1-100), lower number is lower ri sk Not on file 10/27/2020 State Score (1-10), lower number is lower risk N ot on file 10/27/2020 Data from: https://www.neighborhoodatlas.[facility]/. 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 No / Unsure 03/29/2022 9:32 AM EDT documented as of this encounter Functional Status * Are you deaf or do you have serious difficulty hearing? Answer Date of Assessment Author No 10/24/2019 3:21 PM Nina Quintanilla RN * Are you blind or do you have serious difficulty seeing, even when wearing glasses? Answer Date of Assessment Author No 10/24/2019 3:21 PM Nina Quintanilla RN * Do you have serious difficulty walking or climbing stairs? Answer Date of Assessment Author No 10/24/2019 3:21 PM Nina Quintanilla RN * Do you have difficulty dressing or bathing? Answer Date of Assessment Author No 10/24/2019 3:21 PM Nina Quintanilla RN * Because of a physical, mental, or emotional condition, do you have difficulty doing errands alone such as visiting a doctor's office or shopping? Answer Date of Assessment Author No 10/24/2019 3:21 PM Nina Quintanilla RN documented as of this encounter Mental Status * Because of a physical, mental, or emotional condition, do you have serious difficulty concentrating, remembering, or making decisions? Answer Entry Date Author No 10/24/2019 3:21 PM Nina Quintanilla RN documented in this encounter Plan of Treatment Not on file documented as of this encounter Visit Diagnoses Not on filedocumented in this encounter Care Teams Dry Cleaner Helper Relationship Specialty Start Date End Date Natty Lucio MD [address] [place] [address] PCP - General Internal Medicine 08/15/19 04/12/22 Donya Ye MD [address] [place] [address] PCP - General Family Medicine 04/13/22 documented as of this encounter
--- OUTSIDE RECORDS SUMMARY | 2025-08-13 08:40 | XMS_ITS | Encounter Summary ---
Author Organization [facility] Address [id number] [address] [place] [address] Care Team Providers Care School Photographer Name Role Phone Donya Ye MD Primary Care Provider [phone] Reason for Visit * Reason Comments Med Change Request Encounter Details Date Type Department Care Team (Late st Contact Info) Description 09/02/2023 Refill [facility] [address] [place] [address] Lia Paris, BEAUTY CONSULTANT-JALOUSIES INSTALLER [address] [place] [address] Generalized anxiety disorder Social History Tobacco Use Types Packs/Day Years Used Date Smoking Tobacco: Former Vaping/E-cigarettes Smokeless Tobacco: Never Alcohol Use Standard Drinks/Week [...] on file Sexual Orientation Not on file documented as of this encounter Miscellaneous Notes * Telephone Encounter - Xuan Pappaslenorafarida - 09/02/2023 7:15 PM EDT Sent on 08/19/2023 as #60/1RF. Lobster Catcher called the pharmacy to verify the 30DS went through insurance.Paddy at [facility] confirmed. documented in this encounter Plan of Treatment Not on file documented as of this encounter Visit Diagnoses Diagnosis Generalized anxiety disorder documented in this encounter Additional Health Concerns Assessment Noted Time PHQ-9 Depression Total Score: 6 01/27/20 23 1:44 PM EST documented as of this encounter Care Teams School Photographer Relationship Specialty Start Date End Date Donya Ye MD [address] [place] [address] PCP - General Family Medicine 06/09/21 documented as of this encounter
--- OUTSIDE RECORDS SUMMARY | 2025-08-13 08:40 | XMS_ITS | Encounter Summary ---
Author Organization [facility] Address [address] [place] [address] Care Team Providers Care Debt Collection Specialist Name Role Phone Natty Lucio MD Primary Care Provide r Donya Ye MD Primary Care Provider [phone] Source Comments In the event this information is protected by the Federal Confidentiality of Alcohol and Drug AbusePatient Records regulations: The Federal rules restrict any use of the information to criminally investigate or prosecute any alcohol or drug abuse patient.[facility] Encounter Details Date Type Department Care Team (Late st Contact Info) Description 11/05/2020 Patient Msg Endocrinology [address] [place] [address] Provider, [facility]cf Appointment Social History Tobacco Use Types Packs/Day Years [...] N ot on file 10/27/2020 Data from: https://www.neighborhoodatlas.[facility]/. 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 Unable to assess 10/29/2020 9:44 AM EST documented as of this encounter Functional Status [...] on filedocumented in this encounter Care Teams Debt Collection Specialist Relationship Specialty Start Date End Date Natty Lucio MD [address] [place] [address] PCP - General Internal Medicine 08/15/19 04/12/22 Donya Ye MD [address] [place] [address] PCP - General Family Medicine 04/13/22 documented as of this encounter
--- OUTSIDE RECORDS SUMMARY | 2025-08-13 08:40 | XMS_ITS | Encounter Summary ---
Author Organization [facility] Address [address] [place] [address] Care Team Providers Care Beef Cattle Grazier Name Role Phone Natty Lucio MD Primary Care Provide r Donya Ye MD Primary Care Provider [phone] Source Comments In the event this information is protected by the Federal Confidentiality of Alcohol and Drug AbusePatient Records regulations: The Federal rules restrict any use of the information to criminally investigate or prosecute any alcohol or drug abuse patient.[facility] Encounter Details Date Type Department Care Team (Late st Contact Info) Description 04/12/2022 Patient Msg [address] [place] [address] Provider, Ccdelvin Pre procedure instructions 04/15 Social History Tobacco Use Types Packs/Day Years Used Date Smoking Tobacco: Never Smokeless Tobacco: Never Alcohol Use Standard Drinks/Week Comments Not Currently 0 (1 standard drink = 0.6 oz pur e alcohol) PHQ-2 Answer Date Recorded PHQ2 Score 0 10/22/2019 Area Deprivation Index Answer Date Matthew rded National Score (1-100), lower number is lower ri sk 77 04/14/2022 State Score (1-10), lower number is lower risk N ot on file 04/14/2022 Data from: https://www.neighborhoodatlas.[facility]/. 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 No / Unsure 04/13/2022 5:49 PM EDT documented as of this encounter Functional [...] on filedocumented in this encounter Care Teams Beef Cattle Grazier Relationship Specialty Start Date End Date Natty Lucio MD [address] [place] [id number] PCP - General Internal Medicine 08/15/19 04/12/22 Donya Ye MD [address] [place] [address] PCP - General Family Medicine 04/13/22 documented as of this encounter
--- OUTSIDE RECORDS SUMMARY | 2025-08-13 08:40 | XMS_ITS | Encounter Summary ---
Author Organization [facility] Address [id number] [address] [place] [address] Care Team Providers Care Valver Name Role Phone Donya Ye MD Primary Care Provider [phone] Encounter Details Date Type Department Care Team ([facility] Contact Info) Description 10/23/2021 [facility] [address] [facility] [address] [place] [id number] Dina Moseley APRN-PHOEBE [address] [facility] [address] [place] [address] Social History Tobacco Use Types Packs/Day Years Used Date Smoking Tobacco: Never Smokeless Tobacco: Never Alcohol Use Standard Drinks/Week Comments Yes 0 (1 standard drink = 0.6 oz pur e alcohol) social Childcare Answer Date Recorded Childcare Unknown 09/01/2020 Employment Answer Date Recorded Employment Unknown 09/01/2020 Purpose - Life Answer Date Recorded Purpose and direction in life Unknown Comments No Sex and Gender Information Value Date Recorded Sex Assigned at Not on file Legal Sex Female 10:35 PM EDT Gender Identity Not on file Sexual Orientation Not on file COVID-19 Exposure Response Date Recorded In the last month, have you been in contact with someone who was confirmed or suspected to have Coronavirus / COVID-19? No / Unsure 10/20/2021 11:14 AM EST documented as of this encounter Miscellaneous Notes * Telephone Encounter - Diane Malindaconstancerenee - 10/23/2021 3:42 PM EST Dina - Patient called and stated that she is having yellowish loose stools, abdominal pains (faint), no fever. Patient reports she did vomit yesterday as well. Symptoms all started yesterday. Patients son did recently test positive for RSV as well, so she is having some sinus issues. * Telephone Encounter - MARCO Carrillo - 10/23/2021 3:42 PM EST Can you call Dorcas and let her know I placed an order to check stool for Cdiff. Also please verify with her that her [facility] nurse removed her line. * Telephone Encounter - Donna Palacio CMA - 10/23/2021 3:42 PM EST Attempted to contact patient, voicemail box is full. * Telephone Encounter - Donna Palacio CMA - 10/23/2021 3:42 PM EST Left voicemail for patient to call office back. * Telephone Encounter - Donna Palacio CMA - 10/23/2021 3:42 PM EST Patient called back and was advised of message. She stated that her [facility] did remove her line. * Telephone Encounter - MARCO Carrillo - 10/23/2021 3:42 PM EST Thank you documented in this encounter Plan of Treatment Not on file documented as of this encounter Visit Diagnoses Not on filedocumented in this encounter Care Teams Valver Relationship Specialty Start Date End Date Donya Ye MD [address] [place] [phone] PCP - General Family Medicine 06/09/21 documented as of this encounter
--- OUTSIDE RECORDS SUMMARY | 2025-08-13 08:41 | XMS_ITS | Clinical Summary ---
Author Organization [facility] Address [address] [place] [address] Phone Care Team Providers Care Subscription Agent Name Role Phone Donya Ye MD Primary Care Provider [phone] Social History Tobacco Use Types Packs/Day Years Used Date Smoking Tobacco: Never Assessed Comments Unknown Sex and Gender Information Value Date Recorded Sex Assigned at Not on file Legal Sex Female 4:27 AM EST Gender Identity Not on file Sexual Orientation Not on file Plan of Treatment Health Maintenance Due Date Last Done Comments HIV Screening 1998 Yearly Adult Physical 1998 MMR Vaccines (1 of 1 - Stand woodrow series) 1999 Hepatitis C Screening 2016 Hepatitis B Vaccines (1 of 3 - 19+ 3-dose series) 2017 Cervical Cancer Screening 2019 HPV/Cotest 2019 Pap Smear 2019 DTaP/Tdap/Td Vaccines (1 - Tdap) 2020 HPV Vaccines (1 - 3-dose sta ndard series) 2025 COVID-19 Vaccine (1 - 2023-2 5 season) 2025 Influenza Vaccine (#1) 2025 Lipid Panel 08/07/2027 08/07/2022 Zoster Vaccines (1 of 2) 2048 HIB Vaccines Aged Out No longer eligi ble based on patient's age to complete this topic Hepatitis A Vaccines Aged Out No long er eligible based on patient's age to complete this topic IPV Vaccines Aged Out No longer eligi ble based on patient's age to complete this topic Meningococcal Vaccine Aged Out No jelani iftikhar eligible based on patient's age to complete this topic Pneumococcal Vaccine: Pediat rics and At-Risk Adult Patients Aged Out No longer dexter gible based on patient's age to complete this topic Rotavirus Vaccines Aged Out No longer eligible based on patient's age to complete this topic Procedures Procedure Name Priority Date/Time Associated Diagnosis Comments LIPID PANEL Routine 08/07/2022 9:00 AM EDT from Last 3 Months or Most Recently Relevant to Health Maintenance Results * Lipid Panel (08/07/2022 9:00 AM EDT) Cholesterol 122 0 - 199 mg/dL [facility] Comment: . AGE DESIRABLE BORDERLINE HIGH HIGH [...] be performed immediately prior to Metamizole dosing. HDL 46.0 mg/dL [facility] Comment: . AGE VERY LOW LOW NORMAL HIGH 0-19 Y < 35 < 40 40-45 ---- 20-24 Y ---- < 40 >45 ---- >24 Y ---- < 40 40-60 >60 . Cholesterol/HDL Ratio 2.7 [facility] Comment: REF VALUES DESIRABLE < 3.4 HIGH RISK > 5.0 LDL 61 0 - 119 mg/dL [facility] Comment: . NEAR BORD AGE DESIRABLE OPTIMAL HIGH HIGH VERY HIGH 0-19 Y 0 - 109 --- 110-129 >/= 130 ---- 20-24 Y 0 - 119 --- 120-159 >/= 160 ---- >24 Y 0 - 99 100-129 130-159 160-189 >/=190 . VLDL 15 0 - 40 mg/dL [facility] Triglycerides 76 0 - 149 mg/dL [facility] Comment: . AGE DESIRABLE BORDERLINE HIGH HIGH [...] be performed immediately prior to Metamizole dosing. 08/07/2022 9:00 AM EDT 08/07/2022 9:05 AM EDT us Hayes Guerra MD LAB BLOOD ORDERABLES Final Resul t [facility] [address] [place], [place] [id number] from Last 3 Months or Most Recently Relevant to Health Maintenance Care Teams Subscription Agent Relationship Specialty Start Date End Date Donya Ye MD [address] [place] [address] [place] [address] PCP - General 02/24/12
--- OUTSIDE RECORDS SUMMARY | 2025-08-13 08:41 | XMS_ITS | Encounter Summary ---
Author Organization [email or web address] [employer] [facility] Address [id number] [address] [place] [address] Care Team Providers Care Propellant Assembler Name Role Phone Donya Ye MD Primary Care Provider [phone] Encounter Details Date Type Department Care Team (Late st Contact Info) Description 09/14/2021 Orders Only [facility] [address] [facility] [address] [place] [id number] Tanna Duke, DIESEL ENGINE ERECTOR-BALLING HEAD TENDER [address] [place] [address] Diarrhea, unspecified type (Primary Dx) Social History Tobacco Use Types Packs/Day Years [...] on file documented as of this encounter Plan of Treatment Not on file documented as of this encounter Visit Diagnoses Diagnosis Diarrhea, unspecified type- Primary documented in this encounter Care Teams Propellant Assembler Relationship Specialty Start Date End Date Donya Ye MD [address] [place] [address] PCP - General Family Medicine 06/09/21 documented as of this encounter
--- OUTSIDE RECORDS SUMMARY | 2025-08-13 08:41 | XMS_ITS | Clinical Summary ---
Author Organization [facility] Address [address] [place] [address] Care Team Providers Care Screener And Blender Name Role Phone Donya Ye MD Primary Care Provider [phone] Allergies Active Allergy Reactions Criticality Noted Date Comments Hydrocodone-Acetamin ophen Anxiety,Hallucinations Low 09/24/2016 Respiratory Distress Medications sertraline (Zoloft) 50 MG tablet 1 (one) time each day at the same time. 09/30/2022 Active Drospirenone (Slynd) 4 MG tabletIndications: Family planning counseling,Oral contraception initial prescription Take 4 mg by mouth in the morning. 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 01/26/2023 Depression 01/02/2020 Diarrhea 10/23/2019 Headache 10/23/2019 Family History Medical History Relation Name Comments Heart murmur Sister Relation Name Status Comments Brother Alive Father Alive Mother Alive Sister Alive Social History Tobacco Use Types Packs/Day Years Used Date Smoking Tobacco: Never Smokeless Tobacco: Never Tobacco Cessation:Counseling Given: Not Answered Alcohol Use Standard Drinks/Week Comments Yes 0 (1 standard drink = 0.6 oz pur e alcohol) PHQ-2 Answer Date Recorded Patient Health Questionnaire-2 Score 0 04/27/2023 Meridian Depression Scale Answer Date Recorded Meridian Depression Scale Total 7 04/27/2023 The thought of harming myself has occurred to me . Never 04/27/2023 Comments Unknown Sex and Gender Information Value Date Recorded Sex Assigned at Not on file Legal Sex Female 9:45 PM EDT Gender Identity Not on file Sexual Orientation Not on file Last Filed Vital Signs Vital Sign Reading Time Taken Comments Blood Pressure 110/70 04/27/2023 2:33 PM EDT Pulse 91 05/09/2019 8:25 AM EDT Temperature - - Respiratory Rate 18 05/09/2019 8:25 AM EDT Oxygen Saturation 99% 05/09/2019 8:25 AM EDT Inhaled Oxygen Concentration - - Weight 77.1 kg (170 lb) 04/27/2023 2:33 PM EDT Height 172.7 cm (5' 8 ) 07/27/2022 12:00 PM EDT Body Mass Index 25.85 07/27/2022 12:00 PM EDT Plan of Treatment Health Maintenance Due Date Last Done Comments Influenza Vaccine (#1) 2025 Insurance BS Care Teams Screener And Blender Relationship Specialty Start Date End Date Donya Ye MD PCP - General Family Medicine 04/27/23
--- OUTSIDE RECORDS SUMMARY | 2025-08-13 08:41 | XMS_ITS | Clinical Summary ---
Author Organization [facility] Address [address], [address] [place] [address] Care Team Providers Care Fence Gate Assembler Name Role Phone Donya Ye MD Primary Care Provider [phone] Allergies Active Allergy Reactions Criticality Noted Date Comments Hydrocodone-Acetaminophen 09/24/2016 Medications LORazepam (ATIVAN) 0.5 MG tablet 0 Active venlafaxine (EFFEXOR) 75 MG tablet Take 75 mg by mouth daily Active metFORMIN (GLUCOPHAGE-XR) 750 MG extended release tablet Take 750 mg by mouth daily (with breakfast) 0 Active drospirenone-et hinyl estradiol (LANE 28) 3-0.03 MG TABSIndications :Irregular menses Take 1 tablet by mouth daily 1 packet 3 0 Active Additional Information Patient not taking.Reported on 01/27/2021 clotrimazole-be tamethasone (LOTRISONE) 1-0.05 % creamIndication s:Vulvar irritation Apply topically 2 times daily. 1 Tube 1 1 Active Additional Information Patient not taking.Reported on 12/17/2020 fluconazole (DIFLUCAN) 150 MG tabletIndicatio ns:Yeast vaginitis Take 1 tablet daily for 3 days. 3 tablet 1 Active Additional Information Patient not taking.Reported on 12/17/2020 cephALEXin (KEFLEX) 500 MG capsuleIndicati ons:Abscess, Mesilla's gland Take 1 capsule by mouth 3 times daily 21 capsule Active Additional Information Patient not taking.Reported on 01/27/2021 Active Problems Problem Noted Date Diagnosed Date Depression 01/02/2020 Diet controlled gestational diabetes mellitus (GDM) in third trimester 04/17/2019 Normal delivery Resolved Problems Problem Noted Date Diagnosed Date Resolved Date contractions 05/24/2019 019 Abdominal pain 03/18/2019 05/25/2019 Immunizations Immunization Administration Dates Next Due MMR, PRIORIX, M-M-R II, (age 12m+), SC, 0.5mL () TDaP, ADACEL (age 10y-64y), BOOSTRIX (age 10y+), IM, 0.5mL 04/17/2019 Family History Medical History Relation Name Comments Deep Vein Thrombosis Maternal Grandfather Heart Surgery Maternal Grandfather Hypertension Maternal Grandfather Lung Cancer Maternal Grandfather Breast Cancer Maternal Grandmother Other Other No family h/o o varian or breast cancer. Relation Name Status Comments Brother Alive Father Alive Maternal Grandfather Alive Maternal Grandmother Alive Mother Alive Other Other Paternal Grandfather Alive Paternal Grandmother Alive Sister Alive murmur Social History Tobacco Use Types Packs/Day Years Used Date Smoking Tobacco: Never Smokeless Tobacco: Never Alcohol Use Standard Drinks/Week Comments No 0 (1 standard drink = 0.6 oz pur e alcohol) PHQ-2 Answer Date Recorded PHQ-2 Score 13 01/02/2020 Comments No Sex and Gender Information Value Date Recorded Sex Assigned at Not on file Legal Sex Female 10:29 AM EST Gender Identity Not on file Sexual Orientation Not on file Last Filed Vital Signs Vital Sign Reading Time Taken Comments Blood Pressure 118/74 02/04/2021 1:21 PM EDT Pulse 70 09/04/2020 7:43 PM EDT Temperature 36.3 C (97.4 F) 09/04/2020 3:43 PM EDT Respiratory Rate 16 09/04/2020 7:43 PM EDT Oxygen Saturation 100% 09/04/2020 7:43 PM EDT Inhaled Oxygen Concentration - - Weight 80.5 kg (177 lb 6.4 oz) 02/04/2021 1:21 P M EDT Height 172.7 cm (5' 8 ) 02/04/2021 1:21 PM EDT Body Mass Index 26.97 02/04/2021 1:21 PM EDT Plan of Treatment Not on file Insurance [employer] [place] Advance Directives * Full Code (Latest Code Status on File) Date Activated Date Inactivated Comments 05/23/2019 2:52 PM 05/25/2019 4:14 PM * Full Code Date Activated Date Inactivated Comments 05/23/2019 5:05 AM 05/23/2019 2:52 PM * Full Code Date Activated Date Inactivated Comments 04/26/2019 4:09 PM 04/26/2019 9:44 PM * Full Code Date Activated Date Inactivated Comments 03/17/2019 10:51 PM 03/18/2019 3:31 AM Care Teams Fence Gate Assembler Relationship Specialty Start Date End Date Donya Ye MD [address] [place] [address] PCP - General Family Medicine 12/21/21
--- OUTSIDE RECORDS SUMMARY | 2025-08-13 08:41 | XMS_ITS | Encounter Summary ---
Author Organization [facility] Address [address] [place] [address] Care Team Providers Care Deli Associate Name Role Phone Donya Ye MD Primary Care Provider [phone] Reason for Visit * Reason Comments Med Change Request Encounter Details Date Type Department Care Team (Late st Contact Info) Description 04/27/2023 [facility] [address] [place] [phone] Nicole Palacios, DO [address] [facility] [address] [place] [address] Family planning counseling; Oral contraception initial prescription Social History Tobacco Use Types Packs/Day Years Used Date Smoking Tobacco: Never Smokeless Tobacco: Never Alcohol Use Standard Drinks/Week Comments Yes 0 (1 standard drink = 0.6 oz pur e alcohol) PHQ-2 Answer Date Recorded Patient Health Questionnaire-2 Score 0 04/27/2023 [place] Depression Scale Answer Date Recorded [place] Depression Scale Total 7 04/27/2023 The thought of harming myself has occurred to me . Never 04/27/2023 Comments No Sex and Gender Information Value Date Recorded Sex Assigned at Not on file Legal Sex Female 9:45 PM EDT Gender Identity Not on file Sexual Orientation Not on file documented as of this encounter Functional Status * Over the past 2 weeks, how often have you been bothered by any of the following problems? Question Answer Date of Assessment Author Little interest or pleasure in doing things Not at all 04/27/2023 2:31 PM EDT Aniyah Saenz RN Feeling down, depressed, or hopeless Not at all 04/27/2023 2:31 PM EDT Aniyah Saenz RN Patient Health Questionnaire -2 Score 0 04/27/2023 2:31 PM EDT Aniyah Saenz RN documented as of this encounter Plan of Treatment Not on file documented as of this encounter Visit Diagnoses Diagnosis Family planning counseling Other general counseling and advice for contraceptive management Oral contraception initial prescription documented in this encounter Care Teams Deli Associate Relationship Specialty Start Date End Date Donya Ye MD PCP - General Family Medicine 04/27/23 documented as of this encounter
--- OUTSIDE RECORDS SUMMARY | 2025-08-13 08:41 | XMS_ITS | Clinical Summary ---
Author Organization [facility] Address [facility] [place] [address] Care Team Providers Care Bronc Buster Name Role Phone Donya Ye MD Primary Care Provider [phone] Allergies Active Allergy Reactions Criticality Noted Date Comments Hydrocodone-Acetaminophen Mental Status Change 09/24/2016 Medications ARIPiprazole (ABILIFY) 15 mg tablet Take 1 tablet by mouth once daily. 0 Active sertraline (ZOLOFT) 100 mg tablet Take 1.5 tablets by mouth once daily. 0 Active traZODone (DESYREL) 50 mg tablet Take 1 tablet by mouth daily at bedtime. 0 Active venlafaxine ER (EFFEXOR XR) 75 mg 24 hr capsule Take 1 capsule by mouth once daily. 0 Active Additional Information Patient not taking.Reason: Course of Therapy Completed, Reported on 11/01/2022 Cranberry 400 mg cap Take 1 capsule by mouth once daily. 0 Active metFORMIN ER (GLUCOPHAGE XR) 750 mg 24 hr tablet Take 1 tablet by mouth daily with breakfast. 90 tablet 3 0 Active blood sugar diagnostic (FREESTYLE LITE STRIPS) test strip TEST BLOOD SUGARS 2 TIMES DAILY 200 Each 11 0 Active Additional Information Patient not taking.Reason: Course of Therapy Completed, Reported on 11/01/2022 lancets (FREESTYLE LANCETS) 28 gauge 1 Each twice daily. 200 Each 11 0 Active Additional Information Patient not taking.Reason: Course of Therapy Completed, Reported on 11/01/2022 DULoxetine (CYMBALTA) 60 mg capsule Take 60 mg by mouth once daily. Active ARIPiprazole (ABILIFY) 2 mg tablet Take 2.5 mg by mouth q 24 HR. 2 Active sertraline (ZOLOFT) 50 mg tablet 50 mg. 2 Active Active Problems Problem Noted Date Diagnosed Date Reactive hypoglycemia 10/30/2019 History of gestational diabetes mellitus (GDM) 1 12/31/2018 Normal delivery 10/23/2019 Night sweats 10/23/2019 Assessment & Plan (10/23/2019 7:51 PM EST): Patient notes ongoing night sweats soaking her bedclothes and pajamas that here in the hospital have not been temporally associated with very low blood sugars, and that generally are associated here and at home with headache, pallor, and sometimes episodes of diarrhea. She had her gallbladder recently removed for these symptoms, without improvement. Differential is broad, but includes lymphoma, pheo, less likely carcinoid (included only due to episodes of headache and diarrhea) - monitor - 24h urine for 5-HIAA levels, chromogranin a pending, serum metanephrines pending - CXR without evidence of mediastinal widening - physical exam not revealing, will do LAD check prior to discharge - ESR/CRP reassuring for significant inflammatory process Diarrhea 10/23/2019 Headache 10/23/2019 Resolved Problems Problem Noted Date Diagnosed Date Resolved Date Diet controlled gestational diabetes mellitus (GDM) in third trimester 04/17/2019 10/30/2019 Family History Medical History Relation Comments Heart Maternal Grandfather Hyperlipidemia Maternal Grandfather Hypertension Maternal Grandfather Lung Cancer Maternal Grandfather Hypertension Maternal Grandmother Relation Status Comments Maternal Grandfather Maternal Grandmother Social History Tobacco Use Types Packs/Day Years Used Date Smoking Tobacco: Never Smokeless Tobacco: Never Tobacco Cessation:Counseling Given: No Alcohol Use Standard Drinks/Week Comments Not Currently 0 (1 standard drink = 0.6 oz pur e alcohol) PHQ-2 Answer Date Recorded PHQ-2 score 1 06/08/2022 Area Deprivation Index Answer Date Matthew rded National Score (1-100), lower number is lower ri sk 77 12/15/2022 State Score (1-10), lower number is lower risk N ot on file 12/15/2022 Data from: https://www.neighborhoodatlas.medicine.[facility]/. 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) Not on file Not on file Not on file Last Filed Vital Signs Vital Sign Reading Time Taken Comments Blood Pressure 117/50 11/01/2022 2:06 PM EST Pulse 77 11/01/2022 2:06 PM EST Temperature 36.7 C (98.1 F) 10/05/2022 3:40 PM EST Respiratory Rate 19 10/05/2022 6:06 PM EST Oxygen Saturation 99% 10/05/2022 6:06 PM EST Inhaled Oxygen Concentration - - Weight 76.7 kg (169 lb) 11/29/2022 1:01 PM EST Height 172.7 cm (5' 8 ) 11/01/2022 2:06 PM EST Body Mass Index 25.7 11/01/2022 2:06 PM EST Plan of Treatment Health Maintenance Due Date Last Done Comments Anxiety Screening 2016 Depression Screening 2016 HIV Screening 2016 Hepatitis C Screening 2016 Cervical Cancer Screening 2019 HPV Vaccine (1 - 3-dose SCDM series) 2025 Influenza Vaccine (#1) 2025 DTaP,Tdap,Td Vaccine (8 - Td or Tdap) 04/17/2029 04/17/2019, 06/28/2011, 07/15/2003, Additional history exists Hepatitis B Vaccine Completed 01/16/1999, 1998, 1998 Insurance BLUE CARD PPO [employer] Care Teams Bronc Buster Relationship Specialty Start Date End Date Donya Ye MD PCP - General Family Medicine 04/13/22
--- OUTSIDE RECORDS SUMMARY | 2025-08-13 08:41 | XMS_ITS | Encounter Summary ---
Author Organization [facility] Address [address], [address] [place] [address] Care Team Providers Care Charging Car Operator Name Role Phone Donya Ye MD Primary Care Provider [phone] Reason for Visit * Reason Comments Medication Refill Encounter Details Date Type Department Care Team (Late st Contact Info) Description 02/17/2021 [facility] OBSTETRICS & GYNECOLOGY [address] [place] [address] [address] [place] [address] Kirsten Hines, SLEEVE MAKER - [facility] [address] [place] [address] Medication Refill Social History Tobacco Use Types Packs/Day Years [...] have Coronavirus / COVID-19? No / Unsure 02/04/2021 1:21 PM EDT documented as of this encounter Plan of Treatment Not on file documented as of this encounter Visit Diagnoses Diagnosis Irregular menses Irregular menstrual cycle documented in this encounter Care Teams Charging Car Operator Relationship Specialty [place] [address] [place] [address] PCP - General Family Medicine 12/21/21 documented as of this encounter
--- OUTSIDE RECORDS SUMMARY | 2025-08-13 08:41 | XMS_ITS | Encounter Summary ---
Author Organization [facility] Address [address] [place] [address] Care Team Providers Care Metal Machine Setter Name Role Phone Donya Ye MD Primary Care Provider [phone] Encounter Details Date Type Department Care Team (Late st Contact Info) Description 09/22/2016 PAT Telephone [facility] PRE ADMIT [address] [place] [address] Joelle Reyez, RN Social History Tobacco Use Types Packs/Day Years [...] on filedocumented in this encounter Care Teams Metal Machine Setter Relationship Specialty Start Date End Date Donya Ye MD [address] [place] [address] PCP - General Family Medicine 12/21/21 documented as of this encounter
--- OUTSIDE RECORDS SUMMARY | 2025-08-13 08:41 | XMS_ITS | Encounter Summary ---
Author Organization [facility] Address [address] [place] [address] Care Team Providers Care Mineral Engineer Name Role Phone Donya Ye MD Primary Care Provider [phone] Encounter Details Date Type Department Care Team (Late st Contact Info) Description 09/27/2016 FollowUp Telephone Encounter [facility] General Surgery [address] [place] [address] Karolina Baker RN Social History Tobacco Use Types Packs/Day Years Used Date Smoking Tobacco: Never Alcohol Use Standard Drinks/Week Comments No 0 (1 standard drink = 0.6 oz pur e alcohol) Comments Unknown Sex and Gender Information Value Date Recorded Sex Assigned at Not on file Legal Sex Female 10:29 AM EST Gender Identity Not on file Sexual Orientation Not on file documented as of this encounter Plan of Treatment Not on file documented as of this encounter Visit Diagnoses Not on filedocumented in this encounter Care Teams Mineral Engineer Relationship Specialty Start Date End Date Donya Ye MD [address] [place] [address] PCP - General Family Medicine 12/21/21 documented as of this encounter
--- OUTSIDE RECORDS SUMMARY | 2025-08-13 08:41 | XMS_ITS | Encounter Summary ---
Author Organization [facility] Address [address] [place] [address] Care Team Providers Care Engine Dispatcher Name Role Phone Donya Ye MD Primary Care Provider [phone] Reason for Visit * Reason Comments Medication Refill Encounter Details Date Type Department Care Team (Late st Contact Info) Description 06/25/2019 [facility] BELT BUILDER HELPER [address] [facility] [place] [phone] Kirsten Hines, [facility] - [place] [address] [place] [address] Medication Refill Social History Tobacco Use Types Packs/Day Years Used Date Smoking Tobacco: Never Smokeless Tobacco: Never Alcohol Use Standard Drinks/Week Comments No 0 (1 standard drink = 0.6 oz pur e alcohol) Comments No Sex and Gender Information Value Date Recorded Sex Assigned at Not on file Legal Sex Female 10:29 AM EST Gender Identity Not on file Sexual Orientation Not on file documented as of this encounter Plan of Treatment Not on file documented as of this encounter Visit Diagnoses Diagnosis care and examination Routine follow-up documented in this encounter Care Teams Engine Dispatcher Relationship Specialty Start Date End Date Donya Ye MD [address] [facility] [place] [address] PCP - General Family Medicine 12/21/21 documented as of this encounter
--- OUTSIDE RECORDS SUMMARY | 2025-08-13 08:41 | XMS_ITS | Encounter Summary ---
Author Organization [facility] Address [address] [place] [address] Care Team Providers Care Consumer Experience Consultant Name Role Phone Donya Ye MD Primary Care Provider [phone] Source Comments In the event this information is protected by the Federal Confidentiality of Alcohol and Drug AbusePatient Records regulations: The Federal rules restrict any use of the information to criminally investigate or prosecute any alcohol or drug abuse patient.[facility] Encounter Details Date Type Department Care Team (Latest Contact Info) Description 10/01/2022 H&P External-NonCCF Provider, External, PA-C Do not enter address information under generic External Provider. Social History Tobacco Use Types Packs/Day Years [...] N ot on file 04/14/2022 Data from: https://www.neighborhoodatlas.medicine.[facility].edu/. 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
--- OUTSIDE RECORDS SUMMARY | 2025-08-13 08:41 | XMS_ITS | Patient Health Record ---
Author Organization [facility] Address [address] [place] [address] Care Team Providers Care Information Assurance Specialist Name Role Phone Donya Ye Primary Care Provider Unavailabl e Allergies No Known Allergies Reason For Referral No Information Medications Medication SIG (Take, Route, Fr equency, Duration) Notes Start Date End Date Status Ativan 0.5 MG 1 tablet at bedtime as needed Orally Once a day Active tiZANidine HCl 2 MG 1 tablet as needed O rally Three times a day; Duration: 14 days 08/05/2021 A ctive CeleXA 20 MG 1 tablet Orally Once a day; Duration: 30 day(s) Active Social History Tobacco Use: Social History Observation Description Date Details (start date - stop date) Unknown Tobacco Use/Smoking Question Answer Notes Patient is a Uses tobacco in other forms Problems Problem Type SNOMED Code ICD Code Onset Dates Problem Status W/U Status Risk Notes Problem Anxiety (56021623) Anxiety (F41.9) Active confirmed Problem Discitis (disorder) (2706954) Diskitis (M46.40) Active confirmed Problem Degeneration of lumbar intervertebral disc (55614347) 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 Problem Schmorl's nodes of lumbar region (78207961) 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) Active confirmed Problem Pain due to vascular prosthetic devices, implants and grafts, initial encounter (T82.481G) Active confirmed Problem Osteomyelitis of lumbar vertebra (M46.26) Active confirmed Problem 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 Problem Osteomyelitis of vertebra (192340305) Osteomyelitis of spine (M46.20) Active confirmed Problem Intervertebral disc disorder (96267516) Schmorl's node (M51.9) Active confirmed Plan Of Treatment Pending Test Test Name Order Date MRI Lumbar Spine w/wo contrast 2 CHLAMYDIA/GC BY PCR 06/28/2022 IR Biopsy 08/05/2021 URINE CULTURE 02/05/2023 URINALYSIS 02/05/2023 VAGINITIS DNA PROBES 06/28/2022 SARS COV 2 COVID 19 06/29/2022 SARS COV 2 BY PCR 06/29/2022 VAGINITIS PANEL PCR 02/05/2023 Insurance Providers Payer Name Payer Address Payer Phone Subscriber Number Group Number Insured Name Patient Relationship to Insured Coverage Start Date Coverage End Date BCBS OUT OF STATE [address] [place] [address] [id number] Lyle Del [place] Natural Child - Insured does not have Financial Responsibility (includes legally adopted child) 1 [facility] MEDICAID [address] [place], [place] [id number] Dorcas Kent Self - patient is the insured 1 Medical (General) History Medical History History ICD Code gallstones Surgical History Surgery Date(Month/Year) knee surgery 2017 knee arthroscopy 2016 cholecystectomy 2019
--- OUTSIDE RECORDS SUMMARY | 2025-08-13 08:41 | XMS_ITS | Encounter Summary ---
Author Organization [facility] Address [address], [address] [place] [address] Care Team Providers Care Die Cutter Diamond Name Role Phone Donya Ye MD Primary Care Provider [phone] Encounter Details Date Type Department Care Team (Late st Contact Info) Description 06/08/2019 [facility] [address] [place] [address] Nori Brumfield [place] [address] Social History Tobacco Use Types Packs/Day Years [...] on file documented as of this encounter Progress Notes * Nori Brumfield IBCLC - 06/08/2019 11:05 AM EDT Discharge Phone Call Log Patient Name: Dorcas Knet OB Care Provider: No admitting provider for patient encounter. Most Recent Discharge Date: 05/25/19 Disposition of baby: (home) Call made 06/08/2019 11:05 AM [x] Spoke with patient. Mom and baby are doing well: denies needs. [x] Understood discharge instruction and had appropriate follow up care. [x] Had a good hospital experience. [] Gave compliments - documented in this encounter Plan of Treatment Not on file documented as of this encounter Visit Diagnoses Not on filedocumented in this encounter Care Teams Die Cutter Diamond Relationship Specialty Start Date End Date Donya Ye MD [address] [place] [phone] PCP - General Family Medicine 12/21/21 documented as of this encounter
--- OUTSIDE RECORDS SUMMARY | 2025-08-13 08:41 | XMS_ITS | Encounter Summary ---
Author [facility] Address [address], [address] [place] [address] Care Team Providers Care Manager Heavy Equipment Name Role Phone Donya Ye MD Primary Care Provider [phone] Reason for Visit * Reason Comments Medication Refill Encounter Details Date Type Department Care Team (Late st Contact Info) Description 04/04/2019 [place] OTR DRIVER [address] [place] [address] Kirsten Hines, LU[facility] - [place] [address] [place] [address] Medication Refill Social History Tobacco Use Types Packs/Day Years Used Date Smoking Tobacco: Never Smokeless Tobacco: Never Alcohol Use Standard Drinks/Week Comments No 0 (1 standard drink = 0.6 oz pur e alcohol) Comments Yes Sex and Gender Information Value Date Recorded Sex Assigned at Not on file Legal Sex Female 10:29 AM EST Gender Identity Not on file Sexual Orientation Not on file documented as of this encounter Plan of Treatment Not on file documented as of this encounter Visit Diagnoses Diagnosis Gestational diabetes mellitus (GDM) in second trimester, gestational diabetes method of control unspecified- Primary documented in this encounter Care Teams Manager Heavy Equipment Relationship Specialty Start Date End Date Donya Ye MD [address] [facility] [place] [phone] PCP - General Family Medicine 12/21/21 documented as of this encounter
--- OUTSIDE RECORDS SUMMARY | 2025-08-13 08:41 | XMS_ITS | Encounter Summary ---
Author Organization [facility] Address [address] [place] [address] Care Team Providers Care Pattern Drum Maker Name Role Phone Donya Ye MD Primary Care Provider [phone] Source Comments In the event this information is protected by the Federal Confidentiality of Alcohol and Drug AbusePatient Records regulations: The Federal rules restrict any use of the information to criminally investigate or prosecute any alcohol or drug abuse patient.[facility] Encounter Details Date Type Department Care Team (Late st Contact Info) Description 06/08/2022 Patient Msg [facility] [id number] [place] [id number] Haritha Fung, CARDIAC MONITOR.INFORMATION SYSTEMS AUDIT MANAGER [address] [place] [address] PT info Social History Tobacco Use Types Packs/Day Years Used Date Smoking Tobacco: Never Smokeless Tobacco: Never Alcohol Use Standard Drinks/Week Comments Not Currently 0 (1 standard drink = 0.6 oz pur e alcohol) PHQ-2 Answer Date Recorded PHQ-2 score 1 06/08/2022 Area Deprivation Index Answer Date Matthew rded National Score (1-100), lower number is lower ri 77 04/14/2022 State Score (1-10), lower number is lower risk N ot on file 04/14/2022 Data from: https://www.neighborhoodatlas.medicine.[facility]/. 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
--- OUTSIDE RECORDS SUMMARY | 2025-08-13 08:44 | XMS_ITS | CCD ---
Author Organization [facility] Care Team Providers Care Instrument Repairer Name Role Phone Yaa Chawla Unavailable Unavailable Yaa Chawla Unavailable Unavailable Yaa Chawla Unavailable Unavailable Yaa Chawla Unavailable Unavailable Yaa Chawla Unavailable Unavailable Unavailable Primary Care Provider UnavailNatty Barlow Primary Care Provider Unava ilable Natty Chew Primary Care Provider [phone] KYAW ROCHA Primary Care Unavailable FREDERICK HINES Referring UnavailFREDERICK Skelton Referring UnavailNATTY Barlow Primary Care Unavailable FREDERICK HINES Referring Unavailabl e NATTY CHEW Primary Care Unavailable Naveed ARELLANO, Natty Pascual Primary Care Provide r [facility], [place] Unavailable Kyaw Rocha MD Primary Care Provider [phone] MD Kyaw Rocha Primary Care Provider DO Nicole Palacios Attending Provider DO Valeriano March Jr Attending Provider Emily Oliveros Unavailable DO Joshua Moran Emergency Provider [phone] DO Demar Jean Baptiste Emergency Provider Kyaw Rocha Unavailable [facility], [place] Unavailable Kyaw oRcha MD Primary Care Provider HARITHA FUNG Attending Unavailable KYAW ROCHA Referring Unavailable KYAW ROCHA Primary Care Unavailable JUWAROPAL, [facility] Primary Care Unavail able HARITHA FUNG Referring Unavailable JUWAROPAL, [facility] Primary Care Unavail able HARITHA FUNG Attending Unavailable KYAW ROCHA Primary Care Unavailable Aj, Dr. Kyaw Ruiz Primary Care Unav ailable JERRY, Dr. ZAHRA CORDOBA Attending Unavailable Aj, Dr. Kyaw Ruiz Referring Unav ailable Kyaw Rocha MD Primary Care Provider [phone] HARITHA FUNG Referring Unavailable JUWARKAR, [facility] Primary Care Unavail able ARIEL NICOLE Referring Unavailable KYAW ROCHA Primary Care Unavailable JERRY ANTONIO Attending Unavailable PROVIDER, OPERATING THEATRE TECHNICIAN TRANSCRIBE Referring Unav ailable KYAW ROCHA Primary Care Unavailable JERRY ANTONIO Attending Unavailable KYAW ROCHA Primary Care Unavailable SUBHAS, JOSÉ Admitting Unavailable SUBHAS, JOSÉ Attending Unavailable RUBINAWAROPAL, [facility] Primary Care Unavail able SUBHAS, JOSÉ Admitting Unavailable SUBHAS, JOSÉ Attending Unavailable KYAW ROCHA Primary Care Unavailable DIANE CHASE Attending Unavailable JUWARKAR, [facility] Primary Care Unavail able MD Kyaw Rocha Primary Care Provider Nataprawira, DO Nicole Referring Provider [phone] ViscDO Jeff arias Attending Provider Nataprawira, DO Nicole Attending Provider [phone] ALPESH .SHONNA Admitting Unavailable ALPESH Collazo, SHONNA Attending Unavailable ALPESH Collazo, SHONNA Consulting Unavailable AJ, DR KYAW Gill Primary Care Unavailable AMMON ., DR OSULLIVAN Attending Unavailjonatan e KARCHECO ., DR OSULLIVAN Consulting Unavailjonatan e AJ, DR KYAW Gill Primary Care Unavailable KARCHECO ., DR OSULLIVAN Admitting UnavailJORDAN Contreras Admitting Unavailable JORDAN WOODS Attending Unavailable JORDAN WOODS Consulting Unavailable AJ, DR KYAW Gill Primary Care Unavailable NALINI, DR MARLENY Hu Admitting Unavailable NALINI, DR MARLENY R Attending Unavailable DR MARLENY HINES Consulting Unavailable DR KYAW ROCHA Primary Care Unavailable MERY CABRERA Consulting Unavailable BREANA COUCH Consulting Unavailable MD Kyaw Rocha Primary Care Provider DO Nicole Palacios Referring Provider DO Jeff Hickman Attending Provider [phone] DO Nicole Palacios Attending Provider MD Palomo Pretty Attending Provider MD Marjorie Burch Admit Provider MD Marjorie Burch Attending Provider MD Triny Carlisle Attending Provider [phone] Kyaw Rocha MD Primary Care Provider Nilda Bhardwaj APRN Attending Provider Kyaw Rocha Primary Care Unavailable Nilda Bhadrwaj Attending Unavailable Nilda Bhardwaj Admitting Unavailable HEALTH, 360 Referring Unavailable KYAW ROCHA Primary Care Unavailable Allergies Allergy Classification Reported Allergen(s) Allergy Type Date of Onset Reaction(s) Facility (20 sources) Acetaminophen / HYDROcodone; Translations: [HYDROCODONE-ACETA MINOPHEN] Drug Allergy 6 Mental Status Change Blowtorch Phone: Medications Current Medications Medication Drug Class(es) Dates Sig (Normalized) Sig (Original) ARIPiprazole 2 mg oral tablet (20 sources) Atypical Antipsychotic Start: 12-24-2024 take 1 tablet by mouth once daily at bedtime Aripiprazole (Abilify) 2 mg tablet Active 2 MG PO Daily at bedtime December 24, 2024 12:00am Start: 2024 End: 07-17-2024 take 1 tablet by mouth once daily Aripiprazole 5 mg tablet Discontinued 1 TAB PO Daily July 15, 2024 11:00pm July 17, 2024 12:49pm FreeTextSi tablet Orally Once a day; Note: Source Status: [facility]; Provider: Huong Sarmiento ( ) Start: 08-09-2022 End: 10-18-2022 take 1 tablet by mouth once daily [...] 2 mg by mouth once daily Aripiprazole 10 mg table t Discontinued 2 MG PO Daily October 01, 2019 12:00am August 04, 2022 9:12am Start: 10-01-2019 End: 08-04-2022 take 2 mg by mouth once daily Aripiprazole Discontinue d 2 MG PO Daily October 01, 2019 1:00am August 04, 2022 10:12am Comment on above: Take 1 tablet by james th once daily. Take 2.5 mg by mouth q 24 HR. betamethasone 0.5 mg/ml / clotrimazole 10 mg/ml topical cream (3 sources) Azole Antifungal, Corticosteroid Start: 2020 clotrimazole-betameth asone (LOTRISONE) 1-0.05 % cream Indications: Vulvar irritation Apply topically 2 times daily. 1 Tube 1 12/03/2020 Active cholecalciferol 0.01 mg oral capsule (1 source) Vitamin D Start: 2021 End: 2021 take 1 capsule by mouth once daily at mealtime cholecalciferol 400 intl units (10 mcg) oral capsule ; 1 cap(s) orally once a day Quantity: 30 Refills: 0 Ordered: 07-Aug-2022 Maryescobar Thi Start: 07-Aug-2022 End: 05-Sep-2022 Generic Substitution Allowed Comments: Take with food. Comment on above: Take with food. dicyclomine hydrochloride 10 mg oral capsule (2 sources) Anticholinergic Start: 2019 End: 2019 dicyclomine (BENTYL) capsule 10 mg drospirenone 3 mg / ethinyl estradiol 0.03 mg oral tablet (3 sources) Progestin, Estrogen Start: 2019 take 1 tablet by mouth once daily drospirenone-ethinyl estradiol (LANE 28) 3-0.03 MG TABS Indications: Irregular menses Take 1 tablet by mouth daily 1 packet 3 10/29/2020 Active DULoxetine 30 mg delayed release oral capsule (13 sources) Serotonin and Norepinephrine Reuptake Inhibitor Start: 2021 take 1 capsule by mouth every twenty-four hours DULoxetine HCl 30 MG 1 capsule Orally Once a day for 30 days Dec, Active take 1 capsule by mouth once thor ly DULoxetine (CYMBALTA) 60 mg capsule Take 60 mg by mouth once daily. 0 Active take 1 capsule by [facility] every twelve hours DULoxetine HCl 60 MG 1 capsule Orally Tw ice a day for 30 days Active Comment on above: Take 60 mg by mouth once daily. ethinyl estradiol 0.035 mg / norgestimate 0.25 mg oral tablet (2 sources) Progestin, Estrogen Start: 019 take 1 tablet by mouth once daily CJ 0.25-35 MG-MCG per tablet Indications: care and examination TAKE 1 TABLET BY MOUTH DAILY 84 tablet 3 06/25/2019 Active fluconazole 150 mg oral tablet (2 sources) Azole Antifungal Start: 021 fluconazole (DIFLUCAN) 150 MG tablet Indications: Yeast vaginitis Take 1 tablet daily for 3 days. 3 tablet 0 12/04/2020 Active gabapentin 300 mg oral capsule (1 source) Anti-epileptic Agent take 1 capsule by mouth every eight hours Gabapentin 300 MG 1 capsule Orally three times a day Active levonorgestrel 0.423609 mg/hr intrauterine system (5 sources) Progestin, Progestin-containing Intrauterine Device Start: levonorgestrel (MIRENA) IUD 52 mg 1 each LORazepam 0.5 mg oral tablet (16 sources) Benzodiazepine Start: 021 take 1 tablet by mouth every twenty-four [...] VITAMIN PO) Take by mouth 0 Active sertraline 50 mg oral tablet (20 sources) Serotonin Reuptake Inhibitor Start: 12-24-19 25 take 1 tablet by mouth once daily Sertraline 50 mg tablet Active 50 MG PO Daily December 24, 2024 12:05pm Start: 09-30-2022 sertraline (ZO LOFT) 50 mg tablet 50 mg. 0 09/30/2022 Active Start: 08-09-2022 take 1 tablet by james th once daily sertraline 50 mg oral tablet ; 1 tab(s) orally once a day Quantity: 0 Refills: 0 Ordered: 09-Aug-2022 Wyatt Fernandez Start: 09-Aug-2022 Generic Substitution Allowed Start: 08-04-2022 End: 05-17-2024 Sertraline 50 mg tablet Disc ontinued 75 MG PO Daily August 03, 2022 11:00pm May 17, 2024 2:31pm Start: 08-04-2022 End: 05-17-2024 take 75 mg [...] 02/22/2020 Active Start: 10-01-2019 End: 12-10-2021 take 2 tablets by mouth once daily Sertraline 100 mg tablet Discontinued 200 MG PO Daily October 01, 2019 12:00am December 10, 2021 6:21pm Start: 10-01-2019 End: 12-10-2021 take 200 mg by mouth once daily Sertraline Discontinue d 200 MG PO Daily October 01, 2019 1:00am December 10, 2021 7:21pm Zoloft Quantity: 0 Refills: 0 Ordered: 06-Aug-2022 Elizabeth Romeo Status: Discontinued Generic Substitution Allowed Comment on above: Take 1.5 tablets by mouth once daily. 50 mg. Wrist Brace With Thumb Spica unit (1 source) Start: 01-21-2025 Wrist Brace With Thumb Spica unit Active 0 .Route January 21, 2025 12:00am As directed Completed/Discontinued Medications Medication Drug Class(es) Dates Sig (Normalized) Sig (Original) acetaminophen 325 mg oral capsule (9 sources) Start: 01-06-2023 End: 05-17-2024 Acetaminophen (Tylenol) 325 mg Capsule Discontinued 1000 MG PO Every 6 hours as needed for Pain January 06, 2023 12:00am May 17, 2024 2:31pm acetaminophen 325 mg / HYDROcodone bitartrate 5 mg oral tablet (17 sources) Opioid Agonist Start: 07-26-2021 End: 12-10-2021 take 1 tablet by mouth every eight hours as needed for pain Hydrocodone-Acetami nophen 5-325 mg tablet Discontinued 1 TAB PO Q8H as needed for pain 10 3 July 26, 2021 December 10, 2021 6:20pm acetaminophen 325 mg / oxyCODONE hydrochloride 5 mg oral tablet (14 sources) Opioid Agonist Start: 2024 End: 07-17-2024 take 1 tablet by mouth every six hours as needed Oxycodone-Acetamino phen 5-325 mg tablet Discontinued 1 TAB PO Every 6 hours July 15, 2024 11:00pm July 17, 2024 12:48pm FreeTextSi tablet as needed Orally every 6 hrs; Note: Source Status: Not-Takingundefined PRNfor 5 days; Provider: Huong Sarmiento ( ) Start: 12-27-2021 take 1 tablet by james th every six hours Percocet 5-325 MG 1 tablet as needed Orally every 6 hrs for 5 days Dec, Not-Taking amoxicillin 500 mg oral tablet (4 sources) Penicillin-class Antibacterial Start: 09-03-2024 End: 11-12-2024 take 1 tablet by mouth three times daily Amoxicillin 500 mg tablet Discontinued 500 MG PO Three times daily September 02, 2024 11:00pm November 12, 2024 1:28pm cefdinir 300 mg oral capsule (6 sources) Cephalosporin Antibacterial Start: 05-17-2024 End: 07-17-2024 take 1 capsule by mouth twice daily Cefdinir 300 mg capsule Discontinued 300 MG PO Twice daily May 16, 2024 11:00pm July 17, 2024 12:48pm cefTRIAXone (8 sources) Cephalosporin Antibacterial Start: 05-08-2020 Rocephin 500 mg Apr, 500 mg cephalexin 500 mg oral capsule (20 sources) Cephalosporin Antibacterial Start: 08-04-2022 End: 01-04-2023 take 1 capsule by mouth twice daily Cephalexin 500 mg capsule Discontinued 500 MG PO Twice daily 08 25August 03, 2022 11:00pm January 04, 2023 3:34pm Start: 12-10-2021 End: 08-04-2022 take 1 capsule by mouth every eight hours Cephalexin 500 mg capsule Discontinued 500 MG PO Q8H 10 06December 10, 2021 12:00am August 04, 2022 9:12am Start: 12-17-2020 take 1 capsule by mo uth three times daily cephALEXin (KEFLEX) 500 MG capsule Indications: Abscess, [place]'s gland Take 1 capsule by mouth 3 times daily 21 capsule 0 12/17/2020 Active citalopram 20 mg oral tablet (19 sources) Serotonin Reuptake Inhibitor Start: 12-10-2021 End: 08-04-2022 take 1 tablet by mouth once daily Citalopram 20 mg tablet Discontinued 20 MG PO Daily December 10, 2021 12:00am August 04, 2022 9:12am End: 01-05-2022 take 1 tablet by mouth [...] Suspended Start: 02-22-2020 take 1 capsule by mo uth once daily Cranberry 400 mg cap Take 1 capsule by mouth once daily. 0 02/22/2020 Active Comment on above: Take 1 capsule by mo uth once daily. docusate sodium 100 mg oral capsule (7 sources) Start: End: take 1 capsule by mouth twice daily as needed for constipation Docusate Sodium (Colace) 100 mg capsule Discontinued 100 MG PO Twice daily as needed for constipation March 21, 2023 7:49am May 17, 2024 2:31pm hydrOXYzine hydrochloride 25 mg oral tablet (18 sources) Antihistamine Start: take 1 tablet by mouth every eight hours hydrOXYzine HCl 25 MG 1 tablet as needed Orally every 8 hrs for 30 day(s) Jul, Not-Taking ibuprofen 600 mg oral tablet (7 sources) Nonsteroidal Anti-inflammatory Drug Start: End: take 1 tablet by mouth every six hours as needed for pain Ibuprofen 600 mg tablet Discontinued 600 MG PO Q6H as needed for pain March 20, 2023 11:00pm May 17, 2024 2:31pm lidocaine 0.05 mg/mg medicated patch (20 sources) Antiarrhythmic, Amide Local Anesthetic Start: End: Lidocaine 5 % adhesive patch,medicated Discontinued 1 PATCH TOPICAL Daily July 15, 2024 11:00pm September 03, 2024 2:14pm FreeTextSi patch remove after 12 hours Externally Once a day; Note: Source Status: Not-Takingundefined PRN; Provider: Huong Sarmiento ( ) Start: 05-08-2020 Lidocaine 18 J 2019 1 mL Lidocaine 5 % 1 patch remove after 12 hours Externally Once a day Not-Taking 24 hr metFORMIN hydrochloride 750 mg extended release oral tablet (15 sources) Biguanide Start: 10-28-2020 take 1 tablet by mouth once daily at breakfast metFORMIN ER (GLUCOPHAGE XR) 750 mg 24 hr tablet Take 1 tablet by mouth daily with breakfast. 90 tablet 3 10/28/2020 Active Comment on above: Take 1 tablet by james th daily with breakfast. 24 hr nicotine 0.875 mg/hr transdermal system (13 sources) Cholinergic Nicotinic Agonist Start: 2024 End: 07-17-2024 apply 1 dose transdermal route every twenty-four hours Nicotine 21 mg/24 hr patch 24 hour Discontinued 1 PATCH TRANSDERML Daily July 15, 2024 11:00pm July 17, 2024 12:48pm FreeTextSi patch to skin Transdermal Once a day; Note: Source Status: Not-Takingundefin edPRN; Refills: 0; Provider: Huong Sarmiento Start: 2024 End: 07-17-2024 apply 1 dose transdermal route once daily Nicotine Discontinued 1 PATCH TRANSDERML Daily 2024 12:00am July 17, 2024 1:48pm FreeTextSi patch to skin Transdermal Once a day; Note: Source Status: Not-Taking\PRN; Refills: 0; Provider: Huong Sarmiento Nicotine Step 1 21 MG/24HR 1 patch to skin Transdermal Once a day for 30 day(s) Not-Taking ondansetron 4 mg disintegrating oral tablet (13 sources) Serotonin-3 Receptor Antagonist Start: 08-04-2022 End: 01-04-2023 take 1 tablet by mouth every eight hours as needed for nausea and vomiting Ondansetron 4 mg tablet,disintegrating Discontinued 4 MG PO Q8H as needed for nausea and vomiting 08 22August 03, 2022 11:00pm January 04, 2023 3:34pm Start: 09-04-2020 End: 09-04-2020 ondansetron (ZOFRAN) injecti on 4 mg Start: 09-04-2020 take 1 tablet by james th every eight hours as needed for nausea ondansetron (ZOFRAN ODT) 4 MG disintegrating tablet Take 1 tablet by mouth every 8 hours as needed for Nausea 20 tablet 0 09/04/2020 Active Pnv #32-Kjjs-Mtcgp Acid-Omega3 (2 sources) Start: 2024 End: 07-17-2024 Pnv #34-Dnms-Pvitr Acid-Omega3 Discontinued CAP PO 2024 12:00am July 17, 2024 1:49pm Pnv #26-Jyys-Etjtt Acid-Omega3 30 mg iron-10 mg iron-1 mg capsule (3 sources) Start: 2024 End: 07-17-2024 Pnv #50-Dedu-Imgel Acid-Omega3 30 mg iron-10 mg iron-1 mg capsule Discontinued CAP PO July 15, 2024 11:00pm July 17, 2024 12:49pm Pnv Cmb#95-Ferrous Fumarate-Fa () 28 mg iron- 800 mcg Tablet (10 sources) Start: 01-04-2023 End: 05-17-2024 take 1 tablet by mouth once daily Pnv Cmb#95-Ferrous Fumarate-Fa () 28 mg iron- 800 mcg Tablet Discontinued 1 TAB PO Daily January 04, 2023 12:00am May 17, 2024 2:31pm Start: 01-04-2023 End: 05-17-2024 take 1 tablet [...] 2023 12:00am predniSONE 10 mg oral tablet (17 sources) Start: 07-26-2021 End: 12-10-2021 Prednisone 10 mg tablet Discontinued 10 MG PO Daily July 25, 2021 11:00pm December 10, 2021 6:20pm 60mg daily for three days, 40mg daily for three days, 20mg daily for three days, 10mg daily for three days. 50 ml sodium chloride 9 mg/ml injection (1 source) Start: 09-04-2020 End: 09-04-2020 0.9 % sodium chloride bolus sulfamethoxazole 800 mg / trimethoprim 160 mg oral tablet (7 sources) Dihydrofolate Reductase Inhibitor Antibacterial, Sulfonamide Antimicrobial Start: 01-20-2024 End: 05-17-2024 take 1 tablet by mouth twice daily Sulfamethoxazole- Trimethoprim 800-160 mg tablet Discontinued 1 TAB PO Twice daily January 20, 2024 12:00am May 17, 2024 2:30pm Start: 09-23-2020 End: 09-30-2020 take 1 tablet by mouth twice daily sulfamethoxazole-trimethoprim (BACTRIM DS;SEPTRA DS) 800-160 MG per tablet Indications: Boil of vulva Take 1 tablet by mouth 2 times daily for 7 days 14 tablet 0 09/23/2020 09/30/2020 Active traMADol hydrochloride 50 mg oral tablet (17 sources) Opioid Agonist Start: 10-01-2019 End: 12-10-2021 take 0.5-1 tablets by mouth every six hours as needed for pain Tramadol (Ultram) 50 mg tablet Discontinued 50 MG PO Q6H as needed for pain 30 October 01, 2019 12:00am December 10, 2021 6:21pm 1/2 - 1 tab po q 6 [...] on above: Take 1 capsule by mo [facility] once daily. Problems Active Problems Problem Classification Problem Date Documented Da te Episodic/Chronic Abdominal pain (20 sources) Abdominal pain; Translations: [Unspecified abdominal pain] Onset: 03-18-2019 Resolved: 05-25-2019 05-25-2019 Episodic Administrative/social admission (1 source) Encounter for pre-employment examination; Translations: [Encounter for pre-employment examination] Onset: 02-04-2025 Episodic Anxiety disorders (4 sources) Mixed anxiety and depressive disorder; Translations: [Other specified anxiety disorders] 12-24-2024 Chronic Attention-deficit, conduct, and disruptive behavior disorders (1 source) Physical aggression; Translations: [Undersocialized conduct disorder, aggressive type, unspecified] 08-07-2022 Chronic Disorders of teeth and jaw (3 sources) Dental caries; Translations: [Dental caries, unspecified] 09-03-2024 Episodic Early or threatened labor (14 sources) Premature [...] [Boil of vulva] Episodic Malaise and fatigue (5 sources) Fatigue; Translations: [Other fatigue] 07-17-2024 Episodic Menstrual [...] TRI] Onset: 02-23-2023 Episodic Other complications of (5 sources) Vomiting of , unspecified; Translations: [Nausea and [...] Onset: 10-05-2022 Episodic Other female genital disorders (8 sources) History of past delivery; Translations: [Status post vaginal delivery] 03-21-2023 Episodic Other gastrointestinal disorders (3 sources) Irritable bowel syndrome; Translations: [Irritable bowel syndrome without diarrhea] Chronic Other injuries and conditions due to external causes (2 sources) Injury of left hand; Translations: [Unspecified injury of left wrist, hand and finger(s), initial encounter] 01-21-2025 Episodic Other injuries and conditions due to external causes (2 sources) Injury of left wrist; Translations: [Unspecified injury of left wrist, hand and finger(s), initial encounter] 01-21-2025 Episodic Other nervous system disorders (2 sources) Other chronic pain; Translations: [Chronic bilateral low back pain without sciatica] Onset: 12-31-2021 Chronic Other non-traumatic joint disorders (1 source) Pain in left wrist; Translations: [Pain in left wrist] Onset: 01-21-2025 Episodic Other and delivery including normal (20 sources) Delivery normal; Translations: [Encounter for full-term uncomplicated delivery] Onset: 10-23-2019 05-23-2019 Episodic Other screening for suspected conditions (not mental disorders or infectious disease) (6 sources) Patient encounter status; Translations: [Encounter for other specified screening] Onset: 11-01-2022 Episodic Other upper respiratory infections (12 sources) Acute maxillary sinusitis; Translations: [Acute maxillary sinusitis, unspecified] 05-21-2024 Episodic Residual codes; unclassified (1 source) 33 weeks gestation of ; Translations: [33 WEEKS GESTATION OF ] Onset: 02-23-2023 Episodic Residual codes; unclassified (7 sources) Gestation period, 37 weeks; Translations: [37 weeks gestation of ] 03-19-2023 Episodic Residual codes; unclassified (1 source) 37 weeks gestation of ; Translations: [ state, incidental] 03-21-2023 Episodic Spondylosis; intervertebral disc disorders; other back problems (10 sources) Displacement of lumbar intervertebral disc without myelopathy; Translations: [Other intervertebral disc displacement, lumbar region] Chronic Spondylosis; intervertebral disc disorders; other back problems (20 sources) Sacroiliac joint pain; Translations: [Sacrococcygeal disorders, not elsewhere classified] Onset: 12-30-2021 Episodic Sprains and strains (6 sources) Sprain of thumb; Translations: [Unspecified sprain of unspecified thumb, initial encounter] 01-21-2025 Episodic Unclassified (2 sources) Patient encounter status; [...] low back pain without sciatica] Onset: 12-31-2021 Urinary tract infections (18 sources) Abscess of urethral gland; Translations: [Urinary [...] ACUTE POSTPROCEDURAL PAIN] Onset: 07-06-2022 Episodic Other skin disorders (12 sources) Night sweats; Translations: [Generalized hyperhidrosis] Onset: 10-23-2019 10-24-2019 Episodic Ovarian cyst (1 source) Unspecified ovarian cyst, unspecified side; Translations: [UNSPECIFIED OVARIAN CYST UNSP SIDE] Onset: 07-06-2022 Episodic Residual codes; unclassified (1 source) 11 weeks gestation of ; Translations: [11 WEEKS GESTATION OF ] Onset: 09-13-2022 Episodic Screening and history of mental health [...] Test Name Value Interpretation Reference Range Facility VZV IgG IA Ql (S)on 02-05-20 VARICELLA IgG 2.4 AI High <0.9 [facility] Comment on above: Result Comment: Interpretation-------- <0.9 Negative 0.9 - 1.0 Equivocal >1.0 Positive Performed By: #### 1 [id number] #### [facility] ([id number]) [address] [place] [address], [address] [place] [address] X-ray reportOrdered By: Blossom Mccoy on 01-21-2025 Study report [facility] [place] [address] XRay Report Signed Patient: Dorcas Kent MR#: [id number] : 2000 Acct:[id number] Age/Sex: 24 / F ADM Date: 5 Loc: XDUCLY Room: Type: [facility] Attending Dr: Nilda Bhardwaj APRN Copies to: Nilda Bhardwaj APRN~ Ordering Provider: Nilda Bhardwaj APRN Date of Service: 01/21/25 XR/XR hand LT min 3V*: LEFT HAND PAIN ([id number]) XR/XR wrist LT min 3V*: LEFT WRIST PAIN CLINICAL DATA: Patient slipped and fell in the shower 5 days ago and has continued pain greatest over the first metacarpal, and lateral wrist. LEFT HAND - 3 views COMPARISON: None AP, lateral and oblique views were obtained. There is no evidence of fracture or dislocation. There are no significant soft tissue abnormalities. XR/XR hand LT min 3V* IMPRESSION: NO ACUTE BONY INJURY. LEFT WRIST - 4 views COMPARISON: None AP, lateral, ulnar deviation and oblique views were obtained. There is no evidence of fracture or dislocation. There are no significant soft tissue abnormalities. IMPRESSION: NO ACUTE BONY INJURY. Impression dictated by: Jessica Mccoy M.D.01/21/2025 6:03 PM Dictation Location: [place] [address] Transcribed By: DAVE 01/21/251802 Dictated By: Jessica Mccoy MD 01/21/25 1800 Signed By: 01/21/25 180 [facility] Work Phone: XR wrist LT min 3V*on 2024 XR wrist LT min 3V* [facility] [place] [address] [place] [address] XRay Report Signed Patient: Dorcas Kent MR#: [id number] : 2000 Acct:[id number] Age/Sex: 24 / F ADM Date: 01/21/25 Loc: XDUCLY Room: Type: [facility] Attending Dr: Nilda Bhardwaj APRN Copies to: Nilda Bhardwaj APRN Ordering Provider: Nilda Bhardwaj APRN Date of Service: 01/21/25 XR/XR hand LT min 3V*: LEFT HAND PAIN ([id number]) XR/XR wrist LT min 3V*: LEFT WRIST PAIN CLINICAL DATA: Patient slipped and fell in the shower 5 days ago and has continued pain greatest over the first metacarpal, and lateral wrist. LEFT HAND - 3 views COMPARISON: None AP, lateral and oblique views were obtained. There is no evidence of fracture or dislocation. There are no significant soft tissue abnormalities. XR/XR hand LT min 3V* IMPRESSION: NO ACUTE BONY INJURY. LEFT WRIST - 4 views COMPARISON: None AP, lateral, ulnar deviation and oblique views were obtained. There is no evidence of fracture or dislocation. There are no significant soft tissue abnormalities. IMPRESSION: NO ACUTE BONY INJURY. Impression dictated by: Jessica Mccoy M.D.01/21/2025 6:03 PM Dictation Location: [place] [address] Transcribed By: DAVE 01/21/251802 Dictated By: Jessica Mccoy MD 01/21/25 1800 Signed By: 01/21/25 180 Normal [facility] COVID Cepheidon 11-12-2024 SARS-CoV-2 (COVID-19) RNA KENTON+probe Ql (Unsp spec) COVID Cepheid [facility] - Microbiology an d Antimicrobial susceptibilityon 11-12-2024 SARS-CoV-2 (COVID-19) RNA KENTON+probe Ql (Unsp spec) Negative [facility] No Panel Informationon 11-12 POC Influenza A (PCR) Negative [facility] POC Influenza B (PCR) Negative [facility] No Panel InformationOrdered By: Manuela Salmeron on 11-12-2024 Quick Strep (POC) [facility] Basophils Auto (Bld) [#/Vol] on 07-18-2024 Basophils (Bld) [#/Vol] 0.1 10 3/uL 0.0-0.1 [facility] Basophils/100 WBC Auto (Bld) on 07-18-2024 Basophils/100 WBC (Bld) 1.2 % 0.2-2.0 [facility] Eosinophils/100 WBC Auto (Bl d)on 07-18-2024 Eosinophils/100 WBC (Bld) 2.2 % 0.9-7.0 [facility] Erythrocyte distribution wid th Auto (RBC) [Ratio]on 07-18-2024 Erythrocyte distribution width (RBC) [Ratio] 11.6 % 11.0-15.0 [facility] Estimated glomerular filtrat ion rate (GFR) non- Americanon 07-18-2024 GFR/1.73 sq M.predicted among non-blacks MDRD (S/P/Bld) [Vol rate/Area] mL/min/{1.73_m2} >=60 [facility] Globulin Calc (S) [Mass/Vol] on 07-18-2024 Globulin (S) [Mass/Vol] 3.4 g/dL [facility] Hematocrit Auto (Bld) [Volum e fraction]on 07-18-2024 Hematocrit (Bld) [Volume fraction] 35.0 % Low 36.0-48.0 [facility] Hemoglobin [Mass/volume] in Bloodon 07-18-2024 Hemoglobin (Bld) [Mass/Vol] 12.3 g/dL 12.0-16.0 [facility] - Chemistry and C hemistry - challengeon 07-18-2024 Albumin [Mass/Vol] 3.9 g/dL 3.4-5.0 [facility] ALP [Catalytic activity/Vol] 75 U/L 46-116 [facility] ALT [Catalytic activity/Vol] 12 U/L Low 14-59 [facility] AST [Catalytic activity/Vol] 11 U/L Low 15-37 [facility] Bilirubin [Mass/Vol] 0.7 mg/dL 0.2-1.0 [facility] Calcium [Mass/Vol] 8.6 mg/dL 8.5-10.1 [facility] Chloride [Moles/Vol] 103 mmol/L 98-107 [facility] CO2 [Moles/Vol] 27.8 mmol/L 21.0-32.0 [facility] Creatinine [Mass/Vol] 0.87 mg/dL 0.55-1.02 [facility] GFR/1.73 sq M.predicted MDRD (S/P/Bld) [Vol rate/Area] mL/min/{1.73_m2} >=60 [facility] Glucose [Mass/Vol] 88 mg/dL 74-106 [facility] Lipase [Catalytic activity/Vol] 20.0 U/L 16.0-77.0 [facility] Potassium [Moles/Vol] 3.7 mmol/L 3.5-5.1 [facility] Protein [Mass/Vol] 7.3 g/dL 6.4-8.2 [facility] Sodium [Moles/Vol] 139 mmol/L 136-145 [facility] TSH Qn 1.354 m[IU]/L 0.358-3.740 [facility] Urea nitrogen [Mass/Vol] 6.0 mg/dL Low 7.0-18.0 [facility] Urea nitrogen/Creatinine [Mass ratio] 6.9 mg/mg [facility] - Hematology and Cell countson 07-18-2024 Immature granulocytes/100 WBC (Bld) 0.0 % 0.0-0.5 [facility] Leukocytes [#/volume] correc candy for nucleated erythrocytes in Blood by Automated counon 07-18-2024 WBC corrected for nucl RBC Auto (Bld) [#/Vol] 4.0 10 3/uL 4.0-11.0 [facility] Lymphocytes Auto (Bld) [#/Vo l]on 07-18-2024 Lymphocytes (Bld) [#/Vol] 1.3 10 3/uL 1.2-3.8 [facility] Lymphocytes/100 WBC Auto (Bl d)on 07-18-2024 Lymphocytes/100 WBC (Bld) 31.7 % 20.5-60.0 [facility] MCH Auto (RBC) [Entitic mass ]on 07-18-2024 MCH (RBC) [Entitic mass] 31.5 pg 26.7-34.0 [facility] MCHC Auto (RBC) [Mass/Vol]on 07-18-2024 MCHC (RBC) [Mass/Vol] 35.1 g/dL 29.9-35.2 [facility] MCV Auto (RBC) [Entitic vol] on 07-18-2024 MCV (RBC) [Entitic vol] 89.5 fL 81.0-99.0 [facility] Monocytes Auto (Bld) [#/Vol] on 07-18-2024 Monocytes (Bld) [#/Vol] 0.3 10 3/uL 0.3-0.8 [facility] Monocytes/100 WBC Auto (Bld) on 07-18-2024 Monocytes/100 WBC (Bld) 8.4 % 1.7-12.0 [facility] Neutrophils Auto (Bld) [#/Vo l]on 07-18-2024 Neutrophils (Bld) [#/Vol] 2.3 10 3/uL 1.4-6.5 [facility] Neutrophils/100 WBC Auto (Bl d)on 07-18-2024 Neutrophils/100 WBC (Bld) 56.5 % 43.0-75.0 [facility] No Panel Informationon 07-18 Eosinophils # (Auto) 0.1 10 3/uL 0.0-0.7 [facility] Immature Granulocyte # (Auto) 0.00 10 3/uL 0.00-0.03 [facility] Platelet mean volume Auto (B ld) [Entitic vol]on 07-18-2024 Platelet mean volume (Bld) [Entitic vol] 9.7 fL 9.5-13.5 [facility] Platelets Auto (Bld) [#/Vol] on 07-18-2024 Platelets (Bld) [#/Vol] 232 10 3/uL 150-450 [facility] RBC Auto (Bld) [#/Vol]on RBC (Bld) [#/Vol] 3.91 10 6/uL Low 4.20-5.40 [facility] Serum or plasma albumin/glob ulin mass ratioon 07-18-2024 Albumin/Globulin [Mass ratio] 1.1 {ratio} [facility] Serum or plasma anion gap de terminationon 07-18-2024 Anion gap [Moles/Vol] 11.9 mmol/L Fi [facility] Basophils Auto (Bld) [#/Vol] Ordered By: VIV Burch on 03-20-2023 Basophils (Bld) [#/Vol] 0.1 10*3/uL 0.0-0.2 [facility] Basophils/100 WBC Auto (Bld) Ordered By: VIV Burch on 03-20-2023 Basophils/100 WBC (Bld) 0.9 % . [facility] Eosinophils Auto (Bld) [#/Vo l]Ordered By: VIV Burch on 03-20-2023 Eosinophils (Bld) [#/Vol] 0.1 10*3/uL 0.0-0.45 [facility] Eosinophils/100 WBC Auto (Bl d)Ordered By: VIV Burch on 03-20-2023 Eosinophils/100 WBC (Bld) 1.6 % . [facility] Erythrocyte distribution wid th Auto (RBC) [Ratio]Ordered By: VIV Burch on 03-20-2023 Erythrocyte distribution width (RBC) [Ratio] 13.1 % 11.9-15.3 [facility] Hematocrit Auto (Bld) [Volum e fraction]Ordered By: VIV Burch on 03-20-2023 Hematocrit (Bld) [Volume fraction] 26.7 % 34.0-46.4 [facility] Hemoglobin [Mass/volume] in BloodOrdered By: VIV Burch on 03-20-2023 Hemoglobin (Bld) [Mass/Vol] 9.4 g/dL 11.8-15.4 [facility] Leukocytes [#/volume] correc candy for nucleated erythrocytes in Blood by Automated counOrdered By: VIV Burch on 03-20-2023 WBC corrected for nucl RBC Auto (Bld) [#/Vol] 7.8 10*3/uL 3.8-11.6 [facility] Lymphocytes Auto (Bld) [#/Vo l]Ordered By: VIV Burch on 03-20-2023 Lymphocytes (Bld) [#/Vol] 1.6 10*3/uL 1.00-4.8 [facility] Lymphocytes/100 WBC Auto (Bl d)Ordered By: VIV Burch on 03-20-2023 Lymphocytes/100 WBC (Bld) 21.2 % . [facility] MCH Auto (RBC) [Entitic mass ]Ordered By: VIV Burch on 03-20-2023 MCH (RBC) [Entitic mass] 31.6 pg 24.7-34.3 [facility] MCHC Auto (RBC) [Mass/Vol]Or dered By: VIV Burch on 03-20-2023 MCHC (RBC) [Mass/Vol] 35.1 g/dL 32.0-35.0 [facility] MCV Auto (RBC) [Entitic vol] Ordered By: VIV Burch on 03-20-2023 MCV (RBC) [Entitic vol] 90.0 fL 80-100 [facility] Monocytes Auto (Bld) [#/Vol] Ordered By: VIV Burch on 03-20-2023 Monocytes (Bld) [#/Vol] 0.6 10*3/uL 0.0-0.8 [facility] Monocytes/100 WBC Auto (Bld) Ordered By: VIV Burch on 03-20-2023 Monocytes/100 WBC (Bld) 7.1 % . [facility] Neutrophils Auto (Bld) [#/Vo l]Ordered By: VIV Burch on 03-20-2023 Neutrophils (Bld) [#/Vol] 5.4 10*3/uL 1.8-7.7 [facility] Neutrophils/100 WBC Auto (Bl d)Ordered By: VIV Burch on 03-20-2023 Neutrophils/100 WBC (Bld) 69.2 % . [facility] Nucleated erythrocytes [Pres ence] in Blood by Automated countOrdered By: VIV Burch on 03-20-2023 Nucleated RBC Auto Ql (Bld) 0.0 /100{WBC} 0-0.5 [facility] Platelet mean volume Auto (B ld) [Entitic vol]Ordered By: VIV Burch on 03-20-2023 Platelet mean volume (Bld) [Entitic vol] 6.9 fL 6.3-10.7 [facility] Platelets Auto (Bld) [#/Vol] Ordered By: VIV Burch on 03-20-2023 Platelets (Bld) [#/Vol] 159 10*3/uL 150-450 [facility] RBC Auto (Bld) [#/Vol]Ordere d By: VIV Burch on 03-20-2023 RBC (Bld) [#/Vol] 2.97 10*6/uL 3.60-5.00 [facility] WBC Auto (Bld) [#/Vol]Ordere d By: VIV Burch on 03-20-2023 WBC (Bld) [#/Vol] 7.8 10*3/uL 3.8-11.6 [facility] Amphetamine Screen Ql (U)Ord ered By: VIV Burch on 03-19-2023 Amphetamines Ql (U) Negative Negative [facility] Automated erythrocytes count in urine sediment (number/area)Ordered By: VIV Burch on 03-19-2023 RBC Auto (Urine sed) [#/Area] 0-1 [HPF] 0-4 [facility] Automated leukocytes count i n urine sediment (number/area)Ordered By: VIV Burch on 03-19-2023 WBC Auto (Urine sed) [#/Area] 3-4 [HPF] 0-4 [facility] Barbiturates [Presence] in U rine by Screen methodOrdered By: VIV Burch on 03-19-2023 Barbiturates Screen Ql (U) Negative Negative [facility] Benzodiazepines Screen Ql (U )Ordered By: VIV Burch on 03-19-2023 Benzodiazepines Ql (U) Negative Negative [facility] Benzoylecgonine [Presence] i n Urine by Screen methodOrdered By: VIV Burch on 03-19-2023 Benzoylecgonine Screen Ql (U) Negative Negative [facility] Bilirubin Test strip Ql (U)O rdered By: VIV Burch on 03-19-2023 Bilirubin Ql (U) Negative Negative [facility] Color Auto (U)Ordered By: MD JHOAN Burch on 03-19-2023 Color (U) Yellow Yellow [facility] Ketones Auto test strip (U) [Mass/Vol]Ordered By: VIV Burch on 03-19-2023 Ketones (U) [Mass/Vol] Negative Negative [facility] - UrinalysisOrder ed By: VIV Burch on 03-19-2023 Hyaline casts LM Ql (Urine sed) 0-8 [LPF] 0-8 [facility] Nitrite Test strip Ql (U)Ord ered By: VIV Burch on 03-19-2023 Nitrite Ql (U) Negative Negative [facility] No Panel InformationOrdered By: VIV Burch on 03-19-2023 Membranes Rupture (PAMG-1) Negative Negative [facility] Opiates [Presence] in Urine by Screen methodOrdered By: VIV Burch on 03-19-2023 Opiates Screen Ql (U) Negative Negative [facility] Phencyclidine Screen Ql (U)O rdered By: VIV Burch on 03-19-2023 Phencyclidine Ql (U) Negative Negative [facility] Comment on above: These are unconfirme d results and should not be used for legal purposes. Drug Cut-Off Concentration: AMPH 1000 ng/mL NATALIE 200 ng/mL DAVID 200 ng/mL COCM 300 ng/mL OP 300 ng/mL PCP 25 ng/mL Protein Auto test strip (U) [Mass/Vol]Ordered By: VIV Burch on 03-19-2023 Protein (U) [Mass/Vol] Negative Negative [facility] Reagin Ab [Presence] in Seru m by RPROrdered By: VIV Burch on 03-19-2023 Reagin Ab RPR Ql (S) Non-Reactive Non Reactive [facility] Comment on above: Performed at: [facility] [email or web address] [address] [id number] Director: Elmer Carlson PhD, Phone: [phone] Specific gravity Auto test s trip (U) [Rel density]Ordered By: VIV Burch on 03-19-2023 Specific gravity (U) [Rel density] 1.011 1.001-1.030 [facility] Squamous epithelial cells de tection in urine sediment by light microscopyOrdered By: VIV Burch on 03-19-2023 Epithelial cells.squamous LM Ql (Urine sed) 3-4 [HPF] 0-2 [facility] Urine bacteria detection by automated methodOrdered By: VIV Burch on 03-19-2023 Bacteria Auto Ql (U) 1+ None Seen [facility] Urine clarity by refractomet ry automatedOrdered By: VIV Burch on 03-19-2023 Clarity Refractometry automated (U) Clear Clear [facility] Urine glucose measurement by automated test strip (mass/volume)Ordered By: IRMA Burch on 03-19-2023 Glucose Auto test strip (U) [Mass/Vol] Normal mg/dL Normal [facility] Urine hemoglobin detection b y automated test stripOrdered By: VIV Burch on 03-19-2023 Hemoglobin Auto test strip Ql (U) Negative Negative [facility] Urine leukocyte esterase det ection by automated test stripOrdered By: VIV Burch on 03-19-2023 Leukocyte esterase Auto test strip Ql (U) 1+ Negative [facility] Urobilinogen Auto test strip (U) [Mass/Vol]Ordered By: VIV Burch on 03-19-2023 Urobilinogen (U) [Mass/Vol] Normal mg/dL Normal [facility] pH Auto test strip (U)Ordere d By: VIV Burch on 03-19-2023 pH (U) 6.5 [pH] 5.0-9.0 [facility] Amphetamine Screen Ql (U)Ord ered By: PALOMO PRETTY on 03-16-2023 Amphetamines Ql (U) Negative Negative [facility] Automated erythrocytes count in urine sediment (number/area)Ordered By: PALOMO PRETTY on 03-16-2023 RBC Auto (Urine sed) [#/Area] 0-1 [HPF] 0-4 [facility] Automated leukocytes count i n urine sediment (number/area)Ordered By: PALOMO PRETTY on 03-16-2023 WBC Auto (Urine sed) [#/Area] None seen [HPF] 0-4 [facility] Barbiturates [Presence] in U rine by Screen methodOrdered By: PALOMO PRETTY on 03-16-2023 Barbiturates Screen Ql (U) Negative Negative [facility] Benzodiazepines Screen Ql (U )Ordered By: PALOMO PRETTY on 03-16-2023 Benzodiazepines Ql (U) Negative Negative [facility] Benzoylecgonine [Presence] i n Urine by Screen methodOrdered By: PALOMO PRETTY on 03-16-2023 Benzoylecgonine Screen Ql (U) Negative Negative [facility] Bilirubin Test strip Ql (U)O rdered By: PALOMO PRETTY on 03-16-2023 Bilirubin Ql (U) Negative Negative [facility] Color Auto (U)Ordered By: DONTRELL PRETTY on 03-16-2023 Color (U) Yellow Yellow [facility] Ketones Auto test strip (U) [Mass/Vol]Ordered By: PALOMO PRETTY on 03-16-2023 Ketones (U) [Mass/Vol] Negative Negative [facility] - UrinalysisOrder ed By: PALOMO PRETTY on 03-16-2023 Hyaline casts LM Ql (Urine sed) 0-8 [LPF] 0-8 [facility] Nitrite Test strip Ql (U)Ord ered By: PALOMO PRETTY on 03-16-2023 Nitrite Ql (U) Negative Negative [facility] Opiates [Presence] in Urine by Screen methodOrdered By: PALOMO PRETTY on 03-16-2023 Opiates Screen Ql (U) Negative Negative [facility] Phencyclidine Screen Ql (U)O rdered By: PALOMO PRETTY on 03-16-2023 Phencyclidine Ql (U) Negative Negative [facility] Comment on above: These are unconfirme d results and should not be used for legal purposes. Drug Cut-Off Concentration: AMPH 1000 ng/mL NATALIE 200 ng/mL DAVID 200 ng/mL COCM 300 ng/mL OP 300 ng/mL PCP 25 ng/mL Protein Auto test strip (U) [Mass/Vol]Ordered By: PALOMO PRETTY on 03-16-2023 Protein (U) [Mass/Vol] Negative Negative [facility] Specific gravity Auto test s trip (U) [Rel density]Ordered By: PALOMO PRETTY on 03-16-2023 Specific gravity (U) [Rel density] 1.009 1.001-1.030 [facility] Squamous epithelial cells de tection in urine sediment by light microscopyOrdered By: PALOMO PRETTY on 03-16-2023 Epithelial cells.squamous LM Ql (Urine sed) 0-1 [HPF] 0-2 [facility] Urine bacteria detection by automated methodOrdered By: PALOMO PRETTY on 03-16-2023 Bacteria Auto Ql (U) None seen None Seen [facility] Urine clarity by refractomet ry automatedOrdered By: PALOMO PRETTY on 03-16-2023 Clarity Refractometry automated (U) Clear Clear [facility] Urine glucose measurement by automated test strip (mass/volume)Ordered By: PALOMO PRETTY on 03-16-2023 Glucose Auto test strip (U) [Mass/Vol] Normal mg/dL Normal [facility] Urine hemoglobin detection b y automated test stripOrdered By: PALOMO PRETTY on 03-16-2023 Hemoglobin Auto test strip Ql (U) Trace Negative [facility] Urine leukocyte esterase det ection by automated test stripOrdered By: PALOMO PRETTY on 03-16-2023 Leukocyte esterase Auto test strip Ql (U) Negative Negative [facility] Urobilinogen Auto test strip (U) [Mass/Vol]Ordered By: PALOMO PRETTY on 03-16-2023 Urobilinogen (U) [Mass/Vol] Normal mg/dL Normal [facility] pH Auto test strip (U)Ordere d By: PALOMO PRETTY on 03-16-2023 pH (U) 7.0 [pH] 5.0-9.0 [facility] Group B Streptococcus cultur eOrdered By: NICOLE PALACIOS on 03-02-2023 S. agalactiae Org specific cx Ql (Unsp spec) No Group B Beta Streptococcus Isolated 3 Days [facility] UA (CLEAN/CATCH) ACTIVE DIRECTORY ADMINISTRATOR/MICRO I F IND.on 02-18-2023 Bilirubin Ql (U) Negative Normal NEGATIVE [facility] [place] [facility] Comment on above: Performed By: #### U ACSIND ####[facility] [address] [place] [address]Dr. Osmany Boone Clarity (U) CLEAR Normal CLEAR [facility] Comment on above: Performed By: #### U ACSIND ####[facility] [address] [place] [address]Dr. Osmany Boone Color (U) LT. YELLOW Normal YELLOW [facility] Comment on above: Performed By: #### U ACSIND ####[facility] [address] [place] [address]Dr. Osmany Boone Glucose Ql (U) Negative Normal NEGATIVE [facility] Comment on above: Performed By: #### U ACSIND ####[facility] [address] [place] [address]Dr. Osmany Boone Hemoglobin Ql (U) Negative Normal NEGATIVE [facility] Comment on above: Performed By: #### U ACSIND ####[facility] [address] [place], [place] [address]Dr. Osmany Boone Ketones Ql (U) Negative Normal NEGATIVE [facility] Comment on above: Performed By: #### U ACSIND ####[facility] [address] [place], [place] [address]Dr. Osmany Boone LEUKOCYTES Negative Normal NEGATIVE [facility] Comment on above: Performed By: #### U ACSIND ####[facility] [address] [place], [place] [address]Dr. Osmany Boone Nitrite Ql (U) Negative Normal NEGATIVE [facility] Comment on above: Performed By: #### U ACSIND ####[facility] [address] [place], [place] [address]Dr. Osmany Boone pH (U) 7.0 [pH] Normal 5-9 [facility] Comment on above: Performed By: #### U ACSIND ####[facility] [address] [place], [place] [address]Dr. Osmany Boone SPEC GRAVITY <=1.005 Abnormal 1.005-<=1.025 [facility] Comment on above: Performed By: #### U ACSIND ####[facility] [address] [place], [place] [address]Dr. Osmany Paolo UA PROTEIN Negative Normal NEGATIVE/ TRACE [facility] Comment on above: Performed By: #### U ACSIND ####[facility] [address] [place], [place] [address]Dr. Osmany Paolo UR MICRO IND NOT INDICATED Normal [facility] Comment on above: Performed By: #### U ACSIND ####[facility] [address] [place], [place] [address]Dr. Osmany Paolo Urobilinogen Qn (U) 0.2 {Salazar'U}/dL Normal 0.2 - 1. 0 [facility] Comment on above: Performed By: #### U ACSIND ####[facility] [address] [place], [place] [address]Tg. Osmany Boone Amphetamine Screen Ql (U)Ord ered By: NICOLE PALACIOS on 01-06-2023 Amphetamines Ql (U) Negative Negative [facility] Barbiturates [Presence] in U rineOrdered By: NICOLE PALACIOS on 01-06-2023 Barbiturates Ql (U) Negative Negative [facility] Benzodiazepines [Presence] i n UrineOrdered By: NICOLE PALACIOS on 01-06-2023 Benzodiazepines Ql (U) Negative Negative [facility] Bilirubin Test strip Ql (U)O rdered By: NICOLE PALACIOS on 01-06-2023 Bilirubin Ql (U) Negative Negative [facility] Color Auto (U)Ordered By: CAM PALACIOS on 01-06-2023 Color (U) Yellow Yellow [facility] Ketones Auto test strip (U) [Mass/Vol]Ordered By: NICOLE PALACIOS on 01-06-2023 Ketones (U) [Mass/Vol] Negative Negative [facility] - Drug toxicology Ordered By: NICOLE PALACIOS on 01-06-2023 Opiates Ql (U) Negative Negative [facility] Nitrite Test strip Ql (U)Ord ered By: NICOLE PALACIOS on 01-06-2023 Nitrite Ql (U) Negative Negative [facility] Phencyclidine Screen Ql (U)O rdered By: NICOLE PALACIOS on 01-06-2023 Phencyclidine Ql (U) Negative Negative [facility] Comment on above: These are unconfirme d results and should not be used for legal purposes. Drug Cut-Off Concentration: AMPH 1000 ng/mL NATALIE 200 ng/mL DAVID 200 ng/mL COCM 300 ng/mL OP 300 ng/mL PCP 25 ng/mL Protein Auto test strip (U) [Mass/Vol]Ordered By: NICOLE PALACIOS on 01-06-2023 Protein (U) [Mass/Vol] Negative Negative [facility] Specific gravity Auto test s trip (U) [Rel density]Ordered By: NICOLE PALACIOS on 01-06-2023 Specific gravity (U) [Rel density] 1.004 1.001-1.030 [facility] Urine clarity by refractomet ry automatedOrdered By: NICOLE PALACIOS on 01-06-2023 Clarity Refractometry automated (U) Clear Clear [facility] Urine cocaine detectionOrder ed By: NICOLE PALACIOS on 01-06-2023 Cocaine Ql (U) Negative Negative [facility] Urine glucose measurement by automated test strip (mass/volume)Ordered By: NICOLE PALACIOS on 01-06-2023 Glucose Auto test strip (U) [Mass/Vol] Normal mg/dL Normal [facility] Urine hemoglobin detection b y automated test stripOrdered By: NICOLE PALACIOS on 01-06-2023 Hemoglobin Auto test strip Ql (U) Negative Negative [facility] Urine leukocyte esterase det ection by automated test stripOrdered By: NICOLE PALACIOS on 01-06-2023 Leukocyte esterase Auto test strip Ql (U) Negative Negative [facility] Urobilinogen Auto test strip (U) [Mass/Vol]Ordered By: NICOLE PALACIOS on 01-06-2023 Urobilinogen (U) [Mass/Vol] Normal mg/dL Normal [facility] pH Auto test strip (U)Ordere d By: NICOLE PALACIOS on 01-06-2023 pH (U) 6.5 [pH] 5.0-9.0 [facility] Amphetamine Screen Ql (U)Ord ered By: Jeff Hickman on 01-04-2023 Amphetamines Ql (U) Negative Negative [facility] Barbiturates [Presence] in U rineOrdered By: Jeff Hickman on 01-04-2023 Barbiturates Ql (U) Negative Negative [facility] Benzodiazepines [Presence] i n UrineOrdered By: Jeff Hickman on 01-04-2023 Benzodiazepines Ql (U) Negative Negative [facility] Bilirubin Test strip Ql (U)O rdered By: Jeff Hickman on 01-04-2023 Bilirubin Ql (U) Negative Negative [facility] Choriogonadotropin.beta subu nit [Units/volume] in Serum or PlasmaOrdered By: NICOLE PALACIOS on 01-04-2023 [place] [address].00 m[IU]/mL [facility] Comment on above: Approximate Approxim ate hCG Gestational Age Range (mIU/ml) (weeks)0.2-1 5-50 1-2 50-500 2-3 100-5,000 3-4 500-10,000 4-5 1,000-50,000 5-6 10,000-100,000 6-8 15,000-200,000 8-12 10,000-100,000 Color Auto (U)Ordered By: Salomón Hickman on 01-04-2023 Color (U) Yellow Yellow [facility] fibronectinOrdered By: Jeff Hickman on 01-04-2023 Fibronectin. (Vag fld) [Mass/Vol] Negative Negative [facility] Hematocrit Auto (Bld) [Volum e fraction]Ordered By: NICOLE PALACIOS on 01-04-2023 Hematocrit (Bld) [Volume fraction] 29.8 % 34.0-46.4 [facility] Hemoglobin [Mass/volume] in BloodOrdered By: NICOLE PALACIOS on 01-04-2023 Hemoglobin (Bld) [Mass/Vol] 10.6 g/dL 11.8-15.4 [facility] Ketones Auto test strip (U) [Mass/Vol]Ordered By: Jeff Hickman on 01-04-2023 Ketones (U) [Mass/Vol] Negative Negative [facility] - Drug toxicology Ordered By: Jeff Hickman on 01-04-2023 Opiates Ql (U) Negative Negative [facility] Nitrite Test strip Ql (U)Ord ered By: Jeff Hickman on 01-04-2023 Nitrite Ql (U) Negative Negative [facility] No Panel InformationOrdered By: NICOLE PALACIOS on 01-04-2023 Glucose 1 Hour Postprandial (Timed) 125 mg/dL 60-140 [facility] Phencyclidine Screen Ql (U)O rdered By: Jeff Hickman on 01-04-2023 Phencyclidine Ql (U) Negative Negative [facility] Comment on above: These are unconfirme d results and should not be used for legal purposes. Drug Cut-Off Concentration: AMPH 1000 ng/mL NATALIE 200 ng/mL DAVID 200 ng/mL COCM 300 ng/mL OP 300 ng/mL PCP 25 ng/mL Protein Auto test strip (U) [Mass/Vol]Ordered By: Jeff Hickman on 01-04-2023 Protein (U) [Mass/Vol] Negative Negative [facility] Specific gravity Auto test s trip (U) [Rel density]Ordered By: Jeff Hickman on 01-04-2023 Specific gravity (U) [Rel density] 1.008 1.001-1.030 [facility] Urine clarity by refractomet ry automatedOrdered By: Jeff Hickman on 01-04-2023 Clarity Refractometry automated (U) Clear Clear [facility] Urine cocaine detectionOrder ed By: Jeff Hickman on 01-04-2023 Cocaine Ql (U) Negative Negative [facility] Urine glucose measurement by automated test strip (mass/volume)Ordered By: Jeff Hickman on 01-04-2023 Glucose Auto test strip (U) [Mass/Vol] Normal mg/dL Normal [facility] Urine hemoglobin detection b y automated test stripOrdered By: Jeff Hickman on 01-04-2023 Hemoglobin Auto test strip Ql (U) Negative Negative [facility] Urine leukocyte esterase det ection by automated test stripOrdered By: Jeff Hickman on 01-04-2023 Leukocyte esterase Auto test strip Ql (U) Negative Negative [facility] Urobilinogen Auto test strip (U) [Mass/Vol]Ordered By: Jeff Hickman on 01-04-2023 Urobilinogen (U) [Mass/Vol] Normal mg/dL Normal [facility] pH Auto test strip (U)Ordere d By: Jeff Hickman on 01-04-2023 pH (U) 6.5 [pH] 5.0-9.0 [facility] OBSTETRIC ULTRASOUND WHIon 0 11-29-2022 [facility] OBSTETRIC ULTRASOUND WHIon 1 01-02-2022 [facility] ALLIED HEALTHon 10-05-2022 ALLIED HEALTH HNO ID: [id number] Author: Maria Del Rosario Willson RDMS Service: Radiology 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 trachomatis+N. gonorrhoea e DNA KENTON+probe Ql (Unsp spec)on 10-05-2022 C. trachomatis DNA K[place]ON+probe Ql (Unsp spec) Negative Normal Negative for Chlamydia trachomatis by amplificaton [facility] Comment on above: Order Comment: Speci men Type: SWAB Ordering Facility: [facility] Address: [address] [place] [address] Performed By: #### 3 6902-5 #### [facility] CLIA [id number] [address] [place] [address] N. gonorrhoeae DNA KENTON+probe Ql (Unsp spec) Negative Normal Negative for Neisseria gonorrhoeae by amplification [facility] Comment on above: Order Comment: Speci men Type: SWAB Ordering Facility: [facility] Address: [address] [place] [address] Performed By: #### 3 6902-5 #### [facility] CLIA [id number] [address] [place] [address] [facility] ED NOTEon 10-05-2022 ED NOTE HNO ID: [id number] Author: Marium Bloom RN Service: ? Author Type: Registered Nurse Type: ED Notes Filed: 10/05/2022 6:07 PM Note Text: Pt to dc home. Discussed medications and f/u care. No questions at time of dc. Normal [facility] ED NOTE HNO ID: [id number] Author: Jessica García PA-C Service: Emergency Medicine Author Type: Physician Oil Deliverer Type: ED Notes Filed: 10/07/2022 9:56 AM [...] DATE: October 07, 2022 TIME: 9:54 AM [facility] ED PROV NOTEon 10-05-2022 ED PROV NOTE HNO ID: [id number] Author: Les Fleming PA-C Service: Emergency Medicine Author Type: Physician Oil Deliverer Type: ED Provider Notes Filed: 10/05/2022 7:50 [...] mass. Genitourinary: No CVA tenderness. Pelvic Exam: +[place], white vaginal discharge. No external lesions noted. Cervix appeared normal with no motion tenderness. No tenderness of adnexi. No vaginal bleeding. Musc (more content not included)... Normal [facility] Gram Stn Vagon 10-05-2022 Microscopic observation Gram stain Nom (Vag fld) BACTERIAL VAGINOSIS: BACTERIAL VAGINOSIS RESULT: Stain results consistent with normal vaginal areli. No Yeast observed Few Polymorphonuclear leukocytes Normal [facility] Comment on above: Performed By: #### 1 4361-0 ####[facility] [id number] [address] [place] T vaginalis Ag Genital Ql IA on 10-05-2022 T. 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 MQ: [id number] Note: A limited antepartum obstetrical ultrasound examination [...] 1 day gestational age by ultrasound measurements. Food Prep Worker: PSCB Transcribe Date/Time: Oct 05 2022 5:35P Dictated by : ЕЛЕНА LEAL MD This examination was interpreted and the report reviewed and electronically signed by: ЕЛЕНА LEAL MD on Oct 05 2022 5:40PM EST [id number] Normal [facility] Urinalysis complete panel (U )on 10-05-2022 Bacteria LM.HPF (Urine sed) [#/Area] Rare Abnormal None Seen [facility] Comment on above: Order Comment: Speci men Type: URINE SPECIMEN Ordering Facility: [facility] Address: [address] [address] Performed By: #### 2 4356-8 #### [facility] CLIA [id number] [address] [place] [address] [place] Bilirubin Ql (U) Negative Normal Negative [facility] Comment on above: Order Comment: Speci men Type: URINE SPECIMEN Ordering Facility: [facility] Address: [address] [place] [address] Performed By: #### 2 4356-8 #### [facility] CLIA [id number] [address] [place] [address] [place] Clarity (Unsp spec) Clear Normal Clear [facility] Comment on above: Order Comment: Speci men Type: URINE SPECIMEN Ordering Facility: [facility] Address: [address] [place] [address] Performed By: #### 2 4356-8 #### [facility] CLIA [id number] [address] [place] [address] [place] Color (U) Colorless Normal Yellow [facility] Comment on above: Order Comment: Speci men Type: URINE SPECIMEN Ordering Facility: [facility] Address: [address] [place] [address] Performed By: #### 2 4356-8 #### [facility] CLIA [id number] [address] [place] [address] [place] Epithelial cells LM.HPF (Urine sed) [#/Area] Few Normal [facility] Comment on above: Order Comment: Speci men Type: URINE SPECIMEN Ordering Facility: [facility] Address: [address] [place] [address] Performed By: #### 2 4356-8 #### [facility] CLIA [id number] [address] [place] [address] [place] Glucose Test strip (U) [Mass/Vol] Negative Normal Negative [facility] Comment on above: Order Comment: Speci men Type: URINE SPECIMEN Ordering Facility: [facility] Address: [address] [place] [address] Performed By: #### 2 4356-8 #### [facility] CLIA [id number] [address] [place] [address] [place] Hemoglobin Ql (U) Negative Normal Negative [facility] Comment on above: Order Comment: Speci men Type: URINE SPECIMEN Ordering Facility: [facility] Address: [address] [address] Performed By: #### 2 4356-8 #### [facility] CLIA [id number] [address] [place] [address] [place] Ketones Ql (U) Negative Normal Negative [facility] Comment on above: Order Comment: Speci men Type: URINE SPECIMEN Ordering Facility: [facility] Address: [address] [place] [address] Performed By: #### 2 6-8 #### [facility] CLIA [id number] [address] [place] [address] Leukocyte esterase Test strip Ql (U) Negative Normal Negative [facility] Comment on above: Order Comment: Speci men Type: URINE SPECIMEN Ordering Facility: [facility] Address: [address] [place] [address] Performed By: #### 2 4356-8 #### [facility] CLIA [id number] [address] [place] [address] [place] Nitrite Ql (U) Negative Normal Negative [facility] Comment on above: Order Comment: Speci men Type: URINE SPECIMEN Ordering Facility: [facility] Address: [address] [place] [address] Performed By: #### 2 4356-8 #### [facility] CLIA [id number] [address] [place] [address] [place] pH (U) 6.5 [pH] Normal 5.0-8.0 [facility] Comment on above: Order Comment: Speci men Type: URINE SPECIMEN Ordering Facility: [facility] Address: [address] [address] Performed By: #### 2 4356-8 #### [facility] CLIA [id number] [address] [place] [address] [facility] Protein (U) [Mass/Vol] Negative Normal Negative [facility] Comment on above: Order Comment: Speci men Type: URINE SPECIMEN Ordering Facility: [facility] Address: [address] [place] [address] Performed By: #### 2 4356-8 #### [facility] CLIA [id number] [address] [place] [address] [place] RBC LM.HPF (Urine sed) [#/Area] 0-3 /HPF Normal 0-3 /HPF [facility] Comment on above: Order Comment: Speci men Type: URINE SPECIMEN Ordering Facility: [facility] Address: [address] [place] [address] Performed By: #### 2 4356-8 #### [facility] CLIA [id number] [address] [place] [address] Specific gravity (U) [Rel density] 1.008 Normal 1.005-1.030 [facility] Comment on above: Order Comment: Speci men Type: URINE SPECIMEN Ordering Facility: [facility] Address: [address] [place] [address] Performed By: #### 2 4356-8 #### [facility] CLIA [id number] [address] [place] [address] Urobilinogen Ql (U) Negative Normal Negative [facility] Comment on above: Order Comment: Speci men Type: URINE SPECIMEN Ordering Facility: [facility] Address: [address] [place] [address] Performed By: #### 2 4356-8 #### [facility] CLIA [id number] [address] [place] [address] [place] WBC LM.HPF (Urine sed) [#/Area] 0-5 /HPF Normal 0-5 /HPF [facility] Comment on above: Order Comment: Speci men Type: URINE SPECIMEN Ordering Facility: [facility] Address: [address] [place] [address] Performed By: #### 2 4356-8 #### [facility] CLIA [id number] [place] Kita 10-04-2022 CNPN Telephone (OBGYF2) DORCAS KENT ([id number]) 2000 F Date Time Provider Department 10/04/22 [facility] OBGYF2 During your visit today, we recorded the following information about you: Elsie Pérez RN 10/04/2022 9:32 AM Signed Informed pt that call was regarding scheduling anatomy US and consult as requested by Dr. Rivera at [facility] for hx of PPROM/PTD. , hx of [...] questions at this time. Elsie Pérez RN [facility] Allergies As of Date: 10/04/2022 Noted [...] by ELSIE PÉREZ RN on 10/04/22 Normal [facility] CBC AUTO DIFFon 09-09-2022 BASO # 0.0 103/ul Normal 0.0-0.1 [facility] Comment on above: Performed By: #### C BC ####[facility] [address] [address]Dr. Osmany Boone Basophils/100 WBC (Bld) 0.4 % Normal 0.2-2.0 [facility] Comment on above: Performed By: #### C BC ####[facility] [address] [address]DrZay Boone EO # 0.1 103/ul Normal 0.0-0.7 [facility] Comment on above: Performed By: #### C BC ####[facility] [address] [address]DrZay Boone Eosinophils/100 WBC (Bld) 0.8 % Critically low 0.9-7.0 [facility] Comment on above: Performed By: #### C BC ####[facility] [address] [address]DrZay Boone Erythrocyte distribution width (RBC) [Ratio] 12.0 % Normal 11.0-15.0 [facility] Comment on above: Performed By: #### C BC ####[facility] [address] [address]DrZay Boone Hematocrit (Bld) [Volume fraction] 35.5 % Critically low 36.0-48.0 [facility] Comment on above: Performed By: #### C BC ####[facility] [address] [place], [place] [address]DrZay Boone Hemoglobin (Bld) [Mass/Vol] 12.4 g/dL Normal 12.0-16.0 [facility] Comment on above: Performed By: #### C BC ####[facility] [address] [place], [place] [address]DrZay Boone IG # 0.02 10e3/ul Normal 0.00-0.03 [facility] Comment on above: Performed By: #### C BC ####[facility] [address] [place], [place] [address]DrZay Boone IG % 0.2 % Normal 0.0-0.5 [facility] Comment on above: Performed By: #### C BC ####[facility] [address] [place], [place] [address]DrZay Boone LYMPH # 1.3 103/ul Normal 1.2-3.8 [facility] Comment on above: Performed By: #### C BC ####[facility] [address] [place], [place] [address]DrZay Boone Lymphocytes/100 WBC (Bld) 15.5 % Critically low 20.5-60.0 [facility] Comment on above: Performed By: #### C BC ####[facility] [address] [place], [place] [address]DrZay Boone MANUAL DIFF REQ NO Normal [facility] Comment on above: Performed By: #### C BC ####[facility] [address] [place], [place] [address]DrZay Boone MCH (RBC) [Entitic mass] 31.3 pg Normal 26.7-34.0 [facility] Comment on above: Performed By: #### C BC ####[facility] [address] [address]Dr. Osmany Boone MCHC (RBC) [Mass/Vol] 34.9 g/dL Normal 29.9-35.2 [facility] Comment on above: Performed By: #### C BC ####[facility] [address] [place], [place] [address]DrZay Boone MCV (RBC) [Entitic vol] 89.6 fL Normal 81.0-99.0 [facility] Comment on above: Performed By: #### C BC ####[facility] [address] [place], [place] [address]DrZay Boone MONO # 0.5 103/ul Normal 0.3-0.8 [facility] Comment on above: Performed By: #### C BC ####[facility] [address] [place], [place] [address]DrZay Boone Monocytes/100 WBC (Bld) 5.4 % Normal 1.7-12.0 [facility] Comment on above: Performed By: #### C BC ####[facility] [address] [place], [place] [address]DrZay Boone NEUT # 6.4 103/ul Normal 1.4-6.5 [facility] Comment on above: Performed By: #### C BC ####[facility] [address] [place], [place] [address]DrZay Boone Neutrophils/100 WBC (Bld) 77.7 % Critically high 43.0-75.0 [facility] Comment on above: Performed By: #### C BC ####[facility] [address] [place], [place] [address]DraZy Boone Platelet mean volume (Bld) [Entitic vol] 9.6 fL Normal 9.5-13.5 [facility] Comment on above: Performed By: #### C BC ####[facility] [address] [place], [place] [address]DrZay Boone PLT 227 103/ul Normal 150-450 [facility] Comment on above: Performed By: #### C BC ####[facility] [address] [address]DrZay Boone RBC 3.96 106/ul Critically low 4.20-5.40 [facility] Comment on above: Performed By: #### C BC ####[facility] [address] [address]DrZay Boone WBC 8.3 103/ul Normal 4.0-11.0 [facility] Comment on above: Performed By: #### C BC ####[facility] [address] [address]Dr. Osmany Boone ER URINE PROFILEon 2 Bilirubin Ql (U) Negative Normal NEGATIVE [facility] Comment on above: Performed By: #### E RUR #### [facility] [address] [place] [address] Dr. Osmany Boone Clarity (U) CLEAR Normal CLEAR [facility] Comment on above: Performed By: #### E RUR #### [facility] [address] [place] [address] Dr. Osmany Boone Color (U) YELLOW Normal YELLOW [facility] Comment on above: Performed By: #### E RUR #### [facility] [address] [place] [address] Dr. Osmany THORPE A micrscopic examination will be performed if indicated. Normal [facility] Comment on above: Performed By: #### E RUR #### [facility] [address] [place] [address] Dr. Osmany Boone Glucose Ql (U) Negative Normal NEGATIVE [facility] Comment on above: Performed By: #### E RUR #### [facility] [address] [place] [address] Dr. Osmany Boone Hemoglobin Ql (U) Negative Normal NEGATIVE [facility] Comment on above: Performed By: #### E RUR #### [facility] [address] [place] [address] Dr. Osmany Boone Ketones Ql (U) TRACE Abnormal NEGATIVE [facility] Comment on above: Performed By: #### E RUR #### [facility] [address] [place] [address] Dr. Osmany Boone LEUKOCYTES Negative Normal NEGATIVE [facility] Comment on above: Performed By: #### E RUR #### [facility] [address] [place] [address] Dr. Osmany Boone Nitrite Ql (U) Negative Normal NEGATIVE [facility] Comment on above: Performed By: #### E RUR #### [facility] [address] [place] [address] Dr. Osmany Boone pH (U) 6.0 [pH] Normal 5-9 [facility] Comment on above: Performed By: #### E RUR #### [facility] [address] [place] [address] Dr. Osmany Boone SPEC GRAVITY >=1.030 Abnormal 1.005-<=1.025 [facility] Comment on above: Performed By: #### E RUR #### [facility] [address] [place] [address] Dr. Osmany Boone UA PROTEIN Negative Normal NEGATIVE/ TRACE [facility] Comment on above: Performed By: #### E RUR #### [facility] [address] [place] [address] Dr. Osmany Boone UR MICRO IND NOT INDICATED Normal [facility] Comment on above: Performed By: #### E RUR #### [facility] [address] [place] [address] Dr. Osmany Boone Urobilinogen Qn (U) 1.0 {Salazar'U}/dL Normal 0.2 - 1. 0 [facility] Comment on above: Performed By: #### E RUR #### [facility] [address] [place] [address] Dr. Osmany Boone PROF CHEM 8 (BAS METB)on Anion gap [Moles/Vol] 8.4 mmol/L Normal [facility] Comment on above: Performed By: #### B MP #### [facility] [address] [address] [address] Osmany Boone Calcium [Mass/Vol] 9.0 mg/dL Normal 8.5-10.1 [facility] Comment on above: Performed By: #### B MP #### [facility] [address] [address] [address] Osmany Boone Chloride [Moles/Vol] 103 mmol/L Normal 98-107 [facility] Comment on above: Performed By: #### B MP #### [facility] [address] [address] [address] Osmany Boone CO2 [Moles/Vol] 28.1 mmol/L Normal 21.0-32.0 [facility] [place] [facility] Comment on above: Performed By: #### B MP #### [facility] [address] [place] [address] Dr. Osmany Boone Creatinine [Mass/Vol] 0.65 mg/dL Normal 0.55-1.02 [facility] Comment on above: Performed By: #### B MP #### [facility] [address] [address] [address] Osmany Boone EGFR-AF PANAMANIAN >60 Normal >=60 [facility] [place] [facility] Comment on above: Performed By: #### B MP #### [facility] [address] [place] [address] Dr. Osmany Boone EGFR-NON AF PANAMANIAN >60 Normal >=60 [facility] Comment on above: Performed By: #### B MP #### [facility] [address] [address] [address] Osmany Boone Glucose [Mass/Vol] 80 mg/dL Normal 74-106 [facility] Comment on above: Performed By: #### B MP #### [facility] [address] [place] [address] Dr. Osmany Boone Potassium [Moles/Vol] 3.5 mmol/L Normal 3.5-5.1 [facility] Comment on above: Performed By: #### B MP #### [facility] [address] [place] [address] Dr. Osmany Boone Sodium [Moles/Vol] 136 mmol/L Normal 136-145 [facility] Comment on above: Performed By: #### B MP #### [facility] [address] [place], [place] [address] Dr. Osmany Boone Urea nitrogen [Mass/Vol] 7.0 mg/dL Normal 7.0-18.0 [facility] Comment on above: Performed By: #### B MP #### [facility] [address] [place], [place] [address] Dr. Osmany Boone Urea nitrogen/Creatinine [Mass ratio] 10.8 mg/mg Normal [facility] Comment on above: Performed By: #### B MP #### [facility] [address] [place], [place] [address] Dr. Osmany Boone Discharge Planning [id number] 0 08-09-2022 Discharge Planning Note2 Discharge Planning: Anticipated Discharge [id number] Discharge Planning 08/09/22 Pt plans to return home with her and follow up with Dr. Borja tomorrow and [facility], thereafter. She accepted information on [employer] and coping with work stress. ARACELI Yusuf Assessment: Discharge Planning Assessment [id number] Lives Withspouse; dependent child(herlinda); son 3(1) Living Arrangementshouse(1) Stated Reason for AdmissionDepression; Agitation & Aggression, Panic Attacks(2) Arrived Fromemergency department (2) Resource/Environmental Concernsnone(2) Anticipated [place](2) [facility] Discharge Documentation: Discharge/Transfer Date/[id number] 14:39 Discharged Accompanied Byparent Discharge Modeambulatory Transportation Methodprivate car Code StatusCode Status order at time of discharge: Full Code [place] DNR Form Sent with Patient and/or Familyno Valuables/Medications/ Belongings Returnedyes Final Disposition.Home Electronic Signatures: Ellen Whitlock (LOGAN) (Signed 09-Aug-2022 13:04) Authored: Discharge Planning, Assessment, Discharge Documentation Kely PrasadRN) (Signed 09-Aug-2022 14:46) Authored: Discharge Planning, Discharge Documentation Last Updated: 09-Aug-2022 14:46 by Kely Prasad (RN) References: 1. Data Referenced From Psychiatric Assessment - Social Work-Inpatient 09-Aug-2022 07:52 2. Data Referenced From Patient Profile - Adult v2 07-Aug-2022 02:07 Normal 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. Continue with current treatment and medication adjustments. Patient is agreeable with continued medication management and adjustments discussed. Assessment and Plan: Risk Assessment: [place] Suicide Risk: low (1) Acute Risk of [...] and Physical - Psychiatry 07-Aug-2022 13:12 Normal [facility] Discharge [id number] 022 Discharge Profile2 Discharge Orders: Anticipated Discharge Date: Anticipated Discharge [id number] DNAR: Code Status at Discharge: Full Code [...] Review of Medication Reconciliation and Orders Completedby HAZARDOUS SUBSTANCES SCIENTIST Reviewing ProviderWilliam Fernandez, HAZARDOUS SUBSTANCES SCIENTIST-LOSS PREVENTION/SAFETY DISTRICT MANAGER at 09-Aug-2022 12:45:39 Appointments: Follow-Up Appointment 01: Physician/Dept/Service Reason for ReferralMental health follow up Scheduled Date/[id number] 01:00 [id number] [place], [place] Phone [phone] [address] 103 Follow-Up Appointment 02: Physician/Dept/Service [facility] Reason for Referralmental health follow up [id number] [facility] [address] Phone [phone] Electronic Signatures: Zabrina Lema (N MGR) (Signed 09-Aug-2022 13:27) Authored: Discharge Orders, Appointments Wyatt Fernandez (HAZARDOUS SUBSTANCES SCIENTIST-LOSS PREVENTION/SAFETY DISTRICT MANAGER) (Signed 09-Aug-2022 12:45) Authored: Psychiatric Continuing Care Plan, Provider FINAL REVIEW of Orders Kely Prasad (RN) (Signed 09-Aug-2022 13:33) Authored: Discharge Orders, Psychiatric Continuing Care Plan, Appointments, Gold Form - Cancer Program Coordinator Summary Last Updated: 09-Aug-2022 13:33 by Kely Prasad (RN) References: 1. Data Referenced From Admission Risk Screen - Adult 07-Aug-2022 02:11 Normal [facility] Admission Risk Screen - Adul ton 08-07-2022 Admission Risk Screen - Adult Allergies: Allergies: No Known Allergies: Patient Verification: New W ID Band Applied in my Departmentno Type of ID Patient is WearingW wristband, but not applied here Patient Transferred from Other Facility ([facility], [facility])no Patient Identity Verified Bypatient ID Band FULL [...] AlertFor Ebola-like Symptoms: Isolate Patient and Notify Provider/Multifocal Button Grinder For Contact: Notify Provider/Multifocal Button Grinder Desai Fall Screen: History of falling (immediate or [...] written material; computer/internet Cultural Considerationsnone Developmental Considerationsnone Restorationist Considerationsnone Learning Assessment (Other Learner): Other learner [...] Spiritual Screen: Are there any cultural, spiritual, temple practices/values/needs that are important for us to knowno Vaccinations: Vaccination - Influenza Vaccination Screen: Is it flu season (between and February 18)Yes Screening for identified contraindications to influenza vaccination patient/caregiver refusal Vaccination - Pneumonia Vaccination Screen: Patient has received a previous pneumonia vaccine:no/unknown... Immunocompetent persons with underlying chronic conditions or reside in custodial care facilitiesnone of these conditions Persons with [...] Wanding: W (more content not included)... Normal [facility] CORONAVIRUS 2019 BY PCRon SARS-CoV-2 (COVID-19) RNA KENTON+probe Ql (Unsp spec) Canceled Normal [facility] Comment on above: Order Comment: TEST CORONAVIRUS 2019 BY PCR WAS CANCELLED, 08/07/2022 13:06 CANCEL PER RN 5W. Result Comment: . This test has received FDA Emergency Use Authorization (EUA) and has been verified by [facility]. This test is only authorized for the duration of time that circumstances exist to justify the authorization of the emergency use of in vitro diagnostic tests for the detection of SARS-CoV-2 virus and/or diagnosis of COVID-19 infection under section 564(b)(1) of the Act, 21 U.S.C. 360bbb-3(b)(1), unless the authorization is terminated or revoked sooner. [facility] is certified under CLIA-88 as qualified to perform high complexity testing. Testing is performed in the [facility] laboratory located at [address] [place] [address]. SARS-CoV-2/Flu/RSV Multiplex Test: Fact sheet for providers: https://www.fda.gov/media/195373/download Fact sheet for patients: https://www.fda.gov/media/648192/download Performed By: #### C OV19 #### [address] [id number] Consult - Psychiatryon 08-07 Consult - Psychiatry [...] rates anxiety 10/10 with frequent panic attacks. Patient has been [...] son Education: 2 years of college Employment: [employer] in [place], [employer] Legal: none Guns: hunting rifles are locked Tobacco: quit when found she was . Previously vaped one pod every four days Alcohol: denies Illicit drugs: denies Allergies: No Known Allergies: Medications Prior to Admission: Admission Medication Reconciliation has not been completed for this patient. OARRS Review: OARRS checked: yes OARRS Comments: 200 Objective: Objective Information: T PRBPMAPSpO2 [id number]/6699% Date/Time08/06 19: 19: 19: 19: 19:01 Range(36.3C - 36.3C ) (89 - 89 ) (16 - 16 ) (134 - 134 )/ (66 - 66 ) (99% - 99% ) Mental Status Exam: General: female with brown hair in [facility] gown Appearance: Appears stated age. Attitude: [...] compliance with prescribed medication. Contact the performing [facility] laboratory to add-on definitive confirmatory testing if [...] 150 NG/ (more content not included)... Normal [facility] Consult-Medicineon 2 Consult-Medicine Service: Service: Medicine Consult: Consult requested by (Attending Name): Zahra Guerra Reason: Adult medical examination and optimization for behavioral health unit History of Present Illness: Admission Reason: suicidal ideation HPI: DORCAS KENT is a 22 year old Female who presented to [facility] with a chief complaint of increasing depression, [...] Known Allergies: Objective: Objective Information: T PRBPMAPSpO2 Value36.55151490/5899% Date/Time08/07 8: 8: 8: 8: 8:00 Range(36.3C [...] - 22 (more content not included)... Normal [facility] GLUCOSE, FASTINGon 2 Glucose [Mass/Vol] 92 mg/dL Normal 74 - 99 [facility] Comment on above: Result Comment: INCR EASED RISK FOR DIABETES 100-125 mg/dL DIAGNOSTIC OF DIABETES >=126 mg/dL Diagnosis of diabetes mellitus requires confirmation of an abnormal result by repeat testing. [employer], Diabetes Care; 33(Supp 1), Nov 2009. Performed By: #### H CGQU #### [address] [id number] LIPID PANEL (CORONARY RISK 2 )on 08-07-2022 Cholesterol [Mass/Vol] 122 mg/dL Normal 0 - 199 [facility] Comment on above: Result Comment: . AGE [...] dosing. Performed By: #### S ALIC #### [address] [id number] Cholesterol in HDL [Mass/Vol] 46.0 mg/dL Normal [facility] Comment on above: Result Comment: . AGE VERY LOW LOW NORMAL HIGH 0-19 Y < 35 < 40 40-45 ---- 20-24 Y ---- < 40 >45 ---- >24 Y ---- < 40 40-60 >60 . Performed By: #### S ALIC #### [address] [id number] Cholesterol in LDL [Mass/Vol] 61 mg/dL Normal 0 - 119 [facility] Comment on above: Result Comment: . NEAR BORD AGE DESIRABLE OPTIMAL HIGH HIGH VERY HIGH 0-19 Y 0 - 109 --- 110-129 >/= 130 ---- 20-24 Y 0 - 119 --- 120-159 >/= 160 ---- >24 Y 0 - 99 100-129 130-159 160-189 >/=190 . Performed By: #### S ALIC #### [address] [id number] Cholesterol in VLDL [Mass/Vol] 15 mg/dL Normal 0 - 40 [facility] Comment on above: Performed By: #### S ALIC #### [address] [id number] Cholesterol.total/Cho lesterol in HDL [Mass ratio] 2.7 {ratio} Normal [facility] Comment on above: Result Comment: REF VALUES DESIRABLE < 3.4 HIGH RISK > 5.0 Performed By: #### S ALIC #### [address] [id number] Triglyceride [Mass/Vol] 76 mg/dL Normal 0 - 149 [facility] Comment on above: Result Comment: . AGE [...] dosing. Performed By: #### S ALIC #### [address] [id number] MAGNESIUMon 08-07-2022 Magnesium [Mass/Vol] 1.80 mg/dL Normal 1.60 - 2.40 [facility] Comment on above: Performed By: #### M G #### [address] [id number] MAGNESIUM Canceled Normal [facility] Comment on above: Order Comment: TEST MAGNESIUM WAS CANCELLED, 08/07/2022 11:15 add on 11:15 08/07/2022. Performed By: #### H CGQU #### [address] [id number] Order Reconciliationon 08-07 Order Reconciliation Page 1 Discharge Reconciliation Document Reconciliation Type: Discharge requested on behalf of Wyatt Fernandez (Advanced Practice Nurse-Admit) done by Wyatt Fernandez (HAZARDOUS SUBSTANCES SCIENTIST-[facility]) Discharge - Partial Reconciliation: 07-Aug-2022 14:33 by: Thi Caceres (HAZARDOUS SUBSTANCES SCIENTIST-[facility]) Discharge - Reconciliation: 09-Aug-2022 11:03 by: Wyatt Fernandez (HAZARDOUS SUBSTANCES SCIENTIST-[facility]) Home Medications EnteredHOME MEDICATIONS AT DISCHARGE [...] 1 tab(s) orally once a day Normal [facility] Order Reconciliation Page 1 Admission Reconciliation Document [...] TabletDOSE = 1 tablet(s) Oral Daily Normal [facility] POTASSIUMon 08-07-2022 Potassium [Moles/Vol] 3.9 mmol/L Normal 3.5 - 5.3 [facility] Comment on above: Performed By: #### K #### [address] [id number] Patient Profile - Adult v2on 08-07-2022 Patient Profile - Adult v2 Profile: Initial Info: How to be AddressedRenae Spoken Language PreferredEnglish (1) Stated Reason for AdmissionDepression; Agitation & Aggression, Panic Attacks Wants Family/Rep Notified of Admissiondeferred; patient unable to answer Notify PCPdeferred, unable to answer Informed of Patient Visiting Rightsyes Arrived Fromemergency department Patient Belongingsremains with patient Patient Belongings Remaining with PatientSee pt. belonging's sheet Medications Brought to Hospitalno General Health: Weight in kg77 kilogram(s)(2) Weight in jcw094.7 pound(s) Weight Methodactual (measured) Scale Typestanding Height [...] child(herlinda); spouse Lives Withdependent child(herlinda); spouse Living Arrangementshouse Services [facility] Anticipated Transition Tohome Significant IndicatorsComplete Information Review: Allergies, Home Meds and Significant Events have been Reviewed and Verified with Patient/Familyyes ALLERGY, INTOLERANCE, ADVERSE EVENT: Allergies: No Known Allergies: Active Electronic Signatures: Manoj Monsalve (MADDY) (Signed 07-Aug-2022 02:11) Authored: Initial Info, General Health, [facility] Based Care, Substance, Health Mgmt, Relationship/Environ, Additional Information Last Updated: 07-Aug-2022 02:11 by Manoj Monsalve (RN) References: 1. Data Referenced From Triage - ED 06-Aug-2022 19:01 2. Data Referenced From 1. Vital Signs 06-Aug-2022 19:01 3. Data Referenced From Provider Note - ED v3 06-Aug-2022 22:51 Normal [facility] Provider Note - ED v3on 09- Provider Note - ED v3 Provider Note: [...] 19:55 Rate: 90 Rhythm: NSR STEMI: no [place]: Normal ST Segment/T Wave: T inversion (T [...] encounter. Shared (more content not included)... Normal [facility] TSHon 08-07-2022 TSH Qn 2.06 m[IU]/L Normal 0.44 - 3.98 [facility] Comment on above: Result Comment: TSH testing is performed using different testing methodology at [facility] than at [facility]. Direct result comparisons should only be made within the same method. Performed By: #### T SH2 #### [address] [id number] TSH Canceled Normal [facility] Comment on above: Order Comment: TEST TSH WAS CANCELLED, 08/07/2022 11:15 add on 11:15 08/07/2022. Result Comment: TSH testing is performed using different testing methodology at [facility] than at other [facility]. Direct result comparisons should only be made within the same method. Performed By: #### H CGQU #### [address] [id number] VITAMIN D, 25-HYDROXYon 07-22 VITAMIN D, 25-HYDROXY 29 ng/mL Abnormal [facility] Comment on above: Result Comment: . DEFICIENCY: < 20 NG/ML INSUFFICIENCY: 20-29 NG/ML SUFFICIENCY: 30-100 NG/ML THIS ASSAY ACCURATELY QUANTIFIES THE SUM OF VITAMIN D3, 25-HYDROXY AND VIT D2,25-HYDROXY. Performed By: #### C OV19 #### [address] [id number] VITAMIN D, 25-HYDROXY Canceled Normal [facility] Comment on above: Order Comment: TEST VITAMIN D, 25-HYDROXY WAS CANCELLED, 08/07/2022 11:15 add on 11:15 08/07/2022. Performed By: #### V TDOH #### [address] [id number] ACETAMINOPHENon 08-06-2022 Acetaminophen [Mass/Vol] ug/mL Normal 10.0 - 30.0 [facility] Comment on above: Performed By: #### C OV19 #### [address] [id number] ALCOHOLon 08-06-2022 Ethanol [Mass/Vol] mg/dL Normal [facility] Comment on above: Result Comment: FOR MEDICAL USE ONLY. . REF VALUES <10 Performed By: #### S ALIC #### [address] [id number] CBC AND DIFFERENTIALon 08-06 % AUTOMATED IMMATURE GRAN 0.3 % Normal 0.0 - 0.9 [facility] Comment on above: Result Comment: Galina ture Granulocyte Count (IG) includes promyelocytes, myelocytes and metamyelocytes but does not include bands. Percent differential counts (%) should be interpreted in the context of the absolute cell counts (cells/L). Performed By: #### C BCDF #### [address] [id number] Basophils (Bld) [#/Vol] 0.05 10*3/uL Normal 0.00 - 0.10 [facility] Comment on above: Performed By: #### C BCDF #### [address] [id number] Basophils/100 WBC (Bld) 0.7 % Normal 0.0 - 2.0 [facility] Comment on above: Performed By: #### C BCDF #### [address] [id number] Eosinophils (Bld) [#/Vol] 0.14 10*3/uL Normal 0.00 - 0.70 [facility] Comment on above: Performed By: #### C BCDF #### [address] [id number] Eosinophils/100 WBC (Bld) 2.1 % Normal 0.0 - 6.0 [facility] Comment on above: Performed By: #### C BCDF #### [address] [id number] Erythrocyte distribution width (RBC) [Ratio] 11.9 % Normal 11.5 - 14.5 [facility] Comment on above: Performed By: #### C BCDF #### [address] [id number] Hematocrit (Bld) [Volume fraction] 34.1 % Low 36.0 - 46.0 [facility] Comment on above: Performed By: #### C BCDF #### [address] [id number] Hemoglobin (Bld) [Mass/Vol] 11.6 g/dL Low 12.0 - 16.0 [facility] Comment on above: Performed By: #### C BCDF #### [address] [id number] Lymphocytes (Bld) [#/Vol] 1.68 10*3/uL Normal 1.20 - 4.80 [facility] Comment on above: Performed By: #### C BCDF #### [address] [id number] Lymphocytes/100 WBC (Bld) 24.9 % Normal 13.0 - 44.0 [facility] Comment on above: Performed By: #### C BCDF #### [address] [id number] MCHC (RBC) [Mass/Vol] 34.0 g/dL Normal 32.0 - 36.0 [facility] Comment on above: Performed By: #### C BCDF #### [address] [id number] MCV (RBC) [Entitic vol] 92 fL Normal 80 - 100 [facility] Comment on above: Performed By: #### C BCDF #### [address] [id number] Monocytes (Bld) [#/Vol] 0.52 10*3/uL Normal 0.10 - 1.00 [facility] Comment on above: Performed By: #### C BCDF #### [address] [id number] Monocytes/100 WBC (Bld) 7.7 % Normal 2.0 - 10.0 [facility] Comment on above: Performed By: #### C BCDF #### [address] [id number] Neutrophils (Bld) [#/Vol] 4.33 10*3/uL Normal 1.20 - 7.70 [facility] Comment on above: Performed By: #### C BCDF #### [address] [id number] Neutrophils/100 WBC (Bld) 64.3 % Normal 40.0 - 80.0 [facility] Comment on above: Performed By: #### C BCDF #### [address] [id number] Platelets (Bld) [#/Vol] 212 10*3/uL Normal 150 - 450 [facility] Comment on above: Performed By: #### C BCDF #### [address] [id number] RBC 3.72 x10E12/L Low 4.00 - 5.20 [facility] Comment on above: Performed By: #### C BCDF #### [address] [id number] WBC (Bld) [#/Vol] 6.7 10*3/uL Normal 4.4 - 11.3 [facility] Comment on above: Performed By: #### C BCDF #### [address] [id number] COMPREHENSIVE PANELon 2021 Albumin [Mass/Vol] 4.2 g/dL Normal 3.4 - 5.0 [facility] Comment on above: Performed By: #### C OV19 #### [address] [id number] ALP [Catalytic activity/Vol] 63 U/L Normal 33 - 110 [facility] Comment on above: Performed By: #### C OV19 #### [address] [id number] ALT [Catalytic activity/Vol] 13 U/L Normal 7 - 45 [facility] Comment on above: Result Comment: Lizy ents treated with Sulfasalazine may generate falsely decreased results for ALT. Performed By: #### C OV19 #### [address] [id number] Anion gap [Moles/Vol] 11 mmol/L Normal 10 - 20 [facility] Comment on above: Performed By: #### C OV19 #### [address] [id number] AST [Catalytic activity/Vol] 16 U/L Normal 9 - 39 [facility] Comment on above: Performed By: #### C OV19 #### [address] [id number] Bilirubin [Mass/Vol] 0.4 mg/dL Normal 0.0 - 1.2 [facility] Comment on above: Performed By: #### C OV19 #### [address] [id number] Calcium [Mass/Vol] 8.9 mg/dL Normal 8.6 - 10.3 [facility] Comment on above: Performed By: #### C OV19 #### [address] [id number] Chloride [Moles/Vol] 106 mmol/L Normal 98 - 107 [facility] Comment on above: Performed By: #### C OV19 #### [address] [id number] Creatinine [Mass/Vol] 0.77 mg/dL Normal 0.50 - 1.05 [facility] Comment on above: Performed By: #### C OV19 #### [address] [id number] eGFR FEMALE >90 Normal >90 [facility] Comment on above: Result Comment: CALC ULATIONS OF ESTIMATED GFR ARE PERFORMED USING THE 2020 CKD-EPI STUDY REFIT EQUATION WITHOUT THE RACE VARIABLE FOR THE IDMS-TRACEABLE CREATININE METHODS. https://jasn.asnjournals.org/content/early//ASN.404711 3726 Performed By: #### C OV19 #### [address] [id number] Glucose [Mass/Vol] 99 mg/dL Normal 74 - 99 [facility] Comment on above: Performed By: #### C OV19 #### [address] [id number] HCO3 (Bld) [Moles/Vol] 25 mmol/L Normal 21 - 32 [facility] Comment on above: Performed By: #### C OV19 #### [address] [id number] Potassium [Moles/Vol] 3.4 mmol/L Low 3.5 - 5.3 [facility] Comment on above: Performed By: #### C OV19 #### [address] [id number] Protein [Mass/Vol] 7.2 g/dL Normal 6.4 - 8.2 [facility] Comment on above: Performed By: #### C OV19 #### [address] [id number] Sodium [Moles/Vol] 139 mmol/L Normal 136 - 145 [facility] Comment on above: Performed By: #### C OV19 #### [address] [id number] Urea nitrogen [Mass/Vol] 9 mg/dL Normal 6 - 23 [facility] Comment on above: Performed By: #### C OV19 #### [address] [id number] CORONAVIRUS 2019 BY PCRon Lab Specimen Source Nasal, Nasopharyngeal Normal [facility] Comment on above: Order Comment: TEST CORONAVIRUS 2019 BY PCR WAS CANCELLED, 08/07/2022 13:06 CANCEL PER RN 5W. Performed By: #### C OV19 #### [address] [id number] CREATINE KINASEon 08-06-2022 CK [Catalytic activity/Vol] 79 U/L Normal 0 - 215 [facility] Comment on above: Performed By: #### C K #### [address] [id number] DRUG SCREEN,URINEon 08-06-20 22 AMPHETAMINE SCREEN,U Negative Normal NEGATIVE [place] Comment on above: Result Comment: CUTO FF LEVEL: 500 NG/ML Cross-reactivity has been reported with high concentrations of the following drugs: buproprion, chloroquine, chlorpromazine, ephedrine, mephentermine, fenfluramine, phentermine, phenylpropanolamine, pseudoephedrine, and propranolol. Performed By: #### D RUG3 #### [address] [id number] BARBITURATES SCREEN,U Negative Normal NEGATIVE [facility] Comment on above: Result Comment: CUTO FF LEVEL: 200 NG/ML Performed By: #### D RUG3 #### [address] [id number] BENZODIAZEPINES SCREEN,U Negative Normal NEGATIVE [facility] Comment on above: Result Comment: CUTO FF LEVEL: 200 NG/ML Performed By: #### D RUG3 #### [address] [id number] CANNABINOIDS SCREEN,U Negative Normal NEGATIVE [facility] Comment on above: Result Comment: CUTO FF LEVEL: 50 NG/ML Performed By: #### D RUG3 #### [address] [id number] COCAINE METABOLITE SCREEN,U Negative Normal NEGATIVE [facility] Comment on above: Result Comment: CUTO FF LEVEL: 150 NG/ML Performed By: #### D RUG3 #### [address] [id number] DRUG SCREEN COMMENT SEE BELOW Normal [facility] Comment on above: Result Comment: Drug screen results are presumptive and should not be used to assess compliance with prescribed medication. Contact the performing [facility] laboratory to add-on definitive confirmatory testing if [...] directors. Performed By: #### D RUG3 #### [address] [id number] FENTANYL SCREEN,URINE Negative Normal NEGATIVE [facility] Comment on above: Result Comment: CUTO FF LEVEL: 5 NG/ML Performed By: #### D RUG3 #### [address] [id number] METHADONE SCREEN,U Negative Normal NEGATIVE [facility] Comment on above: Result Comment: CUTO FF LEVEL: 150 NG/ML The metabolite F-ofiyc-tarmtkogxnvoel (LAAM) is not detected by this method in concentrations that would be found in the urine of patients on LAAM therapy. Performed By: #### D RUG3 #### [address] [id number] OPIATES SCREEN,U Negative Normal NEGATIVE [facility] Comment on above: Result Comment: CUTO FF LEVEL: 300 NG/ML The opiate screen does not detect fentanyl, meperidine, or tramadol. Oxycodone is not consistently detected (refer to Oxycodone Screen, Urine result). Performed By: #### D RUG3 #### [address] [id number] OXYCODONE SCREEN,U Negative Normal NEGATIVE [facility] Comment on above: Result Comment: CUTO FF LEVEL: 100 NG/ML This test will accurately detect both oxycodone and oxymorphone. Performed By: #### D RUG3 #### [address] [id number] PCP SCREEN,U Negative Normal NEGATIVE [facility] Comment on above: Result Comment: CUTO FF LEVEL: 25 NG/ML Cross-reactivity has been reported with dextromethorphan. Performed By: #### D RUG3 #### [address] [id number] HCG,BETA-QUANTITATIVEon 07-22 HCG,BETA-QUANTITATIVE 13536 mIU/mL Abnormal [facility] Comment on above: Result Comment: Low- level [...] HCG measurement is performed using the [employer] Access Immunoassay which detects intact HCG and free beta HCG subunit. This test is not indicated for use as a tumor marker. HCG testing is performed using a different test methodology at [facility] than other [facility]. Direct result comparison should only be made within the same method. REF VALUES NON FEMALE <5 MALES <5 Performed By: #### H CGQU #### [address] [id number] Risk Screen - Adult Emergenc yon 08-06-2022 [...] instruction; written material Cultural Considerationsnone Developmental Considerationsnone Restorationist Considerationsnone Other Learnersfamily Learning Assessment (Other Learner): Learning Assessment (Other Learner): Other learner availableno Pressure Injury/TB/Substance: Pressure Injury: Do you have a coughno Smoking Statusnever smoker Alcohol Usedenies Drug Usedenies Drug 2 Usedenies Admission Risk Screen: Significant IndicatorsComplete CAGE: CAGE: Is this an injured patient at a Trauma Center ([facility]/[facility]/[place]): no Electronic Signatures: Elizabeth Romeo (STAFF N) (Signed 06-Aug-2022 19:00) Authored: Preferred Language, Advanced Directives, Family Violence Adult, Learning Assessment (Patient), Learning Assessment (Other Learner), Pressure Injury/TB/Substance, Pressure Injury, CAGE Last Updated: 06-Aug-2022 19:00 by Elizabeth Romeo (STAFF N) Normal [facility] SALICYLATEon 08-06-2022 SALICYLATE <3 Normal 4 - 20 [facility] Comment on above: Performed By: #### S ALI #### [address] [id number] Triage - EDon 08-06-2022 Triage - ED [...] Accompanied By: self Language: Spoken Language Preferred: Portuguese Reading Language Preferred: Portuguese Public Health Service Officer Requested: no manager hospital was requested MDRO: History of MDRO: no [...] BMI (kg/m2): 25.817 Calculated BSA (m2) 1.92 Yosvany Coma Scale: Best Eye Response: (E4) spontaneous Best Motor Response: (M6) obeys commands Best Verbal Response: (V5) oriented Yosvany Score: 15 Cough lasting greater than 3 [...] 19:06 by Elizabeth Romeo (STAFF N) Normal [facility] URINALYSISon 08-06-2022 Appearance (U) CLEAR Normal CLEAR [facility] Comment on above: Performed By: #### S ALIC #### [address] [id number] Bilirubin Ql (U) Negative Normal NEGATIVE [facility] Comment on above: Performed By: #### S ALIC #### [address] [phone] Color (U) YELLOW Normal STRAW,YELLOW [facility] Comment on above: Performed By: #### S ALIC #### [address] [id number] Glucose Ql (U) Negative Normal NEGATIVE [facility] Comment on above: Performed By: #### S ALIC #### [address] [id number] Hemoglobin Ql (U) Negative Normal NEGATIVE [facility] Comment on above: Performed By: #### S ALIC #### [address] [phone] Ketones Ql (U) 5 (TRACE) Abnormal NEGATIVE [facility] Comment on above: Performed By: #### S ALIC #### [address] [phone] Leukocyte esterase Test strip Ql (U) Negative Normal NEGATIVE [facility] Comment on above: Performed By: #### S ALIC #### [address] [id number] Nitrite Ql (U) Negative Normal NEGATIVE [facility] Comment on above: Performed By: #### S ALIC #### [address] [phone] pH (U) 6.0 [pH] Normal 5.0 - 8.[address] [facility] Comment on above: Performed By: #### S ALIC #### [address] [phone] Protein Ql (U) Negative Normal NEGATIVE [facility] Comment on above: Performed By: #### S ALIC #### [address] [id number] Specific gravity (U) [Rel density] 1.021 Normal 1.005 - 1.035 [facility] Comment on above: Performed By: #### S ALIC #### [address] [id number] Urobilinogen (U) [Mass/Vol] 2.0 mg/dL High 0.0 - 1.9 [facility] Comment on above: Result Comment: Due to [...] false positive urobilinogen. Performed By: #### S ALIC #### [address] [phone] Automated erythrocytes count in urine sediment (number/area)Ordered By: Demar Jean Baptiste on 08-04-2022 RBC Auto (Urine sed) [#/Area] 3-4 [HPF] 0-4 [facility] Automated leukocytes count i n urine sediment (number/area)Ordered By: Demar Jean Baptiste on 08-04-2022 WBC Auto (Urine sed) [#/Area] 0-1 [HPF] 0-4 [facility] Basophils Auto (Bld) [#/Vol] Ordered By: Demar Jean Baptiste on 08-04-2022 Basophils (Bld) [#/Vol] 0.1 10*3/uL 0.0-0.2 [facility] Basophils/100 WBC Auto (Bld) Ordered By: Demar Jean Baptiste on 08-04-2022 Basophils/100 WBC (Bld) 0.9 % . [facility] Bilirubin Test strip Ql (U)O rdered By: Demar Jean Baptiste on 08-04-2022 Bilirubin Ql (U) Negative Negative [facility] Blood hemoglobin measurement (mass/volume)Ordered By: Demar Jean Baptiste on 08-04-2022 Hemoglobin (Bld) [Mass/Vol] 12.5 g/dL 11.8-15.4 [facility] Blood leukocytes automated c ount (number/volume)Ordered By: Demar Jean Baptiste on 08-04-2022 WBC (Bld) [#/Vol] 6.2 10*3/uL 4.5-11.0 [facility] Body fluid albumin measureme nt (mass/volume)Ordered By: Demar Jean Baptiste on 08-04-2022 Albumin (Body fld) [Mass/Vol] 3.9 g/dL 3.2-5.5 [facility] Color Auto (U)Ordered By: Margarito Jean Baptiste on 08-04-2022 Color (U) Yellow Yellow [facility] Creatinine and Glomerular fi ltration rate.predicted panel (S/P/Bld)Ordered By: Demar Jean Baptiste on 08-04-2022 Creatinine [Mass/Vol] 0.72 mg/dL 0.44-1.03 [facility] Eosinophils Auto (Bld) [#/Vo l]Ordered By: Demar Jean Baptiste on 08-04-2022 Eosinophils (Bld) [#/Vol] 0.1 10*3/uL 0.0-0.45 [facility] Eosinophils/100 WBC Auto (Bl d)Ordered By: Demar Jean Baptiste on 08-04-2022 Eosinophils/100 WBC (Bld) 1.9 % . [facility] Erythrocyte distribution wid th Auto (RBC) [Ratio]Ordered By: Demar Jean Baptiste on 08-04-2022 Erythrocyte distribution width (RBC) [Ratio] 13.0 % 11.9-15.3 [facility] Estimated glomerular filtrat ion rate (GFR) non- AmericanOrdered By: Demar Jean Baptiste on 08-04-2022 GFR/1.73 sq M.predicted among non-blacks MDRD (S/P/Bld) [Vol rate/Area] > 60 mL/Min [facility] Globulin Calc (S) [Mass/Vol] Ordered By: Demar Jean Baptiste on 08-04-2022 Globulin (S) [Mass/Vol] 2.8 g/dL [facility] Hematocrit Auto (Bld) [Volum e fraction]Ordered By: Demar Jean Baptiste on 08-04-2022 Hematocrit (Bld) [Volume fraction] 36.4 % 34.0-46.4 [facility] Ketones Auto test strip (U) [Mass/Vol]Ordered By: Demar Jean Baptiste on 08-04-2022 Ketones (U) [Mass/Vol] Negative Negative [facility] Laboratory - Hematology and Cell countsOrdered By: Demar Jean Baptiste on 08-04-2022 Nucleated RBC/100 WBC (Bld) [Ratio] 0.1 % 0-0.5 [facility] - UrinalysisOrder ed By: Demar Jean Baptiste on 08-04-2022 Hyaline casts LM Ql (Urine sed) 0-8 [LPF] 0-8 [facility] Lymphocytes Auto (Bld) [#/Vo l]Ordered By: Demar Jean Baptiste on 08-04-2022 Lymphocytes (Bld) [#/Vol] 1.2 10*3/uL 1.00-4.8 [facility] Lymphocytes/100 WBC Auto (Bl d)Ordered By: Demar Jean Baptiste on 08-04-2022 Lymphocytes/100 WBC (Bld) 19.3 % . [facility] MCH Auto (RBC) [Entitic mass ]Ordered By: Demar Jean Baptiste on 08-04-2022 MCH (RBC) [Entitic mass] 31.1 pg 24.7-34.3 [facility] MCHC Auto (RBC) [Mass/Vol]Or dered By: Demar Jean Baptiste on 08-04-2022 MCHC (RBC) [Mass/Vol] 34.4 g/dL 32.0-35.0 [facility] MCV Auto (RBC) [Entitic vol] Ordered By: Demar Jean Baptiste on 08-04-2022 MCV (RBC) [Entitic vol] 90.3 fL 80-100 [facility] Monocytes Auto (Bld) [#/Vol] Ordered By: Demar Jean Baptiste on 08-04-2022 Monocytes (Bld) [#/Vol] 0.5 10*3/uL 0.0-0.8 [facility] Monocytes/100 WBC Auto (Bld) Ordered By: Demar Jean Baptiste on 09-14-2022 Monocytes/100 WBC (Bld) 7.6 % . [facility] Neutrophils Auto (Bld) [#/Vo l]Ordered By: Demar Jean Baptiste on 08-04-2022 Neutrophils (Bld) [#/Vol] 4.3 10*3/uL 1.8-7.7 [facility] Neutrophils/100 WBC Auto (Bl d)Ordered By: Demar Jean Baptiste on 08-04-2022 Neutrophils/100 WBC (Bld) 70.3 % . [facility] Nitrite Test strip Ql (U)Ord ered By: Demar Jean Baptiste on 08-04-2022 Nitrite Ql (U) Positive Negative [facility] No Panel InformationOrdered By: Demar Jean Baptiste on 08-04-2022 Estimated GFR () > 60 mL/Min [facility] Comment on above: GFR estimated refere nce range: According to KDOQI guidelines, <60 ml/min/1.73m2 is sufficient to diagnose a patient with chronic kidney disease. Pharmacy Creatinine Clearance (Chem 132.19 [facility] Platelet mean volume Auto (B ld) [Entitic vol]Ordered By: Demar Jean Baptiste on 08-04-2022 Platelet mean volume (Bld) [Entitic vol] 7.7 fL 6.3-10.7 [facility] Platelets Auto (Bld) [#/Vol] Ordered By: Demar Jean Baptiste on 08-04-2022 Platelets (Bld) [#/Vol] 214 10*3/uL 150-450 [facility] Protein Auto test strip (U) [Mass/Vol]Ordered By: Demar Jean Baptiste on 08-04-2022 Protein (U) [Mass/Vol] Negative Negative [facility] Protein [Mass/volume] in Ser um or PlasmaOrdered By: Demar Jean Baptiste on 08-04-2022 Protein [Mass/Vol] 6.7 g/dL 6.1-7.9 [facility] RBC Auto (Bld) [#/Vol]Ordere d By: Demar Jean Baptiste on 08-04-2022 RBC (Bld) [#/Vol] 4.03 10*6/uL 3.60-5.00 [facility] Serum or plasma alanine nelson otransferase measurement without P-5'-P (enzymatic activiOrdered By: Demar Jean Baptiste on 08-04-2022 ALT No additional P-5'-P [Catalytic activity/Vol] 18 U/L 10-60 [facility] Serum or plasma albumin/glob ulin mass ratioOrdered By: Demar Jean Baptiste on 08-04-2022 Albumin/Globulin [Mass ratio] 1.4 {ratio} [facility] Serum or plasma alkaline arlin sphatase measurement (enzymatic activity/volume)Ordered By: Demar Jean Baptiste on 08-04-2022 ALP [Catalytic activity/Vol] 64 U/L 32-92 [facility] Serum or plasma anion gap de terminationOrdered By: Demar Jean Baptiste on 08-04-2022 Anion gap [Moles/Vol] 12.6 mmol/L 6.0-15.0 [facility] Serum or plasma aspartate am inotransferase measurement (enzymatic activity/volume)Ordered By: Demar Jean Baptiste on 08-04-2022 AST [Catalytic activity/Vol] 18 U/L 10-42 [facility] Serum or plasma beta choriog onadotropin measurement (units/volume)Ordered By: Demra Jean Baptiste on 08-04-2022 [place] [address].00 m[IU]/mL [facility] Comment on above: Approximate Approxim ate hCG Gestational Age Range (mIU/ml) (weeks) 0.2-1 5-50 1-2 50-500 2-3 100-5,000 3-4 500-10,000 4-5 1,000-50,000 5-6 10,000-100,000 6-8 15,000-200,000 8-12 10,000-100,000 Serum or plasma calcium sandra urement (mass/volume)Ordered By: Demar Jean Baptiste on 08-04-2022 Calcium [Mass/Vol] 8.9 mg/dL 8.2-10.2 [facility] Serum or plasma chloride malini surement (moles/volume)Ordered By: Demar Jean Baptiste on 08-04-2022 Chloride [Moles/Vol] 104 mmol/L 95-114 [facility] Serum or plasma glucose sandra urement (mass/volume)Ordered By: Demar Jean Baptiste on 08-04-2022 Glucose [Mass/Vol] 79 mg/dL 70-100 [facility] Comment on above: ADA recommended refe rence range Random Glucose Reference Range is dependent on time and content of last meal. Glucose of more than 200 mg/dL in a nonstressed, ambulatory subject supports the diagnosis of Diabetes Mellitus. Serum or plasma potassium me asurement (moles/volume)Ordered By: Demar Jean Baptiste on 08-04-2022 Potassium [Moles/Vol] 3.8 mmol/L 3.5-5.1 [facility] Serum or plasma sodium measu rement (moles/volume)Ordered By: Demar Jean Baptiste on 08-04-2022 Sodium [Moles/Vol] 136 mmol/L 136-146 [facility] Serum or plasma total biliru bin measurement (mass/volume)Ordered By: Demar Jean Baptiste on 08-04-2022 Bilirubin [Mass/Vol] 0.8 mg/dL 0.3-1.2 [facility] Serum or plasma total carbon dioxide measurement (moles/volume)Ordered By: Demar Jean Baptiste on 08-04-2022 CO2 [Moles/Vol] 23.2 mmol/L 22.0-30.0 [facility] Serum or plasma urea nitroge n measurement (mass/volume)Ordered By: Demar Jean Baptiste on 08-04-2022 Urea nitrogen [Mass/Vol] 5 mg/dL 9-23 [facility] Specific gravity Auto test s trip (U) [Rel density]Ordered By: Demar Jean Baptiste on 08-04-2022 Specific gravity (U) [Rel density] 1.015 1.001-1.030 [facility] Squamous epithelial cells de tection in urine sediment by light microscopyOrdered By: Demar Jean Baptiste 08-04-2022 Epithelial cells.squamous LM Ql (Urine sed) 5-9 [HPF] 0-2 [facility] Urine bacteria detection by automated methodOrdered By: Demar Jean Baptiste on 08-04-2022 Bacteria Auto Ql (U) 1+ None Seen [facility] Urine clarity by refractomet ry automatedOrdered By: Demar Jean Baptiste on 08-04-2022 Clarity Refractometry automated (U) Clear Clear [facility] Urine glucose measurement by automated test strip (mass/volume)Ordered By: Demar Jean Baptiste on 08-04-2022 Glucose Auto test strip (U) [Mass/Vol] Normal mg/dL Normal [facility] Urine hemoglobin detection b y automated test stripOrdered By: Demar Jean Baptiste on 08-04-2022 Hemoglobin Auto test strip Ql (U) Negative Negative [facility] Urine leukocyte esterase det ection by automated test stripOrdered By: Demar Jean Baptiste on 08-04-2022 Leukocyte esterase Auto test strip Ql (U) Negative Negative [facility] Urobilinogen Auto test strip (U) [Mass/Vol]Ordered By: Demar Jean Baptiste on 08-04-2022 Urobilinogen (U) [Mass/Vol] Normal mg/dL Normal [facility] pH Auto test strip (U)Ordere d By: Demar Jean Baptiste on 08-04-2022 pH (U) 7.0 [pH] 5.0-9.0 [facility] Serum or plasma beta choriog onadotropin measurement (units/volume)Ordered By: NICOLE PALACIOS on 07-29-2022 HCG.beta subunit Qn 2212.00 m[IU]/mL [facility] Comment on above: Approximate Approxim ate hCG Gestational Age Range (mIU/ml) (weeks) 0.2-1 5-50 1-2 50-500 2-3 100-5,000 3-4 500-10,000 4-5 1,000-50,000 5-6 10,000-100,000 6-8 15,000-200,000 8-12 10,000-100,000 Serum or plasma beta choriog onadotropin measurement (units/volume)Ordered By: NICOLE PALACIOS on 07-27-2022 HCG.beta subunit Qn 964.31 m[IU]/mL [facility] Comment on above: Approximate Approxim ate hCG Gestational Age Range (mIU/ml) (weeks) 0.2-1 5-50 1-2 50-500 2-3 100-5,000 3-4 500-10,000 4-5 1,000-50,000 5-6 10,000-100,000 6-8 15,000-200,000 8-12 10,000-100,000 CBC AUTO DIFFon 07-24-2022 BASO # 0.1 103/ul Normal 0.0-0.1 [facility] Comment on above: Performed By: #### C BC #### [facility] [address] [address] [address] Osmany Boone Basophils/100 WBC (Bld) 0.9 % Normal 0.2-2.0 [facility] Comment on above: Performed By: #### C BC #### [facility] [address] [address] [address] Osmany Boone EO # 0.2 103/ul Normal 0.0-0.7 [facility] Comment on above: Performed By: #### C BC #### [facility] [address] [place] [address] Dr. Osmany Boone Eosinophils/100 WBC (Bld) 2.8 % Normal 0.9-7.0 [facility] Comment on above: Performed By: #### C BC #### [facility] [address] [place] [address] Dr. Osmany Boone Erythrocyte distribution width (RBC) [Ratio] 12.1 % Normal 11.0-15.0 [facility] Comment on above: Performed By: #### C BC #### [facility] [address] [place] [address] Dr. Osmany Boone Hematocrit (Bld) [Volume fraction] 34.3 % Critically low 36.0-48.0 [facility] Comment on above: Performed By: #### C BC #### [facility] [address] [place] [address] Dr. Osmany Boone Hemoglobin (Bld) [Mass/Vol] 11.6 g/dL Critically low 12.0-16.0 [facility] Comment on above: Performed By: #### C BC #### [facility] [address] [place] [address] Dr. Osmany Boone IG # 0.02 10e3/ul Normal 0.00-0.03 [facility] Comment on above: Performed By: #### C BC #### [facility] [address] [place] [address] Dr. Osmany Boone IG % 0.4 % Normal 0.0-0.5 [facility] Comment on above: Performed By: #### C BC #### [facility] [address] [place] [address] Dr. Osmany Boone LYMPH # 1.4 103/ul Normal 1.2-3.8 [facility] Comment on above: Performed By: #### C BC #### [facility] [address] [place] [address] Dr. Osmany Boone Lymphocytes/100 WBC (Bld) 25.2 % Normal 20.5-60.0 [facility] Comment on above: Performed By: #### C BC #### [facility] [address] [place] [address] Dr. Osmany Boone MANUAL DIFF REQ NO Normal [facility] Comment on above: Performed By: #### C BC #### [facility] [address] [place] [address] Dr. Osmany Boone MCH (RBC) [Entitic mass] 30.5 pg Normal 26.7-34.0 [facility] Comment on above: Performed By: #### C BC #### [facility] [address] [place] [address] Dr. Osmany Boone MCHC (RBC) [Mass/Vol] 33.8 g/dL Normal 29.9-35.2 [facility] Comment on above: Performed By: #### C BC #### [facility] [address] [place] [address] Dr. Osmany Boone MCV (RBC) [Entitic vol] 90.3 fL Normal 81.0-99.0 [facility] Comment on above: Performed By: #### C BC #### [facility] [address] [place] [address] Dr. Osmany Boone MONO # 0.4 103/ul Normal 0.3-0.8 [facility] Comment on above: Performed By: #### C BC #### [facility] [address] [place] [address] Dr. Omsany Boone Monocytes/100 WBC (Bld) 7.4 % Normal 1.7-12.0 [facility] Comment on above: Performed By: #### C BC #### [facility] [address] [place] [address] Dr. Osmany Boone NEUT # 3.5 103/ul Normal 1.4-6.5 [facility] Comment on above: Performed By: #### C BC #### [facility] [address] [place] [address] Dr. Osmany Boone Neutrophils/100 WBC (Bld) 63.3 % Normal 43.0-75.0 [facility] Comment on above: Performed By: #### C BC #### [facility] [address] [place] [address] Dr. Osmany Boone Platelet mean volume (Bld) [Entitic vol] 8.9 fL Critically low 9.5-13.5 [facility] Comment on above: Performed By: #### C BC #### [facility] [address] [place] [address] Dr. Osmany Boone PLT 247 103/ul Normal 150-450 [facility] Comment on above: Performed By: #### C BC #### [facility] [address] [place] [address] Dr. Osmany Boone RBC 3.80 106/ul Critically low 4.20-5.40 [facility] Comment on above: Performed By: #### C BC #### [facility] [address] [place] [address] Dr. Osmany Boone WBC 5.4 103/ul Normal 4.0-11.0 [facility] Comment on above: Performed By: #### C BC #### [facility] [address] [place] [address] Dr. Osmany Boone ER URINE PROFILEon 2 Bilirubin Ql (U) Negative Normal NEGATIVE [facility] Comment on above: Performed By: #### P REGU, ERUR #### [facility] [address] [place] [address] Dr. Osmany Boone Clarity (U) CLEAR Normal CLEAR [facility] Comment on above: Performed By: #### P REGU, ERUR #### [facility] [address] [address] [address] Osmany Boone Color (U) LT. YELLOW Normal YELLOW [facility] Comment on above: Performed By: #### P REGU, ERUR #### [facility] [address] [address] [address] Osmany QUINTANILLAD A micrscopic examination will be performed if indicated. Normal [facility] Comment on above: Performed By: #### P REGU, ERUR #### [facility] [address] [address] [address] Osmany Boone Glucose Ql (U) Negative Normal NEGATIVE [facility] Comment on above: Performed By: #### P REGU, ERUR #### [facility] [address] [place] [address] Dr. Osmany Boone Hemoglobin Ql (U) Negative Normal NEGATIVE [facility] Comment on above: Performed By: #### P REGU, ERUR #### [facility] [address] [address] [address] Osmany Boone Ketones Ql (U) Negative Normal NEGATIVE [facility] Comment on above: Performed By: #### P REGU, ERUR #### [facility] [address] [place] [address] Dr. Osmany Boone LEUKOCYTES Negative Normal NEGATIVE [facility] Comment on above: Performed By: #### P REGU, ERUR #### [facility] [address] [address] [address] Osmany Boone Nitrite Ql (U) Negative Normal NEGATIVE [facility] Comment on above: Performed By: #### P REGU, ERUR #### [facility] [address] [address] [address] Osmany Boone pH (U) 6.5 [pH] Normal 5-9 [facility] Comment on above: Performed By: #### P REGU, ERUR #### [facility] [address] [address] [address] Osmany Boone SPEC GRAVITY 1.010 Normal 1.005-<=1.025 [facility] Comment on above: Performed By: #### P REGU, ERUR #### [facility] [address] [place] [address] Dr. Osmany Boone UA PROTEIN Negative Normal NEGATIVE/ TRACE [facility] Comment on above: Performed By: #### P REGU, ERUR #### [facility] [address] [place] [address] Dr. Osmany Boone UR MICRO IND NOT INDICATED Normal [facility] Comment on above: Performed By: #### P REGU, ERUR #### [facility] [address] [place] [address] Dr. Osmany Boone Urobilinogen Qn (U) 1.0 {Salazar'U}/dL Normal 0.2 - 1. 0 [facility] Comment on above: Performed By: #### P REGU, ERUR #### [facility] [address] [place] [address] Dr. Osmany Boone PREG QUANT HCGon 07-24-2022 HCG QUANT 187 mIU/mL Normal [facility] Comment on above: Performed By: #### P REGQNT #### [facility] [address] [place] [address] Dr. Osmany Boone HCG RANGE SEE BELOW Normal [facility] Comment on above: Result Comment: 5-50 0.2-1 WEEK 50-500 1-2 WEEKS 100-5,000 2-3 WEEKS 500-10,000 3-4 WEEKS 1,000-50,000 4-5 WEEKS 10,000-100,000 5-6 WEEKS 15,000-200,000 6-8 WEEKS 10,000-100,000 2-3 MONTHS Performed By: #### P REGQNT #### [facility] [address] [place] [address] Dr. Osmany Boone URon 07-24-2022 , QUAL Negative Normal NEGATIVE [facility] Comment on above: Performed By: #### P REGU, ERUR #### [facility] [address] [place] [address] Dr. Osmany Boone PROF CHEM 8 (BAS METB)on Anion gap [Moles/Vol] 12.9 mmol/L Normal [facility] Comment on above: Performed By: #### B MP #### [facility] [address] [address] [address] Osmany Boone Calcium [Mass/Vol] 8.5 mg/dL Normal 8.5-10.1 [facility] Comment on above: Performed By: #### B MP #### [facility] [address] [address] [address] Osmany Boone Chloride [Moles/Vol] 103 mmol/L Normal 98-107 [facility] Comment on above: Performed By: #### B MP #### [facility] [address] [place] [address] Dr. Osmany Boone CO2 [Moles/Vol] 26.6 mmol/L Normal 21.0-32.0 [facility] Comment on above: Performed By: #### B MP #### [facility] [address] [address] [address] Osmany Boone Creatinine [Mass/Vol] 0.82 mg/dL Normal 0.55-1.02 [facility] Comment on above: Performed By: #### B MP #### [facility] [address] [place] [address] Dr. Osmany Boone EGFR-AF PANAMANIAN >60 Normal >=60 [facility] Comment on above: Performed By: #### B MP #### [facility] [address] [address] [address] Osmany Boone EGFR-NON AF PANAMANIAN >60 Normal >=60 [facility] Comment on above: Performed By: #### B MP #### [facility] [address] [address] [address] Osmany Boone Glucose [Mass/Vol] 93 mg/dL Normal 74-106 [facility] Comment on above: Performed By: #### B MP #### [facility] [address] [address] [address] Osmany Boone Potassium [Moles/Vol] 3.5 mmol/L Normal 3.5-5.1 [facility] Comment on above: Performed By: #### B MP #### [facility] Laboratory [address] [place] [address] Dr. Osmany Boone Sodium [Moles/Vol] 139 mmol/L Normal 136-145 [facility] Comment on above: Performed By: #### B MP #### [facility] Laboratory [address] [place] [address] Dr. Osmany Boone Urea nitrogen [Mass/Vol] 9.0 mg/dL Normal 7.0-18.0 [facility] Comment on above: Performed By: #### B MP #### [facility] Laboratory [address] [place] [address] Dr. Osmany Boone Urea nitrogen/Creatinine [Mass ratio] 11.0 mg/mg Normal [facility] Comment on above: Performed By: #### B MP #### [facility] Laboratory [address] [place] [address] Dr. Osmany Boone Serum or plasma beta choriog onadotropin measurement (units/volume)Ordered By: NICOLE PALACIOS on 07-21-2022 HCG.beta subunit Qn 41.65 m[IU]/mL [facility] Comment on above: Approximate Approxim ate hCG Gestational Age Range (mIU/ml) (weeks) 0.2-1 5-50 1-2 50-500 2-3 100-5,000 3-4 500-10,000 4-5 1,000-50,000 5-6 10,000-100,000 6-8 15,000-200,000 8-12 10,000-100,000 CBC AUTO DIFFon 07-03-2022 BASO # 0.0 103/ul Normal 0.0-0.1 [facility] Comment on above: Performed By: #### C BC #### [facility] Laboratory [address] [place] [address] Dr. Osmany Boone Basophils/100 WBC (Bld) 1.2 % Normal 0.2-2.0 [facility] Comment on above: Performed By: #### C BC #### [facility] Laboratory [address] [place] [address] Dr. Osmany Boone EO # 0.2 103/ul Normal 0.0-0.7 [facility] Comment on above: Performed By: #### C BC #### [facility] Laboratory [address] [place] [address] Dr. Osmany Boone Eosinophils/100 WBC (Bld) 7.2 % Critically high 0.9-7.0 [facility] Comment on above: Performed By: #### C BC #### [facility] Laboratory [address] [place] [address] Dr. Osmany Boone Erythrocyte distribution width (RBC) [Ratio] 11.9 % Normal 11.0-15.0 [facility] Comment on above: Performed By: #### C BC #### [facility] Laboratory [address] [place] [address] Dr. Osmany Boone Hematocrit (Bld) [Volume fraction] 33.8 % Critically low 36.0-48.0 [facility] Comment on above: Performed By: #### C BC #### [facility] Laboratory [address] [place] [address] Dr. Osmany Boone Hemoglobin (Bld) [Mass/Vol] 11.4 g/dL Critically low 12.0-16.0 [facility] Comment on above: Performed By: #### C BC #### [facility] Laboratory [address] [place] [address] Dr. Osmany Boone IG # 0.01 10e3/ul Normal 0.00-0.03 [facility] Comment on above: Performed By: #### C BC #### [facility] Laboratory [address] [place] [address] Dr. Osmany Boone IG % 0.3 % Normal 0.0-0.5 [facility] Comment on above: Performed By: #### C BC #### [facility] Laboratory [address] [place] [address] Dr. Osmany Boone LYMPH # 1.1 103/ul Critically low 1.2-3.8 [facility] Comment on above: Performed By: #### C BC #### [facility] Laboratory [address] [place] [address] Dr. Osmany Boone Lymphocytes/100 WBC (Bld) 33.2 % Normal 20.5-60.0 [facility] Comment on above: Performed By: #### C BC #### [facility] Laboratory [address] [place] [address] Dr. Osmany Boone MANUAL DIFF REQ NO Normal [facility] Comment on above: Performed By: #### C BC #### [facility] Laboratory [address] [place] [address] Dr. Osmany Boone MCH (RBC) [Entitic mass] 30.8 pg Normal 26.7-34.0 [facility] Comment on above: Performed By: #### C BC #### [facility] Laboratory [address] [place] [address] Dr. Osmany Boone MCHC (RBC) [Mass/Vol] 33.7 g/dL Normal 29.9-35.2 [facility] Comment on above: Performed By: #### C BC #### [facility] Laboratory [address] [place] [address] Dr. Osmany Boone MCV (RBC) [Entitic vol] 91.4 fL Normal 81.0-99.0 [facility] Comment on above: Performed By: #### C BC #### [facility] [address] [place] [address] Dr. Osmany Boone MONO # 0.4 103/ul Normal 0.3-0.8 [facility] Comment on above: Performed By: #### C BC #### [facility] [address] [place] [address] Dr. Osmany Boone Monocytes/100 WBC (Bld) 12.9 % Critically high 1.7-12.0 [facility] Comment on above: Performed By: #### C BC #### [facility] [address] [place] [address] Dr. Osmany Boone NEUT # 1.5 103/ul Normal 1.4-6.5 [facility] Comment on above: Performed By: #### C BC #### [facility] [address] [place] [address] Dr. Osmany Boone Neutrophils/100 WBC (Bld) 45.2 % Normal 43.0-75.0 [facility] Comment on above: Performed By: #### C BC #### [facility] Laboratory [address] [address] [address] Osmany Boone Platelet mean volume (Bld) [Entitic vol] 9.2 fL Critically low 9.5-13.5 [facility] Comment on above: Performed By: #### C BC #### [facility] [address] [address] [address] Osmany Boone PLT 223 103/ul Normal 150-450 [facility] Comment on above: Performed By: #### C BC #### [facility] [address] [place] [address] Dr. Osmany Boone RBC 3.70 106/ul Critically low 4.20-5.40 [facility] Comment on above: Performed By: #### C BC #### [facility] [address] [place] [address] Dr. Osmany Boone WBC 3.3 103/ul Critically low 4.0-11.0 [facility] Comment on above: Performed By: #### C BC #### [facility] [address] [place] [address] Dr. Osmany Boone COVID Quick Testingon 2021 Result Positive Q Interactive Other CT ABD/PELV W CONon 07-03-20 22 [...] 07-03-2022 , QUAL Negative Normal NEGATIVE [facility] Comment on above: Performed By: #### P REG #### [facility] [address] [place], [place] [address] Dr. Osmany Boone PROF 14(COMP METB)on 022 Albumin [Mass/Vol] 3.9 g/dL Normal 3.4-5.0 [facility] Comment on above: Performed By: #### C MP ####[facility] [address] [place], [place] [address]OoDr. Osmany Boone Albumin/Globulin [Mass ratio] 1.1 {ratio} Normal [facility] Comment on above: Performed By: #### C MP ####[facility] [address] [place] [id number]. Osmany Boone ALP [Catalytic activity/Vol] 81 U/L Normal 46-116 [facility] Comment on above: Performed By: #### C MP ####[facility] [address] [place] [id number]. Osmany Boone ALT [Catalytic activity/Vol] 24 U/L Normal 14-59 [facility] Comment on above: Performed By: #### C MP ####[facility] [address] [place] [id number]. Osmany Boone Anion gap [Moles/Vol] 12.4 mmol/L Normal [facility] Comment on above: Performed By: #### C MP ####[facility] [address] [place], [place] [address]Dr. Osmany Boone AST [Catalytic activity/Vol] 25 U/L Normal 15-37 [facility] Comment on above: Performed By: #### C MP ####[facility] [address] [place], [place] [address]Dr. Osmany Boone Bilirubin [Mass/Vol] 0.5 mg/dL Normal 0.2-1.0 [facility] Comment on above: Performed By: #### C MP ####[facility] [address] [place], [place] [address]Dr. Osmany Boone Calcium [Mass/Vol] 8.8 mg/dL Normal 8.5-10.1 [facility] Comment on above: Performed By: #### C MP ####[facility] [address] [place] [address]Dr. Osmany Boone Chloride [Moles/Vol] 102 mmol/L Normal 98-107 [facility] Comment on above: Performed By: #### C MP ####[facility] [address] [place] [address] [address]Dr. Osmany Boone CO2 [Moles/Vol] 29.0 mmol/L Normal 21.0-32.0 [facility] [place] [facility] Comment on above: Performed By: #### C MP ####[facility] [address] [address]Dr. Osmany Paolo Creatinine [Mass/Vol] 0.74 mg/dL Normal 0.55-1.02 [facility] Comment on above: Performed By: #### C MP ####[facility] [address] [place] [address]Dr. Osmany Paolo EGFR-AF PANAMANIAN >60 Normal >=60 [facility] [place] [facility] Comment on above: Performed By: #### C MP ####[facility] [address] [address]Dr. Elliepaul Paolo EGFR-NON AF PANAMANIAN >60 Normal >=60 [facility] Comment on above: Performed By: #### C MP ####[facility] [address] [place], [place] [address]Dr. Osmany Boone Globulin (S) [Mass/Vol] 3.4 g/dL Normal [facility] Comment on above: Performed By: #### C MP ####[facility] [address] [place], [place] [address]Dr. Osmany Boone Glucose [Mass/Vol] 87 mg/dL Normal 74-106 [facility] Comment on above: Performed By: #### C MP ####[facility] [address] [place], [place] [address]Dr. Osmany Boone Potassium [Moles/Vol] 3.4 mmol/L Critically low 3.5-5.1 [facility] Comment on above: Performed By: #### C MP ####[facility] [address] [place], [place] [address]Dr. Osmany Boone Protein [Mass/Vol] 7.3 g/dL Normal 6.4-8.2 [facility] Comment on above: Performed By: #### C MP ####[facility] [address] [place], [place] [address]Dr. Osmany Boone Sodium [Moles/Vol] 140 mmol/L Normal 136-145 [facility] Comment on above: Performed By: #### C MP ####[facility] [address] [place], [place] [address]Dr. Osmany Boone Urea nitrogen [Mass/Vol] 11.0 mg/dL Normal 7.0-18.0 [facility] Comment on above: Performed By: #### C MP ####[facility] [address] [place], [place] [address]IoZay Boone Urea nitrogen/Creatinine [Mass ratio] 14.9 mg/mg Normal [facility] Comment on above: Performed By: #### C MP ####[facility] [address] [place], [place] [address]Tt. Osmany Boone US PELVIS TRANSVAGon 022 US PELVIS TRANSVAG [...] by: BREANA COUCH Date: 2022-07-03 02:59 Normal [facility] Basophils Auto (Bld) [#/Vol] Ordered By: PROVIDER TEMP on 07-02-2022 Basophils (Bld) [#/Vol] 0.0 10*3/uL 0.0-0.2 [facility] Basophils/100 WBC Auto (Bld) Ordered By: PROVIDER TEMP on 07-02-2022 Basophils/100 WBC (Bld) 1.3 % . [facility] Bilirubin Test strip Ql (U)O rdered By: PROVIDER TEMP on 08-12-2022 Bilirubin Ql (U) Negative Negative [facility] Blood hemoglobin measurement (mass/volume)Ordered By: PROVIDER TEMP on 07-02-2022 Hemoglobin (Bld) [Mass/Vol] 11.8 g/dL 11.8-15.4 [facility] Blood leukocytes automated c ount (number/volume)Ordered By: PROVIDER TEMP on 07-02-2022 WBC (Bld) [#/Vol] 3.0 10*3/uL 4.5-11.0 [facility] Body fluid albumin measureme nt (mass/volume)Ordered By: PROVIDER TEMP on 07-02-2022 Albumin (Body fld) [Mass/Vol] 3.9 g/dL 3.2-5.5 [facility] Color Auto (U)Ordered By: NM OVIDER TEMP on 07-02-2022 Color (U) Yellow Yellow [facility] Creatinine and Glomerular fi ltration rate.predicted panel (S/P/Bld)Ordered By: PROVIDER TEMP on 07-02-2022 Creatinine [Mass/Vol] 0.76 mg/dL 0.44-1.03 [facility] Direct bilirubin measurement Ordered By: PROVIDER TEMP on 07-02-2022 Bilirubin.direct [Mass/Vol] mg/dL 0.0-0.4 [facility] Eosinophils Auto (Bld) [#/Vo l]Ordered By: PROVIDER TEMP on 07-02-2022 Eosinophils (Bld) [#/Vol] 0.2 10*3/uL 0.0-0.45 [facility] Eosinophils/100 WBC Auto (Bl d)Ordered By: PROVIDER TEMP on 07-02-2022 Eosinophils/100 WBC (Bld) 7.3 % . [facility] Erythrocyte distribution wid th Auto (RBC) [Ratio]Ordered By: PROVIDER TEMP on 07-02-2022 Erythrocyte distribution width (RBC) [Ratio] 12.4 % 11.9-15.3 [facility] Estimated glomerular filtrat ion rate (GFR) non- AmericanOrdered By: PROVIDER TEMP on 07-02-2022 GFR/1.73 sq M.predicted among non-blacks MDRD (S/P/Bld) [Vol rate/Area] > 60 mL/Min [facility] Globulin Calc (S) [Mass/Vol] Ordered By: PROVIDER TEMP on 07-02-2022 Globulin (S) [Mass/Vol] 3.1 g/dL [facility] HCG ( test) IAZayrapi d Ql (U)Ordered By: Oscar Myers on 07-02-2022 HCG ( test) Ql (U) Negative [facility] Hematocrit Auto (Bld) [Volum e fraction]Ordered By: PROVIDER TEMP on 07-02-2022 Hematocrit (Bld) [Volume fraction] 34.9 % 34.0-46.4 [facility] Ketones Auto test strip (U) [Mass/Vol]Ordered By: PROVIDER TEMP on 07-02-2022 Ketones (U) [Mass/Vol] Negative Negative [facility] Laboratory - Chemistry and C hemistry - challengeOrdered By: PROVIDER TEMP on 07-02-2022 Lipase [Catalytic activity/Vol] 22.0 U/L 22-51 [facility] Laboratory - Hematology and Cell countsOrdered By: PROVIDER TEMP on 07-02-2022 Nucleated RBC/100 WBC (Bld) [Ratio] 0.1 % 0-0.5 [facility] Lymphocytes Auto (Bld) [#/Vo l]Ordered By: PROVIDER TEMP on 07-02-2022 Lymphocytes (Bld) [#/Vol] 1.0 10*3/uL 1.00-4.8 [facility] Lymphocytes/100 WBC Auto (Bl d)Ordered By: PROVIDER TEMP on 07-02-2022 Lymphocytes/100 WBC (Bld) 34.5 % . [facility] MCH Auto (RBC) [Entitic mass ]Ordered By: PROVIDER TEMP on 07-02-2022 MCH (RBC) [Entitic mass] 30.7 pg 24.7-34.3 [facility] MCHC Auto (RBC) [Mass/Vol]Or dered By: PROVIDER TEMP on 07-02-2022 MCHC (RBC) [Mass/Vol] 33.9 g/dL 32.0-35.0 [facility] MCV Auto (RBC) [Entitic vol] Ordered By: PROVIDER TEMP on 07-02-2022 MCV (RBC) [Entitic vol] 90.4 fL 80-100 [facility] Monocytes Auto (Bld) [#/Vol] Ordered By: PROVIDER TEMP on 07-02-2022 Monocytes (Bld) [#/Vol] 0.5 10*3/uL 0.0-0.8 [facility] Monocytes/100 WBC Auto (Bld) Ordered By: PROVIDER TEMP on 07-02-2022 Monocytes/100 WBC (Bld) 15.0 % . [facility] Neutrophils Auto (Bld) [#/Vo l]Ordered By: PROVIDER TEMP on 07-02-2022 Neutrophils (Bld) [#/Vol] 1.3 10*3/uL 1.8-7.7 [facility] Neutrophils/100 WBC Auto (Bl d)Ordered By: PROVIDER TEMP on 07-02-2022 Neutrophils/100 WBC (Bld) 41.9 % . [facility] Nitrite Test strip Ql (U)Ord ered By: PROVIDER TEMP on 07-02-2022 Nitrite Ql (U) Negative Negative [facility] No Panel InformationOrdered By: PROVIDER TEMP on 07-02-2022 Estimated GFR () > 60 mL/Min [facility] Comment on above: GFR estimated refere nce range: According to KDOQI guidelines, <60 ml/min/1.73m2 is sufficient to diagnose a patient with chronic kidney disease. Pharmacy Creatinine Clearance (Chem 123.23 [facility] Platelet mean volume Auto (B ld) [Entitic vol]Ordered By: PROVIDER TEMP on 07-02-2022 Platelet mean volume (Bld) [Entitic vol] 7.5 fL 6.3-10.7 [facility] Platelets Auto (Bld) [#/Vol] Ordered By: PROVIDER TEMP on 07-02-2022 Platelets (Bld) [#/Vol] 245 10*3/uL 150-450 [facility] Protein Auto test strip (U) [Mass/Vol]Ordered By: PROVIDER TEMP on 07-02-2022 Protein (U) [Mass/Vol] Negative Negative [facility] Protein [Mass/volume] in Ser um or PlasmaOrdered By: PROVIDER TEMP on 07-02-2022 Protein [Mass/Vol] 7.0 g/dL 6.1-7.9 [facility] RBC Auto (Bld) [#/Vol]Ordere d By: PROVIDER TEMP on 07-02-2022 RBC (Bld) [#/Vol] 3.86 10*6/uL 3.60-5.00 [facility] Serum or plasma alanine nelson otransferase measurement without P-5'-P (enzymatic activiOrdered By: PROVIDER TEMP on 07-02-2022 ALT No additional P-5'-P [Catalytic activity/Vol] 24 U/L 10-60 [facility] Serum or plasma albumin/glob ulin mass ratioOrdered By: PROVIDER TEMP on 07-02-2022 Albumin/Globulin [Mass ratio] 1.3 {ratio} [facility] Serum or plasma alkaline arlin sphatase measurement (enzymatic activity/volume)Ordered By: PROVIDER TEMP on 07-02-2022 ALP [Catalytic activity/Vol] 67 U/L 32-92 [facility] Serum or plasma aspartate am inotransferase measurement (enzymatic activity/volume)Ordered By: PROVIDER TEMP on 07-02-2022 AST [Catalytic activity/Vol] 29 U/L 10-42 [facility] Serum or plasma calcium sandra urement (mass/volume)Ordered By: PROVIDER TEMP on 07-02-2022 Calcium [Mass/Vol] 9.3 mg/dL 8.2-10.2 [facility] Serum or plasma chloride malini surement (moles/volume)Ordered By: PROVIDER TEMP on 07-02-2022 Chloride [Moles/Vol] 100 mmol/L 95-114 [facility] Serum or plasma glucose sandra urement (mass/volume)Ordered By: PROVIDER TEMP on 07-02-2022 Glucose [Mass/Vol] 72 mg/dL 70-100 [facility] Comment on above: ADA recommended refe rence range Random Glucose Reference Range is dependent on time and content of last meal. Glucose of more than 200 mg/dL in a nonstressed, ambulatory subject supports the diagnosis of Diabetes Mellitus. Serum or plasma non-glucuron idated bilirubin measurement (mass/volume)Ordered By: PROVIDER TEMP on 07-02-2022 Bilirubin.indirect [Mass/Vol] TNP [facility] Comment on above: Test not performed Serum or plasma potassium me asurement (moles/volume)Ordered By: PROVIDER TEMP on 07-02-2022 Potassium [Moles/Vol] 3.6 mmol/L 3.5-5.1 [facility] Serum or plasma sodium measu rement (moles/volume)Ordered By: PROVIDER TEMP on 07-02-2022 Sodium [Moles/Vol] 139 mmol/L 136-146 [facility] Serum or plasma total biliru bin measurement (mass/volume)Ordered By: PROVIDER TEMP on 07-02-2022 Bilirubin [Mass/Vol] 0.6 mg/dL 0.3-1.2 [facility] Serum or plasma total carbon dioxide measurement (moles/volume)Ordered By: PROVIDER TEMP on 07-02-2022 CO2 [Moles/Vol] 31.3 mmol/L 22.0-30.0 [facility] Serum or plasma urea nitroge n measurement (mass/volume)Ordered By: PROVIDER TEMP on 07-02-2022 Urea nitrogen [Mass/Vol] 9 mg/dL 9-23 [facility] Specific gravity Auto test s trip (U) [Rel density]Ordered By: PROVIDER TEMP on 07-02-2022 Specific gravity (U) [Rel density] 1.011 1.001-1.030 [facility] Urine clarity by refractomet ry automatedOrdered By: PROVIDER TEMP on 07-02-2022 Clarity Refractometry automated (U) Clear Clear [facility] Urine glucose measurement by automated test strip (mass/volume)Ordered By: PROVIDER TEMP on 07-02-2022 Glucose Auto test strip (U) [Mass/Vol] Normal mg/dL Normal [facility] Urine hemoglobin detection b y automated test stripOrdered By: PROVIDER TEMP on 07-02-2022 Hemoglobin Auto test strip Ql (U) Negative Negative [facility] Urine leukocyte esterase det ection by automated test stripOrdered By: PROVIDER TEMP on 07-02-2022 Leukocyte esterase Auto test strip Ql (U) Negative Negative [facility] Urobilinogen Auto test strip (U) [Mass/Vol]Ordered By: PROVIDER TEMP on 08-12-2022 Urobilinogen (U) [Mass/Vol] Normal mg/dL Normal [facility] pH Auto test strip (U)Ordere d By: ZAHIDA HERRERAP on 07-02-2022 pH (U) 6.5 [pH] 5.0-9.0 [facility] Serum or plasma beta choriog onadotropin measurement (units/volume)Ordered By: NICOLE PALACIOS on 06-30-2022 HCG.beta subunit Qn 2.88 m[IU]/mL [facility] Comment on above: Approximate Approxim ate hCG Gestational Age Range (mIU/ml) (weeks) 0.2-1 5-50 1-2 50-500 2-3 100-5,000 3-4 500-10,000 4-5 1,000-50,000 5-6 10,000-100,000 6-8 15,000-200,000 8-12 10,000-100,000 Serum or plasma beta choriog onadotropin measurement (units/volume)Ordered By: NICOLE PALACIOS on 06-23-2022 HCG.beta subunit Qn 17.04 m[IU]/mL [facility] Comment on above: Approximate Approxim ate hCG Gestational Age Range (mIU/ml) (weeks) 0.2-1 5-50 1-2 50-500 2-3 100-5,000 3-4 500-10,000 4-5 1,000-50,000 5-6 10,000-100,000 6-8 15,000-200,000 8-12 10,000-100,000 Body fluid albumin measureme nt (mass/volume)Ordered By: Valeriano March on 06-11-2022 Albumin (Body fld) [Mass/Vol] 4.3 g/dL 3.2-5.5 [facility] Cholesterol [Mass/volume] in Serum or PlasmaOrdered By: Valeriano March on 06-11-2022 Cholesterol [Mass/Vol] 176 mg/dL 140-200 [facility] Comment on above: Chol less than 200 m g/dl low risk Chol 201-239 mg/dl borderline risk Chol 240 mg/dl and greater high risk Cholesterol in LDL Calc [Mas s/Vol]Ordered By: Valeriano March on 06-11-2022 Cholesterol in LDL [Mass/Vol] 109 mg/dL 0-100 [facility] Comment on above: LDL ATP III CLASSIFI CATION LDL less than 100 mg/dL Optimal LDL 100-129 mg/dL Near or above optimal LDL 130-159 mg/dL Borderline high LDL 160-189 mg/dL High LDL greater than 189 mg/dL Very high Cholesterol in VLDL Calc [Ma ss/Vol]Ordered By: Valeriano March on 06-11-2022 Cholesterol in VLDL [Mass/Vol] 12 mg/dL [facility] Creatinine and Glomerular fi ltration rate.predicted panel (S/P/Bld)Ordered By: Valeriano March on 06-11-2022 Creatinine [Mass/Vol] 0.89 mg/dL 0.44-1.03 [facility] Estimated glomerular filtrat ion rate (GFR) non- AmericanOrdered By: Valeriano March on 06-11-2022 GFR/1.73 sq M.predicted among non-blacks MDRD (S/P/Bld) [Vol rate/Area] > 60 mL/Min [facility] Globulin Calc (S) [Mass/Vol] Ordered By: Valeriano March on 06-11-2022 Globulin (S) [Mass/Vol] 2.9 g/dL [facility] Laboratory - Chemistry and C hemistry - challengeOrdered By: Valeriano March on 06-11-2022 Glucose [Mass/Vol] 84 mg/dL 70-100 [facility] No Panel InformationOrdered By: Valeriano March on 06-11-2022 Estimated GFR () > 60 mL/Min [facility] Comment on above: GFR estimated refere nce range: According to KDOQI guidelines, <60 ml/min/1.73m2 is sufficient to diagnose a patient with chronic kidney disease. Pharmacy Creatinine Clearance (Chem N/A [facility] Triglycerides Reflex 63 mg/dL 35-149 [facility] Comment on above: TRIG ATP III CLASSIF ICATION TRIG less than 150 mg/dL Normal TRIG 150-199 mg/dL Borderline high TRIG 200-500 mg/dL High TRIG greater than 500 mg/dL Very high Standard traceable to the Center for Disease Conrtrol and Prevention (CDC) test method. Protein [Mass/volume] in Ser um or PlasmaOrdered By: Valeriano March on 06-11-2022 Protein [Mass/Vol] 7.2 g/dL 6.1-7.9 [facility] Serum or plasma alanine nelson otransferase measurement without P-5'-P (enzymatic activiOrdered By: Valeriano March on 06-11-2022 ALT No additional P-5'-P [Catalytic activity/Vol] 14 U/L 10-60 [facility] Serum or plasma albumin/glob ulin mass ratioOrdered By: Valeriano March on 06-11-2022 Albumin/Globulin [Mass ratio] 1.5 {ratio} [facility] Serum or plasma alkaline arlin sphatase measurement (enzymatic activity/volume)Ordered By: Valeriano March on 06-11-2022 ALP [Catalytic activity/Vol] 69 U/L 32-92 [facility] Serum or plasma aspartate am inotransferase measurement (enzymatic activity/volume)Ordered By: Valeriano March on 06-11-2022 AST [Catalytic activity/Vol] 18 U/L 10-42 [facility] Serum or plasma calcium sandra urement (mass/volume)Ordered By: Valeriano March on 06-11-2022 Calcium [Mass/Vol] 9.6 mg/dL 8.2-10.2 [facility] Serum or plasma chloride malini surement (moles/volume)Ordered By: Vaelriano March on 06-11-2022 Chloride [Moles/Vol] 102 mmol/L 95-114 [facility] Serum or plasma high density lipoprotein (HDL) cholesterol measurementOrdered By: Valeriano March on 06-11-2022 Cholesterol in HDL [Mass/Vol] 54 mg/dL 35-85 [facility] Comment on above: HDL CHOL ATP-III CLA SSIFICATION Cardiovascular Risk HDL > or equal to 60 mg/dL LOW HDL < 40 mg/dL HIGH Serum or plasma potassium me asurement (moles/volume)Ordered By: Valeriano March on 06-11-2022 Potassium [Moles/Vol] 4.1 mmol/L 3.5-5.1 [facility] Serum or plasma sodium measu rement (moles/volume)Ordered By: Valeriano March on 06-11-2022 Sodium [Moles/Vol] 136 mmol/L 136-146 [facility] Serum or plasma total biliru bin measurement (mass/volume)Ordered By: Valeriano March on 06-11-2022 Bilirubin [Mass/Vol] 0.8 mg/dL 0.3-1.2 [facility] Serum or plasma total carbon dioxide measurement (moles/volume)Ordered By: Valeriano March on 06-11-2022 CO2 [Moles/Vol] 27.2 mmol/L 22.0-30.0 [facility] Serum or plasma total choles terol/high density lipoprotein (HDL) cholesterol mass ratOrdered By: Valeriano March on 06-11-2022 Cholesterol.total/Cho lesterol in HDL [Mass ratio] 3.3 {ratio} <5.0 [facility] Serum or plasma urea nitroge n measurement (mass/volume)Ordered By: Valeriano March on 06-11-2022 Urea nitrogen [Mass/Vol] 5 mg/dL - [facility] Serum or plasma beta choriog onadotropin measurement (units/volume)Ordered By: NICOLE PALACIOS on 05-10-2022 HCG.beta subunit Qn m[IU]/mL [facility] Comment on above: Approximate Approxim ate hCG Gestational Age Range (mIU/ml) (weeks) 0.2-1 5-50 1-2 50-500 2-3 100-5,000 3-4 500-10,000 4-5 1,000-50,000 5-6 10,000-100,000 6-8 15,000-200,000 8-12 10,000-100,000 BRIEF OP NOTon 04-15-2022 BRIEF OP NOT HNO ID: [id number] Author: Janelle Lewis MD Service: Radiology Author Type: Fellow Type: Brief Op Note Filed: 04/15/2022 11:53 AM Note Text: BRIEF OPERATIVE / PROCEDURE NOTE LOG ID: [id number] SURGERY/PROCEDURE DATE: 04/15/2022 INCISION/PROCEDURE START TIME: 11:25 AM INCISION CLOSE/PROCEDURE END TIME: SURGEON(S)/PROCEDURALI ST(S) AND ELECTRICAL TECH(S): Surgeon(s) and Role: * José Fermin MD [...] April 15, 2022 TIME: 11:52 AM Normal [facility] Bacteria Spec Anaerobe Culto n 04-15-2022 Bacteria identified Anaer cx Nom (Unsp spec) Negative Normal [facility] Comment on above: Performed By: #### 6 35-3 ####[facility] [id number] [address] OF [place] Bacteria Tiss Culton 022 Bacteria identified Cx Nom (Tiss) CULTURE, TISSUE: No growth 3 days GRAM STAIN: No organisms seen No Polymorphonuclear Leukocytes Normal [facility] Comment on above: Performed By: #### 4 3408-4 ####[facility] [id number] [address] [place] CT BX RIB/PELV/ORDOÑEZ/SPINE P ROCon 04-15-2022 CT BX RIB/PELV/ORDOÑEZ/SPINE PROC * * *Final Report* * * DATE OF EXAM: Apr 15 2022 11:49AM [facility] 2036 - CT BX [...] DESCRIBED. Attending Radiologist: Dr. José Fermin MD Oil Deliverer: Janelle Lewis MD The procedure was performed by the mobile unit assistant, and the attending radiologist personally supervised the entire procedure. Food Prep Worker: VALDO Transcribe Date/Time: Apr 15 2022 4:03P Dictated by : JANELLE LEWIS MD This examination was interpreted and the report reviewed and electronically signed by: JOSÉ FERMIN MD on Apr 15 2022 4:54PM EST [id number] Normal [facility] HISTORY PHYSICALon HISTORY PHYSICAL HNO ID: [id number] Author: Janelle Lewis MD Service: Radiology Author [...] 15, 2022 TIME: 10:30 AM PAGER: Normal [facility] PT EDon 04-15-2022 PT ED HNO ID: [id number] Author: Amber Do RN Service: Nursing Author [...] Amber Do RN In Department: ANGIO Normal [facility] SURGICAL PATHOLOGYon 022 CASE REPORT Normal [facility] Comment on above: Order Comment: Rqauel arroyo Type: TISSUE SPECIMENOrdering Facility: [facility] Address: [address] [place], [place] [id number] Result Comment: Surg ical Pathology Report Case: [id number] Authorizing Provider: José Fermin MD Collected: 04/15/2022 11:58 AM Ordering Location: [facility] Received: 04/15/2022 02:26 PM Pathologist: Peter Woodward MD Specimen: BONE BIOPSY Performed By: #### S ####[facility] [id number] [place] [address] [place] CLINICAL HISTORY left posterior iliac bone lesion, hx of lumbar spine MSSA discitis Normal [facility] Comment on above: Order Comment: Raquel arroyo Type: TISSUE SPECIMENOrdering Facility: [facility] Address: [address] [place], [place] [phone] Performed By: #### S ####[facility] [id number] [address] DIAGNOSIS COMMENT Normal [facility] Comment on above: Order Comment: Speci men Type: TISSUE SPECIMENOrdering Facility: [facility] Address: [address] [place] [address] Result Comment: The patient's history of lumbar [...] been determined by the performing laboratory within [facility]???s [facility] Pathology and Laboratory Medicine [place] ([facility], [facility], [facility] or [facility]) in a manner consistent with CLIA requirements. One or more of these tests have not been cleared or approved by the FDA. [facility] is regulated under CLIA as qualified to perform high-complexity testing. These tests are used for clinical purposes. They should not be regarded as investigational or for research. Positive and negative controls stain appropriately. Performed By: #### S ####[facility] [id number] [address] FINAL DIAGNOSIS Normal [facility] Comment on above: Order Comment: Speci men Type: TISSUE SPECIMENOrdering Facility: [facility] Address: [address] [place] [address] Result Comment: Bone (left posterior iliac bone), biopsy: - Cancellous bone with edema, mild chronic inflammation, and focal fibrosis. See comment. JDR/ KAA 04/22/22 Performed By: #### S ####[facility]IA [id number] [place] [address] [place] FINAL PERFORMING LAB Normal [facility] Comment on above: Order Comment: Speci men Type: TISSUE SPECIMENOrdering Facility: [facility] Address: [address] [place] [address] Result Comment: Diag nostic interpretation performed at [facility], [address] [place] [address] CLIA# [id number] Senior Care Provider: Morgan Barakat M.D. Performed By: #### S ####[facility]IA [id number] [address] [facility] GROSS DESCRIPTION A. BONE BIOPSY. Normal [facility] Comment on above: Order Comment: Speci men Type: TISSUE SPECIMENOrdering Facility: [facility] Address: [address] [place] [address] Result Comment: Rece ived in formalin labeled as bone biopsy is a segment of cylindrical bone biopsy measuring 1.5 x 0.3 x 0.3 cm. Entirely submitted in cassette A1 following decalcification. TN/tg 04/15/2022 Gross examination performed at [facility], [address] [place] [address] CLIA# [id number] Performed By: #### S ####[facility]IA [id number] [address] OF [place] NURSING PROGon 04-12-2022 NURSING PROG HNO ID: [id number] Author: Nikki Laguerre LPN Service: ? Author Type: LICENSED NURSE Type: Nursing Progress Note Filed: 04/12/2022 1:13 PM Note Text: Pre- e instructions: Contacted patient and confirmed appt. for biopsy scheduled on 04/15/22, at [facility]. Diet: Do not eat solid [...] signed. Arrival at 9:30am to desk QB[facility]1 ([facility]) and check in for your procedure. Credit Risk Manager/Transportation: How will you be arriving for your procedure? Private car. If you will be arriving at [facility] via ambulance or public transportation, please call to discuss. You will need a responsible adult to accompany you to and from the procedure. Your refrigerated national truck driver is required to stay with you until you are taken into the Procedure room. [facility] is currently restricting visitors to one visitor per patient. No visitor under the age of 16. You and your visitor will be screened for temperature and COVID-19 symptoms upon entry to the hospital, and a wristband will be applied when cleared. If you develop any of the following symptoms before your procedure, please call [phone]. Chills, joint pain, rash, sore throat, cough, [...] No Written instructions provided to patient via [employer] If you have any questions please call [phone] [facility] DONTEDORCAS Hu ([id number]) 2000 F Date Time Provider Department 04/05/22 PRAKASH FLORES During your visit today, we recorded the following information about you: Kameron Kern [facility] 04/05/2022 10:33 AM Signed Pt attempted to schedule the biopsy but was told the office has to call to schedule because it needs to be triaged. Call appointment for [phone] Pt- [phone] Maritza Barajas RN 04/05/2022 10:49 AM Signed [...] Encounter Status:Closed by MARITZA BARAJAS on 04/05/22 [facility] DONTE,DORCAS ([id number]) 2000 F Date Time Provider Department 04/05/22 PRAKASH FLORES SPOKMN During your visit today, we recorded the [...] the date he is in clinic at [place] on Tuesdays. We can also arrange to see her in spine medicine clinic with Antonieta SANDHU on same day Patient can call [phone] to schedule biopsy at [place] Advised per Dr. Flores's message. Patient verbalized [...] Status:Closed by MARITZA BARAJAS on 04/05/22 [facility] DORCAS KENT ([id number]) 2000 F Date Time Provider Department 04/05/22 PRAKASH FLORES BIOPMN During your visit today, we recorded the following information about you: Michelle Chand 04/05/2022 10:48 AM Signed RADIOLOGY CALL CENTER INTAKE TELETYPE MECHANIC: Michelle Brown EXT: [id number] DATE: 04/05/22 TIME: 10:46am TRACKING #. [id number] REQUESTING PERSON: Prakash Flores MD PHONE/PAGER: [phone] REQUESTING STAFF: Marizta PHONE/PAGER: [phone] SPECIFICS OF THE REQUEST: (Please be as [...] for pathology (For example: ?send for ER, [place], HER2/jose armando? or ?possible lymphoma send in [...] EVALUATE APPROPRIATENESS/FEASIB ILITY OF THE REQUEST) IMAGING: [facility] (If the imaging was obtained outside the [facility] system, then it needs to be submitted for review prior to approval.) Note to all persons requesting biopsies: All biopsy requests will be scheduled as quickly as possible, based on the clinical urgency, availability of appointment times, the need to hold anti-thrombolytic therapy (aspirin, blood thinners) and the patient?s schedule, including the need for an available refrigerated national truck driver. If a percutaneous biopsy or drainage [...] this procedure: low low risk. Reference from [facility] [place] Coiling Machine Setter: https://ccf.policy[facility] .com/dotNet/documents/ ?pdern=28710 STAFF SIGNATURE: Mechelle Squires DO DATE: April [...] mg tablet (more content not included)... Normal [facility] ALLIED HEALTHon 03-29-2022 ALLIED HEALTH HNO ID: [id number] Author: RT Preet(R) Service: ? Author Type: Technologist Type: Allied [...] RT Preet(R) March 29, 2022 8:44 AM [facility] HCG Preg Ur Qlon 03-29-2022 HCG ( test) Ql (U) Negative Normal Negative [facility] Comment on above: Order Comment: Speci men Type: URINE SPECIMEN Ordering Facility: [facility] Address: [address] [place] [phone] Result Comment: This test is intended to aid in the early detection of . Very dilute urine samples, as indicated by a low specific gravity, may not contain area representative levels of hCG. This test detects [...] . Performed By: #### 2 106-3 #### [facility] CLIA [id number] [address] [place] [address] HISTORY PHYSICALon HISTORY PHYSICAL HNO ID: [id number] Author: Prakash Flores MD Service: ? Author [...] or ROS since visit 12/31/2021 by Antonieta CNP. Physical Exam: Cardiovascular System: RRR without murmur, [...] with explicit agreement by patient or patient area representative before surgery. SIGNATURE: Prakash Flores MD DATE: March 29, 2022 TIME: 10:29 AM [facility] MRI PELVIS ORTHO GEN WO IVCO [...] MOST LIKELY ALTERNATIVE IS LANGERHANS' CELL HISTOCYTOSIS. Food Prep Worker: [facility] Transcribe Date/Time: Mar 29 2022 9:28A Dictated by : ORIN SAUER MD This examination was interpreted and the report reviewed and electronically signed by: ORIN SAUER MD on Mar 29 2022 9:55AM EST [id number] [facility] MRI PELVIS ORTHO GENERAL WO IVCONon 03-29-2022 [facility] OPERATIVE NOon 03-29-2022 OPERATIVE NO HNO ID: [id number] Author: Prakash Flores MD Service: ? Author Type: Physician Type: Operative Report Filed: 03/29/2022 10:54 AM Note Text: OPERATIVE/PROCEDURE REPORT LOG ID: [id number] Surgery/Procedure Date: 03/29/2022 Surgeon: Prakash Flores MD Oil Deliverer: Jame Moura DO Procedure(s):Operation :right Sacro-Iliac Joint(s) [...] prone position on the fluoroscopic table in [facility] procedure room, the patient'sposterior lumbosacral spine was [...] Prakash Flores MD Staff Physician [facility] SIGNATURE: Prakash Flores MD PATIENT NAME: Dorcas Nelsonr DATE: March 29, 2022 TIME: 10:51 AM PAGER/CONTACT #: [facility] 02-10-2022 [facility] Telephone (SPNMMN) DONTEDORCAS Hu ([id number]) 2000 F Date Time Provider Department 02/10/22 [facility] FUNG [facility] During your visit today, we recorded the following information about you: Deanna Coe [facility] 02/10/2022 3:59 PM Signed Received outside imaging/report: CD Yes Report Yes Imaging received: 12/28/21: MRI Lumbar Spine W / WO Contrast 09/10/21: MRI Lumbar Spine W / WO Contrast 09/07/21: CT Lumbar Spine WO Contrast Imaging uploaded and forward to team for review. Nazanin Alejandro [facility] 02/11/2022 10:45 AM Signed Patient called; confirmed that imaging had been rec'd and uploaded successfully; patient is requesting call back upon review by provider; ph. [phone] Allergies As of Date: 02/10/2022 Noted Allergy [...] Encounter Status:Closed by DEANNA MURPHY on 02/10/22 [facility] CNTHERAPYon 01-20-2022 CNTHERAPY OT/PT/Speech Visit (PHYTMN) DORCAS KENT ([id number]) 2000 F Date Time Provider Department 01/20/22 10:00 AM EWA [facility] Date Time Provider Department Center 01/20/2022 10:00 AM [id number] [facility] B[facility]g Reason for Visit: PT [...] by mouth once daily. Letter Text Normal [facility] CNOVon 12-31-2021 CNOV Office Visit (SPMEFV ) DORCAS KENT ([id number]) 2000 F Date Time Provider Department 2/10/22 1:50 PM HARITHA FUNG SPMEFV During your visit today, we recorded the following information about you: Temperature Pulse Blood pressure Weight 97.3 degrees 83/minute 126/61 75.8 kg Height 1.727 m Haritha Fung APRN.LOSS PREVENTION/SAFETY DISTRICT MANAGER 01/01/2022 2:47 PM Signed Spine Care Path [...] starting Aug- september. After antibiotics symptoms improved. Panaca 85-90% improved. Pain returned in the last few weeks. Went to her local ER on 12/26/21 d/t pain. Was transfered to [facility] per her request. Neurosurgeon following her advised her there was nothing else to do, no infection noted and dx with chronic low back pain. Went to [facility] ER yesterday, 12/30/21. ESR, CRP WNL. MRIs [...] prn Previously: percocet Physical Therapy: March- at [facility] History of Spine Injections/Surgery: None Other Issues [...] ulcers, inflammatory (more content not included)... Normal [facility] CONSULTon 12-31-2021 CONSULT HNO ID: [id number] Author: Gavin Mullen MD Service: Neurosurgery Author [...] discharged on 12/29 and then presented to [facility] ED on 12/30 for a second opinion. [...] walking difficulties (more content not included)... Normal [facility] ED NOTEon 12-31-2021 ED NOTE HNO ID: [id number] Author: Deon Deutsch MD Service: Emergency Medicine Author Type: Resident Type: ED Notes Filed: 12/31/2021 6:22 AM Note Text: DR boateng 10:09 PM 21 year old female with hx discitis 04/10 p/w worsening symptoms similar to previous discitis. Difficulty ambulating, paresthesias, difficulty voiding. [ ] MRI [ ] spine consult ED Course as of 12/31/21 0620 Deon Deutsch's Documentation Katie Dec 31, 2021 0115 Spoke with Neurosurgery, no indication for surgical intervention, recommending outpatient follow up with spine surgery as outpatient Others' Documentation [facility] Dec 30, 2021 1720 CBC + DIFF(!): WBC 5.64 RBC 4.02 Hemoglobin 11.8 Hematocrit 35.1(!) MCV 87.3 MCH 29.4 MCHC 33.6 RDW-CV 12.0 Platelet Count 237 MPV 9.8 Neut% 69.0 Abs Neut (ANC) 3.87 Lymph% 20.0 Abs Lymph 1.13 Cassia% 7.3 Abs Cassia 0.41 Eosin% 3.0 Abs Eosin 0.17 Baso% [...] imaging local area - was seen by [facility] neurosurg. Here for 2nd opinion. Exam ok - can ambulate, no hyperreflexia. MRI T and L spine. [HJ] 2217 MRI without discitis [HJ] 225 Spoke with neurosurgery resident who agrees to [...] for discharge home. Deon Foster MD Normal [facility] XR LUMBAR 2V AP/LATon 2021 XR LUMBAR [...] disc disease in the lower lumbar spine. Food Prep Worker: [facility] Transcribe Date/Time: Dec 31 2021 4:46P Dictated by : ЕЛЕНА LEAL MD This examination was interpreted and the report reviewed and electronically signed by: ЕЛЕНА LEAL MD on Dec 31 2021 4:49PM EST [id number] [facility] XR PELVIS 3V AP/INLET/OUTLET on 12-31-2021 XR [...] significant degenerative change at the SI joints. Food Prep Worker: [facility] Transcribe Date/Time: Jan 04 2022 8:09A Dictated by : KENNEDY VANN MD This examination was interpreted and the report reviewed and electronically signed by: KENNEDY VANN MD on Jan 04 2022 8:16AM EST [id number] [facility] ALLIED HEALTHon 12-30-2021 ALLIED HEALTH HNO ID: [id number] Author: Loren Ganushchak, RT(R) Service: Radiology Author Type: Technologist Type: Allied [...] Inpatient: see LDA documentation SIGNED BY: RT Kita(R) December 30, 2021 9:38 PM Normal [facility] Basic Metabolic Panlon 12-30 Anion gap [Moles/Vol] 11 mmol/L Normal 9-18 [facility] Comment on above: Performed By: #### B MP, MG1, CBCDIF ####[facility] [place], [place] [phone] Calcium [Mass/Vol] 9.2 mg/dL Normal 8.5-10.2 [facility] Comment on above: Performed By: #### B MP, MG1, CBCDIF ####[facility] [address] [place], [place] [phone] Chloride [Moles/Vol] 104 mmol/L Normal 97-105 [facility] Comment on above: Performed By: #### B MP, MG1, CBCDIF ####[facility] [place], [place] [phone] CO2 [Moles/Vol] 24 mmol/L Normal 22-30 [facility] Comment on above: Performed By: #### B MP, MG1, CBCDIF ####[facility] [place], [place] [phone] Creatinine [Mass/Vol] 0.70 mg/dL Normal 0.58-0.96 [facility] Comment on above: Performed By: #### B GOLDY, MG1, CBCDIF ####[facility] [place], [place] [phone] eGFR- Amer. >60 Normal [facility] Comment on above: Performed By: #### B MP, MG1, CBCDIF ####[facility] [place], [place] [phone] eGFR-All Other Races >60 Normal [facility] Comment on above: Result Comment: eGFR [...] website at kidney.org/professionals/kdoqi/gfr_calculator. Performed By: #### B GOLDY, MG1, CBCDIF ####[facility] [place], [place] [phone] Glucose [Mass/Vol] 102 mg/dL High 74-99 [facility] Comment on above: Result Comment: The Stateless Diabetes Association (ADA) provides guidance for cutoff [...] Standards of Medical Care in Diabetes 2016, Stateless Diabetes Association. Diabetes Care. 2016.39(Suppl 1). Performed By: #### B MP, MG1, CBCDIF ####[facility] [place] [phone] Potassium [Moles/Vol] 3.9 mmol/L Normal 3.7-5.1 [facility] Comment on above: Performed By: #### B MP, MG1, CBCDIF ####[place] [address] [place] [phone] Sodium [Moles/Vol] 139 mmol/L Normal 136-144 [facility] Comment on above: Performed By: #### B MP, MG1, CBCDIF ####[place] [address] [place] [phone] Urea nitrogen [Mass/Vol] 8 mg/dL Normal 7-21 [facility] Comment on above: Performed By: #### B MP, MG1, CBCDIF ####[place] [address], [place] [phone] C-Reactive Proteinon 022 C-Reactive Protein 0.3 mg/dL Normal <0.9 [facility] Comment on above: Performed By: #### W SR, CRP ####[place] [address] [place] [phone] CBC and Differentialon 12-30 Abs Baso 0.04 k/uL Normal <0.11 [facility] Comment on above: Performed By: #### B MP, MG1, CBCDIF ####[place] [address] [phone] Abs Cassia 0.41 k/uL Normal <0.87 [facility] Comment on above: Performed By: #### B MP, MG1, CBCDIF ####[facility] [place] [phone] Abs Neut 3.87 k/uL Normal 1.45-7.50 [facility] Comment on above: Performed By: #### B MP, MG1, CBCDIF ####[place] [address] [place] [phone] Absolute nRBC <0.01 Normal <0.01 [facility] Comment on above: Performed By: #### B MP, MG1, CBCDIF ####[place] [address] [place] [phone] Basophils/100 WBC (Bld) 0.7 % Normal [facility] Comment on above: Performed By: #### B MP, MG1, CBCDIF ####[place] [address] [place] [phone] DTYPE Auto Diff Normal [facility] Comment on above: Performed By: #### B MP, MG1, CBCDIF ####[place] [address] [place] [phone] Eosinophils (Bld) [#/Vol] 0.17 10*3/uL Normal <0.46 [facility] Comment on above: Performed By: #### B MP, MG1, CBCDIF ####[place] [address] [place] [phone] Eosinophils/100 WBC (Bld) 3.0 % Normal [facility] Comment on above: Performed By: #### B MP, MG1, CBCDIF ####[place] [address] [place] [phone] Erythrocyte distribution width (RBC) [Ratio] 12.0 % Normal 11.5-15.0 [facility] Comment on above: Performed By: #### B MP, MG1, CBCDIF ####[facility] [place] [phone] Hematocrit (Bld) [Volume fraction] 35.1 % Low 36.0-46.0 [facility] Comment on above: Performed By: #### B MP, MG1, CBCDIF ####[facility] [place] [phone] Hemoglobin (Bld) [Mass/Vol] 11.8 g/dL Normal 11.5-15.5 [facility] Comment on above: Performed By: #### B MP, MG1, CBCDIF ####[place] [address] [place] [phone] Lymphocytes (Bld) [#/Vol] 1.13 10*3/uL Normal 1.00-4.00 [facility] Comment on above: Performed By: #### B MP, MG1, CBCDIF ####[place] [address] [place] [phone] Lymphocytes/100 WBC (Bld) 20.0 % Normal [facility] Comment on above: Performed By: #### B MP, MG1, CBCDIF ####[place] [address] [place] [phone] MCH 29.4 pG Normal 26.0-34.0 [facility] Comment on above: Performed By: #### B MP, MG1, CBCDIF ####[facility] [place] [phone] MCHC (RBC) [Mass/Vol] 33.6 g/dL Normal 30.5-36.0 [facility] Comment on above: Performed By: #### B MP, MG1, CBCDIF ####[place] [id number] [place] [phone] MCV (RBC) [Entitic vol] 87.3 fL Normal 80.0-100.0 [facility] Comment on above: Performed By: #### B MP, MG1, CBCDIF ####[facility]CHollow[place], [place] [phone] Monocytes/100 WBC (Bld) 7.3 % Normal [facility] Comment on above: Performed By: #### B MP, MG1, CBCDIF ####[facility]leveland[place], [place] [phone] Neutrophils/100 WBC (Bld) 69.0 % Normal [facility] Comment on above: Performed By: #### B MP, MG1, CBCDIF ####[facility]level[address] [place], [place] [phone] NRBCs 0.0 /100 WBC Normal 0 [facility] Comment on above: Performed By: #### B MP, MG1, CBCDIF ####[facility]level[address] [place], [place] [phone] Platelet mean volume (Bld) [Entitic vol] 9.8 fL Normal 9.0-12.7 [facility] Comment on above: Performed By: #### B MP, MG1, CBCDIF ####[place] [address] [place], [place] [phone] Platelets (Bld) [#/Vol] 237 10*3/uL Normal 150-400 [facility] Comment on above: Performed By: #### B MP, MG1, CBCDIF ####[facility]level[address] [place], [place] [phone] RBC (Bld) [#/Vol] 4.02 10*6/uL Normal 3.90-5.20 [facility] Comment on above: Performed By: #### B MP, MG1, CBCDIF ####[facility]level[address] [place], [place] [phone] WBC (Bld) [#/Vol] 5.64 10*3/uL Normal 3.70-11.00 [facility] Comment on above: Performed By: #### B MP, MG1, CBCDIF ####[facility] [address] [place], [place] [phone] ED PROV NOTEon 12-30-2021 ED PROV NOTE HNO ID: [id number] Author: Brittney Olivas MD Service: Emergency Medicine [...] limits H (more content not included)... Normal [facility] MRI LUMBAR SPINE WO/W IVCONo n 12-30-2021 [...] and assume there are 5 lumbar-type vertebrae. Food Prep Worker: [facility] Transcribe Date/Time: Dec 30 2021 9:59P Dictated by : NAYE MORENO MD This examination was interpreted and the report reviewed and electronically signed by: NAYE MORENO MD on Dec 30 2021 10:13PM EST [id number] Normal [facility] MRI THORACIC SPINE WO/W IVCO Non 12-30-2021 [...] and assume there are 5 lumbar-type vertebrae. Food Prep Worker: [facility] Transcribe Date/Time: Dec 30 2021 9:59P Dictated by : NAYE MORENO MD This examination was interpreted and the report reviewed and electronically signed by: NAYE MORENO MD on Dec 30 2021 10:13PM EST [id number] Normal [facility] Magnesiumon 12-30-2021 Magnesium [Mass/Vol] 1.9 mg/dL Normal 1.7-2.3 [facility] Comment on above: Performed By: #### B MP, MG1, CBCDIF ####[facility] [address] [place], [place] [phone] NURSING PROGon 12-30-2021 NURSING PROG HNO ID: [id number] Author: Lynnette Frye RN Service: Radiology Author [...] II IV SITE: Inpatient - refer to [facility] documentation IV SITE APPEARANCE: Clean,Dry and Intact SIGNATURE: Lynnette Frye RN PATIENT NAME: Dorcas Kent DATE: December 30, 2021 TIME: 8:44 PM Normal [facility] NURSING PROG HNO ID: [id number] Author: Marium Vallejo RN Service: Radiology Author [...] II IV SITE: Inpatient - refer to [facility] documentation LAC 20g IV SITE APPEARANCE: Clean,Dry and Intact SIGNATURE: Marium Vallejo RN PATIENT NAME: Dorcas Kent DATE: December 30, 2021 TIME: 8:34 PM Normal [facility] Sed Rate Westergrenon 2021 Sed Rate Westergren 13 mm/hr Normal 0-20 [facility] Comment on above: Performed By: #### W SR, CRP ####[facility] [address]CAnton[address] [place] [phone] Urinalysis with Microscopico n 12-30-2021 Bilirubin, Urine Negative Normal Negative [facility] Comment on above: Performed By: #### U AWMIC ####[facility] [phone] Clarity (U) Slightly Cloudy Critically abnormal Clear [facility] Comment on above: Performed By: #### U AWMIC ####[facility] [address]CAnton[address] [place] [phone] Color (U) Light Yellow Critically abnormal Yellow [facility] Comment on above: Performed By: #### U AWMIC ####[facility] [address]CAnton[address] [place] [phone] Comments SEE COMMENT Normal [facility] Comment on above: Result Comment: N/A Performed By: #### U AWMIC ####[facility] [address]CAnton[address] [place] [phone] Epithelial cells LM Ql (Urine sed) SEE COMMENT Normal [facility] Comment on above: Result Comment: Few Squamous Epithelial Cells Performed By: #### U AWMIC ####[facility] [address]CAnton[address] [place] [phone] Glucose Ql (U) Negative Normal Negative [facility] Comment on above: Performed By: #### U AWMIC ####[facility] [phone] Hemoglobin/Blood,Ur Negative Normal Negative [facility] Comment on above: Performed By: #### U AWMIC ####[facility] [phone] Ketones Ql (U) Negative Normal Negative [facility] Comment on above: Performed By: #### U AWMIC ####[place] [address] [place] [phone] Leukest Trace Critically abnormal Negative [facility] Comment on above: Performed By: #### U AWMIC ####[place] [address] [place] [phone] Nitrite Ql (U) Negative Normal Negative [facility] Comment on above: Performed By: #### U AWMIC ####[place] [address] [place] [phone] pH (U) 6.0 [pH] Normal 5.0-8.0 [facility] Comment on above: Performed By: #### U AWMIC ####[place] [address] [place] [phone] Protein, Urine Negative Normal Negative [facility] Comment on above: Performed By: #### U AWMIC ####[place] [address] [place] [phone] RBC 0-3 Normal 0-3 [facility] Comment on above: Performed By: #### U AWMIC ####[place] [phone] [place] [phone] Specific Dilliner, Ur 1.013 Normal 1.005-1.030 [facility] Comment on above: Performed By: #### U AWMIC ####[place] [phone] [place] [phone] Urine Gelacio Comment SEE COMMENT Normal [facility] Comment on above: Result Comment: N/A Performed By: #### U AWMIC ####[facility] [address] [place], [place] [phone] Urobilinogen Qn (U) {Salazar'U}/dL Critically abnormal Negative [facility] Comment on above: Performed By: #### U AWMIC ####[facility] [place], [place] [phone] WBC 0-5 Normal 0-5 [facility] Comment on above: Performed By: #### U AWMIC ####[facility] [place], [place] [phone] HCG, Quanton 12-21-2021 HCG, Quant <1 Normal <5 [facility] Comment on above: Result Comment: Non-preg [...] liver. Performed By: #### B HCG #### [facility] [address] [place] [address] Home Health Travel Pt: Enrique Madrid MD Cult,Genitalon 02-07-2021 Cult,Genital Specimen Description .VAGINA Special Requests NOT REPORTED Culture NORMAL URO-GENITAL ARELI NEGATIVE FOR NEISSERIA GONORRHOEAE NEGATIVE FOR GROUP B STREPTOCOCCI Report Status FINAL 02/07/2021 Normal [facility] Comment on above: Performed By: #### G EC #### [facility] [address] [place] [address] Home Health Travel Pt: Chi Peralta MD [facility] [address] [place] [address] Home Health Travel Pt: Enrique Madrid MD HCG, Quanton 02-02-2021 HCG, Quant <1 Normal <5 [facility] Comment on above: Result Comment: Non-preg [...] liver. Performed By: #### B HCG #### [facility] [address] [place] [address] Home Health Travel Pt: Enrique Madrid MD Otheron 12-17-2020 Direct Exam Negative [place] VAGINITIS DNA PROBEon 2020 Direct Exam Method of testing is a DNA probe intended for detection and identification of Camilo species, Gardnerella vaginalis, and Trichomonas vaginalis nucleic acid in vaginal fluid specimens from patients with symptoms of vaginitis/vaginosis. [place] Special Requests NOT REPORTED [place] Specimen Description .VAGINA [place] Otheron 09-23-2020 Direct Exam Negative [place] VAGINITIS DNA PROBEon 2019 Direct Exam Method of testing is a DNA probe intended for detection and identification of Camilo species, Gardnerella vaginalis, and Trichomonas vaginalis nucleic acid in vaginal fluid specimens from patients with symptoms of vaginitis/vaginosis. [place] Special Requests NOT REPORTED [place] Specimen Description .VAGINA [place] CBC Auto Differentialon 08-21 Basophils (Bld) [#/Vol] 0.08 10*3/uL [place] Basophils/100 WBC (Bld) 1 % 0 - 2 % [place] Differential Type NOT REPORTED [place] Eosinophils (Bld) [#/Vol] 0.16 10*3/uL [place] Eosinophils/100 WBC (Bld) 3 % 1 - 4 % [place] Erythrocyte distribution width (RBC) [Ratio] 12.0 % 11.8 - 14.4 % [place] Hematocrit (Bld) [Volume fraction] 36.3 % 36.3 - 47.1 % [place] Hemoglobin (Bld) [Mass/Vol] 12.0 g/dL 11.9 - 15.1 g/dL [place] Immature granulocytes (Bld) [#/Vol] 0 % 0 [place] Immature granulocytes (Bld) [#/Vol] 10*3/uL [place] Lymphocytes (Bld) [#/Vol] 1.60 10*3/uL [place] Lymphocytes/100 WBC (Bld) 28 % 24 - 43 % [place] MCH (RBC) [Entitic mass] 29.6 pg 25.2 - 33.5 pg [place] MCHC (RBC) [Mass/Vol] 33.1 g/dL 28.4 - 34.8 g/dL [place] MCV (RBC) [Entitic vol] 89.6 fL 82.6 - 102.9 fL [place] Monocytes (Bld) [#/Vol] 0.35 10*3/uL [place] Monocytes/100 WBC (Bld) 6 % 3 - 12 % [place] Platelet mean volume (Bld) [Entitic vol] 9.2 fL 8.1 - 13.5 fL [place] Platelets (Bld) [#/Vol] 291 10*3/uL [place] Platelets (Bld) [#/Vol] NOT REPORTED [place] RBC (Bld) [#/Vol] 4.05 10*6/uL 3.95 - 5.1 1 m/uL [place] RBC morphology finding Nom (Bld) NOT REPORTED [place] Segmented neutrophils/100 WBC (Bld) 62 % 36 - 65 % [place] Segs Absolute 3.57 [place] WBC (Bld) [#/Vol] 5.8 10*3/uL [place] WBC (Bld) [#/Vol] 0.0 10*3/uL 0.0 per 10 0 WBC [place] WBC Morphology NOT REPORTED [place] Comprehensive Metabolic Pane jelani 09-04-2020 Albumin [Mass/Vol] 4.5 g/dL 3.5 - 5.2 g/dL [place], [place] Albumin/Globulin [Mass ratio] 1.6 {ratio} [place] ALP [Catalytic activity/Vol] 95 U/L 35 - 104 U/L [place] ALT [Catalytic activity/Vol] 9 U/L 5 - 33 U/L [place] Anion gap [Moles/Vol] 12 mmol/L 9 - 17 mmol/L [place] AST [Catalytic activity/Vol] 16 U/L <32 [place] Bilirubin Ql (U) 0.39 mg/dL 0.3 - 1.2 mg/dL [place] Bun/Cre Ratio 11 [place] Calcium [Mass/Vol] 9.0 mg/dL 8.6 - 10. 4 mg/dL [place] Chloride [Moles/Vol] 101 mmol/L 98 - 10 7 mmol/L [place] CO2 [Moles/Vol] 24 mmol/L 20 - 31 mmol/L [place] Creatinine [Mass/Vol] 0.72 mg/dL 0.5 - 0.9 mg/dL [place] GFR >60 >60 mL/min [place] GFR Non- >60 >60 mL/min [place] Glucose [Mass/Vol] 86 mg/dL 70 - 99 mg/dL [place], [place] Potassium [Moles/Vol] 3.9 mmol/L 3.7 - 5.3 mmol/L [place] Protein [Mass/Vol] 7.4 g/dL 6.4 - 8.3 g/dL [place] Sodium [Moles/Vol] 137 mmol/L 135 - 144 mmol/L [place] Urea nitrogen [Mass/Vol] 8 mg/dL 6 - 20 mg/dL [place] Metabolic Panelon 09-04-2020 GFR/1.73 sq M predicted among non-blacks MDRD (S/P/Bld) [Vol rate/Area] [place] Comment on above: Average GFR for 20-2 9 years old: 116 mL/min/1.73sq m Chronic Kidney Disease: <60 mL/min/1.73sq m Kidney failure: <15 mL/min/1.73sq m eGFR calculated using average adult body mass. Additional eGFR calculator available at: http://www.[employer]/multiple_crcl_2012.htm Stage 1: Some kidney damage normal GFR Stage 2: Mild kidney damage GFR 60-89 Stage 3: Moderate kidney damage GFR 30-59 Stage 4: Severe kidney damage GFR 15-29 Stage 5: Severe kidney damage GFR <15 ESRD - chronic treatment by dialysis or transplant Microscopic Urinalysison Amorphous, UA NOT REPORTED None [place], [place] Bacteria, UA NOT REPORTED None [place] Casts UA NOT REPORTED /LPF [place] Crystals, UA NOT REPORTED None /HPF [place] Epithelial Cells UA 0 TO 2 [place] Mucus, UA NOT REPORTED None [place] Other Observations UA NOT REPORTED NOT REQ. M [place] RBC (U) [#/Vol] 2 TO 5 [place] Renal Epithelial, UA NOT REPORTED 0 /HPF [place] Trichomonas, UA NOT REPORTED None [place], [place] WBC, UA 0 TO 2 [place] Yeast, UA NOT REPORTED None [place], [place] - [place] , Urineon 0 Beta HCG ( test) Ql (U) Negative NEGATIVE [place] Comment on above: Specimens with hCG l evels near the threshold of the test (25 mIU/mL) may give a negative or indeterminate result. In such cases, another test should be performed with a new specimen in 48-72 hours. If early is suspected clinically in this setting, correlation with quantitative serum b-hCG level is suggested. [facility] has confirmed the use of plasma for this test. This has not been cleared or approved by the U.S. Food and Drug Administration. The FDA has determined that such clearance is not necessary. Urinalysis Reflex to Culture on 09-04-2020 Bilirubin Urine Negative NE[facility]IVE [facility] [place] Color, UA YELLOW YELLOW [place] Glucose, Ur Negative NEGATIVE [place] Interpretation and review of laboratory results Abnormal [place] Ketones Ql (U) Negative NEGATIVE [place] Leukocyte esterase Test strip Ql (U) Negative NEGATIVE [place] Nitrite, Urine Negative NEGATIVE [place] pH, UA 6.5 [place] Protein (U) [Mass/Vol] Negative NEGATIVE [place] Specific [place], UA 1.010 [place], [place] Turbidity UA CLEAR CLEAR [place] Urinalysis Comments NOT REPORTED [place] Urine Hgb 3+ Abnormal NEGATIVE [place] Urobilinogen, Urine Normal Normal [place] US NON OB TRANSVAGINALon US NON OB TRANSVAGINAL UTERUS: Homogenous appearing retroverted uterus, WNL ? ENDO: measures 5 mm, IUD noted in good position ? RT. OVARY: WNL ? LT. OVARY: WNL ? No free fluid Interpreted by: Frederick Hines APRN - ALIRIO Lang DO Signed by: Genoveva Lang DO 02/12/20 Final result Normal [facility] CBC With Auto Differentialon 01-31-2020 Basophils (Bld) [#/Vol] 0.04 10*3/uL [place] Basophils/100 WBC (Bld) 1 % 0 - 2 % [place] Differential Type NOT REPORTED [place] Eosinophils (Bld) [#/Vol] 0.25 10*3/uL [place] Eosinophils/100 WBC (Bld) 6 % High 1 - 4 % [place] Erythrocyte distribution width (RBC) [Ratio] 13.0 % 11.8 - 14.4 % [place] Hematocrit (Bld) [Volume fraction] 36.7 % 36.3 - 47.1 % [place] Hemoglobin (Bld) [Mass/Vol] 11.6 g/dL Low 11.9 - 15.1 g/dL [place] Immature granulocytes (Bld) [#/Vol] 0 % 0 [place] Immature granulocytes (Bld) [#/Vol] 10*3/uL [place] Interpretation and review of laboratory results Abnormal [place] Lymphocytes (Bld) [#/Vol] 0.96 10*3/uL Low [place] Lymphocytes/100 WBC (Bld) 22 % Low 25 - 45 % [place] MCH (RBC) [Entitic mass] 28.9 pg 25.2 - 33.5 pg [place] MCHC (RBC) [Mass/Vol] 31.6 g/dL 28.4 - 34.8 g/dL [place] MCV (RBC) [Entitic vol] 91.3 fL 82.6 - 102.9 fL [place] Monocytes (Bld) [#/Vol] 0.42 10*3/uL [place] Monocytes/100 WBC (Bld) 10 % High 2 - 8 % [place] Platelet mean volume (Bld) [Entitic vol] 9.5 fL 8.1 - 13.5 fL [place] Platelets (Bld) [#/Vol] 241 10*3/uL [place] Platelets (Bld) [#/Vol] NOT REPORTED [place] RBC (Bld) [#/Vol] 4.02 10*6/uL 3.95 - 5.1 1 m/uL [place] RBC morphology finding Nom (Bld) NOT REPORTED [place] Segmented neutrophils/100 WBC (Bld) 61 % 34 - 64 % [place] Segs Absolute 2.72 [place] WBC (Bld) [#/Vol] 4.4 10*3/uL Low [place] WBC (Bld) [#/Vol] 0.0 10*3/uL 0.0 per 10 0 WBC [place] WBC Morphology NOT REPORTED [facility] [place], [place] HCG, Quantitative, on 01-22-2020 hCG Quant <1 <5 IU/L [place] Comment on above: Non-preg premeno <=5 [...] Wyatt Stauffer M.D. Transcribed by: AMBERLY Technologist: BLMTechnical CommentsTransabdominal Ultrasound PerformedTransvaginal Ultrasound PerformedUterus Measurements (in cm) 7.19 x 4.10 x 3.34 vol = 51.55Position AntevertedEndometrium. Measurements (in cm) 0.63Right Ovary Measurements (in cm) 3.26 x 3.59 x 2.38 vol = 10.49Left Ovary Measurements (in cm) 3.42 x 1.56 x 2.80 vol = 7.79 Normal [facility] US Transvaginal Non-OBon US Transvaginal Non-OB Exam Date/Time:07/18/2017 10:03 EDTReason for Exam:menorrhagiaReport PLEASE REFER TO THE ULTRASOUND PELVIS NON-OB COMPLETE REPORT. FINAL REPORT Dictated: 07/21/2017 12:55 pm Wyatt Stauffer M.D. Signed (Electronic Signature): 07/21/2017 12:55 pm Signed by: Wyatt Stauffer M.D. Transcribed by: AMBERLY Technologist: MARINE Camacho [facility] Vital Signs Date Time Vital Sign Value Performing Clinician Facility 01-21-2025 17:20-0500 Body height 172.72 cm Kyaw Rocha MD Work Phone: [facility] 01-21-2025 17:20-0500 Body mass index (BMI) [Ratio] 25.1 kg/m2 Kyaw Rocha MD Work Phone: [facility] 01-21-2025 17:20-0500 Body temperature 97 [degF] Kyaw Rocha MD Work Phone: [facility] 01-21-2025 17:20-0500 Body weight 75.01 kg Kyaw Rocha MD Work Phone: [facility] 01-21-2025 17:20-0500 Diastolic blood pressure 74 mm[Hg] Kyaw Rocha MD Work Phone: [facility] 01-21-2025 17:20-0500 Heart rate 71 /min Kyaw Rocha MD Work Phone: [facility] 01-21-2025 17:20-0500 Respiratory rate 18 /min Kyaw Rocha MD Work Phone: [facility] 01-21-2025 17:20-0500 SaO2% (BldA) [Mass fraction] 96 % Kyaw Rocha MD Work Phone: [facility] 01-21-2025 17:20-0500 Systolic blood pressure 116 mm[Hg] Kyaw Rocha MD Work Phone: [facility] 12-24-2024 11:50-0500 Body height 172.72 cm [facility] 12-24-2024 11:50-0500 Body mass index (BMI) [Ratio] 24.9 kg/m2 [facility] 12-24-2024 11:50-0500 Body weight 74.38 kg [facility] 12-24-2024 11:50-0500 Diastolic blood pressure 75 mm[Hg] [facility] 12-24-2024 11:50-0500 Heart rate 77 /min [facility] 12-24-2024 11:50-0500 Systolic blood pressure 122 mm[Hg] [facility] 11-12-2024 13:35-0500 Body height 172.72 cm [facility] 11-12-2024 13:35-0500 Body mass index (BMI) [Ratio] 25.1 kg/m2 [facility] 11-12-2024 13:35-0500 Body temperature 100.3 [degF] [facility] 11-12-2024 13:35-0500 Body weight 74.89 kg [facility] 11-12-2024 13:35-0500 Diastolic blood pressure 68 mm[Hg] [facility] 11-12-2024 13:35-0500 Heart rate 80 /min [facility] 11-12-2024 13:35-0500 Respiratory rate 16 /min [facility] 11-12-2024 13:35-0500 SaO2% (BldA) [Mass fraction] 99 % [facility] 11-12-2024 13:35-0500 Systolic blood pressure 121 mm[Hg] [facility] 09-03-2024 15:11-0400 Body height 170.18 cm [facility] 09-03-2024 15:11-0400 Body mass index (BMI) [Ratio] 25 kg/m2 [facility] 09-03-2024 15:11-0400 Body weight 72.57 kg [facility] 09-03-2024 15:11-0400 Diastolic blood pressure 70 mm[Hg] [facility] 09-03-2024 15:11-0400 Heart rate 69 /min [facility] 09-03-2024 15:11-0400 Respiratory rate 18 /min [facility] 09-03-2024 15:11-0400 SaO2% (BldA) [Mass fraction] 97 % [facility] 09-03-2024 15:11-0400 Systolic blood pressure 122 mm[Hg] [facility] 07-17-2024 13:46-0400 Body height 170.18 cm [facility] 07-17-2024 13:46-0400 Body mass index (BMI) [Ratio] 26.3 kg/m2 [facility] 07-17-2024 13:46-0400 Body weight 76.2 kg [facility] 07-17-2024 13:46-0400 Diastolic blood pressure 68 mm[Hg] [facility] 07-17-2024 13:46-0400 Heart rate 77 /min [facility] 07-17-2024 13:46-0400 Systolic blood pressure 108 mm[Hg] [facility] 05-17-2024 15:30-0400 Body height 170.18 cm [facility] 05-17-2024 15:30-0400 Body mass index (BMI) [Ratio] 26.2 kg/m2 [facility] 05-17-2024 15:30-0400 Body temperature 98.2 [degF] [facility] 05-17-2024 15:30-0400 Body weight 75.97 kg [facility] 05-17-2024 15:30-0400 Diastolic blood pressure 72 mm[Hg] [facility] 05-17-2024 15:30-0400 Heart rate 66 /min [facility] 05-17-2024 15:30-0400 Respiratory rate 12 /min [facility] 05-17-2024 15:30-0400 Systolic blood pressure 112 mm[Hg] [facility] 03-21-2023 13:00-0400 Respiratory rate 16 /min MD Kyaw Rocha Work Phone: [facility] 03-21-2023 09:00-0400 Body temperature 97.9 [degF] MD Kyaw Rocha Work Phone: [facility] 03-21-2023 09:00-0400 Diastolic blood pressure 71 mm[Hg] MD Kyaw Rocha Work Phone: [facility] 03-21-2023 09:00-0400 Heart rate 79 /min MD Kyaw Rocha Work Phone: [facility] 03-21-2023 09:00-0400 SaO2% (BldA) [Mass fraction] 99 % MD Kyaw Rocha Work Phone: [facility] 03-21-2023 09:00-0400 Systolic blood pressure 115 mm[Hg] MD Kyaw Rocha Work Phone: [facility] 03-19-2023 07:42-0400 Inhaled oxygen concentration 100 % MD Kyaw Rocha Work Phone: [facility] 03-19-2023 07:42-0400 Inhaled oxygen flow rate 10 L/min MD Kyaw Rocha Work Phone: [facility] 03-19-2023 01:03-0400 Body height 172.72 cm MD Kyaw Rocha Work Phone: [facility] 03-19-2023 01:03-0400 Body weight 81.64 kg MD Kyaw Rocha Work Phone: [facility] 03-16-2023 23:13-0400 Respiratory rate 16 /min MD Kyaw Rocha Work Phone: [facility] 03-16-2023 22:32-0400 Body temperature 97 [degF] MD Kyaw Rocha Work Phone: [facility] 03-16-2023 22:32-0400 Diastolic blood pressure 68 mm[Hg] MD Kyaw Rocha Work Phone: [facility] 03-16-2023 22:32-0400 Heart rate 112 /min MD Kyaw Rocha Work Phone: [facility] 03-16-2023 22:32-0400 SaO2% (BldA) [Mass fraction] 100 % MD Kyaw Rocha Work Phone: [facility] 03-16-2023 22:32-0400 Systolic blood pressure 122 mm[Hg] MD Kyaw Rocha Work Phone: [facility] 03-16-2023 20:15-0400 Body height 172.72 cm MD Kyaw Rocha Work Phone: [facility] 03-16-2023 20:15-0400 Body weight 83.91 kg MD Kyaw Rocha Work Phone: [facility] 01-06-2023 18:25-0500 Respiratory rate 14 /min MD Kyaw Rocha Work Phone: [facility] 01-06-2023 17:05-0500 Diastolic blood pressure 59 mm[Hg] MD Kyaw Rocha Work Phone: [facility] 01-06-2023 17:05-0500 Heart rate 74 /min MD Kyaw Rocha Work Phone: [facility] 01-06-2023 17:05-0500 Systolic blood pressure 120 mm[Hg] MD Kyaw Rocha Work Phone: [facility] 01-06-2023 17:03-0500 SaO2% (BldA) [Mass fraction] 100 % MD Kyaw Rocha Work Phone: [facility] 01-06-2023 17:02-0500 Body temperature 96.8 [degF] MD Kyaw Rohca Work Phone: [facility] 01-06-2023 16:43-0500 Body height 170.18 cm MD Kyaw Rocha Work Phone: [facility] 01-06-2023 16:43-0500 Body weight 77.11 kg MD Kyaw Rocha Work Phone: [facility] 01-04-2023 17:00-0500 Respiratory rate 18 /min MD Kyaw Rocha Work Phone: [facility] 01-04-2023 15:35-0500 Body height 170.18 cm MD Kyaw Rocha Work Phone: [facility] 01-04-2023 15:35-0500 Body weight 77.11 kg MD Kyaw Rocha Work Phone: [facility] 01-04-2023 15:32-0500 Body temperature 97.3 [degF] MD Kyaw Rocha Work Phone: [facility] 01-04-2023 15:32-0500 Diastolic blood pressure 54 mm[Hg] MD Kyaw Rocha Work Phone: [facility] 01-04-2023 15:32-0500 Heart rate 73 /min MD Kyaw Rocha Work Phone: [facility] 01-04-2023 15:32-0500 SaO2% (BldA) [Mass fraction] 100 % MD yKaw Rocha Work Phone: [facility] 01-04-2023 15:32-0500 Systolic blood pressure 113 mm[Hg] MD Kyaw Rocha Work Phone: [facility] 11-29-2022 13:01-0500 Body weight 76.66 kg Valeriano Anderson MD Work Phone: [facility] 11-01-2022 14:06-0500 Body height 172.7 cm Jerry Antonio MD Work Phone: [facility] 11-01-2022 14:06-0500 Body weight 78.02 kg Jerry Antonio MD Work Phone: [facility] 11-01-2022 14:06-0500 Diastolic blood pressure 50 mm[Hg] Jerry Antonio MD Work Phone: [facility] 11-01-2022 14:06-0500 Heart rate 77 /min Jerry Antonio MD Work Phone: [facility] 11-01-2022 14:06-0500 Systolic blood pressure 117 mm[Hg] Jerry Antonio MD Work Phone: [facility] 11-01-2022 13:04-0500 Body weight 78.02 kg Jerry Antonio MD Work Phone: [facility] 08-09-2022 09:39-0400 Body temperature 98.78 [degF] Kyaw Rocha Other Phone: [facility] 08-09-2022 09:39-0400 Diastolic blood pressure 48 mm[Hg] Kyaw Rocha Other Phone: [facility] 08-09-2022 09:39-0400 Heart rate 81 /min Kyaw Rocha Other Phone: [facility] 08-09-2022 09:39-0400 SaO2% (BldA) [Mass fraction] 97 % Kyaw Rocha Other Phone: [facility] 08-09-2022 09:39-0400 Systolic blood pressure 96 mm[Hg] Kyaw Rocha Other Phone: [facility] 08-04-2022 14:44-0400 Diastolic blood pressure 72 mm[Hg] MD Kyaw Rocha Work Phone: [facility] 08-04-2022 14:44-0400 Heart rate 88 /min MD Kyaw Rocha Work Phone: [facility] 08-04-2022 14:44-0400 Respiratory rate 18 /min MD Kyaw Rocha Work Phone: [facility] 08-04-2022 14:44-0400 SaO2% (BldA) [Mass fraction] 100 % MD Kyaw Rocha Work Phone: [facility] 08-04-2022 14:44-0400 Systolic blood pressure 123 mm[Hg] MD Kyaw Rocha Work Phone: [facility] 08-04-2022 10:14-0400 Body height 172.72 cm MD Kyaw Rocha Work Phone: [facility] 08-04-2022 10:14-0400 Body temperature 98.7 [degF] MD Kyaw Rocha Work Phone: [facility] 08-04-2022 10:14-0400 Body weight 77.9 kg MD Kyaw Rocha Work Phone: [facility] 07-02-2022 16:00-0400 Body height 170.18 cm MD Kyaw Rocha Work Phone: [facility] 07-02-2022 16:00-0400 Body temperature 97.6 [degF] MD Kyaw Rocha Work Phone: [facility] 07-02-2022 16:00-0400 Body weight 77.11 kg MD Kyaw Rocha Work Phone: [facility] 07-02-2022 16:00-0400 Diastolic blood pressure 83 mm[Hg] MD Kyaw Rocha Work Phone: [facility] 07-02-2022 16:00-0400 Heart rate 74 /min MD Kyaw Rocha Work Phone: [facility] 07-02-2022 16:00-0400 Respiratory rate 18 /min MD Kyaw Rocha Work Phone: [facility] 07-02-2022 16:00-0400 SaO2% (BldA) [Mass fraction] 99 % MD Kyaw Rocha Work Phone: [facility] 07-02-2022 16:00-0400 Systolic blood pressure 124 mm[Hg] MD Kyaw Rocha Work Phone: [facility] 03-29-2022 09:33-0400 Body temperature 98.4 [degF] Mri (I-Stat/1.5t) [facility] 03-29-2022 09:33-0400 Diastolic blood pressure 61 mm[Hg] Mri (I-Stat/1.5t) [facility] 03-29-2022 09:33-0400 Heart rate 79 /min Mri (I-Stat/1.5t) [facility] 03-29-2022 09:33-0400 Respiratory rate 20 /min Mri (I-Stat/1.5t) [facility] 03-29-2022 09:33-0400 SaO2% (BldA) [Mass fraction] 99 % Mri (I-Stat/1.5t) [facility] 03-29-2022 09:33-0400 Systolic blood pressure 115 mm[Hg] Mri (I-Stat/1.5t) [facility] 09-04-2020 19:43-0400 BP Diastolic 64 mm[Hg] Natty Whitehead [facility], [place] 09-04-2020 19:43-0400 BP Systolic 118 mm[Hg] Natty Chew [facility] [place], [place] 09-04-2020 19:43-0400 Pulse (Heart Rate) 70 /min Natty Whitehead [facility] [place], [place] 09-04-2020 19:43-0400 Pulse Oximetry 100 % Natty Whitehead [facility], [place] 09-04-2020 19:43-0400 Respiratory Rate 16 /min Natty Whitehead [facility], [place] 09-04-2020 15:43-0400 BMI (Body Mass Index) 24.33 kg/m2 Natty Whitehead [facility], [place] 09-04-2020 15:43-0400 Body Temperature 97.39 [degF] [facility] [place] 09-04-2020 15:43-0400 Body weight 72.58 kg Natty Whitehead [facility], [place] 09-04-2020 15:43-0400 Height 172.7 cm Natty Whitehead [facility], [place] Encounters Encounter Date Encounter Type Care Provider Facility Start: 02-04-2025 End: 02-04-[address] [place] [address] Start: 01-21-2025 End: 01-21-2025 ambulatory Kyaw Rocha MD Work Phone: [facility] Work Phone: Start: 01-21-2025 End: 01-21-2025 Patient encounter procedure Kyaw Rocha MD Work Phone: [facility] Work Phone: Start: 12-24-2024 End: 12-24-2024 ambulatory [facility] Work Phone: Start: 12-24-2024 End: 12-24-2024 Patient encounter [facility] Work Phone: Start: 11-12-2024 End: 11-12-2024 Patient encounter procedure [facility] Work Phone: Start: 09-03-2024 End: 09-03-2024 ambulatory [facility] Work Phone: Start: 09-03-2024 End: 09-03-2024 Patient encounter procedure [facility] Work Phone: Start: 07-18-2024 Non-patient / Non-visit [facility] Work Phone: Start: 07-17-2024 End: 07-17-2024 ambulatory [facility] Work Phone: Start: 07-17-2024 End: 07-17-2024 Patient encounter procedure [facility] Work Phone: Start: 05-17-2024 End: 05-17-2024 ambulatory [facility] Work Phone: Start: 05-17-2024 End: 05-17-2024 Patient encounter procedure [facility] Work Phone: Start: 03-25-2023 End: 03-25-2023 ambulatory MD Kyaw Rocha Work Phone: [facility] Work Phone: Start: 03-25-2023 End: 03-25-2023 Patient encounter procedure MD Kyaw Rocha Work Phone: [facility]- Visit Work Phone: Start: 03-19-2023 End: 03-21-2023 Evaluation and management of inpatient MD Kyaw Rocha Work Phone: [facility] [place] Work Phone: Start: 03-16-2023 End: 03-16-2023 Patient encounter procedure MD Kyaw Rocha Work Phone: [facility] - [facility] Start: 03-02-2023 End: 03-02-2023 ambulatory MD Kyaw Rocha Work Phone: [facility] Work Phone: Start: 03-02-2023 End: 03-02-2023 Departed Referred MD Kyaw Rocha Work Phone: [facility] [place] Work Phone: Start: 02-18-2023 End: 02-18-[address] SHI VERDE . Facility: Start: 01-06-2023 End: 01-06-2023 ambulatory MD Kyaw Rocha Work Phone: [facility] Work Phone: Start: 01-06-2023 End: 01-06-2023 Patient encounter procedure MD Kyaw Rocha Work Phone: [facility] - [facility] Start: 01-04-2023 End: 01-04-2023 ambulatory MD Kyaw Rocha Work Phone: [facility] Work Phone: Start: 01-04-2023 End: 01-04-2023 Patient encounter procedure MD Kyaw Rocha Work Phone: [facility] - [facility] Start: 11-29-2022 End: 11-29-2022 Patient encounter procedure Valeriano Anderson MD Work Phone: [facility] Comment on above: History of d letty, currently in second trimester [O09.892 (ICD-10-CM)] (Primary Dx); Encounter for follow-up ultrasound of anatomy Start: 11-01-2022 End: 11-01-2022 ambulatory 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 Facility:[facility] Start: 11-01-2022 End: 11-01-2022 Patient encounter procedure Jerry Antonio MD Work Phone: [facility] Comment on above: History of alden saenz, currently in second trimester (Primary Dx); Encounter for anatomic survey Encounter for follow -up ultrasound of anatomy (Primary Dx) Start: 10-05-2022 End: 10-05-2022 Emergency department patient visit KYAW ROCHA Facility:[facility] Start: 10-04-2022 Telephone encounter [facility] Work Phone: [facility] Comment on above: Appointment Start: 10-01-2022 Transcribe Orders Admitting Supervisor Trans cribe Provider [facility] Start: 09-09-2022 End: 09-09-2022 ambulatory JORDAN WOODS Facility: Start: 09-07-2022 ambulatory Haritha de la o HAZARDOUS SUBSTANCES SCIENTISTZayLOSS PREVENTION/SAFETY DISTRICT MANAGER Work Phone: [facility] Comment on above: Left hip pain Start: 08-09-2022 End: 08-09-2022 ambulatory Torsten Huong Other [employer] Other Start: 08-09-2022 Telephone encounter Torsten Huong [facility] Start: 08-06-2022 End: 08-07-2022 Emergency department patient visit Dr. Kyaw Rocha Facility:[id number] Start: 08-06-2022 End: 08-09-2022 Evaluation and management of inpatient Torsten Huong [place] [id number] Start: 08-06-2022 End: 08-06-2022 ambulatory Torsten Huong Other [employer] Other Start: 08-06-2022 Telephone encounter Torsten Huong [facility] Start: 08-04-2022 End: 08-04-2022 Emergency department patient visit MD Kyaw Rocha Work Phone: [facility]-Emergency [facility] Start: 07-29-2022 End: 07-29-2022 Patient encounter procedure [facility] Start: 07-27-2022 End: 07-27-2022 Patient encounter procedure MD Kyaw Rocha Work Phone: [place] Start: 07-24-2022 End: 07-24-2022 ambulatory SHONNA BETTS . Facility: Start: 07-21-2022 End: 07-21-2022 Patient encounter procedure MD Kyaw Rocha Work Phone: [place] Start: 07-05-2022 End: 07-05-2022 ambulatory Torsten Huong Other [employer] Other Start: 07-05-2022 Telephone encounter Torsten Huong [facility] Start: 07-03-2022 End: 07-03-2022 ambulatory Emily Oliveros Other [employer] Other Start: 07-03-2022 Nursing evaluation o f patient and report Emily Oliveros [facility] Start: 07-03-2022 End: 07-03-[address] MARLENY HINES Facility: Start: 07-02-2022 End: 07-02-2022 Emergency department patient visit MD Kyaw Rocha Work Phone: [facility]-Emergency Room Start: 06-30-2022 End: 06-30-2022 Patient encounter procedure MD [facility]aw [facility]ocha [facility] Start: 06-30-2022 End: 06-30-2022 ambulatory Torsten Huong Other [employer] Other Start: 06-30-2022 Telephone encounter Torsten Huong [facility] Start: 06-25-2022 End: 06-25-2022 ambulatory Torsten Huong Other [employer] Other Start: 06-25-2022 Telephone encounter Torsten Huong [facility] Start: 06-23-2022 End: 06-23-2022 Patient encounter procedure MD Kyaw Rocha Work Phone: [facility] [place] Start: 06-11-2022 End: 06-11-2022 Departed Referred MD Kyaw Rocha Work Phone: [facility] [address] Start: 06-08-2022 End: 06-08-2022 ambulatory [facility] Facility:[facility] Start: 06-08-2022 End: 06-08-2022 [facility] HAZARDOUS SUBSTANCES SCIENTIST.LOSS PREVENTION/SAFETY DISTRICT MANAGER Work Phone: [facility] Comment on above: Sacroiliac joint darnell n (Primary Dx); Chronic bilateral low back pain without sciatica; Bone lesion; Disorder of bone Start: 05-10-2022 End: 05-10-2022 Patient encounter procedure MD Kyaw Rocha Work Phone: [facility] Start: 04-26-2022 End: 04-26-2022 ambulatory Torsten Borja Other [employer] [facility] [employer] Other Start: 04-26-2022 Telephone encounter Torsten Borja [facility] Start: 04-15-2022 End: 04-15-2022 ambulatory [facility] Facility:[facility] Start: 04-15-2022 End: 04-15-2022 [facility] Facility:[facility] Start: 04-13-2022 End: 04-14-2022 Emergency department patient visit KYAW ROCHA Facility:[facility] Start: 04-05-2022 Telephone encounter Prakash cochran MD Work Phone: [facility] [place] Comment on above: Results; Follow Up biospy Biopsy Request Start: 03-29-2022 End: 03-29-2022 Subsequent hospital visit by physician [facility] (I-Stat/1.5t) Radiology Comment on above: Disorder of bone [M8 9.9] Start: 03-04-2022 ambulatory Prakash Joy Work Phone: [facility] [place] Start: 03-04-2022 Patient encounter procedure Prakash Flores MD Work Phone: [facility] Start: 01-20-2022 End: 01-20-2022 ambulatory HARITHA FUNG Facility:[facility] Start: 12-31-2021 ambulatory NATTY CHEW Facility:[facility] Start: 12-31-2021 End: 12-31-2021 ambulatory NATTY CHEW Facility:[facility] Start: 12-30-2021 End: 12-31-2021 Emergency department patient visit DIANE CHASE Facility:[facility] Start: 12-30-2021 End: 12-30-2021 ambulatory Torsten Huong Other [employer] Other Start: 12-30-2021 Telephone encounter Torsten Huong [facility] Start: 12-25-2021 End: 12-25-2021 ambulatory Torsten Huong Other [employer] Other Start: 12-25-2021 Telephone encounter Torsten Huong [facility] Start: 12-21-2021 End: 12-22-2021 ambulatory [facility] Start: 02-04-2021 End: 02-05-2021 ambulatory [facility]INES [facility] Start: 02-04-2021 End: 02-04-2021 Subsequent hospital visit by physician Natty HERNANDEZ Laboratory Comment on above: Vaginal discharge Start: 02-02-2021 End: 02-03-2021 ambulatory [facility] Start: 12-17-2020 End: 12-17-2020 Subsequent hospital visit by physician Natty HERNANDEZ Laboratory Comment on above: Abscess, [place]'s gla nd; Vaginal discharge Start: 12-03-2020 End: [...] End: 04-10-2020 Subsequent [facility] Comment on above: Vaginal odor Start: 01-31-2020 End: 01-31-2020 Subsequent hospital visit by physician [facility] Laboratory Comment on above: Fever, unspecified f ever cause Start: 01-23-2020 End: 01-23-2020 Subsequent hospital visit by [facility] Comment on above: Menorrhagia with reg ular cycle; Screening for cervical cancer Start: 01-22-2020 End: 01-22-2020 Subsequent hospital visit by [facility] Comment on above: Encounter for pregna ncy test, result unknown Start: 01-02-2020 End: 01-02-2020 Subsequent hospital visit by [facility] Comment on above: Encounter for annual routine gynecological examination Start: 07-18-2017 End: 07-19-2017 Ambulatory Yaa Chawla [facility] Start: 07-13-2017 End: 07-14-2017 Ambulatory Yaa Chawla Facility:[facility] Procedures Date Procedure Procedure Detail Performing Clinician Start: 01-21-2025 Plain X-ray of left hand Kyaw Rocha MD Work Phone: Start: 01-21-2025 Plain X-ray of left wrist Kyaw Rocha MD Work Phone: Start: 11-12-2024 Quick Strep (POC) Start: 03-02-2023 Streptococcus agalac tiae culture MD Kyaw Rocha Work Phone: Start: 11-29-2022 Us preg uterus after 1st trimest 11/21 gestation Jerry Antonio MD Work Phone: Start: 11-01-2022 Us preg uterus after 1st trimest 11/21 gestation Admitting Supervisor Transcribe Provider Start: 08-07-2022 End: 08-06-2022 EKG impression Jany Lindquist Start: 08-06-2022 End: 08-06-2022 EKG impression Kevin Handy Start: 08-04-2022 Diagnostic ultrasoun d of gravid uterus MD Kyaw Rocha Work Phone: Start: 08-04-2022 Transvaginal obstetr ic ultrasonography MD Kyaw Rocha Work Phone: Start: 06-08-2022 Adult depression scr eening assessment Haritha Fung HAZARDOUS SUBSTANCES SCIENTIST.LOSS PREVENTION/SAFETY DISTRICT MANAGER Work Phone: Start: 03-29-2022 Mri pelvis w/o contr ast material Haritha Fung HAZARDOUS SUBSTANCES SCIENTIST.LOSS PREVENTION/SAFETY DISTRICT MANAGER Work Phone: Start: 12-17-2020 Cul bact xcpt urine blood/stool aerobic isol Frederick Mullinssandro Hines Work Phone: Start: 12-17-2020 Iadna camilo specie s direct probe tq Frederick Mullinssandro Hines Work Phone: Start: 09-23-2020 Cul bact xcpt urine blood/stool aerobic isol Frederick Mullinssandro Hines Work Phone: Start: 09-23-2020 Iadna camilo specie s direct probe tq Frederick Mullinssandro Hines Work Phone: Start: 09-04-2020 Blood count complete auto&auto difrntl wbc [employer] Work Phone: Start: 09-04-2020 Comprehensive metabo lic panel [employer] Work Phone: Start: 09-04-2020 Urinalysis microscopic only [employer] Work Phone: Start: 09-04-2020 Urine test visual color cmprsn meths [employer] Work Phone: Start: 09-04-2020 Urnls dip stick/tabl et rgnt auto w/o microscopy [employer] Work Phone: Start: 01-31-2020 Blood count complete auto&auto difrntl wbc Frederick Mullinssandro Hines Work Phone: Start: 01-22-2020 Gonadotropin chorion ic quantitative Frederick Hines Work Phone: Start: 10-22-2019 Adult depression scr eening assessment Prakash Sandra MD Work Phone: Mycology culture MD Kyaw rubio Work Phone: Trichomonas vaginali s detection MD Kyaw Rocha Work Phone: Plan of Treatment Date Care Activity Detail Author Start: 2048 Shingles Vaccine (1 of 2) Shingles Vaccine (1 of 2) [employer] [facility] Work Phone: Start: 04-17-2029 DTaP/Tdap/Td vaccine (8 - Td) DTaP/Tdap/Td vaccine (8 - Td) [employer] [facility] Work Phone: Start: 01-21-2025 Patient referral [facility] Work Phone: Start: 06-08-2023 Adult depression screening assessment DEPRESSION SCREENING [facility] Start: 03-21-2023 [facility] Start: 03-19-[address] [facility] Start: 03-16-2023 [facility] Start: 03-16-[address] [facility] Start: 03-02-2023 Group B Streptococcu s Culture Group B Streptococcus Culture [facility] Start: 01-22-2023 Screening for malign ant neoplasm of cervix [facility] [employer], [place] Start: 01-06-2023 [facility] Start: 01-06-[address] [facility] Start: 01-04-2023 [facility] Start: 01-04-[address] [facility] Start: 01-02-2023 Cervical cancer screen Cervical canc er screen [facility], [place]IMUN[place] Start: 11-21-2022 DEPRESSION ASSESSMENT DEPRESSION ASS ESSMENT [facility] Start: 11-01-2022 End: 11-01-2023 OBSTETRIC ULTRASOUND [facility] OBSTETRIC ULTRASOUND [facility] Anc Imaging Routine Encounter for follow-up ultrasound of anatomy Expected: 11/01/2022, Expires: 11/01/2023 [facility] Work Phone: Comment on above: Expected: 11/01/2022 , Expires: 11/01/2023 Start: 08-07-2022 Depression Depression Te e: 07-Aug-2022 [facility] Start: 08-07-2022 Psychological assessment Psych ological assessment Date: 07-Aug-[address] [facility] Start: 08-07-2022 End: 08-08-[address] [facility] Start: 08-04-2022 [facility] Work Phone: Start: 07-22-2022 Influenza vaccination [facility] Start: 07-21-2022 End: 07-21-2022 Patient encounter procedure Departed Clinical [facility] [place] Start: 07-02-2022 End: 07-02-2022 Emergency department patient visit Departed Emergency [facility]Emergency Room Start: 06-30-2022 End: 06-30-2022 Patient encounter procedure Departed Clinical [facility] [place] Start: 12-17-2021 Screening for Chlamy latrell trachomatis Chlamydia screen [facility] Work Phone: Start: 12-13-2021 COVID-19 VACCINE (3 - Booster for Pfizer series) COVID-19 VACCINE (3 - Booster for Pfizer series) [facility] Start: 12-03-2021 Screening for Chlamy latrell trachomatis Chlamydia screen [place], [place] Start: 11-21-2021 DEPRESSION ASSESSMENT DEPRESSION ASS ESSMENT [facility] Start: 09-23-2021 Screening for Chlamy latrell trachomatis Chlamydia screen [place], [place] Start: 09-07-2021 COVID-19 VACCINE (3 - Booster for Pfizer series) COVID-19 VACCINE (3 - Booster for Pfizer series) [facility] Start: 01-27-2021 End: 01-27-2021 Telemedicine 01/27/2021 Telemedicine Obstetrics and Gynecology Frederick Hines, HAZARDOUS SUBSTANCES SCIENTIST - CN [address] [place] [address] [facility] Start: 01-22-2021 Chlamydia screen Chlamydia screen [facility], [place] Start: 01-22-2021 Screening for Chlamy latrell trachomatis Chlamydia screen [place], [place] Start: 01-02-2021 Influenza vaccination M [facility] [employer] Phone: Comment on above: Postponed from 07/22 (Patient Refused) Postponed from 07/22 (Patient Refused) Start: 10-22-2020 Adult depression screening assessment DEPRESSION SCREENING [facility] Start: 07-22-2020 Influenza vaccination Flu vaccine (# 1) [place], [place] Start: 06-25-2020 Chlamydia screen Chlamydia screen [facility] [employer] Phone: Comment on above: Postponed from 07/16 (Not Indicated) Start: 06-04-2020 HPV vaccine (1 - 2-d ose series) HPV vaccine (1 - 2-dose series) [place] Comment on above: Postponed from 07/16 (Not Indicated) Start: 05-01-2020 Varicella vaccine (2 of 2 - 2-dose childhood series) Varicella vaccine (2 of 2 - 2-dose childhood series) [place] Comment on above: Postponed from 07/16 (Not Indicated) Start: 02-26-2020 HPV vaccine (1 - 2-d ose series) HPV vaccine (1 - 2-dose series) [place] Comment on above: Postponed from 07/16 (Not Indicated) Start: 02-26-2020 HPV vaccine (1 - Fem wayne 2-dose series) HPV vaccine (1 - Female 2-dose series) [facility] [facility] [place] [employer] Phone: Comment on above: Postponed from 07/16 (Not Indicated) Start: 02-20-2020 End: 02-20-2020 Office Visit 02/20/2020 Office Visit Obstetrics and Gynecology Frederick Hines, HAZARDOUS SUBSTANCES SCIENTIST - CNM [address] [place] [address] [facility] Start: 01-23-2020 Varicella vaccine (2 of 2 - 2-dose childhood series) Varicella vaccine (2 of 2 - 2-dose childhood series) [facility] [employer] Phone: Comment on above: Postponed from 07/16 (Not Indicated) Start: 01-23-2020 End: 01-23-2020 Procedure visit 01/23/2020 Procedure visit Obstetrics and Gynecology Frederick Hines, HAZARDOUS SUBSTANCES SCIENTIST - CNM [address] [place] [address] [facility] Start: 2019 Cervical cancer screen Cervical canc er screen [facility] Work Phone: Start: 2019 PAP TESTING PAP TESTING [facility] Start: 2017 Urine microalbumin profile DTAP,TDAP,TD (1 - Tdap) [facility] Start: 2016 CHLAMYDIA SCREENING (18-24) CHLAMYDIA SCREENING (18-24) [facility] Start: 2016 GC (GONORRHEA) SCREE MARCUS (18-24) GC (GONORRHEA) SCREENING (18-24) [facility] Start: 2016 HEPATITIS C SCREENING HEPATITIS C [facility] Start: 2016 HIV SCREENING HIV SCREENING [facility] Start: 2012 PEDS TO ADULT TRANSI TION ANNUAL ASSESSMENT PEDS TO ADULT TRANSITION ANNUAL ASSESSMENT [facility] Start: 2010 PEDS TO ADULT TRANSI TION INITIAL DISCUSSION PEDS TO ADULT TRANSITION INITIAL DISCUSSION [facility] Start: 2009 HPV vaccine (1 - 2-d ose series) HPV vaccine (1 - 2-dose series) [facility] Start: 2008 MENINGOCOCCAL B: Consider based on risk (1 of 2 - Risk Bexsero 2-dose series) MENINGOCOCCAL B: Consider based on risk (1 of 2 - Risk Bexsero 2-dose series) [facility] Start: 2002 Varicella vaccine (2 of 2 - 2-dose childhood series) Varicella vaccine (2 of 2 - 2-dose childhood series) [place], [place] Start: 1998 HEPATITIS B (1 of 3 - 3-dose series) HEPATITIS B (1 of 3 - 3-dose series) [facility] Start: 1998 Hepatitis C screening Hepatitis C sc lucille [place], [place] Bacteria identified in Genital specimen by Aerobe culture [facility] Work Phone: Bacteria identified in Urine by Culture [facility] End: 09-23-2020 C.trachomatis N.gonorrhoeae DNA C.trachomatis N.gonorrhoeae DNA Microbiology Routine Vaginal discharge 1 Occurrences starting 09/23/2020 until 09/23/2020 [place], [place] Comment on above: 1 Occurrences starti ng 09/23/2020 until 09/23/2020 C.trachomatis N.gonorrhoeae DNA [place] End: 12-17-2020 C.trachomatis N.gonorrhoeae DNA C.trachomatis N.gonorrhoeae DNA Microbiology Routine Abscess, [place]'s gland 1 Occurrences starting 12/17/2020 until 12/17/2020 [place], [place] Comment on above: 1 Occurrences starti ng 12/17/2020 until 12/17/2020 End: 12-03-2020 C.trachomatis N.gonorrhoeae DNA C.trachomatis N.gonorrhoeae DNA Microbiology Routine Vaginal discharge 1 Occurrences starting 12/03/2020 until 12/03/2020 [place], [place] Comment on above: 1 Occurrences starti ng 12/03/2020 until 12/03/2020 End: 01-23-2020 C.trachomatis N.gonorrhoeae DNA, Thin Prep C.trachomatis N.gonorrhoeae DNA, Thin Prep Microbiology Routine Menorrhagia with regular cycle 1 Occurrences starting 01/23/2020 until 01/23/2020 [place], [place] Comment on above: 1 Occurrences starti ng 01/23/2020 until 01/23/2020 C.trachomatis N.gonorrhoeae DNA, Thin Prep C.trachomatis N.gonorrhoeae DNA, Thin Prep Microbiology Routine Menorrhagia with regular cycle 01/23/2020 11:10 AM EST [place] Comprehensive metabo lic 2000 panel - Serum or Plasma [facility] CT Abdomen and Pelvi s W contrast IV [facility] End: 04-10-2020 Culture, Genital Culture, Genital Microbiology Routine Vaginal odor 1 Occurrences starting 04/10/2020 until 04/10/2020 [place], [place] Comment on above: 1 Occurrences starti ng 04/10/2020 until 04/10/2020 Culture, Genital [place], [place] End: 02-04-2021 Culture, Genital Culture, Genital Microbiology Routine Vaginal discharge 1 Occurrences starting 02/04/2021 until 02/04/2021 [employer] Work Phone: Comment on above: 1 Occurrences starti ng 02/04/2021 until 02/04/2021 End: 12-03-2020 Culture, Genital Culture, Genital Microbiology Routine Vaginal discharge 1 Occurrences starting 12/03/2020 until 12/03/2020 [employer], [place] Comment on above: 1 Occurrences starti ng 12/03/2020 until 12/03/2020 End: 12-03-2020 Culture, Urine Culture, Urine Microbiology Routine Dysuria 1 Occurrences starting 12/03/2020 until 12/03/2020 [employer], [place] Comment on above: 1 Occurrences starti ng 12/03/2020 until 12/03/2020 Culture, Urine Culture, Urine Microbiology Routine Dysuria 12/03/2020 3:36 PM EST [employer] [place], [place] Culture[facility] [place] End: 01-02-2020 Cytopathology procedure, preparation of smear, genital source [employer] Work Phone: Comment on above: 1 Occurrences starti ng 01/02/2020 until 01/02/2020 End: 01-23-2020 Cytopathology procedure, preparation of smear, genital source [facility] Routine Screening for cervical cancer 1 Occurrences starting 01/23/2020 until 01/23/2020 [employer] [place], [place] Comment on above: 1 Occurrences starti ng 01/23/2020 until 01/23/2020 End: 07-08-2023 MRI PELVIS ORTHO GENERAL WO IVCON MRI PELVIS ORTHO GENERAL WO IVCON Radiology Routine Bone lesion Disorder of bone 1 Occurrences starting 06/08/2022 until 07/08/2023 [facility] Work Phone: Comment on above: 1 Occurrences starti ng 06/08/2022 until 07/08/2023 Patient Education [facility] Work Phone: Patient referral [facility] Work Phone: End: 12-03-2020 VAGINITIS DNA PROBE VAGINITIS DNA PROBE Microbiology Routine Vaginal discharge 1 Occurrences starting 12/03/2020 until 12/03/2020 [employer] [place] Comment on above: 1 Occurrences starti ng 12/03/2020 until 12/03/2020 VAGINITIS DNA PROBE VAGINITIS DN A PROBE Microbiology Routine Vaginal discharge 12/03/2020 3:36 PM EST [facility] [place] XR Hand - left GE 3 Views [facility] XR Wrist - left GE 3 Views [facility] Immunizations Immunization Date Immunization Notes Care Provider Vladimir boston 07-13-2021 COVID-19 mRNA, Comir do (Pfizer) [facility] 06-29-2021 COVID-19 mRNA, Comir do (Pfizer) [facility] 06-22-2021 COVID-19 mRNA, Comir do (Pfizer) [facility] 04-17-2019 tetanus toxoid, redu lise diphtheria toxoid, and acellular pertussis vaccine, adsorbed [facility] [employer] Phone: 07-08-2016 meningococcal oligosaccharide (groups A, C, Y and W-135) diphtheria toxoid conjugate vaccine (MCV4O) [facility] NEGATED: Highlighted row has not occurred!05-25-2019 measles, mumps and rubella virus vaccine [facility] [employer] Phone: Payers Date Payer Category Payer Self-pay [id number] 01-21-2025 Unknown [id number] 06-20-2023 Unknown [id number] 06-21-2021 Medicaid [facility] MEDICAID [id number] 06/21/2021-Present [phone] [address] [place] [address] Medicaid [id number] 06-21-2021 Medicaid [id number] 06-05-2021 Unknown [employer] BLUE CARD PPO OOS [id number] 06/05/2021-Present [phone] [address] [place] [address] PPO [id number] 11-21-2018 [employer] ( and others) [facility] xxxxxxxxxxx 2018-Present [id number] 11-21-2018 [employer] ( and others) [id number] 07-22-2017 Unknown 1998 Unknown [id number] [id number] .173 1998 Unknown [id number] 2.16.840.1.478282.3.579.2 .173 1998 Unknown [id number] 2.16.840.1.406134.3.579.2 .173 1998 Unknown [id number] [id number] .1068 1998 Unknown [id number] 2.16.840.1.445283.3.579.2 .593 1998 Unknown [id number] 2.16.840.1.256504.3.579.2 .593 1998 Unknown [id number] 2.16.840.1.106160.3.579.2 .593 1998 Unknown [id number] 2.16.840.1.485696.3.579.2 .593 1998 Unknown [id number] [id number] .1286 11-21-1961 Unknown [id number] 11-21-1961 Unknown [id number] 11-21-1961 Unknown [id number] Department [facility] ( and others) [id number] Medicaid [id number] Private Health Insurance [employer] [id number] Unknown [place] BC/BS [id number] Unknown [id number] .531 Social History Date Type Detail Facility Start: 01-02-2020 End: 11-12-2024 Tobacco smoking status CTIS Never smoker [facility] Start: 01-02-2020 End: 12-03-2020 Alcohol intake Current non-drinker of alcohol (finding) [employer] Phone: Start: 2000 Sex Assigned At Not on file M [employer] Phone: Start: 10-22-2019 End: 09-04-2020 Tobacco use and exposure Never used [employer] Exposure to SARS-CoV-2 (event) Unable to assess [employer] Start: 02-21-2022 End: 10-05-2022 Exposure to SARS-CoV-2 (event) Not sure [employer] Start: 12-31-2021 End: 10-04-2022 Alcohol intake Ex-drinker (finding) [facility] Sex Assigned At Sex Assigned At [facility] th [employer] Other Start: 01-02-2022 Tobacco smoking status NHIS Smoker (finding) [facility] Start: 2000 Sex Assigned At Female F [facility] Tobacco smoking consumption unknown [facility] Start: 07-11-2022 [facility] Start: 12-24-2024 End: 01-22-2025 Sex Female (finding) [facility] Medical Equipment Procedure Code Equipment Code Equipment Origin al Text Equipment Identifier Dates Start: 11-04-2020 Comment on above: TEST BLOOD SUGARS 2 TIMES DAILY 1 Each twice daily. Goals Date Patient Goal Desired Activity /State Functional Status Date Assessment Result Facility 03-21-2023 Functional status Patient at Baseline [facility] Work Phone: Functional observable [facility] Mental Status Date Assessment Result Facility 03-21-2023 Cognitive function Cognitive Sta tus Patient at Baseline [facility] Work Phone: 08-08-2022 Cognitive functi ons [id number] [facility] Clinical Notes 04-17-2019 to 11-12-2024 Note Date & Type Note Facility 11-12-2024 Evaluation note Diagnosis Onset Date Resolution Viral URI with cough acute Dece 2023 12:28pm [facility] Work Phone: [phone] Evaluation note* Diagnosis Onset Date Resolution Status Admit Date Viral URI with cough acute Dece [facility] 2023 12:28pm Anxiety with depression acute 2024 11:46am Mood disorder acute December 11:46am [facility] Work Phone: [phone] Evaluation note* Diagnosis Onset Date Resolution Status Admit Date Viral URI with cough acute Dece [facility] 2023 12:28pm Anxiety with depression acute 2024 11:46am Mood disorder acute December 11:46am Left wrist sprain acute January 212024 5:15pm Thumb sprain acute January 21, 2 5:15pm [facility] Work Phone: [phone] NoteHNO ID: [id number] Author: Jerry Antonio MD Service: ? Author [...] Antonio Staff Physician, Division of Maternal Medicine, [facility] I spent 45 minutes in the visit, with more than 50% of the total kuyx-qp-uyic time of the visit in counseling / coordination of care. A copy of this consultation will be forwarded to Ms. Dorcas Kent 's provider via EMR and/or Fax. SIGNATURE: Jerry Antonio MD PATIENT NAME: Dorcas Kent DATE: November 04, 2022 TIME: 1:30 [facility]12-15-2022 History of Present illness Narrative* Jerry Antonio MD - 11/04/2022 1:27 PM EST OBSTETRICS MATERNAL MEDICINE CONSULT SERVICE DATE: November [...] of delivery and treatment. I explained that Ms.Renae Kent does have an increased risk for [...] at her anatomic and then to return at22w to complete the anatomic and repeat the cervical length. I explained that if there were any signs of shortening I would recommend vaginal progesterone as this has shown to reduce the incidence ofpreterm deliveries. Recommendations Cervical length and today's anatomy and follow up cervical length in 4 weeks - if cervical length <2cm would initiate vaginal progesterone - if cervical length <1-1.5cm would consider cerclage 2. Spinal mass Ms. Drocas Kent has been seen for a spinal mass and has been followed by neurosurgery. I have recommended an anesthesia consultation in the third trimester as this finding could affect her ability to get regional anesthesia. Recommendations Anesthesia consultation in the third trimester Many thanks for this interesting consult. Jerry Antonio Staff Physician, Division of Maternal Medicine, [facility] I spent 45 minutes in the visit, with more than 50% of the total txeq-ac-eocc time of the visit in counseling / coordination of care. A copy of this consultation will be forwarded to Ms. Dorcas Kent 's provider via EMR and/or Fax. SIGNATURE: Jerry Antonio MD PATIENT NAME: Dorcas Kent DATE: November 04, 2022 TIME: 1:30 PM documented in this encounterPromedica Flower Hospital11-14-2022 Miscellaneous Notes* Telephone Encounter - Elsie Pérez RN - 10/04/2022 9:27 AM EST Informed pt that call was regarding scheduling anatomy US and consult as requested by Dr. Rivera at [facility] for hx of PPROM/PTD. , hx of [...] questions at this time. Elsie Pérez RN [facility] documented in this encounterPromedica Flower Hospital10-18-2022 Miscellaneous Notes* Telephone Encounter - Elizabeth Monson RN - 09/07/2022 2:55 PM EDT Neuro SPINE CARE COORDINATION QUICK NOTE Spoke to patient had a VV on 06/08 and left hip has gotten worse. It hurts to even walk or to touchit. No redness or swelling. It reminds her [...] to aggravate more. Thoughts? documented in this encounterPromedica Flower Hospital09-19-2022 NoteSend Summary: Discharge Summary Providers: Provider RoleProvider Name AttendingTorsten Borja Note Recipients: Kyaw Rocha MD - [id number] [] Torsten Borja MD Discharge: Summary: Admission Date: .06-Aug-2022 18:13:00 Discharge Date: 09-Aug-2022 Attending Physician at Discharge: Torsten Borja Admission Reason: Aggressive behavior, anxiety, passive wish(1) Final Discharge Diagnoses: Severe episode of recurrent major depressive disorder, without psychotic features Procedures: none Condition at Discharge: Satisfactory Disposition at Discharge: .Home Vital Signs: T PRBPMAPSpO2 Value37.3142508/534006% Date/Time08/09 7: 7: 20:149/ 7: 7: 7:39 Range(36.3C - 37.1C ) (81 - 89 ) (18 - 18 ) (96 - 126 )/ (48 - 70 ) (69 - 69 ) (97% - 98% ) Highest temp of 37.1 C was recorded at 08/09 7:39 Date: Weight/Scale Type:Height: 07-Aug-2022 02:0777 kg / vaqvfsgl015.6 cm Hospital Course: Patient is a 22-year-old female with a history of depressive disorder and generalized anxiety disorder who was admitted to [address] for suicidal ideation. Due to acutely elevated and imminent risk for self-harm/harm to others, patient required a level of care equivalent to inpatient hospitalization for safety, evaluation, treatment and stabilization. The patient was admitted to [address] under the care of Dr. Borja, restricted [...] for medications with her outpatient psychiatrist and FRONT OFFICE ATTENDANT when she enters the third trimester of her . Advised patient that her treatment team and herself will have to take into account risk versus benefit of continuing medication at that time. Patient stated understanding. Patient to follow-up with Dr. Charlton in the outpatient setting tomorrow, and will then be following up with family health services in [place]. Psychiatric Medications:. Sertraline 50 mg oral daily, [...] movements were noted, inc (more content not included)...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 [...] checked: no Objective: Objective Information: T PRBPMAPSpO2 Value36.41762781/5899% Date/Time08/07 8: 8: 8: 8: 8:00 Range(36.3C [...] social support / conne (more content not included)...[facility]08-13-2022 Evaluation note* Encounter Date Diagnosis Assessment Notes Treatment Notes Treatment Clinical Notes Jun, Contact with and (suspected) exposure to covid-19 (ICD-10 - Z20.822) Jun, COVID-19 (ICD-10 - U07.1) [place] [employer] Other 07-19-2022 NoteHNO ID: [id number] Author: Haritha Fung APRN.LOSS PREVENTION/SAFETY DISTRICT MANAGER Service: ? Author Type: Nurse Practitioner Type: [...] starting Aug- september. After antibiotics symptoms improved. Panaca 85-90% improved. Pain returned in the last few weeks. Went to her local ER on 12/26/21 d/t pain. Was transfered to [facility] per her request. Neurosurgeon following her advised her there was nothing else to do, no infection noted and dx with chronic low back pain. Went to [facility] ER yesterday, 12/30/21. ESR, CRP WNL. MRIs [...] prn Previously: percocet Physical Therapy: March- at [facility] History of Spine Injections/Surgery: None CC: low [...] - Heart Maternal Grandfath (more content not included)...[facility] 06-08-2022 History of Present illness Narrative* Haritha Fung APRN.LOSS PREVENTION/SAFETY DISTRICT MANAGER - 06/08/2022 4:30 PM EDT Spine Care [...] abx starting September. After antibiotics symptoms improved. Panaca 85-90% improved. Pain returned in the last few weeks. Went to her local ER on 12/26/21 d/t pain. Was transfered to [facility] per her request. Neurosurgeon following her advised her there was nothing else to do, no infection noted and dx with chronic low back pain. Went to [facility] ER yesterday, 12/30/21. ESR, CRP WNL. MRIs [...] prn Previously: percocet Physical Therapy: March- at [facility] History of Spine Injections/Surgery: None CC: low back pain Patient follows up VIA VIRTUAL VISIT s/p Right SI joint injection on 03/26/[address] Flores[address] Tuzgkoqh88% relief of pain. Still some pain lifting [...] of year. 2. Physical Therapy: consult PT Dell Sheehan 3. Medication: NSAIDs prn 4. Referrals: PT 5. Considerations: bilateral SI jt inj 6. Follow up: follow up after MRI or sooner if needed. I spent a total of 18 minutes on the date of the service which included preparing to see the patient, mtui-jy-urrh patient care, completing clinical documentation, obtaining and/or reviewing separately obtained history, counseling and educating the patient/family/caregiver, ordering medications, ra ts, or procedures and communicating results to the patient/family/caregiver. documented in this encounterPromedica Flower Hospital05-23-2022 Miscellaneous Notes* Telephone Encounter - Tiffanie [...] this procedure: low low risk. Reference from [facility]: https://[email or web address].com/dotNet/documents/?gxwwu=[email or web address] STAFF SIGNATURE: Mechelle Squires DO DATE: April [...] TIME: 11:48 AM * Telephone Encounter - Michelle Chand - 04/05/2022 10:46 AM EDT RADIOLOGY CALL CENTER INTAKE TELETYPE MECHANIC: Michelle Brown EXT: [id number] DATE: 04/05/22 TIME: 10:46am TRACKING #. [id number] REQUESTING PERSON: Prakash Flores MD PHONE/PAGER: [phone] REQUESTING STAFF: Maritza PHONE/PAGER: [phone] SPECIFICS OF THE REQUEST: (Please be as [...] for pathology (For example: send for ER, NM, HER2/jose armando or possible lymphoma send in [...] TO EVALUATE APPROPRIATENESS/FEASIBILITY OF THE REQUEST) IMAGING: [facility] (If the imaging was obtained outside the [facility] system, then it needs to be submitted for review prior to approval.) Note to all persons requesting biopsies: All biopsy requests will be scheduled as quickly as possible, based on the clinical urgency, availability of appointment times, the need to hold anti-thrombolytic therapy (aspirin, blood thinners) and the patient s schedule, including the need for an available refrigerated national truck driver. If a percutaneous biopsy or drainage is not felt to be safe or an alternative method for establishing a diagnosis is possible, this will be discussed directly with the requesting physician. documented in this encounterPromedica Flower Hospital05-16-2022 Miscellaneous Notes* Telephone Encounter - Maritza [...] needs to be triaged. Call appointment for [phone] Pt- [phone] documented in this encounterPromedica Flower Hospital05-16-2022 Miscellaneous Notes* Telephone Encounter - Maritza [...] the date he is in clinic at [place] on Tuesdays. We can also arrange to see her in [facility]emedicine clinic with Antonieta SANDHU on same day Patient can call [phone] to schedule biopsy at [place] Advised per Dr. Flores's message. Patient verbalized understanding with intent to comply. Encouraged to call with any further questions/concerns. Information also included in a my chart message per patient's request. Maritza Barajas RN documented in this encounterPromedica Flower Hospital05-09-2022 Miscellaneous Notes* Allied Health - RT [...] 29, 2022 8:44 AM documented in this encounterPromedica Flower Hospital04-14-2022 NoteHNO ID: [id number] Author: Zaid Rothman Service: ? Author Type: ? Type: Progress Notes Filed: 03/04/2022 11:10 AM Note Text: Recommendation Check for radicular symptoms/neurological deficit. Order consult to [id number] History of Present illness Narrative* Zaid Rothman - 03/04/2022 11:06 AM EDT Recommendation Check for radicular symptoms/neurological deficit. Order consult to Medical Spine. documented in this encounterPromedica Flower Hospital03-02-2022 NoteHNO ID: [id number] Author: Ewa Calderon, PT Service: ? Author Type: Physical Therapist [...] of Care: created on 01/20/22 through 03/18/22 [place] in home exercise program. Patient will increase [...] Planned: 8 Planned Treatment Interventions: Therapeutic exercise (65945);Neuromuscular re-education (97880);Manual therapy (25349);Therapeutic activities (53889);Self-custodial management (08050);Gait Training (05405);Patient/Family/Caregiver Education;Body Mechanics Training;Functional training;General Conditioning PLAN FOR NEXT VISIT: Transfer to [facility] [place] ; consider general conditioning/strengthening/PNE/posture Patient demonstrates good understanding of plan of care and treatment. The above goals and plan of care were discussed and agreed upon by patient/family. 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 [...] Lumbar Extension: Minimal limitat (more content not included)...[facility]02-10-2022 NoteHNO ID: [id number] Author: RT Sharif(R) Service: ? Author Type: Technologist Type: Progress [...] IV DATA: Not applicable SIGNED BY: RT Sharif(Mayte) December 31, 2021 4:05 [facility]02-10-2022 NoteHNO ID: [id number] Author: Haritha Fung APRN.LOSS PREVENTION/SAFETY DISTRICT MANAGER Service: ? Author Type: Nurse Practitioner Type: [...] starting Aug- september. After antibiotics symptoms improved. [place] 85-90% improved. Pain returned in the last few weeks. Went to her local ER on 12/26/21 d/t pain. Was transfered to [facility] per her request. Neurosurgeon following her advised her there was nothing else to do, no infection noted and dx with chronic low back pain. Went to [facility] ER yesterday, 12/30/21. ESR, CRP WNL. MRIs [...] prn Previously: percocet Physical Therapy: March- at [facility] History of Spine Injections/Surgery: None Other Issues [...] NEURO: Denies CVA, seizures (more content not included)...[facility] 09-21-2019 History general Narrative - Reported* Type Description Date Medical History post- Surgical History knee surgery Surgical History [facility]--gall bladder removed 09/22 019 Hospitalization History labor and delivery 06/09 19 Hospitalization History [facility]--olayinka calderon 10/2019 [employer] Other 05-28-2019 History of Past illness Narrative* Problem Noted Date Resolved Date Diet controlled gestational diabetes mellitus (GDM) in third trimester 04/17/2019 10/30/2019 documented as of this encounter (statuses as of 03/04/2022) [facility] History of Past illness Narrative* Problem Noted Date Resolved Date Diet controlled gestational diabetes mellitus (GDM) in third trimester 04/17/2019 10/30/2019 documented as of this encounter (statuses as of 03/30/2022) [facility] History of Past illness Narrative* Problem Noted Date Resolved Date Diet controlled gestational diabetes mellitus (GDM) in third trimester 04/17/2019 10/30/2019 documented as of this encounter (statuses as of 04/05/2022) [facility] History of Past illness Narrative* Problem Noted Date Resolved Date Diet controlled gestational diabetes mellitus (GDM) in third trimester 04/17/2019 10/30/2019 documented as of this encounter (statuses as of 04/05/2022) [facility] History of Past illness Narrative* Problem Noted Date Resolved Date Diet controlled gestational diabetes mellitus (GDM) in third trimester 04/17/2019 10/30/2019 documented as of this encounter (statuses as of 04/12/2022) [facility] History of Past illness Narrative* Problem Noted Date Resolved Date Diet controlled gestational diabetes mellitus (GDM) in third trimester 04/17/2019 10/30/2019 documented as of this encounter (statuses as of 06/08/2022) [facility] History of Past illness Narrative* Problem Noted Date Resolved Date Diet controlled gestational diabetes mellitus (GDM) in third trimester 04/17/2019 10/30/2019 documented as of this encounter (statuses as of 09/09/2022) [facility] History of Past illness Narrative* Problem Noted Date Resolved Date Diet controlled gestational diabetes mellitus (GDM) in third trimester 04/17/2019 10/30/2019 documented as of this encounter (statuses as of 10/01/2022) [address]28-2019 History of Past illness Narrative* Problem Noted Date Resolved Date Diet controlled gestational diabetes mellitus (GDM) in third trimester 04/17/2019 10/30/2019 documented as of this encounter (statuses as of 10/04/2022) [address]-2019 History of Past illness Narrative* Problem Noted Date Resolved Date Diet controlled gestational diabetes mellitus (GDM) in third trimester 04/17/2019 10/30/2019 documented as of this encounter (statuses as of 11/01/2022) [address]-2019 History of Past illness Narrative* Problem Noted Date Resolved Date Diet controlled gestational diabetes mellitus (GDM) in third trimester 04/17/2019 10/30/2019 documented as of this encounter (statuses as of 11/04/2022) [address]-2019 History of Past illness Narrative* Problem Noted Date Resolved Date Diet controlled gestational diabetes mellitus (GDM) in third trimester 04/17/2019 10/30/2019 documented as of this encounter (statuses as of 11/29/2022) [facility] Diagnosis Sacroiliac joint pain- Primary Disorders of sacrum Chronic right-sided low back pain without sciatica Sacroiliac joint pain Disorders of sacrum Chronic right-sided low back pain without sciatica documented in this encounter [facility]* Diagnosis Disorder of bone Disorder of bone and cartilage, unspecified Bone lesion Disorder of bone and cartilage, unspecified documented in this encounter [facility]No [facility]No[facility] [employer] Other Evaluation note* Diagnosis Sacroiliac joint pain- Primary Disorders of sacrum Chronic bilateral low back pain without sciatica Bone lesion Disorder of bone and cartilage, unspecified Disorder of bone Disorder of bone and cartilage, unspecified documented in this encounter [facility] noteNo assessment information availableWvumedicine [facility] Work Phone: Evaluation note* Psychological: Appropriate mood [...] awake/alert/oriented x3, no distress, alert and cooperative [facility]* Diagnosis History of delivery, currently in second trimester- Primary Encounter for anatomic survey documented in this encounter [facility]* Diagnosis Encounter for follow-up ultrasound of anatomy- Primary documented in this encounter [facility] note* Diagnosis History of delivery, currently in second trimester [O09.892 (ICD-10-CM)]- Primary Encounter for follow-up ultrasound of anatomy documented in this encounter [facility] note* Diagnosis Onset Date Resolution Status 37 weeks gestation of acute Status post vaginal delivery [facility] Work Phone: Evaluation note* Diagnosis Onset Date Resolution Status Sinusitis, acute maxillary a cute Left lateral abdominal pain [facility] Work Phone: Evaluation note* Diagnosis Onset Date Resolution Status Left lateral abdominal pain acute [facility] Work Phone: Hospital Discharge instructions* Follow Up Appointment 1:Physician/Dept/Service: for Referral: Mental health follow [facility] [place] [facility] heduled Date/Time: 10-Aug-2022 01:00Location: [address] [place], [place] Number: [phone]: [address] * Follow Up Appointment 2:Physician/Dept/Service: family health servicesBrandon for Referral: mental health follow upLocation: [address] [facility] [address]bb[place] Number: [phone] [facility] Additional Instructions Keep upcoming appointment with OB [facility] Work Phone: Hospital Discharge instructions Additional Instructions belt, warm baths/showersOhio [facility] Work Phone: Reason for referral (narrative)* Diagnostic Procedure Only (Routine) - Pending Review Specialty Diagnoses / Procedures Referred By Contac t Referred To Contact [facility] Diagnoses Encounter for follow-up ultrasound of anatomy Procedures OBSTETRIC ULTRASOUND WHI US PREG UTERUS AFTER 1ST [place] [address] [place] [address] [facility] [address] [place] [address] Referral ID Status Reason Start Date Expiration Date Visits Requested Visits Authorized [id number] Pending Review Auto-Generat ed Referral 2 11/01/2023 1 1 [facility] Summary Purpose Family History No Family History Records Found Relationship Condition Age at Onset Recorded Date/T rosalina Not Specified No pertinent family history Unknown Advance Directives No Advanced Directives Records FoundDocuments on File Type Date Recorded Patient Binder Stripper Machine Expl anation Advance Directives and Living Will Power of Top Lift Nailer Latest Code Status on File Code Status Date Activated Date Inactivated Comments Full Code 05/23/2019 2:52 PM 05/25/2019 4:14 PM Full Code 05/23/2019 5:05 AM 05/23/2019 2:52 PM Full Code 04/26/2019 4:09 PM 04/26/2019 9:44 PM Full Code 03/17/2019 10:51 PM 03/18/2019 3:31 AM Documents on File Type Date Recorded Patient Binder Stripper Machine Expl anation ACP-Advance Directive ACP-Power of Top Lift Nailer Documents on File Type Date Recorded Patient Binder Stripper Machine Expl anation Advance Directive(s) 12/30/2021 2:37 PM Advance Directive(s) 10/23/2019 1:23 PM Documents on File Type Date Recorded Patient Binder Stripper Machine Expl anation Advance Directive(s) 03/29/2022 8:18 AM Advance Directive(s) 12/30/2021 2:37 PM Advance Directive(s) 10/23/2019 1:23 PM Documents on File Type Date Recorded Patient Binder Stripper Machine Expl anation Advance Directive(s) 03/29/2022 8:18 AM Advance Directive(s) 12/30/2021 2:37 PM Advance Directive(s) 10/23/2019 1:23 PM Documents on File Type Date Recorded Patient Binder Stripper Machine Expl anation Advance Directive(s) 04/13/2022 8:40 AM [...] associated with female genital organs Diagnosis Abscess, [place]'s gland Urethral abscess Vaginal discharge Leukorrhea, not specified as infective Diagnosis Vaginal discharge Leukorrhea, not specified as infective Diagnosis Vaginal discharge Leukorrhea, not specified as infective Dysuria Discharge Instructions * Attachments The following attachments cannot be sent through Care Everywhere. * Diarrhea (Portuguese) * Nausea and Vomiting (Portuguese) documented in this encounter Reason for Referral Specialty Diagnoses / Procedures Referred By Contac t Referred To Contact [facility] Diagnoses Disorder of bone Bone lesion Procedures MRI PELVIS ORTHO GENERAL WO IVCON MRI PELVIS W/O CONTRAST MATERIAL Haritha Fung, LUKE.LOSS PREVENTION/SAFETY DISTRICT MANAGER [address] [place] [address] Mr Imaging Referral ID Status Reason Start Date Expiration Date V isits Requested Visits Authorized [id number] Closed Auto-Generate d Referral 03/12/2022 05/11/2022 1 1 Specialty Diagnoses / Procedures Referred By Contac t Referred To Contact [facility] Diagnoses Bone lesion Disorder of bone Procedures MRI PELVIS ORTHO GENERAL WO IVCON MRI PELVIS W/O CONTRAST MATERIAL Haritha Fung, LUKE.LOSS PREVENTION/SAFETY DISTRICT MANAGER [address] [place] [address] Mr Imaging Referral ID Status Reason Start Date Expiration Date Visits Requested Visits Authorized [id number] Pending Review Auto-Generat ed Referral 06/08/2022 07/08/2023 1 1 Specialty Diagnoses / Procedures Referred By Contac t Referred To Contact [facility] Diagnoses Sacroiliac joint pain Chronic bilateral low back pain without sciatica Procedures CONSULT TO PHYSICAL THERAPY PHYSICAL THERAPY EVALUATION HIGH COMPLEX 45 MINS Haritha Fung, HAZARDOUS SUBSTANCES SCIENTIST.LOSS PREVENTION/SAFETY DISTRICT MANAGER [address] [place] [address] [facility] [place] [address] Referral ID Status Reason Start Date Expiration Date Visits Requested Visits Authorized [id number] Pending Review Auto-Generat ed Referral 06/08/2022 06/08/2023 1 1 Chief Complaint and Reason for Visit Chief Complaint O20.0 O20.9 [facility] Chief Complaint O20.0 O20.9 [facility] Z34.90 Z34.90 dizzy abd pain Positive urinary test Chief Complaint O20.0 O20.9 [facility] Z34.90 Z34.90 dizzy abd pain Positive urinary test Z32.01 Chief Complaint O20.0 O20.9 [facility] Z34.90 Z34.90 dizzy abd pain Positive urinary test Z32.01 Z32.01 Chief Complaint O20.0 O20.9 [facility] Z34.90 Z34.90 dizzy abd pain Positive urinary [...] acute max illary Left lateral abdominal pain Chief Complaint Blood in stool/backp ain tooth ache Reason for Visit Left lateral abdomin al pain Chief Complaint Admit Date (in car) sore throat, headache, ear ache , fever November 12, 2024 12:28pm Discuss Mental Health December 24, 2024 11:46am Reason for Visit Admit Date Viral URI with cough November 12, 2024 12:28pm Chief Complaint Admit Date (in car) sore throat, headache, ear ache , fever November 12, 2024 12:28pm Discuss Mental Health December 24, 2024 11:46am Left thumb/wrist pain January 21, 2025 5: 15pm Reason for Visit Admit Date Viral URI with cough November 12, 2024 12:28pm Anxiety with depression December 24 11:46am Mood disorder December 24, 2024 1 1:46am Reason for Visit Admit Date Viral URI with cough November 12, 2024 12:28pm Anxiety with depression December 24 11:46am Mood disorder December 24, 2024 1 1:46am Left wrist sprain January 21, 2025 5:15 pm Thumb sprain January 21, 2025 5:15 pm Additional Source Comments INFORMATION SOURCE (unrecogn ized section and content) DATE CREATED AUTHOR 05/17/2018 [facility] DATE CREATED AUTHOR RISA ORLANDO 02/05/[address] [facility] DATE CREATED AUTHOR AUTHOR'S ORGANIZ ATION 12/22/2021 [facility] DATE CREATED AUTHOR AUTHOR'S ORGANIZ ATION 03/30/2022 [facility] DATE CREATED AUTHOR AUTHOR'S ORGANIZ ATION 10/09/2022 [facility] DATE CREATED AUTHOR AUTHOR'S ORGANIZ ATION 10/13/2022 [facility] DATE CREATED AUTHOR AUTHOR'S ORGANIZ ATION 11/11/2022 [facility] DATE CREATED AUTHOR AUTHOR'S ORGANIZ ATION 02/25/2023 [facility] DATE CREATED AUTHOR AUTHOR'S ORGANIZ ATION 02/01/2025 [facility] DATE CREATED AUTHOR AUTHOR'S ORGANIZ ATION 02/08/[address] [facility] Reason for Visit (unrecogniz ed section and content) Reason Comments Diarrhea Ongoing, worse x 1 w [place] Nausea Onset VICE PRESIDENT DIVERSITY during a B M, resolved now Abdominal Pain Bilateral lower abdo men, cramping Specialty Diagnoses / Procedures Referred By Contac t Referred To Contact [facility] Diagnoses Disorder of bone Bone lesion Procedures MRI PELVIS ORTHO GENERAL WO IVCON MRI PELVIS W/O CONTRAST MATERIAL Haritha Fung, HAZARDOUS SUBSTANCES SCIENTIST.LOSS PREVENTION/SAFETY DISTRICT MANAGER [address] [place] [address] Mr Imaging Referral ID Status Reason Start Date Expiration Date V isits Requested Visits Authorized [id number] Closed Auto-Generate d Referral 03/12/2022 05/11/2022 1 1 Reason Comments Results Follow Up Reason Comments biospy Reason Comments Biopsy Request Reason Comments Low Back Pain Reason Comments Appointment Reason Comments US Specialty Diagnoses / Procedures Referred By Contac t Referred To Contact [facility] Diagnoses Encounter for anatomic survey Procedures OBSTETRIC ULTRASOUND WHI US PREG UTERUS AFTER 1ST TRIMEST GESTATION Provider, Admitting Supervisor Transcribe [facility] [address] [place] [address] Referral ID Status Reason Start Date Expiration Date V isits Requested Visits Authorized [id number] Closed Auto-Generate d Referral 10/21/2022 11/20/2022 1 1 Reason Comments Consult Specialty Diagnoses / Procedures Referred By Contac t Referred To Contact [facility] Diagnoses Encounter for follow-up ultrasound of anatomy Procedures OBSTETRIC ULTRASOUND WHI US PREG UTERUS AFTER 1ST [place] [address] [place] [address] [facility] [place] [address] [place] [address] Referral ID Status Reason Start Date Expiration Date Visits Requested Visits Authorized [id number] Authorized Auto-Generat ed Referral 11/25/2022 11/20/2023 1 20 Source Comments (unrecognize d section and content) In the event this informatio n is protected by the Federal Confidentiality of Alcohol and Drug Abuse Patient Records regulations: The Federal rules restrict any use of the information to criminally investigate or prosecute any alcohol or drug abuse patient.[facility] the event this information is protected by the Federal Confidentiality of Alcohol and Drug Abuse Patient Records regulations: The Federal rules restrict any use of the information to criminally investigate or prosecute any alcohol or drug abuse patient.[facility] the event this information is protected by the Federal Confidentiality of Alcohol and Drug Abuse Patient Records regulations: The Federal rules restrict any use of the information to criminally investigate or prosecute any alcohol or drug abuse patient.[facility] the event this information is protected by the Federal Confidentiality of Alcohol and Drug Abuse Patient Records regulations: The Federal rules restrict any use of the information to criminally investigate or prosecute any alcohol or drug abuse patient.[facility] the event this information is protected by the Federal Confidentiality of Alcohol and Drug Abuse Patient Records regulations: The Federal rules restrict any use of the information to criminally investigate or prosecute any alcohol or drug abuse patient.[facility] the event this information is protected by the Federal Confidentiality of Alcohol and Drug Abuse Patient Records regulations: The Federal rules restrict any use of the information to criminally investigate or prosecute any alcohol or drug abuse patient.[facility] the event this information is protected by the Federal Confidentiality of Alcohol and Drug Abuse Patient Records regulations: The Federal rules restrict any use of the information to criminally investigate or prosecute any alcohol or drug abuse patient.[facility] the event this information is protected by the Federal Confidentiality of Alcohol and Drug Abuse Patient Records regulations: The Federal rules restrict any use of the information to criminally investigate or prosecute any alcohol or drug abuse patient.[facility] the event this information is protected by the Federal Confidentiality of Alcohol and Drug Abuse Patient Records regulations: The Federal rules restrict any use of the information to criminally investigate or prosecute any alcohol or drug abuse patient.[facility] the event this information is protected by the Federal Confidentiality of Alcohol and Drug Abuse Patient Records regulations: The Federal rules restrict any use of the information to criminally investigate or prosecute any alcohol or drug abuse patient.[facility] the event this information is protected by the Federal Confidentiality of Alcohol and Drug Abuse Patient Records regulations: The Federal rules restrict any use of the information to criminally investigate or prosecute any alcohol or drug abuse patient.[facility] the event this information is protected by the Federal Confidentiality of Alcohol and Drug Abuse Patient Records regulations: The Federal rules restrict any use of the information to criminally investigate or prosecute any alcohol or drug abuse patient.[facility] Care Teams (unrecognized sec tion and content) Instrument Repairer Relationship Specialty Start Date End Date Natty Chew MD [address] [place] [address] PCP - General Internal Medicine 08/15/19 Instrument Repairer Relationship Specialty Start Date End Date Natty Chew MD [address] [place] [address] PCP - General Internal Medicine 08/15/19 Instrument Repairer Relationship Specialty Start Date End Date Natty Chew MD [address] [place] [address] PCP - General Internal Medicine 08/15/19 Instrument Repairer Relationship Specialty Start Date End Date Natty Chew MD [address] [place] [address] PCP - General Internal Medicine 08/15/19 Instrument Repairer Relationship Specialty Start Date End Date Kyaw Rocha MD [address] [place] [phone] PCP - General Family Practice 04/13/22 Team Status: Inactive Member Role Status Dates Kyaw Rocha MD Primary Care Provider Active Valeriano March Jr, DO Attending Provider Active Team Status: Inactive Member Role Status Dates Kyaw Rocha MD Primary Care Provider Active Nicole Palacios DO Attending Provider Active Team Status: Active Member Role Status Dates Kyaw Rocha MD Primary Care Provider Active Team Status: Inactive Member Role Status Dates Kyaw Rocha MD Primary Care Provider Active Joshua Moran , DO Emergency Provider Active Team Status: Inactive Member Role Status Dates Kyaw Rocha MD Primary Care Provider Active Demar Jean Baptiste , Emergency Provider Active Instrument Repairer Relationship Specialty Start Date End Date Kyaw Rocha MD [address] [place] [phone] PCP - General Family Medicine 04/13/22 Instrument Repairer Relationship Specialty Start Date End Date Kyaw Rocha MD [address] [place] [facility] [phone] PCP - General Family Medicine 04/13/22 Instrument Repairer Relationship Specialty Start Date End Date Kyaw Rocha MD [address] [place] [phone] PCP - General Family Medicine 04/13/22 Instrument Repairer Relationship Specialty Start Date End Date Kyaw Rocha MD [address] [place] [phone] PCP - General Family Medicine 04/13/22 Instrument Repairer Relationship Specialty Start Date End Date Kyaw Rocha MD [address] [place] [phone] PCP - General Family Medicine 04/13/22 Team Status: Inactive Member Role Status Dates Kyaw Rocha MD Primary Care Provider Active Nicole Palacios DO Referring Provider Active Jeff Hickman DO Attending Provider Active Team Status: Inactive Member Role Status Dates Nicole Palacios DO Attending Provider Active Team Status: Inactive [...] Active Team Status: Inactive Member Role Status Deandre Rocha MD Primary Care Provide r, Attending Provider Active Start: May 17, 2024 End: May 17, 2024 Team Status: Inactive Member Role Status Deandre Rocha MD Primary Care Provide r, Attending Provider Active Start: July 17, 2024 End: July 17, 2024 Team Status: Active Member Role Status Deandre Rocha MD Primary Care Provide r, Attending Provider Active Start: July 18, 2024 Team Status: Inactive Member Role Status Deandre Rocha MD Primary Care Provide r, Attending Provider Active Start: September 03, 2024 End: September 03, 2024 Team Status: Inactive Member Role Status Deandre Rocha MD Primary Care Provider Active Start: November 12, 2024 End: November 12, 2024 Manuela Salmeron APRN Attending Provider Active Start: November 12, 2024 End: November 12, 2024 Team Status: Inactive Member Role Status Deandre Rocha MD Primary Care Provide r, Attending Provider Active Start: December 24, 2024 End: December 24, 2024 Team Status: Inactive Member Role Status Deandre Rocha MD Primary Care Provider Active Start: January 21, 2025 End: January 21, 2025 Nilda Bhardwaj APRN Attending Provider Active S tart: January 21, 2025 End: January 21, 2025 Team Status: Active Member Role Status Deandre Rocha MD Primary Care Provider Active Start: January 21, 2025 Nilda Bhardwaj APRN Attending Provider Active S tart: January 21, 2025 Goals (unrecognized section and content) Goals may [...] BE BASED ON THE PRIMARY CLINICAL RECORDS. [facility]. provides no warranty or guarantee of the accuracy or completeness of information in this document.
[2025-08-13 08:52] VITALS: BP 124/59; PULSE 75; TEMP 36.2; O2SAT 100; BMI 25.8
[2025-08-13 10:16] LABS: Hematocrit 37.1 % (36.0-48.0); Hemoglobin 13.0 g/dL (12.0-16.0); Immature Granulocytes Abs Auto 0.00 10^3/uL (0.00-0.03); Immature Granulocytes Pct Auto 0.0 % (0.0-0.5); Lymphocytes Absolute Auto 1.1 10^3/uL (1.2-3.8); Mean Corpuscular HGB Conc 35.0 g/dL (29.9-35.2); Mean Corpuscular Hemoglobin 32.6 pg (26.7-34.0); Mean Corpuscular Volume 93.0 fL (81.0-99.0); Platelet Count 221 10^3/uL (150-450); Red Blood Count 3.99 10^6/uL (4.20-5.40); White Blood Count 3.5 10^3/uL (4.0-11.0)
[2025-08-13 10:26] LABS: Alanine Aminotransferase 14 U/L (14-59); Albumin Globulin Ratio 1.1; Albumin Level 4.5 g/dL (3.4-5.0); Alkaline Phosphatase 77 U/L (46-116); Anion Gap 15.1; Aspartate Amino Transferase 15 U/L (15-37); Blood Urea Nitrogen 12.0 mg/dL (7.0-18.0); Calcium 9.1 mg/dL (8.5-10.1); Carbon Dioxide 24.5 mmol/L (21.0-32.0); Chloride 105 mmol/L (98-107); Estimated GFR (African America >60 (>=60 mL/min/1.73m^2); Estimated GFR (Non-African Ame >60 (>=60 mL/min/1.73m^2); Globulin 4.0 g/dL; Glucose 82 mg/dL (74-106); Potassium 3.6 mmol/L (3.5-5.1); Sodium 141 mmol/L (136-145); Total Protein 8.5 g/dL (6.4-8.2)
--- NOTE | 2025-08-13 10:44 | CT_ITS ---
The [address] [address] Patient Name: ALYSON BASURTO MRN: [id number] date: 2000 Sex: F Assigned Patient Location: ER Current Patient Location: ER Accession/Order Number: [id number] Exam Date: 08/13/2025 11:15 Report Date: 08/13/2025 11:58 At the request of: MACO LUIS MD Procedure: CT abdomen pelvis wo con CT ABDOMEN AND PELVIS WITHOUT CONTRAST COMPARISON: 08/15/2024 CLINICAL DATA: Low abdominal pain for the past couple months with nausea and diarrhea. Spiral images were obtained through the abdomen and pelvis without contrast. This CT exam was performed using one or more following dose reduction techniques: Automated exposure control, adjustment of the mA and/or kV according to patient size, or use of iterative reconstruction technique. Limited cuts through the lung bases show no contributory findings. Evaluation of the intra-abdominal organs is slightly limited by the absence of contrast. The gallbladder is surgically absent. No common duct stones are identified. No intrahepatic masses are seen. The spleen, pancreas and adrenal glands show no acute findings. No renal calculi or hydronephrosis are seen. No ureteral dilatation or stones are noted. The abdominal aorta is normal caliber. No developing lymphadenopathy or ascites is seen. There is a tiny umbilical hernia containing fat. The small bowel loops are not disproportionately distended. There is air and stool along the colon. Levoscoliotic curvature is again seen at the spine. There is a Schmorl's node at the inferior endplate of L3. Images through the pelvis show normal caliber small bowel loops. There is no appendiceal inflammation. The distal colon is underdistended. No diverticular disease is seen. There is a retroverted uterus. No adnexal cysts are present. The urinary bladder shows no CT abnormalities. There is a trace amount of dependent free pelvic fluid which may be physiologic. Similar small inguinal lymph nodes are noted. CT/CT abdomen pelvis wo con IMPRESSION: NO BOWEL OR URINARY TRACT OBSTRUCTION. NO ACUTE FINDINGS. Impression dictated by: Jessica Mccoy M.D. 08/13/2025 11:58 AM Dictation Location: [place] [address] Electronically authenticated by: [id number] Y Date: 08/13/2025 11:58
[2025-08-13 10:48] LABS: Glucose Urine UA NEGATIVE (NEGATIVE)
[2025-08-13 10:58] LABS: Cast Seen? NONE SEEN #/LPF (NONE SEEN); Crystals Seen? None Seen #/HPF (None Seen); Urine Culture Indicated NO
[2025-08-13] MEDS: KETOROLAC TROMETHAMINE 30 MG/ML VIAL 15 MG IVP (11:24)
--- NOTE | 2025-08-13 12:24 | ED.ABDPAIN1 ---
HPI - Abdominal Pain General Chief Complaint: Abdominal Pain Stated Complaint: R ABDOMINAL PAIN DIZZINESS Time Seen by Provider: 08/13/25 09:50 Source: patient Mode of arrival: walk-in History of Present Illness HPI narrative: The patient presents to the ER with abdominal pain that is in the lower abdomen crampy like getting worse with time is been there for the last 2 to 3 weeks, she mentioned that this pain is associated with her having a bowel movement right away after the episode of the pain that is showing some mucus in her stool, the patient denies any blood in stool at any time she denies nausea vomiting or any other concerns except for the pain that is crampy like and according to her it is 10 out of 10 when it comes on usually after that she have to go to the bathroom and have bowel movements with mucus in her stool Patient mentioned that 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 and this was more than a few years ago and she was worried about back pain that associated with the abdominal pain No fever no chills no other concerns Related Data Previous Rx's ?Medication ?Instructions ?Recorded dicyclomine 20 mg tablet 20 mg PO QID PRN abdominal pain 08/13/25 #10 tabs Allergies Allergy/AdvReac Type Severity Reaction Status Date / Time No Known Drug Allergies Allergy Verified 08/13/25 08:49 Review of Systems ROS Status of ROS 10 or more systems reviewed and unremarkable except as noted in history and below [facility] Social History Smoking status: Light tobacco smoker Little interest or pleasure in doing things: not at all Feeling down, depressed, or hopeless: not at all Exam Narrative Exam Narrative: Nurses notes and vital signs reviewed and patient is not hypoxic. General: Well-appearing and in no apparent distress. Skin: Warm, dry, no pallor noted. No rash. Head: Normocephalic, atraumatic. Neck: Supple, non-tender. Cardiovascular: Regular Rate and Rhythm without murmur, gallop or rub. Respiratory: No accessory muscle use or respiratory distress. Lungs are clear to auscultation, no wheezing, rales or rhonchi Chest Wall: no tenderness Back: No midline thoracic or lumbar vertebral tenderness. No CVA tenderness Musculoskeletal: normal ROM, no calf or popliteal tenderness, no lower extremity edema/swelling GI: Abdomen is soft, non-distended. Normal bowel sounds. No masses appreciated. Subjective tenderness in the lower abdomen mostly at the suprapubic area Neurological: A&O x4. No cranial nerve dysfunction observed. No truncal ataxia. Moves all extremities. Sensation intact. Psychiatric: Cooperative and interactive. Normal mood and affect. Constitutional Vital Signs, click to edit/add: Last Vital Signs Temp 97.1 F L 08/13/25 08:52 Pulse 75 08/13/25 08:52 Resp 16 08/13/25 08:52 BP 124/59 08/13/25 08:52 Pulse Ox 100 08/13/25 08:52 O2 Del Method Room Air 08/13/25 08:52 Course Vital Signs Vital signs: Vital Signs Temperature 97.1 F L 08/13/25 08:52 Pulse Rate 75 08/13/25 08:52 Respiratory Rate 16 08/13/25 08:52 Blood Pressure 124/59 08/13/25 08:52 Pulse Oximetry 100 08/13/25 08:52 Oxygen Delivery Method Room Air 08/13/25 08:52 Temperature 97.1 F L 08/13/25 08:52 Pulse Rate 75 08/13/25 08:52 Respiratory Rate 16 08/13/25 08:52 Blood Pressure 124/59 08/13/25 08:52 Pulse Oximetry 100 08/13/25 08:52 Oxygen Delivery Method Room Air 08/13/25 08:52 MDM - Abdominal Pain MDM Narrative Medical decision making narrative: The patient CBC and chemistry shows no acute pathology She was treated with Toradol in the ER CAT scan of the abdomen pelvis without contrast showed no acute pathology and the patient urinalysis showed no UTI The right now the patient was referred to the gastroenterology outpatient for further evaluation [place] with provided with supportive care The patient is to follow up with primary care physician in next 2-3 days or to return to the emergency department should any of the signs or symptoms worsen or new symptoms develop. The patient agrees with the following Diagnosis and Treatment plan and the patient will be discharged home. Lab Data Labs: Lab Results 08/13/25 08/13/25 Range/Units 08:50 09:45 WBC 3.5 L (4.0-11.0) 10^3/uL RBC 3.99 L (4.20-5.40) 10^6/uL Hgb 13.0 (12.0-16.0) g/dL Hct 37.1 (36.0-48.0) % MCV 93.0 (81.0-99.0) fL MCH 32.6 (26.7-34.0) pg MCHC 35.0 (29.9-35.2) g/dL RDW 12.0 (11.0-15.0) % Plt Count 221 (150-450) 10^3/uL MPV 9.7 (9.5-13.5) fL Neut % (Auto) 54.4 (43.0-75.0) % Lymph % (Auto) 32.3 (20.5-60.0) % Isabela % (Auto) 8.8 (1.7-12.0) % Eos % (Auto) 3.4 (0.9-7.0) % Baso % (Auto) 1.1 (0.2-2.0) % Neut # (Auto) 1.9 (1.4-6.5) 10^3/uL Lymph # (Auto) 1.1 L (1.2-3.8) 10^3/uL Isabela # (Auto) 0.3 (0.3-0.8) 10^3/uL Eos # (Auto) 0.1 (0.0-0.7) 10^3/uL Baso # (Auto) 0.0 (0.0-0.1) 10^3/uL Abs Immat Gran (auto) 0.00 (0.00-0.03) 10^3/uL Imm/Tot Granulo (auto) 0.0 (0.0-0.5) % Sodium 141 (136-145) mmol/L Potassium 3.6 (3.5-5.1) mmol/L Chloride 105 (98-107) mmol/L Carbon Dioxide 24.5 (21.0-32.0) mmol/L Anion Gap 15.1 BUN 12.0 (7.0-18.0) mg/dL Creatinine 0.80 (0.55-1.02) mg/dL Est GFR ( Amer) >60 (>=60 mL/min/1.73m^2) Est GFR (Non-Af Amer) >60 (>=60 mL/min/1.73m^2) BUN/Creatinine Ratio 15.0 Glucose 82 (74-106) mg/dL Calcium 9.1 (8.5-10.1) mg/dL Total Bilirubin 0.9 (0.2-1.0) mg/dL AST 15 (15-37) U/L ALT 14 (14-59) U/L Alkaline Phosphatase 77 (46-116) U/L Total Protein 8.5 H (6.4-8.2) g/dL Albumin 4.5 (3.4-5.0) g/dL Globulin 4.0 g/dL Albumin/Globulin Ratio 1.1 Serum HCG, Qual Negative (NEGATIVE) Urine Color Yellow (YELLOW) Urine Clarity Clear (CLEAR) Urine pH 6.0 (5.0-9.0) Ur Specific [place] 1.025 (1.005-1.025) Urine Protein Negative (NEG/TRACE) mg/dL Urine Glucose (UA) Negative (NEGATIVE) mg/dL Urine Ketones Negative (NEGATIVE) mg/dL Urine Occult Blood Small A (NEGATIVE) Urine Nitrite Negative (NEGATIVE) Urine Bilirubin Negative (NEGATIVE) Urine Urobilinogen 4.0 A (0.2-1.0) EU/dL Ur Leukocyte Esterase Negative (NEGATIVE) Urine RBC 2-5 A (0-2) #/HPF Urine WBC 0-2 A (NONE SEEN) #/HPF Ur Squamous Epith Cells Few A (NONE/RARE) #/LPF Urine Crystals None seen (None Seen) #/HPF Urine Bacteria Trace A (NONE SEEN) #/HPF Urine Casts None seen (NONE SEEN) #/LPF Urine Mucus Trace A (NONE SEEN) Ur Culture Indicated? No Discharge Plan Discharge Chief Complaint: Abdominal Pain Clinical Impression: Abdominal pain Patient Disposition: Home, Self-Care Time of Disposition Decision: 12:25 Condition: Good Prescriptions / Home Meds: New dicyclomine 20 mg tablet 20 mg PO QID PRN (Reason: abdominal pain) Qty: 10 0RF Print Language: Russian Instructions: Abdominal Pain (ED) Referrals: ONEIL MADDEN [Physician, Gastroenterology] - 1 week Donya Ye MD [Primary Care Provider, [facility]] - 1 week Discharge Date/Time: 08/13/25 12:35
== END 2025-08-13 12:35 | disposition home or self-care (01) ==
PROVIDERS: Emergency Provider Emergency Medicine; PCP Family Medicine
DX: R10.30 Lower abdominal pain, unspecified (principal); F17.200 Nicotine dependence, unspecified, uncomplicated
CPT/HCPCS: 36415; 74176; 80053; 81001; 84703; 85025; 96374; 99284; J1885